=== PATIENT | female | born 1935 | race Caucasian/White ===

== ENCOUNTER 2022-07-07 10:20 | Inpatient (IN) | payer MEDICARE, SELFPAY ==
[2022-07-07] VITALS (14 sets, daily range): BP systolic 114–156; BP diastolic 41–80; PULSE 58–90; RESP 14–20; TEMP 36.1–37.1; O2SAT 92–98; BMI 28.7
--- NOTE | ~2022-07-07 | XR_ITS ---
EXAMINATION: XR CHEST CLINICAL INFORMATION: Near syncope COMPARISON: Previous x-ray February 2013 TECHNIQUE: 2 views of the chest were obtained. FINDINGS: The cardiac and mediastinal contours are stable. There is increasing elevation of the left hemidiaphragm. The lungs are clear. No pleural effusion or pneumothorax. Degenerative changes of the spine and shoulders. XR/XR chest 2V IMPRESSION: Increasing elevation of the left hemidiaphragm.
--- NOTE | 2022-07-07 10:38 | ECG_ITS ---
Test Reason : dissiness Blood Pressure : / mmHG Vent. Rate : 081 BPM Atrial Rate : 000 BPM P-R Int : 000 ms QRS Dur : 110 ms QT Int : 426 ms P-R-T Axes : 000 030 060 degrees QTc Int : 494 ms Normal sinus rhythm with frequent Premature ventricular complexes Nonspecific ST and T wave abnormality Prolonged QT Abnormal ECG When compared with ECG of 07-MAR-2013 14:42, Premature ventricular complexes are now Present Non-specific change in ST segment in Inferior leads T wave amplitude has decreased in Inferior leads QT has lengthened Referred By: Salvatore Finn Electronically Signed By:PASCALE CARDENAS MD
--- NOTE | 2022-07-07 10:45 | ED.GIBLEED ---
HPI - GI Bleed General Chief complaint: GI Bleed Stated complaint: Dizzy, black stool, Low BP per EMS Time Seen by Provider: 07/07/22 10:29 Source: patient and old records reviewed Limitations: no limitations History of Present Illness HPI Narrative: Patient complains of feeling lightheaded over the past 2-3 days. She denies chest pain or palpitations. She states she had a similar feeling the past when she was diagnosed with an irregular heartbeat. She does not know the name of the heartbeat but does not think she has atrial fibrillation. She is not on blood thinners other than aspirin daily. No nausea or vomiting. She states she had 1 episode of dark sticky stool on Tuesday but none since then. day. No abdominal pain other than cramping on Tuesday. No fevers or chills or cough or other new symptom. She denies recent medication changes. No history of GI bleed Related Data Home Medications Medication Instructions Recorded Confirmed amlodipine 5 mg tablet 5 mg PO DAILY 09/30/20 clonazepam 0.5 mg tablet 0.5 mg PO DAILY PRN 09/30/20 fluocinolone 0.025 % topical topical 09/30/20 ointment hydrochlorothiazide 25 mg tablet 25 mg PO DAILY 09/30/20 lidocaine HCl 2 % mucosal solution 2 ml PO 09/30/20 metoprolol succinate 25 mg 25 mg PO DAILY 09/30/20 tablet,extended release 24 hr rosuvastatin 10 mg tablet 10 mg PO BEDTIME 09/30/20 Allergies Allergy/AdvReac Type Severity Reaction Status Date / Time codeine [CODEINE] Allergy Unknown HEADACHE Verified 07/07/22 10:42 Review of Systems Constitutional: Comments: General malaise. No fevers or chills Cardiovascular: Comments: Lightheaded and near syncope but no syncope or palpitations or chest pain Respiratory: Comments: No cough or dyspnea Gastrointestinal: Comments: Pain other than cramping on Tuesday. No nausea vomiting. Positive dark stools concerning for melena Musculoskeletal: Comments: No musculoskeletal complaint Integumentary/Breasts: Comments: No change in color Neurologic: Comments: No focal weakness PMFSH Social History Social History Alcohol intake: current Alcohol intake frequency: a few times a week Smoked in Last 30 Days: No Use of substances other than those prescribed or required for medical reasons: No Advance Directives: No Physical Exam Vital Signs: Vital Signs: Last Vital Signs Temp 98.7 F 07/07/22 10:33 Pulse 80 07/07/22 10:33 Resp 16 07/07/22 10:33 BP 134/47 L 07/07/22 10:33 Pulse Ox 98 07/07/22 10:33 O2 Del Method Room Air 07/07/22 10:33 BMI result Body Mass Index 28.7 Const: Other: Awake and alert, no acute distress. Vital signs are stable HEENT: Other: Normocephalic atraumatic Resp: Other: Clear and equal bilaterally without wheezes rales or rhonchi Cardio: Other: Regular rate and rhythm without murmurs rubs or gallop GI: Other: Soft nontender nondistended. Rectal exam shows no hernias externally or internally. Stool is melanotic. Sample sent to lab Skin: Other: Warm pink and dry Neuro: Other: No focal deficits noted Medications Administered Discontinued Medications Generic Name Dose Route Start Last Admin Trade Name Freq PRN Reason Stop Dose Admin Sodium Chloride 500 mls @ 500 mls/hr 07/07/22 10:45 07/07/22 10:58 Ns IV 07/07/22 11:44 500 mls/hr .Q1H WILLIE Administration Pantoprazole Sodium 40 mg 07/07/22 10:44 07/07/22 11:08 Pantoprazole Sodium 40 Mg/10 Ml Vial IVPUSH 07/07/22 10:45 40 mg ONCE ONE Administration Medical Decision Making Medical Decision Making [facility] Narrative: Patient with lightheadedness and history concerning for GI bleed. Anemia workup Type and screen ordered Other potential causes such is dysrhythmia, ischemia, hypokalemia, dehydration, electrolyte imbalance are possible. Secondary cardiac ischemia if anemic also possible. Broad-based workup and anticipate hospitalization 11:47. Stool guaiac report from lab is positive confirming melena, GI bleed. Await further labs Hemoglobin is 6.8. Transfusion ordered. Lab Data 07/07/22 11:31 07/07/22 11:31 Labs: Lab Results 07/07/22 07/07/22 07/07/22 Range/Units 11:20 11:31 11:31 WBC 8.3 (4.8-10.8) X10*3/uL RBC 2.30 L (4.20-5.50) X10*6/uL Hgb 6.8 L* (12.0-16.0) g/dl Hct 20.9 L* (37.0-47.0) % MCV 90.9 (80.0-98.0) fL MCH 29.6 (27.0-33.0) pg MCHC 32.5 (31.0-35.0) g/dl RDW 14.8 (11.0-16.0) % Plt Count 213 (160-400) X10*3/uL MPV 9.2 L (9.4-12.3) fL Immature Gran % (Auto) 0.7 H (0.0-0.4) % Neut % (Auto) 78.1 H (45-73) % Lymph % (Auto) 12.7 L (20-40) % Chicot % (Auto) 7.6 (2-11) % Eos % (Auto) 0.5 (0-4) % Baso % (Auto) 0.4 (0-2) % Lymph # (Auto) 1.1 L (1.2-4.9) X10*3/uL [place] # (Auto) 0.6 (0.1-1.2) X10*3/uL Eos # (Auto) 0.0 (0.0-0.4) X10*3/uL Baso # (Auto) 0.0 (0.0-0.2) X10*3/uL Abs Immat Gran (auto) 0.06 H (0.00-0.03) X10*3/uL Absolute Neuts (auto) 6.5 (2.0-8.3) x10*3/uL Absolute Nucleated RBC 0.000 (0.0-0.012) X10*3/uL Nucleated RBC % (auto) 0.0 (0.0-0.2) /100WBC PT 11.1 (10.0-13.1) SEC INR 1.0 (0.9-1.1) D-Dimer High Sensitivty 160 NG/ML Sodium (135-145) mmol/L Potassium (3.3-5.1) mmol/L Chloride (96-108) mmol/L Carbon Dioxide (22-29) mmol/L Anion Gap (12-20) BUN (9-16) mg/dL Creatinine (0.5-1.4) mg/dL Estim Creat Clear Calc Estimated GFR Random Glucose (60-115) mg/dL Lactic Acid (0.5-2.0) mmol/L Calcium (8.4-10.2) mg/dL Total Bilirubin (0.0-1.0) mg/dL AST (5-31) U/L ALT (0-31) U/L Alkaline Phosphatase (39-117) U/L Ammonia (13-55) umol/L Troponin I High Sens (<3.5-17.0) ng/L B-Natriuretic Peptide (<100) pg/mL Total Protein (6.5-8.0) g/dL Albumin (3.5-5.0) g/dL Stool Occult Blood POSITIVE (NEGATIVE) 07/07/22 07/07/22 07/07/22 Range/Units 11:31 11:31 11:31 WBC (4.8-10.8) X10*3/uL RBC (4.20-5.50) X10*6/uL Hgb (12.0-16.0) g/dl Hct (37.0-47.0) % MCV (80.0-98.0) fL MCH (27.0-33.0) pg MCHC (31.0-35.0) g/dl RDW (11.0-16.0) % Plt Count (160-400) X10*3/uL MPV (9.4-12.3) fL Immature Gran % (Auto) (0.0-0.4) % Neut % (Auto) (45-73) % Lymph % (Auto) (20-40) % [place]ot % (Auto) (2-11) % Eos % (Auto) (0-4) % Baso % (Auto) (0-2) % Lymph # (Auto) (1.2-4.9) X10*3/uL [place] # (Auto) (0.1-1.2) X10*3/uL Eos # (Auto) (0.0-0.4) X10*3/uL Baso # (Auto) (0.0-0.2) X10*3/uL Abs Immat Gran (auto) (0.00-0.03) X10*3/uL Absolute Neuts (auto) (2.0-8.3) x10*3/uL Absolute Nucleated RBC (0.0-0.012) X10*3/uL Nucleated RBC % (auto) (0.0-0.2) /100WBC PT (10.0-13.1) SEC INR (0.9-1.1) D-Dimer High Sensitivty NG/ML Sodium 136 (135-145) mmol/L Potassium 3.6 (3.3-5.1) mmol/L Chloride 102 (96-108) mmol/L Carbon Dioxide 26 (22-29) mmol/L Anion Gap 12 (12-20) BUN 23 H (9-16) mg/dL Creatinine 0.66 (0.5-1.4) mg/dL Estim Creat Clear Calc 54.1 Estimated GFR > 60 Random Glucose 124 H (60-115) mg/dL Lactic Acid 1.2 (0.5-2.0) mmol/L Calcium 8.2 L (8.4-10.2) mg/dL Total Bilirubin 0.4 (0.0-1.0) mg/dL AST 19 (5-31) U/L ALT 13 (0-31) U/L Alkaline Phosphatase 33 L (39-117) U/L Ammonia (13-55) umol/L Troponin I High Sens 18.9 H (<3.5-17.0) ng/L B-Natriuretic Peptide (<100) pg/mL Total Protein 4.9 L (6.5-8.0) g/dL Albumin 3.3 L (3.5-5.0) g/dL Stool Occult Blood (NEGATIVE) 07/07/22 07/07/22 Range/Units 11:31 11:31 WBC (4.8-10.8) X10*3/uL RBC (4.20-5.50) X10*6/uL Hgb (12.0-16.0) g/dl Hct (37.0-47.0) % MCV (80.0-98.0) fL MCH (27.0-33.0) pg MCHC (31.0-35.0) g/dl RDW (11.0-16.0) % Plt Count (160-400) X10*3/uL MPV (9.4-12.3) fL Immature Gran % (Auto) (0.0-0.4) % Neut % (Auto) (45-73) % Lymph % (Auto) (20-40) % [place] % (Auto) (2-11) % Eos % (Auto) (0-4) % Baso % (Auto) (0-2) % Lymph # (Auto) (1.2-4.9) X10*3/uL [place] # (Auto) (0.1-1.2) X10*3/uL Eos # (Auto) (0.0-0.4) X10*3/uL Baso # (Auto) (0.0-0.2) X10*3/uL Abs Immat Gran (auto) (0.00-0.03) X10*3/uL Absolute Neuts (auto) (2.0-8.3) x10*3/uL Absolute Nucleated RBC (0.0-0.012) X10*3/uL Nucleated RBC % (auto) (0.0-0.2) /100WBC PT (10.0-13.1) SEC INR (0.9-1.1) D-Dimer High Sensitivty NG/ML Sodium (135-145) mmol/L Potassium (3.3-5.1) mmol/L Chloride (96-108) mmol/L Carbon Dioxide (22-29) mmol/L Anion Gap (12-20) BUN (9-16) mg/dL Creatinine (0.5-1.4) mg/dL Estim Creat Clear Calc Estimated GFR Random Glucose (60-115) mg/dL Lactic Acid (0.5-2.0) mmol/L Calcium (8.4-10.2) mg/dL Total Bilirubin (0.0-1.0) mg/dL AST (5-31) U/L ALT (0-31) U/L Alkaline Phosphatase (39-117) U/L Ammonia 16 (13-55) umol/L Troponin I High Sens (<3.5-17.0) ng/L B-Natriuretic Peptide 295 H (<100) pg/mL Total Protein (6.5-8.0) g/dL Albumin (3.5-5.0) g/dL Stool Occult Blood (NEGATIVE) Critical Care Time Critical Care Time Critical Care Time: Yes Total Critical Care Time: 75 Attestation: Critical care time secondary to symptomatic anemia requiring transfusion secondary to GI bleeding. Critical care time is outside of separately billable procedures Discharge Plan Discharge Patient Disposition: Admitted As Inpatient Prescriptions: No Action rosuvastatin 10 mg tablet 10 mg PO BEDTIME hydrochlorothiazide 25 mg tablet 25 mg PO DAILY metoprolol succinate 25 mg tablet extended release 24 hr 25 mg PO DAILY clonazepam 0.5 mg tablet 0.5 mg PO DAILY PRN amlodipine 5 mg tablet 5 mg PO DAILY fluocinolone 0.025 % ointment topical lidocaine HCl 2 % solution 2 ml PO
[2022-07-07] MEDS: 0.9 % Sodium Chloride 500 ML IV (10:58)
[2022-07-07] MEDS: Pantoprazole Sodium 40 MG/10 ML VIAL IVPUSH ×2 (11:08→16:37)
--- NOTE | 2022-07-07 11:28 | PC.NURSE ---
Addendum entered by Julia Zheng RN 07/07/22 11:36: Black tarry stool observed upon occult stool exam. Original Note: Pt semi-fowlers on stretcher, airway open and patent, no obvious signs of distress, no difficulty breathing. A&ox4, skin pink, warm, and dry. Lung sounds clr and equal bilaterally all lincoln. Heart sounds normal, pt has PVC's on the monitor. Bowel sounds present all lincoln, abdomen soft, non-tender. No edema noted. Pt reporting black tarry diarrhea stool since tuesday or tuesday and one smaller bowel movement since, but reports that she hasn't had much appetite. Pt also reporting some bouts of dizziness/lightheadedness.
[2022-07-07 11:37] LABS: MANUAL DIFF FLAG NO
[2022-07-07 11:43] LABS: OBS Int Ctl Valid YES; OBS1 POSITIVE (NEGATIVE)
[2022-07-07 11:47] LABS: Ammonia 16 umol/L (13-55)
[2022-07-07 11:49] LABS: Prothrombin Time 11.1 SEC (10.0-13.1)
[2022-07-07 11:50] LABS: Lactic Acid 1.2 mmol/L (0.5-2.0)
[2022-07-07 11:51] LABS: D Dimer High Sensitivity 160 NG/ML
[2022-07-07 11:55] LABS: Alanine Aminotransferase 13 U/L (0-31); Albumin Level 3.3 g/dL (3.5-5.0); Alkaline Phosphatase 33 U/L (39-117); Anion Gap 12 (12-20); Aspartate Amino Transferase 19 U/L (5-31); Basophils Percent Auto 0.4 % (0-2); Bilirubin Total 0.4 mg/dL (0.0-1.0); Blood Urea Nitrogen 23 mg/dL (9-16); Calcium 8.2 mg/dL (8.4-10.2); Carbon Dioxide 26 mmol/L (22-29); Chloride 102 mmol/L (96-108); Creatinine Clr Calc Pharmacy 54.1; Eosinophils Percent Auto 0.5 % (0-4); Estimated Glomerular Filt Rate > 60; Glucose Random 124 mg/dL (60-115); Imm Gran Abs Auto 0.06 X10*3/uL (0.00-0.03); Imm Gran Pct Auto 0.7 % (0.0-0.4); Lymphocytes Absolute Auto 1.1 X10*3/uL (1.2-4.9); Lymphocytes Percent Auto 12.7 % (20-40); Mean Corpuscular HGB Conc 32.5 g/dl (31.0-35.0); Mean Corpuscular Hemoglobin 29.6 pg (27.0-33.0); Mean Corpuscular Volume 90.9 fL (80.0-98.0); Mean Platelet Volume 9.2 fL (9.4-12.3); Monocytes Absolute Auto 0.6 X10*3/uL (0.1-1.2); Monocytes Percent Auto 7.6 % (2-11); Neutrophils Absolute Auto 6.5 x10*3/uL (2.0-8.3); Neutrophils Percent Auto 78.1 % (45-73); Platelet Count 213 X10*3/uL (160-400); Potassium 3.6 mmol/L (3.3-5.1); Red Cell Distribution Width 14.8 % (11.0-16.0); Sodium 136 mmol/L (135-145); Total Protein 4.9 g/dL (6.5-8.0); White Blood Count 8.3 X10*3/uL (4.8-10.8)
[2022-07-07 11:57] LABS: Hematocrit 20.9 % (37.0-47.0); Hemoglobin 6.8 g/dl (12.0-16.0)
--- OUTSIDE RECORDS SUMMARY | 2022-07-07 11:57 | XMS_ITS | Continuity of Care Document ---
Author Name Unknown Organization [facility] ter Address [address] [place] [id number]- Care Team Providers Care Extractor Loader And Unloader Name Role Phone Perez Faye MD Primary Care Physician [facility]counter [facility] Date(s): 04/27/22 - 05/28/[address] [id number] Attending Physician: Perez Faye MD Admitting Physician: Perez Faye MD Referring Physician: Perez Faye MD Allergies, Adverse Reactions, Alerts Substance Reaction Severity Status codeine SEVERE HEADACHE Active Immunizations Given and Recorded Vaccine Date Status Refusal Reason tetanus-diphtheria toxoids (Td) 02/01/22 Given influenza virus vaccine, inactivated 1 01/16/22 Gi viet influenza virus vaccine, inactivated 12/27/17 Tad rded influenza virus vaccine, inactivated 03/04/17 Give n influenza virus vaccine, inactivated 12/09/15 Tad rded influenza virus vaccine, inactivated 12/20/14 Tad rded influenza virus vaccine, inactivated 2 12/12/13 Gi viet influenza virus vaccine, inactivated 3 12/20/12 Gi viet influenza virus vaccine, inactivated 02/23/12 Give n influenza virus vaccine, inactivated 01/15/08 Give n influenza virus vaccine, inactivated 01/19/07 Give n SARS-CoV-2 (COVID-19) mRNA BNT-162b2 vac 11/19/20 Recorded SARS-CoV-2 (COVID-19) mRNA BNT-162b2 vac 10/24/20 Recorded Influenza Virus Vaccine (oldterm) 12/27/18 Recorde d Influenza Virus Vaccine (oldterm) 4 02/15/06 Given pneumococcal 13-valent vaccine 06/07/14 Given tetanus/diphtheria/pertussis, acel(Tdap) 10/21/11 Given FluLaval (oldterm) 5 12/11/10 Given FluLaval (oldterm) 6 01/27/10 Given influ virus vac, H1N1, inactive(oldterm) 7 12/03/10 Given Tetanus Toxoid Vaccine (oldterm) 03/28/04 Given Pneumococcal Vacc (oldterm) 06/25/03 Given 1Early/Late Reason: Early/Late Reason: Accommodate D/C 2Result Comment: [12/17/2013] [facility] 3Admin Note: DONE ON 12/18/12. [facility] 4Admin Note: GIVEN IN CLINIC SHAM 5Admin Note: Biomedical Anne [facility] 6Admin Note: BIOMEDICAL ANNE 7Result Comment: [employer] Medications amLODIPine 5 mg oral tablet 1 tablet, By Mouth, Daily, # 90 tablet, 1 Refills, Maintenance, 04/06/22 8:31:00 EST, [facility], 153, cm, 02/01/22 11:33:00 EST, Height Start Date: 04/06/22 Status: Ordered Aspir 81 Oral Enteric Coated Tablet 1 tablet, By Mouth, Daily, # 30 tablet, 0 Refills, Maintenance, EC Tablet Start Date: 05/07/10 Status: Ordered atorvastatin 10 mg oral tablet 1 tablet, By Mouth, Daily, # 90 tablet, 3 Refills, [facility], 152, cm, 06/01/21 13:37:00 EST, Height, 72.7, kg, 02/14/20 14:50:00 EST, Dry Weight Start Date: 10/14/21 Status: Ordered citalopram 10 mg oral tablet 10 mg, 1, tablet, By Mouth, Daily, # 30 tablet, Refills 0, Maintenance, 04/27/22 11:44:00 EST, Partial fill upon patient request if the prescription is for a schedule II opioid drug. Start Date: 04/27/22 Status: Ordered Compression Stockings See Instructions, # 2 pair, Refills 2, Tot. 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 Refills 1, Maintenance, 04/06/22 8:31:00 EST, Route to Pharmacy Electronically, [facility], 153, cm, 02/01/22 11:33:00 EST, Height Start Date: 04/06/22 Status: Ordered Metoprolol Succinate ER 25 mg oral tablet, extended release 1 tablet, By Mouth, Daily, # 90 tablet, 0 Refills, Maintenance, 03/09/22 11:31:00 EST, [facility], 153, cm, 02/01/22 11:33:00 EST, Height Start Date: 03/09/22 Status: Ordered Multivitamin With Minerals See Instructions, 1 tab By Mouth daily, 0 Refills, Maintenance Start Date: 09/23/10 Status: Ordered traZODone 50 mg oral tablet 100 mg, 2, tablet, By Mouth, Daily at bedtime, # 30 tablet, Refills 0, Maintenance, 04/27/22 11:45:00 EST, Partial fill upon patient request if the prescription is for a schedule II opioid drug. Start Date: 04/27/22 Status: Ordered Vitamin D3 = 2,000 International_Units, By Mouth, Daily, 0 Refills, Maintenance Start Date: 01/20/10 Status: Ordered Problem List Condition Confirmation Course Effective Dates Status Health Status Informant Gastric distention Confirmed Active Anxiety Confirmed Active Arteritis Confirmed Active Hematuria Confirmed Active Cardiac catheterization 1 Confirmed Active Colonoscopy 2, 3 Confirmed Active Constipation Confirmed Active Difficulty sleeping Confirmed Active Shortness of breath Confirmed Active Acquired elevated diaphragm 4 Confirmed Active H/O insomnia Confirmed Active Hiatal hernia 5 Confirmed Active Hernia, hiatal Confirmed 09/13/16 Active Hip joint pain Confirmed 04/05/08 Active Hypercholesterolemia Confirmed Active Hypertension Confirmed Active Hypertensive urgency Confirmed Active Mixed incontinence Confirmed Active Increased frequency of urination Confirmed Active Chronic pruritus Confirmed Active Lumbar spinal stenosis Confirmed 04/05/08 Active Lumbar spondylosis Confirmed Active 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 3colo/barium enema 2002 negative, repeat 2012 4On left-exacerbated by gastric distention 5EGD 2016 6[facility] Social History Social History Type Response Smoking Status Former smoker entered on: 04/04/17 Sex Patient Care team information Care Team Personnel Name: Milagros Minor RN Position: [facility] RN Member Role: Primary Care Nurse Name: Perez Faye MD Position: [facility] Primary Care Physician Member Role: PCP Address: Address: [address] [place] [id number]- Name: Erin Hudson RN Position: [facility] RN Member Role: Primary Care Nurse Name: Giovanny Sanderson MD Position: [facility] Cardiology MD Member Role: Lifetime Consulting Physician Address: Address: [address] [place] [address] [place] [address]- Care Team Related Persons Name: ZHANNA GUADALUPE Address: home [address] [place] [address] Name: ROSALINDA DENNY Address: home [address] [place] [address]
--- OUTSIDE RECORDS SUMMARY | 2022-07-07 11:57 | XMS_ITS | Continuity of Care Document ---
Author Name Unknown Organization [facility] Rajat Tremayne lt Address [address] [place] [address]- Care Team Providers Care Third Grade Teacher Name Role Phone Neyda DUENAS, Perez Alfaro Primary Care Physician [phone] [facility]counter [facility] Date(s): 03/19/22 - 04/18/22 [facility] [address] [place] [address]- Allergies, Adverse Reactions, Alerts Substance Reaction Severity [...] Early/Late Reason: Accommodate D/C 2Result Comment: [12/17/2013] [facility] 3Admin Note: DONE ON 12/18/12. [facility] 4Admin Note: GIVEN IN CLINIC SHAM 5Admin Note: Biomedical Anne [facility] 6Admin Note: BIOMEDICAL ANNE 7Result Comment: [employer] Medications amLODIPine 5 mg oral tablet 1 tablet, By Mouth, Daily, # 90 tablet, 1 Refills, Maintenance, 04/06/22 8:31:00 EST, [facility], cm, 02/01/22 11:33:00 EST, Height Start Date: 04/06/22 Status: Ordered Aspir 81 Oral Enteric Coated Tablet 1 tablet, By Mouth, Daily, # 30 tablet, 0 Refills, Maintenance, EC Tablet Start Date: 05/07/10 Status: Ordered atorvastatin 10 mg oral tablet 1 tablet, By Mouth, Daily, # 90 tablet, 3 Refills, [facility], 152, cm, 06/01/21 13:37:00 EST, Height, 72.7, kg, 02/14/20 14:50:00 EST, Dry Weight Start Date: 10/14/21 Status: Ordered clonazePAM 0.5 mg oral tablet See Instructions, 0.5 tablet in the morning and 1 tablet at night., # 45 tablet, 5 Refills, Maintenance, 02/03/22 13:20:00 EST, [facility]/pharmacy #[id number], 153, cm, 02/01/22 11:33:00 EST, Height, 72.7, kg, 02/14/20 14:50:00 EST, Dry Weight Start Date: 02/03/22 Status: Ordered Compression Stockings See Instructions, # 2 pair, Refills 2, Tot. 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 Refills 1, Maintenance, 04/06/22 8:31:00 EST, Route to Pharmacy Electronically, [facility], 153, cm, 02/01/22 11:33:00 EST, Height Start Date: 04/06/22 Status: Ordered Metoprolol Succinate ER 25 mg oral tablet, extended release 1 tablet, By Mouth, Daily, # 90 tablet, 0 Refills, Maintenance, 03/09/22 11:31:00 EST, [facility], 153, cm, 02/01/22 11:33:00 EST, Height Start Date: 03/09/22 Status: Ordered Multivitamin With Minerals See Instructions, 1 tab By Mouth daily, 0 Refills, Maintenance Start Date: 09/23/10 Status: Ordered physical therapy physical therapy, See Instructions, # 1 each, Refills 0, Tot. Refills 0, Maintenance, evaluate and treat for neck pain, 11/25/20 11:35:00 EDT, Supply Start Date: 11/25/20 Status: Ordered Vitamin D3 = 2,000 International_Units, [...] Active Acquired elevated diaphragm 4 Confirmed Active Hiatal hernia 5 Confirmed Active Hernia, hiatal Confirmed 09/13/16 Active Hip joint pain Confirmed 04/05/08 Active Hypercholesterolemia Confirmed Active Hypertension Confirmed Active Hypertensive urgency Confirmed Active Mixed incontinence Confirmed Active Increased frequency of urination Confirmed Active Chronic pruritus Confirmed Active Lumbar spinal stenosis Confirmed 04/05/08 Active Lumbar spondylosis Confirmed Active Neck pain Confirmed Active Obese [...] Confirmed 11/28/08 Active 1cath 2010 nl 2colonoscopy 2012 normal, no repeat secondary to age. 3colo/barium enema 2002 negative, repeat 2013 4On left-exacerbated by gastric distention 5EGD 2016 6[facility] Social History Social History Type Response Smoking Status Former smoker entered on: 04/04/17 Sex Patient Care team information Care Team Personnel Name: Milagros Minor RN Position: S RN Member Role: Primary Care Nurse Name: Perez Faye MD Position: [facility] Primary Care Physician Member Role: PCP Address: Address: [address] [place] [id number]- Name: Erin Hudson RN Position: [facility] RN Member Role: Primary Care Nurse Name: Giovanny Sanderson MD Position: [facility] Cardiology MD Member Role: Lifetime Consulting Physician Address: Address: [address] [place] [address] [place] [address]- Care Team Related Persons Name: ZHANNA GUADALUPE Address: home [address] [place] [address] Name: ROSALINDA DENNY Address: home [address] [place] [address]
--- OUTSIDE RECORDS SUMMARY | 2022-07-07 11:58 | XMS_ITS | Continuity of Care Document ---
Author Name Unknown Organization [facility] Address [address] [place] [address]- Care Team Providers Care Butadiene Converter Helper Name Role Phone Perez Faye MD Primary Care Physician Encounter 05/07/19 - 05/14/19 [facility] [address], [facility] [address] [place] [address]- [phone] Attending Physician: Perez Faye MD Admitting Physician: Perez Faye MD Referring Physician: Perez Faye MD Allergies, Adverse Reactions, Alerts Substance Reaction Severity Status codeine SEVERE HEADACHE Active Immunizations Given and Recorded Vaccine Date Status Refusal Reason Influenza Virus Vaccine (oldterm) 12/27/18 Recorde d Influenza Virus Vaccine (oldterm) 1 02/15/06 Given influenza virus vaccine, inactivated 12/27/17 Tad rded [...] influenza virus vaccine, inactivated 01/19/07 Give n pneumococcal 13-valent vaccine 06/07/14 Given tetanus/diphtheria/pertussis, acel(Tdap) 10/21/11 Given FluLaval (oldterm) 4 12/11/10 Given FluLaval (oldterm) 5 01/27/10 Given influ virus vac, H1N1, inactive(oldterm) 6 12/03/10 Given Tetanus Toxoid Vaccine (oldterm) 03/28/04 Given Pneumococcal Vacc (oldterm) 06/25/03 Given 1Admin Note: GIVEN IN CLINIC SHAM 2Result Comment: [12/17/2013] [facility] 3Admin Note: DONE ON 12/18/12. [facility] 4Admin Note: Biomedical Anne [facility] 5Admin Note: BIOMEDICAL ANNE 6Result Comment: WRONG BRAND Medications amLODIPine 2.5 mg oral tablet See Instructions, 1 tablet daily at night. One extra tablet in the morning if morning blood pressure is greater than 140 systolic., # 180 tablet, Refills 3, Tot. Refills 3, Maintenance, 02/19/19 9:17:48 EST, Instructions Replace Required Details, Rou... Start Date: 02/19/19 Status: Ordered Aspir 81 Oral Enteric Coated Tablet 1 tablet, By Mouth, Daily, # 30 tablet, 0 Refills, Maintenance, EC Tablet Start Date: 05/07/10 Status: Ordered Citrucel 2 gm/19 gm oral powder for reconstitution = 2 Gm, By Mouth, 3 times a day, # 1,500 Gm, 11 Refills, Maintenance, 08/02/16 8:20:58 Start Date: 08/02/16 Status: Ordered Compression Stockings See Instructions, # 2 pair, Refills 2, Tot. 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 Refills 3, Soft Stop, 02/19/19 9:16:10 EST, Route to Pharmacy Electronically, [id number], [facility]/pharmacy #[id number] Start Date: 02/19/19 Stop Date: 02/14/20 Status: Ordered KlonoPIN 0.5 mg oral tablet 1 tablet = 0.5 mg, By Mouth, 2 times a day, # 60 tablet, 5 Refills, Maintenance, 11/29/18 15:09:00 EDT, Tablet Start Date: 11/29/18 Status: Ordered metoprolol 25 mg oral tablet, extended release 25 mg, 1, tablet, By Mouth, Daily, 90 DAY SUPPLY, # 90 tablet, Refills 3, Tot. Refills 3, Maintenance, 02/19/19 9:17:30 EST, Route to Pharmacy Electronically, [id number], [facility]/pharmacy #[id number] Start Date: 02/19/19 Stop Date: 02/14/20 Status: Ordered Multivitamin With Minerals See Instructions, 1 tab By Mouth daily, 0 Refills, Maintenance Start Date: 09/23/10 Status: Ordered ProAir HFA 90 mcg/inh inhalation aerosol with adapter 2, puffs, Inhalation, Every 6 hours, PRN, # 8.5 Gm, Refills 11, Tot. Refills 11, Maintenance, 11/16/18 8:10:59 EDT, Aerosol, Route to Pharmacy Electronically, [id number], [facility]/pharmacy #[id number] Start Date: 11/16/18 Status: Ordered rosuvastatin 10 mg oral tablet See Instructions, TAKE 1 TABLET DAILY, # 90 tablet, 3 Refills, Soft Stop, 02/19/19 9:18:19 EST Start Date: 02/19/19 Status: Ordered Vitamin C By Mouth, Daily, 0 Refills, Maintenance, 08/02/16 7:52:28 Start Date: 08/02/16 Status: Ordered Vitamin D3 = 2,000 International_Units, By Mouth, Daily, 0 Refills, Maintenance Start Date: 01/20/10 Status: Ordered Problem List Condition Effective Dates Status Health Status Inform ant Gastric distention(Confirmed) Active Anxiety(Confirmed) Active Cardiac catheterization(Confirmed) 1 Active Colonoscopy(Confirmed) 2, 3 Active Constipation(Confirmed) Active Shortness of breath(Confirmed) Active Acquired elevated diaphragm( Confirmed) 4 Active Hiatal hernia(Confirmed) 5 Active Hernia, hiatal(Confirmed) 09/13/16 Active Hip joint pain(Confirmed) 04/05/08 Active Hypercholesterolemia(Confirmed) Active Hypertension(Confirmed) Active Hypertensive urgency(Confirmed) Active Chronic pruritus(Confirmed) Active Lumbar spinal stenosis(Confirmed) 04/05/08 Active Lumbar spondylosis(Confirmed) Active Neck pain(Confirmed) Active Osteoarthritis(Confirmed) Active Osteopenia(Confirmed) 6 Active PMR - Polymyalgia rheumatica(Confirmed) Active Leg swelling(Confirmed) Active Temporal arteritis(Confirmed) Active Venous stasis(Confirmed) Active Vitamin D deficiency(Confirmed) 11/28/08 Active 1cath 2010 nl 2colonoscopy 2012 normal, no repeat secondary to age. 3colo/barium enema 2002 negative, repeat 2012 4On left-exacerbated by gastric distention 5EGD 2016 [facility] Social History Social History Type Response Smoking Status Former smoker entered on: 04/04/17 Sex
--- OUTSIDE RECORDS SUMMARY | 2022-07-07 11:58 | XMS_ITS | Continuity of Care Document ---
Author Name Unknown Organization [facility] Address [address] [place] [address]- Care Team Providers Care Head Of Digital Name Role Phone Neyda DUENAS, Perez Alfaro Primary Care Physician [phone] Encounter [facility] Date(s): 06/01/21 - 07/01/21 [facility] Adult [address] [place] [address]- Attending Physician: Admabelardo, [id number] Admitting Physician: Admtr, [id number] Referring Physician: Admtr, Ar8 Allergies, Adverse Reactions, Alerts Substance Reaction Severity Status codeine SEVERE HEADACHE Active Immunizations Given and Recorded Vaccine Date Status Refusal Reason SARS-CoV-2 (COVID-19) mRNA BNT-162b2 vac 11/19/20 Recorded [...] GIVEN IN CLINIC SHAM 2Result Comment: [12/17/2013] [facility] 3Admin Note: DONE ON 12/18/12. [facility] 4Admin Note: Biomedical Anne [facility] 5Admin Note: BIOMEDICAL ANNE 6Result Comment: WRONG BRAND Medications amLODIPine 5 mg oral tablet 1 tablet, By Mouth, Daily, # 90 tablet, 1 Refills, [facility], 152, cm, 11/25/20 11:04:00 EDT, Height, 72.7, kg, 02/14/20 14:50:00 EST, Dry Weight Start Date: 04/16/21 Status: Ordered Aspir 81 Oral Enteric Coated Tablet 1 tablet, By Mouth, Daily, # 30 tablet, 0 Refills, Maintenance, EC Tablet Start Date: 05/07/10 Status: Ordered atorvastatin 10 mg oral tablet 1 tablet = 10 mg, By Mouth, Daily, # 90 tablet, 3 Refills, Maintenance, 10/30/20 11:22:00 EDT, [facility], Partial fill upon patient request if the prescription is for a schedule II opioid drug., 152, cm, 08/11/20 11:15:00 EDT,... Start Date: 10/30/20 Status: Ordered clonazePAM 0.5 mg oral tablet See Instructions, TAKE 1/2 TABLET TWICE A DAY APPOINTMENT NEEDED FOR FURTHER REFILLS, # 30 tablet, 5 Refills, Maintenance, 03/30/21 9:35:00 EST, [facility]/pharmacy #[id number], 152, cm, 11/25/20 11:04:00 EDT, Height, 72.7, kg, 02/14/20 14:50:00 EST, Dry Weight Start Date: 03/30/21 Status: Ordered clonazePAM 0.5 mg oral tablet See Instructions, TAKE HALF A TABLET BY MOUTH TWO TIMES A DAY, # 30 tablet, 0 Refills, Maintenance,12/11/20 7:41:00 EDT, [facility], 152, cm, 11/25/20 11:04:00 EDT, Height, 72.7, kg, 02/14/20 14:50:00 EST, Dry Weight Start Date: 12/11/20 Status: Ordered Compression Stockings See Instructions, # [...] Mouth, Daily, # 90 tablet, Refills 1, Route to Pharmacy Electronically, [facility], 152, cm, 11/25/20 11:04:00 EDT, Height, 72.7, kg, 02/14/20 14:50:00 EST, Dry Weight Start Date: 04/17/21 Status: Ordered Metoprolol Succinate ER 25 mg oral tablet, extended release 1 tablet, By Mouth, Daily, # 90 tablet, 1 Refills, [facility], 152, cm, 06/01/21 13:37:00 EST, Height, 72.7, kg, 02/14/20 14:50:00 EST, Dry Weight Start Date: 06/10/21 Status: Ordered Multivitamin With Minerals See Instructions, 1 tab By Mouth daily, 0 Refills, Maintenance Start Date: 09/23/10 Status: Ordered physical therapy physical therapy, See Instructions, # 1 each, Refills 0, Tot. Refills 0, Maintenance, evaluate and treat for neck pain, 11/25/20 11:35:00 EDT, Supply Start Date: 11/25/20 Status: Ordered Vitamin C By Mouth, Daily, 0 Refills, Maintenance, 08/02/16 7:52:28 Start Date: 08/02/16 Status: Ordered Vitamin D3 = 2,000 International_Units, By Mouth, Daily, 0 Refills, Maintenance Start Date: 01/20/10 Status: Ordered Problem List Condition Effective Dates Status Health Status Inform ant Gastric distention(Confirmed) Active Anxiety(Confirmed) Active Arteritis(Confirmed) Active Hematuria(Confirmed) Active Cardiac catheterization(Confirmed) 1 Active Colonoscopy(Confirmed) 2, 3 Active Constipation(Confirmed) Active Shortness of breath(Confirmed) Active Acquired elevated diaphragm( Confirmed) 4 Active Hiatal hernia(Confirmed) 5 Active Hernia, hiatal(Confirmed) 09/13/16 Active Hip joint pain(Confirmed) 04/05/08 Active Hypercholesterolemia(Confirmed) Active Hypertension(Confirmed) Active Hypertensive urgency(Confirmed) Active Mixed incontinence(Confirmed) Active Increased frequency of urination(Confirmed) Active Chronic pruritus(Confirmed) Active Lumbar spinal stenosis(Confirmed) 04/05/08 Active Lumbar spondylosis(Confirmed) Active Neck pain(Confirmed) Active Obese class I(Confirmed) Active Osteoarthritis(Confirmed) Active Osteopenia(Confirmed) 6 Active PMR - Polymyalgia rheumatica(Confirmed) Active Right sided sciatica(Confirmed) Active Spinal stenosis(Confirmed) Active Leg swelling(Confirmed) Active Temporal arteritis(Confirmed) Active Urinary incontinence(Confirmed) Active Venous stasis(Confirmed) Active Vitamin D deficiency(Confirmed) 11/28/08 Active 1cath 2011 nl 2colonoscopy 2012 normal, no repeat secondary to age. 3colo/barium enema 2002 negative, repeat 2012 4On left-exacerbated by gastric distention 5EGD 2016 [facility] Social History Social History Type Response Smoking Status Former smoker entered on: 04/04/17 Sex
--- OUTSIDE RECORDS SUMMARY | 2022-07-07 11:58 | XMS_ITS | Continuity of Care Document ---
Author Name Unknown Organization [facility] [facility] Address [address] [place] [address]- Care Team Providers Care Captain Room Service Name Role Phone Perez Faye MD Primary Care Physician Encounter [facility] Date(s): 11/25/20 - 12/02/20 [facility] Adult [address] [place] [address]- Encounter Diagnosis Anxiety(Discharge Diagnosis) - 11/25/20 Hypercholesterolemia(Discharge Diagnosis) - 11/25/20 Hypertension(Discharge Diagnosis) - 11/25/20 Temporal arteritis(Discharge Diagnosis) - 11/25/20 Neck pain(Discharge Diagnosis) - 11/25/20 Attending Physician: Perez Faye MD Allergies, Adverse Reactions, [...] GIVEN IN CLINIC SHAM 2Result Comment: [12/17/2013] [facility] 3Admin Note: DONE ON 12/18/12. [facility] 4Admin Note: Biomedical Anne [facility] 5Admin Note: BIOMEDICAL ANNE 6Result Comment: WRONG BRAND Medications amLODIPine 5 mg oral tablet 5 mg, 1, tablet, By Mouth, Daily, # 90 tablet, Refills 0, Tot. Refills 0, Maintenance, 10/30/20 11:24:00 EDT, Route to Pharmacy Electronically, [facility], 152, cm, 08/11/20 11:15:00 EDT, Height, 72.7, kg, 02/14/20 14:50:00 EST,... Start Date: 10/30/20 Status: Ordered Aspir 81 Oral Enteric Coated Tablet 1 tablet, By Mouth, Daily, # 30 tablet, 0 Refills, Maintenance, EC Tablet Start Date: 05/07/10 Status: Ordered atorvastatin 10 mg oral tablet 1 tablet = 10 mg, By Mouth, Daily, # 90 tablet, 3 Refills, Maintenance, 10/30/20 11:22:00 EDT, [facility], Partial fill upon patient request if the prescription is for a schedule II opioid drug., 152, cm, 08/11/20 11:15:00 EDT,... Start Date: 10/30/20 Status: Ordered clonazePAM 0.5 mg oral tablet See Instructions, TAKE HALF A TABLET BY MOUTH TWO TIMES A DAY, # 30 tablet, 0 Refills, Maintenance,11/07/20 12:31:00 EDT, [facility]/pharmacy #[id number], 152, cm, 08/11/20 11:15:00 EDT, Height, 72.7, kg, 02/14/20 14:50:00 EST, Dry Weight Start Date: 11/07/20 Status: Ordered Compression Stockings See Instructions, # [...] 90 tablet, Refills 1, Tot. Refills 1, Soft Stop, 10/30/20 11:23:00 EDT, Route to Pharmacy Electronically, [facility], 152, cm, 08/11/20 11:15:00 EDT, Height, 72.7, kg, 02/14/20 14:50:00 EST,... Start Date: 10/30/20 Stop Date: 04/28/21 Status: Ordered metoprolol 25 mg oral tablet, extended release 25 mg, 1, tablet, By Mouth, Daily, 90 DAY SUPPLY, # 90 tablet, Refills 0, Tot. Refills 0, Maintenance, 10/30/20 11:23:00 EDT, Route to Pharmacy Electronically, [facility], 152,cm, 08/11/20 11:15:00 EDT, Height, 72.7, kg, ... Start Date: 10/30/20 Stop Date: 01/28/21 Status: Ordered Multivitamin With Minerals See Instructions, [...] gastric distention 5EGD 2016 [facility] Diagnosis Diagnosis Type Effective Dates Health Status Clinical Service Informant Anxiety Discharge Diagnosis 11/25/20 Hypercholesterolemia Discharge Diagnosis 11/25/20 Hypertension Discharge Diagnosis 11/25/20 Temporal arteritis Discharge Diagnosis 11/25/20 Neck pain Discharge Diagnosis 11/25/20 Vital Signs Most recent to oldest [Reference Range]: 1 Height 152 cm (11/25/20 11:04 AM) Weight 70.8 kg (11/25/20 11:04 AM) Oxygen Saturation [94-100 %] 97 % (11/25/20 11:04 AM) Pulse Rate [55-90 bpm] 72 bpm (11/25/20 11:04 AM) Body Mass Index [18.5-24.99] 30.64 *>HHI* (11/25/20 11:04 AM) Blood Pressure [90-138/55-84 mm Hg] 136/ 78mm Hg (11/25/20 11:04 AM) Mode of Delivery (Oxygen) Room air (11/25/20 11:04 AM) Blood pressure sites Arm, left (11/25/20 11:04 AM) Weight Obtained Via Standing scale (11/25/20 11:04 AM) Social History Social History Type Response Smoking Status Former smoker entered on: 04/04/17 Sex
--- OUTSIDE RECORDS SUMMARY | 2022-07-07 11:58 | XMS_ITS | Continuity of Care Document ---
Author Name Unknown Organization [facility] [facility] Address [address] [place] [address]- Care Team Providers Care Maintenance Journeyman Name Role Phone Neyda DUENAS, Perez Alfaro Primary Care Physician Encounter [facility] Date(s): 05/29/21 - 06/28/21 [facility] Adult [address] [place] [address]- Allergies, Adverse Reactions, Alerts Substance Reaction Severity [...] Tad rded influenza virus vaccine, inactivated 12/20/14 Tda rded influenza virus vaccine, inactivated 2 12/12/13 [...] GIVEN IN CLINIC SHAM 2Result Comment: [12/17/2013] [facility] 3Admin Note: DONE ON 12/18/12. [facility] 4Admin Note: Biomedical Anne [facility] 5Admin Note: BIOMEDICAL ANNE 6Result Comment: [...] tablet, 3 Refills, Maintenance, 10/30/20 11:22:00 EDT, [facility], Partial fill upon patient request if the prescription is for a schedule II opioid drug., 152, cm, 08/11/20 11:15:00 EDT,... Start Date: 10/30/20 Status: Ordered clonazePAM 0.5 mg oral tablet See Instructions, TAKE 1/2 TABLET TWICE A DAY APPOINTMENT NEEDED FOR FURTHER REFILLS, # 30 tablet, 5 Refills, Maintenance, 03/30/21 9:35:00 EST, [facility]/pharmacy #[id number], 152, cm, 11/25/20 11:04:00 EDT, Height, 72.7, kg, 02/14/20 14:50:00 EST, Dry Weight Start Date: 03/30/21 Status: Ordered clonazePAM 0.5 mg oral tablet See Instructions, TAKE HALF A TABLET BY MOUTH TWO TIMES A DAY, # 30 tablet, 0 Refills, Maintenance,12/11/20 7:41:00 EDT, [facility], 152, cm, 11/25/20 11:04:00 EDT, [...] tablet, Refills 1, Route to Pharmacy Electronically, [facility], 152, cm, 11/25/20 11:04:00 EDT, Height, 72.7, kg, 02/14/20 14:50:00 EST, Dry Weight Start Date: 04/17/21 Status: Ordered Metoprolol Succinate ER 25 mg oral tablet, extended release 1 tablet, By Mouth, Daily, # 90 tablet, 1 Refills, [facility], 152, cm, 06/01/21 13:37:00 [...]
--- OUTSIDE RECORDS SUMMARY | 2022-07-07 11:58 | XMS_ITS | Continuity of Care Document ---
Author Name Unknown Organization [facility] [facility] Address [address] [place] [address]- Care Team Providers Care Properties Supervisor Name Role Phone Neyda DUENAS, Perez Alfaro Primary Care Physician [phone] Encounter [facility] Date(s): 10/30/20 - 11/29/20 [facility] Adult [address] [place] [address]- Allergies, Adverse Reactions, Alerts Substance Reaction Severity [...] GIVEN IN CLINIC SHAM 2Result Comment: [12/17/2013] [facility] 3Admin Note: DONE ON 12/18/12. [facility] 4Admin Note: Biomedical Anne [facility] 5Admin Note: BIOMEDICAL ANNE 6Result Comment: WRONG BRAND Medications amLODIPine 5 mg oral tablet 5 mg, 1, tablet, By Mouth, Daily, # 90 tablet, Refills 0, Tot. Refills 0, Maintenance, 10/30/20 11:24:00 EDT, Route to Pharmacy Electronically, [facility], 152, cm, 08/11/20 11:15:00 EDT, Height, 72.7, kg, 02/14/20 14:50:00 EST,... Start Date: 10/30/20 Status: Ordered Aspir 81 Oral Enteric Coated Tablet 1 tablet, By Mouth, Daily, # 30 tablet, 0 Refills, Maintenance, EC Tablet Start Date: 05/07/10 Status: Ordered atorvastatin 10 mg oral tablet 1 tablet = 10 mg, By Mouth, Daily, # 90 tablet, 3 Refills, Maintenance, 10/30/20 11:22:00 EDT, [facility], Partial fill upon patient request if the prescription is for a schedule II opioid drug., 152, cm, 08/11/20 11:15:00 EDT,... Start Date: 10/30/20 Status: Ordered clonazePAM 0.5 mg oral tablet See Instructions, TAKE HALF A TABLET BY MOUTH TWO TIMES A DAY, # 30 tablet, 0 Refills, Maintenance,11/07/20 12:31:00 EDT, [facility]/pharmacy #[id number], 152, cm, 08/11/20 11:15:00 EDT, [...] 10/30/20 11:23:00 EDT, Route to Pharmacy Electronically, [facility], 152, cm, 08/11/20 11:15:00 EDT, Height, 72.7, kg, 02/14/20 14:50:00 EST,... Start Date: 10/30/20 Stop Date: 04/28/21 Status: Ordered metoprolol 25 mg oral tablet, extended release 25 mg, 1, tablet, By Mouth, Daily, 90 DAY SUPPLY, # 90 tablet, Refills 0, Tot. Refills 0, Maintenance, 10/30/20 11:23:00 EDT, Route to Pharmacy Electronically, [facility], 152,cm, 08/11/20 11:15:00 EDT, Height, 72.7, [...]
--- OUTSIDE RECORDS SUMMARY | 2022-07-07 11:58 | XMS_ITS | Continuity of Care Document ---
Author Name Unknown Organization [facility] [facility] Address [address] [place] [address]- Care Team Providers Care Centrifugal Drier Operator Name Role Phone Perez Faye MD Primary Care Physician [place] [facility] Date(s[place] 05/02/19 - 05/09/19 [facility] Adult [address] [place] [address]- [facility] Encounter Diagnosis Hypertension(Discharge Diagnosis) - 05/02/19 Attending Physician: Perez Faye MD Allergies, Adverse [...] [12/17/2013] [facility] 3Admin Note: DONE ON 12/18/12. [facility] 4Admin Note: Biomedical Anne [facility] 5Admin Note: BIOMEDICAL ANNE 6Result Comment: WRONG [...] 02/19/19 9:16:10 EST, Route to Pharmacy Electronically, [id number], [facility]/pharmacy #[id number] Start Date: 02/19/19 Stop Date: 02/14/20 Status: [...] 02/19/19 9:17:30 EST, Route to Pharmacy Electronically, [id number], [facility]/pharmacy #[id number] Start Date: 02/19/19 Stop Date: 02/14/20 Status: Ordered Multivitamin With Minerals See Instructions, 1 tab By Mouth daily, 0 Refills, Maintenance Start Date: 09/23/10 Status: Ordered ProAir HFA 90 mcg/inh inhalation aerosol with adapter 2, puffs, Inhalation, Every 6 hours, PRN, # 8.5 Gm, Refills 11, Tot. Refills 11, Maintenance, 11/16/18 8:10:59 EDT, Aerosol, Route to Pharmacy Electronically, [id number], [facility]/pharmacy #[id number] Start Date: 11/16/18 Status: Ordered [...] Diagnosis Diagnosis Type Effective Dates Health Status Cl inical Service Informant Hypertension Discharge Diagnosis 05/02/19 Vital Signs Most recent to oldest [Reference Range]: 1 Height 154 cm (05/02/19 2:36 PM) Weight 74.5 kg (05/02/19 2:36 PM) Oxygen Saturation [94-100 %] 98 % (05/02/19 2:36 PM) Pulse Rate [55-90 bpm] 66 bpm (05/02/19 2:36 PM) Body Mass Index [18.5-24.99] 31.41 *>HHI* (05/02/19 2:36 PM) Blood Pressure [90-138/55-84 mm Hg] 180/ 96mm Hg *H* (05/02/19 2:36 PM) Mode of Delivery (Oxygen) Room air (05/02/19 2:36 PM) Blood pressure sites Arm, right (05/02/19 2:36 PM) Weight Obtained Via Standing scale (05/02/19 2:36 PM) Social History Social History Type Response Smoking Status Former smoker entered on: 04/04/17 Sex
--- OUTSIDE RECORDS SUMMARY | 2022-07-07 11:58 | XMS_ITS | Continuity of Care Document ---
Author Name Unknown Organization [facility] Rtemayne lt Address [address] [place] [address]- Care Team Providers Care Piler Name Role Phone Neyda DUENAS, Perez Alfaro Primary Care Physician [phone] [facility]counter [facility] Date[facility]s): 01/13/22 - 02/12/22 [facility] Adult [address] [place] [address]- Allergies, Adverse Reactions, Alerts Substance Reaction Severity [...] Early/Late Reason: Accommodate D/C 2Result Comment: [12/17/2013] [facility] 3Admin Note: DONE ON 12/18/12. [facility] 4Admin Note: GIVEN IN CLINIC SHAM 5Admin Note: Biomedical Anne [facility] 6Admin Note: BIOMEDICAL ANNE 7Result Comment: WRONG BRAND Medications amLODIPine 5 mg oral tablet 1 tablet, By Mouth, Daily, # 90 tablet, 1 Refills, [facility], 152, cm, 06/01/21 13:37:00 EST, Height, 72.7, kg, 02/14/20 14:50:00 EST, Dry Weight Start Date: 10/14/21 Status: Ordered Aspir 81 Oral Enteric Coated Tablet 1 tablet, By Mouth, Daily, # 30 tablet, 0 Refills, Maintenance, EC Tablet Start Date: 05/07/10 Status: Ordered atorvastatin 10 mg oral tablet 1 tablet, By Mouth, Daily, # 90 tablet, 3 Refills, [facility], 152, cm, 06/01/21 13:37:00 EST, Height, 72.7, kg, 02/14/20 14:50:00 EST, Dry Weight Start Date: 10/14/21 Status: Ordered clonazePAM 0.5 mg oral tablet See Instructions, 0.5 tablet in the morning and 1 tablet at night., # 45 tablet, 5 Refills, Maintenance, 02/03/22 13:20:00 EST, [id number], 153, cm, 02/01/22 11:33:00 EST, Height, [...] tablet, Refills 1, Route to Pharmacy Electronically, [facility], 152, cm, 06/01/21 13:37:00 EST, Height, 72.7, kg, 02/14/20 14:50:00 EST, Dry Weight Start Date: 10/14/21 Status: Ordered metoprolol 50 mg oral tablet, extended release 50 mg, 1, tablet, By Mouth, Daily, # 90 tablet, Refills 3, Tot. Refills 3, Maintenance, 02/01/22 12:20:00 EST, Route to Pharmacy Electronically, [facility], Partial fill upon patient request if the prescription is for a schedule... Start Date: 02/01/22 Status: Ordered Multivitamin With Minerals See Instructions, [...] Team Personnel Name: Milagros Minor RN Position: [facility] RN Member Role: Primary Care Nurse Name: Perez Faye MD Position: [facility] Primary Care Physician Member Role: PCP Address: Address: [address] [place] [address]- Name: Erin Hudson RN Position: [facility] RN Member Role: Primary Care Nurse Name: Kin DUENAS, Giovanny Monson Position: [facility] Cardiology MD Member Role: Lifetime Consulting Physician Address: Address: [address] [place] [address] [place] [address]- Care Team Related Persons Name: ZHANNA GUADALUPE Address: home [address] [place] [address] Name: ROSALINDA DENNY Address: home [address] [place] [address]
--- OUTSIDE RECORDS SUMMARY | 2022-07-07 11:58 | XMS_ITS | Continuity of Care Document ---
Author Name Unknown Organization [facility] Tremayne lt Address [address] [place] [address]- Care Team Providers Care Finance Assistant Name Role Phone Perez Faye MD Primary Care Physician Encounter [facility] Date(s): 02/01/22 - 02/08/22 [facility] Adult [address] [place] [address]- Encounter Diagnosis Systolic heart failure(Discharge Diagnosis) - 02/01/22 Hypertension(Discharge Diagnosis) - 02/01/22 Attending Physician: Perez Faye MD Allergies, Adverse [...] Early/Late Reason: Accommodate D/C 2Result Comment: [12/17/2013] [facility] 3Admin Note: DONE ON 12/18/12. [facility] 4Admin Note: GIVEN IN CLINIC SHAM 5Admin Note: Biomedical Anne [facility] 6Admin Note: BIOMEDICAL ANNE 7Result Comment: [...] tablet, Refills 1, Route to Pharmacy Electronically, [facility], 152, cm, 06/01/21 13:37:00 EST, Height, 72.7, kg, 02/14/20 14:50:00 EST, Dry Weight Start Date: 10/14/21 Status: Ordered metoprolol 50 mg oral tablet, extended release 50 mg, 1, tablet, By Mouth, Daily, # 90 tablet, Refills 3, Tot. Refills 3, Maintenance, 02/01/22 12:20:00 EST, [facility], Partial fill upon patient request if [...] Vitamin D 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 1cath 2011 nl 2colonoscopy 2012 normal, no repeat secondary to age. 3colo/barium enema 2002 negative, repeat 2012 4On left-exacerbated by gastric distention 5EGD 2016 [facility] Diagnosis Diagnosis Type Effective Dates Health Status Clinical Service Informant Systolic heart failure Discharge Diagnosis 02/01/22 Hypertension Discharge Diagnosis 02/01/22 Vital Signs Most recent to oldest [Reference Range]: 1 Height 153 cm (02/01/22 11:33 AM) Weight 70.3 kg (02/01/22 11:33 AM) Oxygen Saturation [94-100 %] 97 % (02/01/22 11:33 AM) Pulse Rate [55-90 bpm] 88 bpm (02/01/22 11:33 AM) Body Mass Index [18.5-24.99 kg/m2] 30.03 kg/m2 *>HHI* (02/01/22 11:33 AM) Blood Pressure [90-138/55-84 mm Hg] 126/ 55mm Hg (02/01/22 11:33 AM) Blood pressure sites Arm, left (02/01/22 11:33 AM) Weight Obtained Via Standing scale (02/01/22 11:33 AM) Social History Social History Type Response Smoking Status Former smoker entered on: 04/04/17 Sex Patient Care team information Care Team Personnel Name: Milagros Minor RN Position: S RN Member Role: Primary Care Nurse Name: Perez Faye MD Position: [facility] Primary Care Physician Member Role: PCP Address: Address: [address] [place] [address]- [place] Name: Erin Hudson RN Position: [facility] RN Member Role: Primary Care Nurse Name: Giovanny Sanderson MD Position: [facility] Cardiology MD Member Role: Lifetime Consulting Physician Address: Address: [address] [place] [address] [place] [address]- Care Team Related Persons Name: ZHANNA GUADALUPE Address: home [address] [place] [address] Name: ROSALINDA DENNY Address: home [address] [place] [address]
--- OUTSIDE RECORDS SUMMARY | 2022-07-07 11:58 | XMS_ITS | Continuity of Care Document ---
Author Name Unknown Organization [facility] Address [address], [address] [place] [address]- Care Team Providers Care Bariatric Coordinator Name Role Phone Neyda DUENAS, Perez Alfaro Primary Care Physician [phone] [place] [facility] [place]s): 01/29/20 - 03/20/20 [facility] [employer] [facility] [address] [place] [address]- Attending Physician: Chelo Cotter MD Admitting Physician: Chelo Cotter MD Referring Physician: Chelo Cotter MD Allergies, Adverse Reactions, Alerts Substance Reaction [...] (oldterm) 4 12/11/10 Given FluLaval (oldterm) 5 11/2/10 Given influ virus vac, H1N1, inactive(oldterm) 6 12/03/10 Given Tetanus Toxoid Vaccine (oldterm) 03/28/04 Given Pneumococcal Vacc (oldterm) 06/25/03 Given 1Admin Note: GIVEN IN CLINIC SHAM 2Result Comment: [12/17/2013] [facility] 3Admin Note: DONE ON 12/18/12. [facility] 4Admin Note: Biomedical Anne [facility] 5Admin Note: BIOMEDICAL ANNE 6Result Comment: WRONG BRAND Medications amLODIPine 5 mg oral tablet 5 mg, 1, tablet, By Mouth, Daily, # 90 tablet, Refills 3, Tot. Refills 3, Maintenance, 06/08/19 14:16:00 EDT, Route to Pharmacy Electronically, [facility] #[id number], 154, cm, 06/08/19 13:41:00 EDT, Height, 68.5, kg, 06/21/18 14:14:00 EDT, Dry Weight Start Date: 06/08/19 Status: Ordered Aspir 81 Oral Enteric Coated [...] Refills 1, Tot. Refills 1, Soft Stop, 02/14/20 9:16:00 EST, Route to Pharmacy Electronically, [facility]/pharmacy #[id number], 154, cm, 09/18/19 17:05:00 EDT, Height, 68.5, kg, 06/21/18 14:14:00 EDT, Dry Weight Start Date: 02/14/20 Stop Date: 08/12/20 Status: Ordered KlonoPIN 0.5 mg oral tablet 0.5 tablet = 0.25 mg, By Mouth, 2 times a day, # 30 tablet, 5 Refills, Maintenance, 02/08/20 8:46:00 EST, Tablet, [facility]/pharmacy #[id number], 152, cm, 01/28/20 14:30:00 EST, Height, 72.6, kg, 01/28/20 14:30:00 EST, Dry Weight Start Date: 02/08/20 Stop Date: 08/06/20 Status: Ordered metoprolol 25 mg oral tablet, extended release 25 mg, 1, tablet, By Mouth, Daily, 90 DAY SUPPLY, # 90 tablet, Refills 1, Tot. Refills 1, Maintenance, 10/24/19 13:43:00 EDT, Route to Pharmacy Electronically, [facility]/pharmacy #[id number], 154, cm, 09/18/19 17:05:00 EDT, Height, 68.5, kg, 06/21/18 14:14:00 EDT... Start Date: 10/24/19 Stop Date: 04/21/20 Status: Ordered Multivitamin With Minerals See Instructions, 1 tab By Mouth daily, 0 Refills, Maintenance Start Date: 09/23/10 Status: Ordered physical therapy physical therapy, See Instructions, # 1 each, Refills 0, Tot. Refills 0, Maintenance, evaluate and treat for right-sided low back pain and right-sided sciatica., 07/23/19 10:39:00 EDT, Supply Start Date: 07/23/19 Status: Ordered ProAir HFA 90 mcg/inh inhalation aerosol with adapter 2, puffs, Inhalation, Every 6 hours, PRN, # 8.5 Gm, Refills 11, Tot. Refills 11, Maintenance, 11/16/18 8:10:59 EDT, Aerosol, Route to Pharmacy Electronically, [id number], [facility]/pharmacy #[id number] Start Date: 11/16/18 Status: Ordered rosuvastatin 10 mg oral tablet See Instructions, TAKE 1 TABLET DAILY, # 90 tablet, 1 Refills, Soft Stop, 01/02/20 14:43:00 EDT, [id number], 154, cm, 09/18/19 17:05:00 EDT, Height, 68.5, kg, 06/21/18 14:14:00 EDT, Dry Weight Start Date: 01/02/20 Status: Ordered Vitamin C By Mouth, Daily, [...]
--- OUTSIDE RECORDS SUMMARY | 2022-07-07 11:58 | XMS_ITS | Continuity of Care Document ---
Author Name Unknown Organization [facility] [place] Tremayne lt Address [address] [place] [address]- Care Team Providers Care Visual Display Associate Name Role Phone Perez Faye MD Primary Care Physician [phone] [facility] Date[facility]s): 10/16/19 - 11/15/19 [facility] Adult [address] [place] [address]- [facility] Allergies, Adverse Reactions, Alerts Substance Reaction Severity [...] [12/17/2013] [facility] 3Admin Note: DONE ON 12/18/12. [facility] 4Admin Note: Biomedical Anne [facility] 5Admin Note: BIOMEDICAL ANNE 6Result Comment: WRONG BRAND Medications amLODIPine 5 mg oral tablet 5 mg, 1, tablet, By Mouth, Daily, # 90 tablet, Refills 3, Tot. Refills 3, Maintenance, 06/08/19 14:16:00 EDT, Route to Pharmacy Electronically, [facility]/pharmacy #[id number], 154, cm, 06/08/19 13:41:00 EDT, Height, [...] 02/19/19 9:16:10 EST, Route to Pharmacy Electronically, [id number], [facility]/pharmacy #[id number] Start Date: 02/19/19 Stop Date: 02/14/20 Status: Ordered KlonoPIN 0.5 mg oral tablet 0.5 tablet = 0.25 mg, By Mouth, 2 times a day, # 30 tablet, 5 Refills, Maintenance, 07/13/19 13:57:00 EDT, Tablet, [facility]/pharmacy #[id number], 154, cm, 06/08/19 13:41:00 EDT, Height, 68.5, kg, 06/21/18 14:14:00 EDT, Dry Weight Start Date: 07/13/19 Stop Date: 01/09/20 Status: Ordered metoprolol 25 mg oral tablet, extended release 25 mg, 1, tablet, By Mouth, Daily, 90 DAY SUPPLY, # 90 tablet, Refills 1, Tot. Refills 1, Maintenance, 10/24/19 13:43:00 EDT, Route to Pharmacy Electronically, [facility]/pharmacy #[id number], 154, cm, 09/18/19 17:05:00 EDT, Height, [...] 8:10:59 EDT, Aerosol, Route to Pharmacy Electronically, [id number], [facility]/pharmacy #[id number] Start Date: 11/16/18 Status: Ordered rosuvastatin 10 mg oral tablet See Instructions, TAKE 1 TABLET DAILY, # 90 tablet, 1 Refills, Soft Stop, 08/08/19 12:41:00 EDT, [facility]/pharmacy #[id number], 154, cm, 06/08/19 13:41:00 EDT, Height, 68.5, kg, 06/21/18 14:14:00 EDT, Dry Weight Start Date: 08/08/19 Status: Ordered Vitamin C By Mouth, Daily, [...] Polymyalgia rheumatica(Confirmed) Active Right sided sciatica(Confirmed) Active Leg swelling(Confirmed) Active Temporal arteritis(Confirmed) Active Venous stasis(Confirmed) Active Vitamin D deficiency(Confirmed) 11/28/08 Active 1cath 2011 nl 2colonoscopy 2012 normal, no repeat secondary to age. 3colo/barium enema 2002 negative, repeat 2012 4On left-exacerbated by gastric distention 5EGD 2016 [facility] Social History Social History Type Response Smoking Status Former smoker entered on: 04/04/17 Sex
--- OUTSIDE RECORDS SUMMARY | 2022-07-07 11:58 | XMS_ITS | Continuity of Care Document ---
Author Name Unknown Organization [facility] Rajat Tremayne lt Address [address] [place] [address]- Care Team Providers Care Hand Brush Filler Name Role Phone Perez Faye MD Primary Care Physician [facility] Date[facility]s): 10/22/19 - 11/21/19 [facility] Adult [address] [place] [address]- [facility] Allergies, Adverse Reactions, Alerts Substance Reaction [...] [12/17/2013] [facility] 3Admin Note: DONE ON 12/18/12. [facility] 4Admin Note: Biomedical Anne [facility] 5Admin Note: BIOMEDICAL ANNE 6Result Comment: WRONG BRAND Medications amLODIPine 5 mg oral tablet 5 mg, 1, tablet, By Mouth, Daily, # 90 tablet, Refills 3, Tot. Refills 3, Maintenance, 06/08/19 14:16:00 EDT, Route to Pharmacy Electronically, [facility]/pharmacy #[id number], 154, cm, 06/08/19 13:41:00 EDT, Height, [...] 02/19/19 9:16:10 EST, Route to Pharmacy Electronically, [id number], [facility]/pharmacy #[id number] Start Date: 02/19/19 Stop Date: 02/14/20 Status: Ordered KlonoPIN 0.5 mg oral tablet 0.5 tablet = 0.25 mg, By Mouth, 2 times a day, # 30 tablet, 5 Refills, Maintenance, 07/13/19 13:57:00 EDT, Tablet, [facility]/pharmacy #[id number], 154, cm, 06/08/19 13:41:00 EDT, Height, 68.5, kg, 06/21/18 14:14:00 EDT, Dry Weight Start Date: 07/13/19 Stop Date: 01/09/20 Status: Ordered metoprolol 25 mg oral tablet, extended release 25 mg, 1, tablet, By Mouth, Daily, 90 DAY SUPPLY, # 90 tablet, Refills 1, Tot. Refills 1, Maintenance, 10/24/19 13:43:00 EDT, Route to Pharmacy Electronically, [facility]/pharmacy #[id number], 154, cm, 09/18/19 17:05:00 EDT, Height, [...] 8:10:59 EDT, Aerosol, Route to Pharmacy Electronically, [id number], [facility]/pharmacy #[id number] Start Date: 11/16/18 Status: Ordered rosuvastatin 10 mg oral tablet See Instructions, TAKE 1 TABLET DAILY, # 90 tablet, 1 Refills, Soft Stop, 08/08/19 12:41:00 EDT, [facility]/pharmacy #[id number], 154, cm, 06/08/19 13:41:00 EDT, Height, 68.5, kg, 06/21/18 14:14:00 EDT, Dry Weight Start Date: 5/13/20 Status: Ordered Vitamin C By Mouth, Daily, [...]
--- OUTSIDE RECORDS SUMMARY | 2022-07-07 11:58 | XMS_ITS | Continuity of Care Document ---
Author Name Unknown Organization [facility] Tremayne lt Address [address] [place] [address]- Care Team Providers Care Monotype Machinist Name Role Phone Neyda DUENAS, Perez Alfaro Primary Care Physician [phone] [facility]s): 02/10/22 - 03/12/22 [facility] Adult [address] [place] [address]- Allergies, Adverse Reactions, Alerts Substance Reaction Severity [...] Early/Late Reason: Accommodate D/C 2Result Comment: [12/17/2013] [facility] 3Admin Note: DONE ON 12/18/12. [facility] 4Admin Note: GIVEN IN CLINIC SHAM 5Admin Note: Biomedical Anne [facility] 6Admin Note: BIOMEDICAL ANNE 7Result Comment: WRONG [...] tablet, Refills 1, Route to Pharmacy Electronically, [facility], 152, cm, 06/01/21 13:37:00 EST, Height, 72.7, kg, 02/14/20 14:50:00 EST, Dry Weight Start Date: 10/14/21 Status: Ordered Metoprolol Succinate ER 25 mg oral tablet, extended release 1 tablet, By Mouth, Daily, # 90 tablet, 0 Refills, Maintenance, 03/09/22 11:31:00 EST, [facility], 153, cm, 02/01/22 11:33:00 [...] no repeat secondary to age. 3colo/barium enema 2003 negative, repeat 2013 4On left-exacerbated by gastric distention 5EGD 2016 [facility] Social History Social History Type Response Smoking Status Former smoker entered on: 04/04/17 Sex Patient Care team information Care Team Personnel Name: Milagros Minor RN Position: S RN Member Role: Primary Care Nurse Name: Neyda DUENAS, Perez Alfaro Position: [facility] Primary Care Physician Member Role: PCP Address: Address: [address] [place] [id number]- Name: Erin Hudson RN Position: S RN Member Role: Primary Care Nurse Name: Kin DUENAS, Giovanny Monson Position: [facility] Cardiology MD Member Role: Lifetime Consulting Physician Address: Address: [address] [place] [address] [place] [address]- Care Team Related Persons Name: ZHANNA GUADALUPE Address: home [address] [place] [address] Name: ROSALINDA DENNY Address: home [address] [place] [address]
--- OUTSIDE RECORDS SUMMARY | 2022-07-07 11:58 | XMS_ITS | Continuity of Care Document ---
Author Name Unknown Organization [facility] Tremayne lt Address [address] [place] [address]- Care Team Providers Care Cattyman Name Role Phone Neyda DUENAS, Perez Alfaro Primary Care Physician [facility] 07/23/19 - 08/22/19 [facility] Adult [address] [place] [address]- [facility] Attending Physician: Admtr, [id number] Admitting Physician: Admtr, Ar8 Referring Physician: Admtr, Ar8 Allergies, Adverse Reactions, [...] [12/17/2013] [facility] 3[facility]: DONE ON 12/18/12. [facility] 4Admin Note: Biomedical Anne [facility] 5Admin Note: BIOMEDICAL ANNE 6Result Comment: WRONG [...] 02/19/19 9:16:10 EST, Route to Pharmacy Electronically, [id number], [facility] [...] tablet, Refills 0, Tot. Refills 0, Maintenance, 08/08/19 12:42:00 EDT, Route to Pharmacy Electronically, [facility]/pharmacy #[id number], 154, cm, 06/08/19 13:41:00 EDT, Height, 68.5, kg, 06/21/18 14:14:00 EDT... Start Date: 08/08/19 Stop Date: 11/06/19 Status: Ordered Multivitamin With Minerals See Instructions, [...] 8:10:59 EDT, Aerosol, Route to Pharmacy Electronically, [id number], [facility]/pharmacy #[id number] Start Date: 11/16/18 Status: Ordered rosuvastatin 10 mg oral tablet See Instructions, TAKE 1 TABLET DAILY, # 90 tablet, 1 Refills, Soft Stop, 08/08/19 12:41:00 EDT, [id number], 154, cm, 06/08/19 13:41:00 EDT, Height, [...]
--- OUTSIDE RECORDS SUMMARY | 2022-07-07 11:58 | XMS_ITS | Continuity of Care Document ---
Author Name Unknown Organization [facility] Rajat Tremayne lt Address [address] [place] [address]- Care Team Providers Care Branch Or Department Chief Librarian Name Role Phone Neyda DUENAS, Perez Alfaro Primary Care Physician [facility] Date[facility]s): 02/15/22 - 03/17/22 [facility] Adult [address] [place] [address]- Allergies, Adverse Reactions, Alerts Substance Reaction Severity [...] [12/17/2013] [facility] 3Admin Note: DONE ON 12/18/12. [facility] 4Admin Note: GIVEN IN CLINIC SHAM 5Admin Note: Biomedical Anne [facility] 6Admin Note: BIOMEDICAL ANNE 7Result Comment: [...] 2013 4On left-exacerbated by gastric distention 5EGD 2017 [facility] Social History Social History Type Response Smoking Status Former smoker entered on: 04/04/17 Sex Patient Care team information Care Team Personnel Name: Milagros Minor RN Position: S RN Member Role: Primary Care Nurse Name: Neyda DUENAS, Perez Alfaro Position: [facility] Primary Care Physician Member Role: PCP Address: Address: [address] [place] [address]- Name: Erin Hudson RN Position: [facility] RN Member Role: Primary Care Nurse Name: Kin DUENAS, Giovanny Monson Position: [facility] Cardiology MD Member Role: Lifetime Consulting Physician Address: Address: [address] [place] [address] [place] [address]- Care Team Related Persons Name: ZHANNA GUADALUPE Address: home [address] [place] [address] Name: ROSALINDA DENNY Address: home [address] [place] [address]
--- OUTSIDE RECORDS SUMMARY | 2022-07-07 11:58 | XMS_ITS | Continuity of Care Document ---
Author Name Unknown Organization [facility] Address [address] [address]- Care Team Providers Care Teller Supervisor Name Role Phone Neyda DUENAS, Perez Alfaro Primary Care Physician Encounter [facility] Date(s): 01/19/22 - 02/18/22 [place] [address]- [place] Allergies, Adverse Reactions, Alerts Substance Reaction Severity [...] [12/17/2013] [facility] 3Admin Note: DONE ON 12/18/12. [facility] 4Admin Note: GIVEN IN CLINIC SHAM 5Admin Note: Biomedical Anne [facility] 6Admin Note: BIOMEDICAL ANNE 7Result Comment: [...] tablet, Refills 1, Route to Pharmacy Electronically, [facility], 152, cm, 06/01/21 13:37:00 EST, Height, 72.7, kg, 02/14/20 14:50:00 EST, Dry Weight Start Date: 10/14/21 Status: Ordered metoprolol 50 mg oral tablet, extended release 50 mg, 1, tablet, By Mouth, Daily, # 90 tablet, Refills 3, Tot. Refills 3, Maintenance, 02/01/22 12:20:00 EST, Route to Pharmacy Electronically, [facility], Partial fill upon patient request if [...] Confirmed 11/28/08 Active 1cath 2011 nl 2colonoscopy 2013 normal, no repeat secondary to age. 3colo/barium enema 2003 negative, repeat 2012 4On left-exacerbated by gastric distention 5EGD 2016 [facility] Social History Social History Type Response Smoking Status Former smoker entered on: 04/04/17 Sex Patient Care team information Care Team Personnel Name: Milagros Minor RN Position: [facility] RN Member Role: Primary Care Nurse Name: Perez Faye MD Position: [facility] Primary Care Physician Member Role: PCP Address: Address: [address] [place] [address]- Name: Erin Hudson RN Position: [facility] RN Member Role: Primary Care Nurse Name: Kin DUENAS, Giovanny Monson Position: [facility] Cardiology MD Member Role: Lifetime Consulting Physician Address: Address: [address] [place] [address] [place] [address]- Care Team Related Persons Name: ZHANNA GUADALUPE Address: home [address] [place] [address] Name: ROSALINDA DENNY Address: [address] [place] [address]
--- OUTSIDE RECORDS SUMMARY | 2022-07-07 11:58 | XMS_ITS | Continuity of Care Document ---
Author Name Unknown Organization [facility] [place] lt Address [address] [place] [address]- Care Team Providers Care T Rail Turner Name Role Phone Perez Faye MD Primary Care Physician Encounter [facility] Date(s): 01/21/22 - 01/28/22 [facility] Adult [address] [place] [address]- Attending Physician: Not on Staff, Attending MD Referring Physician: Perez Faye MD Allergies, Adverse Reactions, Alerts Substance Reaction Severity Status codeine SEVERE HEADACHE Active Immunizations Given and Recorded Vaccine Date Status Refusal Reason influenza virus vaccine, inactivated 1 01/16/22 Gi [...] [12/17/2013] [facility] 3Admin Note: DONE ON 12/18/12. [facility] 4Admin Note: GIVEN IN CLINIC SHAM 5Admin Note: Biomedical [facility] 6Admin Note: BIOMEDICAL ANNE 7Result Comment: WRONG [...] NEEDED FOR FURTHER REFILLS, # 30 tablet, 0 Refills, Maintenance, 01/19/22 13:52:00 EDT, [id number], 153, cm, 01/16/22 7:18:00 EDT, Height, 72.7, kg, 02/14/20 14:50:00 EST, Dry Weight Start Date: 01/19/22 Status: Ordered Compression Stockings See Instructions, # [...] Mouth, Daily, # 30 tablet, Refills 0, Tot. Refills 0, Maintenance, 01/18/22 8:44:00 EDT, Route to Pharmacy Electronically, [facility]/pharmacy #[id number], Partial fill upon patient request if the prescription is for a schedule II opioid drug.... Start Date: 01/18/22 Status: Ordered Multivitamin With Minerals See Instructions, [...] spondylosis Confirmed Active Neck pain Confirmed Active Osteoarthritis Confirmed Active Osteopenia 6 Confirmed Active PMR - Polymyalgia rheumatica Confirmed Active Right sided sciatica Confirmed Active Spinal stenosis Confirmed Active Leg swelling Confirmed Active Systolic heart failure Confirmed Active Temporal arteritis Confirmed Active Urinary incontinence Confirmed Active Venous stasis Confirmed Active Vitamin D 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 1cath 2011 nl 2colonoscopy 2013 normal, no repeat secondary to age. 3colo/barium enema 2002 negative, repeat 2012 4On left-exacerbated by gastric distention 5EGD 2016 6[facility] Vital Signs Most recent to oldest [Reference Range]: 1 2 Height 153 cm (01/21/22 9:48 AM) 153 cm (01/21/22 9:29 AM) Weight 68.5 kg (01/21/22 9:29 AM) Oxygen Saturation [94-100 %] 98 % (01/21/22 9:29 AM) Pulse Rate [55-90 bpm] 57 bpm (01/21/22 9:29 AM) Body Mass Index [18.5-24.99 kg/m2] 29.26 kg/m2 *H* (01/21/22 9:29 AM) Blood Pressure [90-138/55-84 mm Hg] 136/ 70mm Hg (01/21/22 9:48 AM) 142/78mm Hg *H* (01/21/22 9:29 AM) Mode of Delivery (Oxygen) Room air (01/21/22 9:29 AM) Blood pressure sites Arm, left (01/21/22 9:48 AM) Arm, left (01/21/22 9:29 AM) Weight Obtained Via Standing scale (01/21/22 9:29 AM) Social History Social History Type Response Smoking Status Former smoker entered on: 04/04/17 Sex Patient Care team information Personnel Name: Neyda DUENAS, Perez Alfaro Address: Address: [address] [place] [id number]
--- OUTSIDE RECORDS SUMMARY | 2022-07-07 11:58 | XMS_ITS | Continuity of Care Document ---
Author Name Unknown Organization [facility] [place] Address [address] [place] [address]- Care Team Providers Care Tugboat Captain Name Role Phone Neyda DUENAS, Perez Alfaro Primary Care Physician Encounter [facility] Date(s): 09/19/20 - 10/19/20 [facility] Adult [address] [place] [address]- Allergies, Adverse Reactions, Alerts Substance Reaction Severity [...] [12/17/2013] [facility] 3Admin Note: DONE ON 12/18/12. [facility] 4Admin Note: Biomedical Anne [facility] 5Admin Note: BIOMEDICAL ANNE 6Result Comment: WRONG BRAND Medications amLODIPine 5 mg oral tablet 5 mg, 1, tablet, By Mouth, Daily, # 90 tablet, Refills 1, Tot. Refills 1, Maintenance, 04/11/20 15:25:00 EST, Route to Pharmacy Electronically, [facility]/pharmacy #[id number], 152, cm, 04/10/20 10:26:00 EST, Height, 72.7, kg, 02/14/20 14:50:00 EST, Dry Weight Start Date: 04/11/20 Status: Ordered Aspir 81 Oral Enteric Coated Tablet 1 tablet, By Mouth, Daily, # 30 tablet, 0 Refills, Maintenance, EC Tablet Start Date: 05/07/10 Status: Ordered clonazePAM 0.5 mg oral tablet See Instructions, TAKE HALF A TABLET BY MOUTH TWO TIMES A DAY, # 30 tablet, 5 Refills, Maintenance,08/08/20 11:20:00 EDT, [facility]/pharmacy #[id number], 152, cm, 04/10/20 10:26:00 EST, Height, 72.7, kg, 02/14/20 14:50:00 EST, Dry Weight Start Date: 08/08/20 Status: Ordered Compression Stockings See Instructions, # [...] Refills 1, Tot. Refills 1, Soft Stop, 08/12/20 9:16:00 EDT, Route to Pharmacy Electronically, [facility]/pharmacy #[id number], 152, cm, 04/10/20 10:26:00 EST, Height, 72.7, kg, 02/14/20 14:50:00 EST, Dry Weight Start Date: 08/12/20 Stop Date: 02/08/21 Status: Ordered KlonoPIN 0.5 mg oral tablet 0.5 tablet = 0.25 mg, By Mouth, 2 times a day, # 30 tablet, 5 Refills, Maintenance, 02/08/20 8:46:00 EST, Tablet, [facility]/pharmacy #[id number], 152, cm, 01/28/20 14:30:00 EST, Height, 72.6, kg, 01/28/20 14:30:00 EST, Dry Weight Start Date: 02/08/20 Stop Date: 08/06/20 Status: Ordered metoprolol 25 mg oral tablet, extended release 25 mg, 1, tablet, By Mouth, Daily, 90 DAY SUPPLY, # 90 tablet, Refills 0, Tot. Refills 0, Maintenance, 09/20/20 11:04:00 EDT, Route to Pharmacy Electronically, [facility]/pharmacy #[id number], 152, cm, 08/11/20 11:15:00 EDT, Height, 72.7, kg, 02/14/20 14:50:00 EST... Start Date: 09/20/20 Stop Date: 12/19/20 Status: Ordered Multivitamin With Minerals See Instructions, 1 tab By Mouth daily, 0 Refills, Maintenance Start Date: 09/23/10 Status: Ordered rosuvastatin 10 mg oral tablet See Instructions, TAKE 1 TABLET DAILY, # 90 tablet, 0 Refills, Soft Stop, 09/22/20 8:10:00 EDT, [facility]/pharmacy #[id number], 152, cm, 08/11/20 11:15:00 EDT, Height, 72.7, kg, 02/14/20 14:50:00 EST, Dry Weight Start Date: 09/22/20 Status: Ordered Vitamin C By Mouth, Daily, [...]
--- OUTSIDE RECORDS SUMMARY | 2022-07-07 11:59 | XMS_ITS | Continuity of Care Document ---
Author Name Unknown Organization [facility] [place] lt Address [address] [place] [address]- Care Team Providers Care Professor Of Physics Name Role Phone Neyda DUENAS, Perez Alfaro Primary Care Physician [facility]counter [facility] Date(s): 09/12/20 - 10/12/20 [facility] Adult [address] [place] [address]- Allergies, Adverse Reactions, Alerts Substance Reaction Severity [...] [12/17/2013] [facility] 3Admin Note: DONE ON 12/18/12. [facility] 4Admin Note: Biomedical Anne [facility] 5Admin Note: BIOMEDICAL ANNE 6Result Comment: WRONG BRAND Medications amLODIPine 5 mg oral tablet 5 mg, 1, tablet, By Mouth, Daily, # 90 tablet, Refills 1, Tot. Refills 1, Maintenance, 04/11/20 15:25:00 EST, Route to Pharmacy Electronically, [facility]/pharmacy #[id number], 152, cm, 04/10/20 10:26:00 [...] 30 tablet, 5 Refills, Maintenance,08/08/20 11:20:00 EDT, [facility]/pharmacy #[id number], 152, cm, 04/10/20 10:26:00 [...] 08/12/20 9:16:00 EDT, Route to Pharmacy Electronically, [facility]/pharmacy #[id number], 152, cm, 04/10/20 10:26:00 EST, Height, 72.7, kg, 02/14/20 14:50:00 EST, Dry Weight Start Date: 08/12/20 Stop Date: 02/08/21 Status: Ordered KlonoPIN 0.5 mg oral tablet 0.5 tablet = 0.25 mg, By Mouth, 2 times a day, # 30 tablet, 5 Refills, Maintenance, 02/08/20 8:46:00 EST, Tablet, [facility]/pharmacy #[id number], 152, cm, 01/28/20 14:30:00 EST, Height, 72.6, kg, 01/28/20 14:30:00 EST, Dry Weight Start Date: 02/08/20 Stop Date: 08/06/20 Status: Ordered metoprolol 25 mg oral tablet, extended release 25 mg, 1, tablet, By Mouth, Daily, 90 DAY SUPPLY, # 90 tablet, Refills 0, Tot. Refills 0, Maintenance, 09/20/20 11:04:00 EDT, Route to Pharmacy Electronically, [facility]/pharmacy #[id number], 152, cm, 08/11/20 11:15:00 EDT, Height, 72.7, kg, 02/14/20 14:50:00 EST... Start Date: 09/20/20 Stop Date: 12/19/20 Status: Ordered Multivitamin With Minerals See Instructions, 1 tab By Mouth daily, 0 Refills, Maintenance Start Date: 09/23/10 Status: Ordered rosuvastatin 10 mg oral tablet See Instructions, TAKE 1 TABLET DAILY, # 90 tablet, 0 Refills, Soft Stop, 09/22/20 8:10:00 EDT, [facility]/pharmacy #[id number], 152, cm, 08/11/20 11:15:00 [...]
--- OUTSIDE RECORDS SUMMARY | 2022-07-07 11:59 | XMS_ITS | Continuity of Care Document ---
Author Name Unknown Organization [facility] [place] lt Address [address] [place] [address]- Care Team Providers Care Attorney Recruiter Name Role Phone Neyda DUENAS, Perez Alfaro Primary Care Physician Encounter [facility] Date(s): 06/01/21 - 07/01/21 [facility] Adult [address] [place] [address]- Allergies, Adverse Reactions, Alerts Substance Reaction Severity [...] GIVEN IN CLINIC SHAM 2Result Comment: [12/17/2013] [facility] 3Admin Note: DONE ON 12/18/12. [facility] 4Admin Note: Biomedical Anne [facility] 5Admin Note: BIOMEDICAL ANNE 6Result Comment: WRONG [...] tablet, 3 Refills, Maintenance, 10/30/20 11:22:00 EDT, [facility], Partial fill upon patient request if the prescription is for a schedule II opioid drug., 152, cm, 08/11/20 11:15:00 EDT,... Start Date: 10/30/20 Status: Ordered clonazePAM 0.5 mg oral tablet See Instructions, TAKE 1/2 TABLET TWICE A DAY APPOINTMENT NEEDED FOR FURTHER REFILLS, # 30 tablet, 5 Refills, Maintenance, 03/30/21 9:35:00 EST, [facility]/pharmacy #[id number], 152, cm, 11/25/20 11:04:00 EDT, Height, 72.7, kg, 02/14/20 14:50:00 EST, Dry Weight Start Date: 03/30/21 Status: Ordered clonazePAM 0.5 mg oral tablet See Instructions, TAKE HALF A TABLET BY MOUTH TWO TIMES A DAY, # 30 tablet, 0 Refills, Maintenance,12/11/20 7:41:00 EDT, [facility], 152, cm, 11/25/20 11:04:00 EDT, Height, [...] tablet, Refills 1, Route to Pharmacy Electronically, [facility], 152, cm, 11/25/20 11:04:00 [...]
--- OUTSIDE RECORDS SUMMARY | 2022-07-07 11:59 | XMS_ITS | Continuity of Care Document ---
Author Name Unknown Organization [facility] [place] lt Address [address] [place] [address]- Care Team Providers Care Associate Professor Of Biblical Studies Name Role Phone Perez Faye MD Primary Care Physician [facility]counter [facility] Date(s): 12/25/19 - 04/25/20 [facility] Adult [address] [place] [address]- Attending Physician: Perez Faye MD Allergies, Adverse [...] [12/17/2013] [facility] 3Admin Note: DONE ON 12/18/12. [facility] 4Admin Note: Biomedical Anne [facility] 5Admin Note: BIOMEDICAL ANNE 6Result Comment: WRONG BRAND Medications amLODIPine 5 mg oral tablet 5 mg, 1, tablet, By Mouth, Daily, # 90 tablet, Refills 1, Tot. Refills 1, Maintenance, 04/11/20 15:25:00 EST, Route to Pharmacy Electronically, [facility]/pharmacy #[id number], 152, cm, 04/10/20 10:26:00 EST, Height, 72.7, kg, 02/14/20 14:50:00 EST, Dry Weight Start Date: 04/11/20 Status: Ordered Aspir 81 Oral Enteric Coated Tablet 1 tablet, By Mouth, Daily, # 30 tablet, 0 Refills, Maintenance, EC Tablet Start Date: 05/07/10 Status: Ordered Compression Stockings See Instructions, # [...] 02/14/20 9:16:00 EST, Route to Pharmacy Electronically, [facility]/pharmacy #[id number], 154, cm, 09/18/19 17:05:00 EDT, Height, 68.5, kg, 06/21/18 14:14:00 EDT, Dry Weight Start Date: 02/14/20 Stop Date: 08/12/20 Status: Ordered KlonoPIN 0.5 mg oral tablet 0.5 tablet = 0.25 mg, By Mouth, 2 times a day, # 30 tablet, 5 Refills, Maintenance, 02/08/20 8:46:00 EST, Tablet, [facility]/pharmacy #[id number], 152, cm, 01/28/20 14:30:00 EST, Height, 72.6, kg, 01/28/20 14:30:00 EST, Dry Weight Start Date: 02/08/20 Stop Date: 08/06/20 Status: Ordered metoprolol 25 mg oral tablet, extended release 25 mg, 1, tablet, By Mouth, Daily, 90 DAY SUPPLY, # 90 tablet, Refills 1, Tot. Refills 1, Maintenance, 10/24/19 13:43:00 EDT, Route to Pharmacy Electronically, [facility]/pharmacy #[id number], 154, cm, 09/18/19 17:05:00 EDT, Height, 68.5, kg, 06/21/18 14:14:00 EDT... Start Date: 10/24/19 Stop Date: 04/21/20 Status: Ordered Multivitamin With Minerals See Instructions, 1 tab By Mouth daily, 0 Refills, Maintenance Start Date: 09/23/10 Status: Ordered rosuvastatin 10 mg oral tablet See Instructions, TAKE 1 TABLET DAILY, # 90 tablet, 1 Refills, Soft Stop, 01/02/20 14:43:00 EDT, [facility]/pharmacy #[id number], 154, cm, 09/18/19 17:05:00 EDT, [...] repeat 2012 4On left-exacerbated by gastric distention 5E2016 [facility] Social History Social History Type Response Smoking Status Former smoker entered on: 04/04/17 Sex
--- OUTSIDE RECORDS SUMMARY | 2022-07-07 11:59 | XMS_ITS | Continuity of Care Document ---
Author Name Unknown Organization [facility] ter Address [address] [place] [address]- Care Team Providers Care Manager Payroll Name Role Phone Neyda DUENAS, Preez Alfaro Primary Care Physician [phone] Encounter [facility] Date(s): 01/14/22 - 01/16/[address] [address]- Encounter Diagnosis Shortness of breath(Final) - 01/14/22 Hypertension(Discharge Diagnosis) - 01/14/22 Hypercholesterolemia(Discharge Diagnosis) - 01/14/22 Leg swelling(Discharge Diagnosis) - 01/14/22 Shortness of breath(Final) - 01/16/22 Discharge Disposition: A-D/C Home Attending Physician: Edward Royal MD Admitting Physician: Sue Hernandez MD Referring Physician: Not on Staff, Referring MD Allergies, Adverse Reactions, Alerts Substance Reaction [...] [facility] 4Admin Note: GIVEN IN CLINIC SHAM 5Admin Note: Biomedical Anne [facility] 6Admin Note: BIOMEDICAL ANNE 7Result Comment: WRONG BRAND Medications amLODIPine 5 mg oral tablet 5 mg, Tablet, By Mouth, 01/16/22 9:00:00 EDT Start Date: 01/16/22 Stop Date: 01/16/22 Status: Completed amLODIPine 5 mg oral tablet 1 tablet, [...] REFILLS, # 30 tablet, 5 Refills, Maintenance, 10/29/21 20:54:00 EDT, [facility]/pharmacy #[id number], 152, cm, 06/01/21 13:37:00 EST, Height, 72.7, kg, 02/14/20 14:50:00 EST, Dry Weight Start Date: 10/29/21 Status: Ordered Compression Stockings See Instructions, # 2 pair, Refills 2, Tot. 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, 04/20/16 14:21:02, Compound Start Date: 04/20/16 Status: Ordered hydrochlorothiazide 25 mg oral tablet 1, tablet, By Mouth, Daily, # 90 tablet, Refills 1, Route to Pharmacy Electronically, [facility], 152, cm, 06/01/21 13:37:00 EST, Height, 72.7, kg, 02/14/20 14:50:00 EST, Dry Weight Start Date: 10/14/21 Status: Ordered metoprolol 25 mg oral tablet, extended release 50 mg, XL Tablet, By Mouth, 01/16/22 9:00:00 EDT Start Date: 01/16/22 Stop Date: 01/16/22 Status: Completed metoprolol 50 mg oral tablet, extended release 50 mg, 1, tablet, By Mouth, Daily, # 30 tablet, Refills 0, Tot. Refills 0, Maintenance, 01/16/22 11:48:00 EDT, Route to [facility], [facility], Partial fill upon patient request if the prescription is for a schedule... Start Date: 01/16/22 Status: Ordered Multivitamin With Minerals See Instructions, [...] 2, 3 Confirmed Active Constipation Confirmed Active Shortness of breath Confirmed Active [...] stenosis Confirmed Active Leg swelling Confirmed Active Temporal arteritis Confirmed Active Urinary incontinence Confirmed Active Venous stasis Confirmed Active Vitamin D 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 1cath 2010 nl 2colonoscopy 2012 normal, no repeat secondary to age. 3colo/barium enema 2002 negative, repeat 2012 4On left-exacerbated by gastric distention 5EGD 2016 6[facility] Diagnosis Diagnosis Type Effective Dates Health Status Clinical Service Informant Hypertension Discharge Diagnosis 01/14/22 Hypercholesterolemia Discharge Diagnosis 01/14/22 Leg swelling Discharge Diagnosis 01/14/22 Results Radiology Reports * Exam Date Time Procedure Performing Provider Status 01/14/22 12:28 PM Chest Portable Erin Figueroa; Auth (Verified) Notes: (Chest Portable) Reason For Exam: Shortness of Breath RESULT: Chest Portable Chest Portable performed upright at 12:15 PM Hx of Present Illness: pt. States feeling light headed or dizzy for about thee weeks. Says this what anxiety must feel like . pt. Reports that she lost her 3 months ago.; Reason: Shortness of Breath; Clinical Question(s): CHF COMPARISON: Multiple prior chest x-rays, the most recent of which is dated 09/29/2018. FINDINGS: LINES AND TUBES: None. LUNGS AND PLEURA: Stable elevation of the left hemidiaphragm. No focal infiltrate or pleural effusion. No pneumothorax. HEART, MEDIASTINUM AND SERENITY: Heart is normal in size. Aorta is calcified. BONES AND SOFT TISSUES: No acute abnormality. IMPRESSION: Stable appearance of the chest with elevation left hemidiaphragm and no acute pulmonary process. I have personally reviewed the images and I agree with this report. WSN: [id number] Ordering Physician: Norman Garcia Dictated By: Cody Nunez MD Dictated Date/Time: 01/14/22 1:42 pm Reviewed By: Jayla Gray MD Signed By: Jayla Gray MD Signed Date/Time: 01/14/22 1:47 pm Transcribed By: CRYSTAL Transcribed Date/Time: 01/14/22 1:27 pm Vital Signs Most recent to oldest [Reference Range]: 1 2 3 Height 153 cm (01/16/22 7:18 AM) 153 cm (01/15/22 3:37 PM) 153 cm (01/15/22 11:25 AM) Oxygen Saturation [94-100 %] 100 % (01/16/22 7:18 AM) 99 % (01/16/22 4:00 AM) 98 % (01/15/22 11:00 PM) Pulse Rate [55-90 bpm] 65 bpm (01/16/22 8:28 AM) 65 bpm (01/16/22 7:18 AM) 55 bpm (01/16/22 4:00 AM) Blood Pressure [90-138/55-84 mm Hg] 143/66mm Hg *H* (01/16/22 8:28 AM) 143/66mm Hg *H* (01/16/22 8:28 AM) 143/66mm Hg *H* (01/16/22 7:18 AM) Respiratory Rate [16-30 br/min] 18 br/min (01/16/22 7:36 AM) 19 br/min (01/16/22 7:18 AM) 19 br/min (01/16/22 4:00 AM) Temperature [96.8-100.4 DegF] 97.8 DegF (01/16/22 7:18 AM) 97.5 DegF (01/16/22 4:00 AM) 97.2 DegF (01/15/22 11:00 PM) Liters per Minute 2 L/min (01/14/22 11:56 PM) Mode of Delivery (Oxygen) Room air (01/16/22 7:18 AM) Room air (01/16/22 4:00 AM) Room air (01/15/22 11:00 PM) Blood pressure sites Arm, left (01/16/22 7:18 AM) Arm, left (01/16/22 4:00 AM) Arm, left (01/15/22 11:00 PM) Temperature Route Oral (01/16/22 7:18 AM) Oral (01/16/22 4:00 AM) Oral (01/15/22 11:00 PM) Social History Social History Type Response Smoking Status Former smoker entered on: 04/04/17 Sex Portable XR Chest Views * BHSPowerscribe , CIS S: TRANSCRIBE Jayla Gray MD: VERIFY Cody Nunez MD: SIGN Event Display: Result: Authored Date: [id number] Chest Portable performed upright at 12:15 PM Hx of Present Illness: pt. States feeling light headed or dizzy for about thee weeks. Says this what anxiety must feel like . pt. Reports that she lost her 3 months ago.; Reason: Shortness of Breath; Clinical Question(s): CHF COMPARISON: Multiple prior chest x-rays, the most recent of which is dated 09/29/2018. FINDINGS: LINES AND TUBES: None. LUNGS AND PLEURA: Stable elevation of the left hemidiaphragm. No focal infiltrate or pleural effusion. No pneumothorax. HEART, MEDIASTINUM AND SERENITY: Heart is normal in size. Aorta is calcified. BONES AND SOFT TISSUES: No acute abnormality. IMPRESSION: Stable appearance of the chest with elevation left hemidiaphragm and no acute pulmonary process. I have personally reviewed the images and I agree with this report. WSN: [id number] Ordering Physician: Norman Garcia Dictated By: Cody Nunez MD Dictated Date/Time: 01/14/22 1:42 pm Reviewed By: Jayla Gray MD Signed By: Jayla Gray MD Signed Date/Time: 01/14/22 1:47 pm Transcribed By: CRYSTAL Transcribed Date/Time: 01/14/22 1:27 pm Patient Care team information Personnel Name: Perez Faye MD Address: Address: [address] [place] [id number]
--- OUTSIDE RECORDS SUMMARY | 2022-07-07 11:59 | XMS_ITS | Continuity of Care Document ---
Author Name Unknown Organization [facility] [place] Address [address] [place] [address]- Care Team Providers Care Scrubber Operator Name Role Phone Neyda DUENAS, Perez Alfaro Primary Care Physician [phone] Encounter [facility] Date(s): 03/26/20 - 04/25/20 [facility] Adult [address] [place] [address]- Attending Physician: Robb Gross Admitting Physician: AdmRobb zhou Referring Physician: AdmtrRobb Allergies, Adverse Reactions, Alerts Substance Reaction Severity [...] [12/17/2013] [facility] 3Admin Note: DONE ON 12/18/12. [facility] 4Admin Note: Biomedical Anne [facility] 5Admin Note: BIOMEDICAL ANNE 6Result Comment: WRONG BRAND Medications amLODIPine 5 mg oral tablet 5 mg, 1, tablet, By Mouth, Daily, # 90 tablet, Refills 1, Tot. Refills 1, Maintenance, 04/11/20 15:25:00 EST, Route to Pharmacy Electronically, [facility]/pharmacy #[id number], 152, cm, 04/10/20 10:26:00 EST, Height, [...] 02/14/20 9:16:00 EST, Route to Pharmacy Electronically, [facility]/pharmacy #[id number], 154, cm, 09/18/19 17:05:00 EDT, Height, 68.5, kg, 06/21/18 14:14:00 EDT, Dry Weight Start Date: 02/14/20 Stop Date: 08/12/20 Status: Ordered KlonoPIN 0.5 mg oral tablet 0.5 tablet = 0.25 mg, By Mouth, 2 times a day, # 30 tablet, 5 Refills, Maintenance, 02/08/20 8:46:00 EST, Tablet, [facility]/pharmacy #[id number], 152, cm, 01/28/20 14:30:00 EST, Height, 72.6, kg, 01/28/20 14:30:00 EST, Dry Weight Start Date: 02/08/20 Stop Date: 08/06/20 Status: Ordered metoprolol 25 mg oral tablet, extended release 25 mg, 1, tablet, By Mouth, Daily, 90 DAY SUPPLY, # 90 tablet, Refills 1, Tot. Refills 1, Maintenance, 10/24/19 13:43:00 EDT, Route to Pharmacy Electronically, [facility]/pharmacy #[id number], 154, cm, 09/18/19 17:05:00 EDT, Height, 68.5, kg, 06/21/18 14:14:00 EDT... Start Date: 10/24/19 Stop Date: 04/21/20 Status: Ordered Multivitamin With Minerals See Instructions, 1 tab By Mouth daily, 0 Refills, Maintenance Start Date: 09/23/10 Status: Ordered rosuvastatin 10 mg oral tablet See Instructions, TAKE 1 TABLET DAILY, # 90 tablet, 1 Refills, Soft Stop, 01/02/20 14:43:00 EDT, [facility]/pharmacy #[id number], 154, cm, 09/18/19 17:05:00 EDT, Height, [...] deficiency(Confirmed) 11/28/08 Active 1cath 2011 nl 2colonoscopy 2013 normal, no repeat secondary to age. 3colo/barium enema 2002 negative, repeat 2012 4On left-exacerbated by gastric distention 5E2016 6[facility] Social History Social History Type Response Smoking Status Former smoker entered on: 04/04/17 Sex
--- OUTSIDE RECORDS SUMMARY | 2022-07-07 11:59 | XMS_ITS | Continuity of Care Document ---
Author Name Unknown Organization [facility] Address [address], [address] [place] [address]- Care Team Providers Care Brick Pointer Name Role Phone Neyda DUENAS, Perez Alfaro Primary Care Physician [phone] [facility] 04[facility]20 - 05/03/20 [facility] [employer] [facility] [address], [address]th [place] [address]- Allergies, Adverse Reactions, Alerts Substance Reaction Severity [...] [facility] 3Admin Note: DONE ON 12/18/12. [facility] 4Admin Note: Biomedical Anne [facility] 5Admin Note: BIOMEDICAL ANNE 6Result Comment: WRONG BRAND Medications amLODIPine 5 mg oral tablet 5 mg, 1, tablet, By Mouth, Daily, # 90 tablet, Refills 1, Tot. Refills 1, Maintenance, 04/11/20 15:25:00 EST, Route to Pharmacy Electronically, [facility]/pharmacy #[id number], 152, cm, 04/10/20 10:26:00 EST, [...] 02/14/20 9:16:00 EST, Route to Pharmacy Electronically, [facility]/pharmacy #[id number], 154, cm, 09/18/19 17:05:00 EDT, Height, 68.5, kg, 06/21/18 14:14:00 EDT, Dry Weight Start Date: 02/14/20 Stop Date: 08/12/20 Status: Ordered KlonoPIN 0.5 mg oral tablet 0.5 tablet = 0.25 mg, By Mouth, 2 times a day, # 30 tablet, 5 Refills, Maintenance, 02/08/20 8:46:00 EST, Tablet, [facility]/pharmacy #[id number], 152, cm, 01/28/20 14:30:00 EST, Height, 72.6, kg, 01/28/20 14:30:00 EST, Dry Weight Start Date: 02/08/20 Stop Date: 08/06/20 Status: Ordered metoprolol 25 mg oral tablet, extended release 25 mg, 1, tablet, By Mouth, Daily, 90 DAY SUPPLY, # 90 tablet, Refills 1, Tot. Refills 1, Maintenance, 05/02/20 15:14:00 EST, Route to Pharmacy Electronically, [facility]/pharmacy #[id number], 152, cm, 04/10/20 10:26:00 EST, Height, 72.7, kg, 02/14/20 14:50:00 EST... Start Date: 05/02/20 Stop Date: 10/29/20 Status: Ordered Multivitamin With Minerals See Instructions, 1 tab By Mouth daily, 0 Refills, Maintenance Start Date: 09/23/10 Status: Ordered rosuvastatin 10 mg oral tablet See Instructions, TAKE 1 TABLET DAILY, # 90 tablet, 1 Refills, Soft Stop, 01/02/20 14:43:00 EDT, [facility]/pharmacy #[id number], 154, cm, 09/18/19 17:05:00 EDT, [...]
--- OUTSIDE RECORDS SUMMARY | 2022-07-07 11:59 | XMS_ITS | Continuity of Care Document ---
Author Name Unknown Organization [facility] [place] Address [address] [place] [address]- Care Team Providers Care Candy Dipper Name Role Phone Neyda DUENAS, Perez Alfaro Primary Care Physician [facility] Date[facility]s): 05/02/20 - 06/01/20 [facility] Adult [address] [place] [address]- Allergies, Adverse Reactions, Alerts Substance Reaction Severity [...] [12/17/2013] [facility] 3Admin Note: DONE ON 12/18/12. [facility] FOOD &DRUGS 4Admin Note: Biomedical Anne [facility] 5Admin Note: BIOMEDICAL ANNE 6Result Comment: WRONG BRAND Medications amLODIPine 5 mg oral tablet 5 mg, 1, tablet, By Mouth, Daily, # 90 tablet, Refills 1, Tot. Refills 1, Maintenance, 04/11/20 15:25:00 EST, Route to Pharmacy Electronically, [facility]/pharmacy #[id number], 152, cm, 04/10/20 10:26:00 EST, [...] 02/14/20 9:16:00 EST, Route to Pharmacy Electronically, [facility]/pharmacy #[id number], 154, cm, 09/18/19 17:05:00 EDT, Height, 68.5, kg, 06/21/18 14:14:00 EDT, Dry Weight Start Date: 02/14/20 Stop Date: 08/12/20 Status: Ordered KlonoPIN 0.5 mg oral tablet 0.5 tablet = 0.25 mg, By Mouth, 2 times a day, # 30 tablet, 5 Refills, Maintenance, 02/08/20 8:46:00 EST, Tablet, [facility]/pharmacy #[id number], 152, cm, 01/28/20 14:30:00 EST, Height, 72.6, kg, 01/28/20 14:30:00 EST, Dry Weight Start Date: 02/08/20 Stop Date: 08/06/20 Status: Ordered metoprolol 25 mg oral tablet, extended release 25 mg, 1, tablet, By Mouth, Daily, 90 DAY SUPPLY, # 90 tablet, Refills 1, Tot. Refills 1, Maintenance, 05/02/20 15:14:00 EST, Route to Pharmacy Electronically, [facility]/pharmacy #[id number], 152, cm, 04/10/20 10:26:00 EST, Height, 72.7, kg, 02/14/20 14:50:00 EST... Start Date: 05/02/20 Stop Date: 10/29/20 Status: Ordered Multivitamin With Minerals See Instructions, 1 tab By Mouth daily, 0 Refills, Maintenance Start Date: 09/23/10 Status: Ordered rosuvastatin 10 mg oral tablet See Instructions, TAKE 1 TABLET DAILY, # 90 tablet, 1 Refills, Soft Stop, 01/02/20 14:43:00 EDT, [facility]/pharmacy #[id number], 154, cm, 09/18/19 17:05:00 [...]
--- OUTSIDE RECORDS SUMMARY | 2022-07-07 11:59 | XMS_ITS | Continuity of Care Document ---
Author Name Unknown Organization [facility] Address [address] [address]- Care Team Providers Care Publications Sales Representative Name Role Phone Perez Faye MD Primary Care Physician [phone] Encounter [facility] Date(s): 01/19/22 - 02/25/22 [id number] [address]- Attending Physician: Tanja Johnson MD Admitting Physician: Tanja Johnson MD Referring Physician: Perez Faye MD Allergies, [...] [12/17/2013] [facility] 3Admin Note: DONE ON 12/18/12. [facility] FOOD &DRUGS 4Admin Note: GIVEN IN CLINIC SHAM 5Admin Note: Biomedical Anne [facility] 6Admin Note: BIOMEDICAL ANNE 7Result Comment: WRONG [...] tablet, Refills 1, Route to Pharmacy Electronically, [facility], 152, cm, 06/01/21 13:37:00 EST, Height, 72.7, kg, 02/14/20 14:50:00 EST, Dry Weight Start Date: 10/14/21 Status: Ordered metoprolol 50 mg oral tablet, extended release 50 mg, 1, tablet, By Mouth, Daily, # 90 tablet, Refills 3, Tot. Refills 3, Maintenance, 02/01/22 12:20:00 EST, Route to Pharmacy Electronically, [facility], Partial fill upon patient request if [...] Team Personnel Name: Milagros Minor RN Position: [facility] RN Member Role: Primary Care Nurse Name: Perez Faye MD Position: [facility] Primary Care Physician Member Role: PCP Address: Address: [address] [place] [address]- Name: Erin Hudson RN Position: [facility] RN Member Role: Primary Care Nurse Name: Kin DUENAS, Giovanny Monson Position: [facility] Cardiology MD Member Role: Lifetime Consulting Physician Address: Address: [address] [place] [address] [place] [address]- Care Team Related Persons Name: TANJA GUADALUPE Address: home [address] [place] [address] Name: ROSALINDA DENNY Address: home [address] [place] [address]
--- OUTSIDE RECORDS SUMMARY | 2022-07-07 11:59 | XMS_ITS | Continuity of Care Document ---
Author Name Unknown Organization [facility] [place] [address] [address]- Care Team Providers Care Valve Lapper Name Role Phone Perez Faye MD Primary Care Physician En[facility] Date(s): 03/11/22 - 04/10/22 [id number], [place] [address]- Attending Physician: Robb Gross Admitting Physician: AdmRobb zhou Referring Physician: Admtr, Ar8 Allergies, Adverse Reactions, [...] Early/Late Reason: Accommodate D/C 2Result Comment: [12/17/2013] [facility] 3Admin Note: DONE ON 12/18/12. [facility] FOOD &DRUGS 4Admin Note: GIVEN IN CLINIC SHAM 5Admin Note: Biomedical Anne [facility] 6Admin Note: BIOMEDICAL ANNE 7Result Comment: WRONG BRAND Medications amLODIPine 5 mg oral tablet 1 tablet, By Mouth, Daily, # 90 tablet, 1 Refills, Maintenance, 04/06/22 8:31:00 EST, [facility], 153, cm, 02/01/22 11:33:00 EST, Height Start Date: 04/06/22 Status: Ordered Aspir 81 Oral Enteric Coated Tablet 1 tablet, By Mouth, Daily, # 30 tablet, 0 Refills, Maintenance, EC Tablet Start Date: 05/07/10 Status: Ordered atorvastatin 10 mg oral tablet 1 tablet, By Mouth, Daily, # 90 tablet, 3 Refills, [facility], 152, cm, 06/01/21 13:37:00 EST, Height, 72.7, kg, 02/14/20 14:50:00 EST, Dry Weight Start Date: 10/14/21 Status: Ordered clonazePAM 0.5 mg oral tablet See Instructions, 0.5 tablet in the morning and 1 tablet at night., # 45 tablet, 5 Refills, Maintenance, 02/03/22 13:20:00 EST, [facility]/pharmacy #[id number], 153, cm, 02/01/22 11:33:00 EST, Height, [...] 04/06/22 8:31:00 EST, Route to Pharmacy Electronically, [facility], 153, cm, 02/01/22 11:33:00 EST, Height Start Date: 04/06/22 Status: Ordered Metoprolol Succinate ER 25 mg oral tablet, extended release 1 tablet, By Mouth, Daily, # 90 tablet, 0 Refills, Maintenance, 03/09/22 11:31:00 EST, [facility], 153, cm, 02/01/22 [...] Team Personnel Name: Milagros Minor RN Position: [facility] RN Member Role: Primary Care Nurse Name: Perez Faye MD Position: [facility] Primary Care Physician Member Role: PCP Address: Address: [address] [place] [address]- Name: Erin Hudson RN Position: [facility] RN Member Role: Primary Care Nurse Name: Kin DUENAS, Giovanny Monson Position: [facility] Cardiology MD Member Role: Lifetime Consulting Physician Address: Address: [address] [place] [address] [place] [address]- Care Team Related Persons Name: ZHANNA GUADALUPE Address: home [address] [place] [address] Name: ROSALINDA DENNY Address: home [address] [place] [address]
--- OUTSIDE RECORDS SUMMARY | 2022-07-07 11:59 | XMS_ITS | Continuity of Care Document ---
Author Name Unknown Organization [facility] [place] Address [address] [place] [address]- Care Team Providers Care Math And Science Division Chair Name Role Phone Neyda DUENAS, Perez Alfaro Primary Care Physician [facility]s): 08/07/21 - 09/06/21 [facility] Adult [address] [place] [address]- Allergies, Adverse Reactions, Alerts Substance Reaction Severity [...] GIVEN IN CLINIC SHAM 2Result Comment: [12/17/2013] [facility] 3Admin Note: DONE ON 12/18/12. [facility] 4Admin Note: Biomedical Anne [place] [...] tablet, 3 Refills, Maintenance, 10/30/20 11:22:00 EDT, [facility], Partial fill upon patient request if the prescription is for a schedule II opioid drug., 152, cm, 08/11/20 11:15:00 EDT,... Start Date: 10/30/20 Status: Ordered clonazePAM 0.5 mg oral tablet See Instructions, TAKE 1/2 TABLET TWICE A DAY APPOINTMENT NEEDED FOR FURTHER REFILLS, # 30 tablet, 5 Refills, Maintenance, 03/30/21 9:35:00 EST, [facility]/pharmacy #[id number], 152, cm, 11/25/20 11:04:00 EDT, Height, 72.7, kg, 02/14/20 14:50:00 EST, Dry Weight Start Date: 03/30/21 Status: Ordered clonazePAM 0.5 mg oral tablet See Instructions, TAKE HALF A TABLET BY MOUTH TWO TIMES A DAY, # 30 tablet, 0 Refills, Maintenance,12/11/20 7:41:00 EDT, [facility], 152, cm, 11/25/20 11:04:00 EDT, [...] tablet, Refills 1, Route to Pharmacy Electronically, [facility], 152, cm, 11/25/20 11:04:00 [...]
--- OUTSIDE RECORDS SUMMARY | 2022-07-07 11:59 | XMS_ITS | Continuity of Care Document ---
Author Name Unknown Organization [facility] [place] Address [address] [place] [address]- Care Team Providers Care Range Master Name Role Phone Perez Faye MD Primary Care Physician [facility] Date[facility]s): 07/23/19 - 07/30/19 [facility] Adult [address] [place] [address]- [facility] Attending Physician: Perez Faye MD Allergies, Adverse [...] [12/17/2013] [facility] 3Admin Note: DONE ON 12/18/12. [facility] FOOD &DRUGS 4Admin Note: Biomedical Anne [facility] 5Admin Note: BIOMEDICAL ANNE 6Result Comment: WRONG BRAND Medications amLODIPine 5 mg oral tablet 5 mg, 1, tablet, By Mouth, Daily, # 90 tablet, Refills 3, Tot. Refills 3, Maintenance, 06/08/19 14:16:00 EDT, Route to Pharmacy Electronically, [facility]/pharmacy #[id number], 154, cm, 06/08/19 13:41:00 EDT, Height, [...] 02/19/19 9:16:10 EST, Route to Pharmacy Electronically, [id number], [facility]/pharmacy #[id number] Start Date: 02/19/19 Stop Date: 02/14/20 Status: Ordered KlonoPIN 0.5 mg oral tablet 0.5 tablet = 0.25 mg, By Mouth, 2 times a day, # 30 tablet, 5 Refills, Maintenance, 07/13/19 13:57:00 EDT, Tablet, [facility]/pharmacy #[id number], 154, cm, 06/08/19 13:41:00 EDT, Height, 68.5, kg, 06/21/18 14:14:00 EDT, Dry Weight Start Date: 07/13/19 Stop Date: 01/09/20 Status: Ordered metoprolol 25 mg oral tablet, extended release 25 mg, 1, tablet, By Mouth, Daily, 90 DAY SUPPLY, # 90 tablet, Refills 3, Tot. Refills 3, Maintenance, 02/19/19 9:17:30 EST, Route to Pharmacy Electronically, [id number], [facility]/pharmacy #[id number] Start Date: 02/19/19 Stop Date: 02/14/20 [...] 8:10:59 EDT, Aerosol, Route to Pharmacy Electronically, [id number], [facility]/pharmacy #[id number] Start Date: 11/16/18 Status: Ordered rosuvastatin [...]
--- OUTSIDE RECORDS SUMMARY | 2022-07-07 11:59 | XMS_ITS | Continuity of Care Document ---
Author Name Unknown Organization [facility] [place] Address [address] [place] [address]- Care Team Providers Care Technology Lab Teacher Name Role Phone Neyda UDENAS, Perez Alfaro Primary Care Physician [facility] Date(s): 11/03/20 - 12/03/20 [facility] Adult [address] [place] [address]- Allergies, Adverse Reactions, Alerts Substance Reaction Severity [...] GIVEN IN CLINIC SHAM 2Result Comment: [12/17/2013] [facility] 3Admin Note: DONE ON 12/18/12. [facility] FOOD &DRUGS 4Admin Note: Biomedical [facility] 5Admin Note: BIOMEDICAL ANNE 6Result Comment: WRONG BRAND Medications amLODIPine 5 mg oral tablet 5 mg, 1, tablet, By Mouth, Daily, # 90 tablet, Refills 0, Tot. Refills 0, Maintenance, 10/30/20 11:24:00 EDT, Route to Pharmacy Electronically, [facility], 152, cm, 08/11/20 11:15:00 EDT, [...] 30 tablet, 0 Refills, Maintenance,11/07/20 12:31:00 EDT, [facility]/pharmacy #[id number], 152, cm, 08/11/20 11:15:00 EDT, [...] 10/30/20 11:23:00 EDT, Route to Pharmacy Electronically, [facility], 152, cm, 08/11/20 11:15:00 EDT, Height, 72.7, kg, 02/14/20 14:50:00 EST,... Start Date: 10/30/20 Stop Date: 04/28/21 Status: Ordered metoprolol 25 mg oral tablet, extended release 25 mg, 1, tablet, By Mouth, Daily, 90 DAY SUPPLY, # 90 tablet, Refills 0, Tot. Refills 0, Maintenance, 10/30/20 11:23:00 EDT, Route to Pharmacy Electronically, [facility], 152,cm, 08/11/20 11:15:00 EDT, Height, [...]
--- OUTSIDE RECORDS SUMMARY | 2022-07-07 11:59 | XMS_ITS | Continuity of Care Document ---
Author Name Unknown Organization [facility] Address [address], [address] [place] [address]- Care Team Providers Care Gun Stocker Name Role Phone Neyda DUENAS, Perez Alfaro Primary Care Physician Encounter [facility] Date(s): 08/11/20 - 09/10/20 [facility] [employer] [facility] [address]th [address] [place], [place] [address] [[email or web address] Attending Physician: AdmYvan zhou8 Admitting Physician: Admtr, Robb Referring Physician: Admtr, Ar8 Allergies, Adverse Reactions, [...] [facility] 3Admin Note: DONE ON 12/18/12. [facility] FOOD &DRUGS 4Admin Note: Biomedical Anne [facility] 5Admin Note: BIOMEDICAL ANNE 6Result Comment: WRONG BRAND Medications amLODIPine 5 mg oral tablet 5 mg, 1, tablet, By Mouth, Daily, # 90 tablet, Refills 1, Tot. Refills 1, Maintenance, 04/11/20 15:25:00 EST, [id number], 152, cm, 04/10/20 10:26:00 EST, Height, [...] 30 tablet, 5 Refills, Maintenance,08/08/20 11:20:00 EDT, [facility]/pharmacy #[id number], 152, cm, 04/10/20 10:26:00 EST, [...] 08/12/20 9:16:00 EDT, Route to Pharmacy Electronically, [facility]/pharmacy #[id number], 152, cm, 04/10/20 10:26:00 EST, Height, 72.7, kg, 02/14/20 14:50:00 EST, Dry Weight Start Date: 08/12/20 Stop Date: 02/08/21 Status: Ordered KlonoPIN 0.5 mg oral tablet 0.5 tablet = 0.25 mg, By Mouth, 2 times a day, # 30 tablet, 5 Refills, Maintenance, 02/08/20 8:46:00 EST, Tablet, [facility]/pharmacy #[id number], 152, cm, 01/28/20 14:30:00 EST, Height, 72.6, kg, 01/28/20 14:30:00 EST, Dry Weight Start Date: 02/08/20 Stop Date: 08/06/20 Status: Ordered metoprolol 25 mg oral tablet, extended release 25 mg, 1, tablet, By Mouth, Daily, 90 DAY SUPPLY, # 90 tablet, Refills 1, Tot. Refills 1, Maintenance, 05/02/20 15:14:00 EST, Route to Pharmacy Electronically, [facility]/pharmacy #[id number], 152, cm, 04/10/20 10:26:00 EST, Height, 72.7, kg, 02/14/20 14:50:00 EST... Start Date: 05/02/20 Stop Date: 10/29/20 Status: Ordered Multivitamin With Minerals See Instructions, 1 tab By Mouth daily, 0 Refills, Maintenance Start Date: 09/23/10 Status: Ordered rosuvastatin 10 mg oral tablet See Instructions, TAKE 1 TABLET DAILY, # 90 tablet, 1 Refills, Soft Stop, 01/02/20 14:43:00 EDT, [facility]/pharmacy #[id number], 154, cm, 09/18/19 17:05:00 EDT, [...]
--- OUTSIDE RECORDS SUMMARY | 2022-07-07 11:59 | XMS_ITS | Continuity of Care Document ---
Author Name Unknown Organization [facility] [place] Address [address] [place] [address]- Care Team Providers Care Coffee Roaster Helper Name Role Phone Neyda DUENAS, Perez Alfaro Primary Care Physician [facility]s): 02/01/22 - 03/03/22 [facility] [place] Adult [address] [place] [address]- Allergies, Adverse Reactions, Alerts Substance Reaction Severity [...] [12/17/2013] [facility] 3Admin Note: DONE ON 12/18/12. [facility] FOOD &DRUGS 4Admin Note: GIVEN IN CLINIC SHAM 5Admin Note: Biomedical Anne [facility] 6Admin Note: BIOMEDICAL ANNE 7Result Comment: [...] tablet, Refills 1, Route to Pharmacy Electronically, [facility], 152, cm, 06/01/21 13:37:00 EST, Height, 72.7, kg, 02/14/20 14:50:00 EST, Dry Weight Start Date: 10/14/21 Status: Ordered metoprolol 50 mg oral tablet, extended release 50 mg, 1, tablet, By Mouth, Daily, # 90 tablet, Refills 3, Tot. Refills 3, Maintenance, 02/01/22 12:20:00 EST, Route to Pharmacy Electronically, [facility], Partial fill upon [...] Care Physician Member Role: PCP Address: Address: [address] [place] [address]- Name: Erin Hudson RN Position: [facility] RN Member Role: Primary Care Nurse Name: Giovanny Sanderson MD Position: [facility] Cardiology MD Member Role: Lifetime Consulting Physician Address: Address: [address] [place] [address] [place] [address]- Care Team Related Persons Name: ZHNANA GUADALUPE Address: home [address] [place] [address] Name: ROSALINDA DENNY Address: home [address] [place] [address]
--- OUTSIDE RECORDS SUMMARY | 2022-07-07 11:59 | XMS_ITS | Continuity of Care Document ---
Author Name Unknown Organization [facility] [place] Address [address] [place] [address]- Care Team Providers Care Plant Protection Supervisor Name Role Phone Neyda DUENAS, Perez Alfaro Primary Care Physician [facility]s): 03/24/21 - 04/23/21 [facility] Adult [address] [place] [address]- Allergies, Adverse Reactions, Alerts Substance Reaction Severity [...] HOSPITAL 3Admin Note: DONE ON 12/18/12. [facility] 4Admin Note: Biomedical Anne [facility] 5Admin Note: BIOMEDICAL ANNE 6Result Comment: [...] tablet, 3 Refills, Maintenance, 10/30/20 11:22:00 EDT, [facility], Partial fill upon patient request if [...] 30 tablet, 0 Refills, Maintenance,12/11/20 7:41:00 EDT, [facility], 152, cm, 11/25/20 11:04:00 EDT, Height, [...] tablet, Refills 1, Route to Pharmacy Electronically, [facility], 152, cm, 11/25/20 11:04:00 EDT, Height, 72.7, kg, 02/14/20 14:50:00 EST, Dry Weight Start Date: 04/17/21 Status: Ordered Metoprolol Succinate ER 25 mg oral tablet, extended release 1 tablet, By Mouth, Daily, # 90 tablet, 0 Refills, [facility], 152, cm, 11/25/20 11:04:00 EDT, Height, 72.7, kg, 02/14/20 14:50:00 EST, Dry Weight Start Date: 01/16/21 Status: Ordered Multivitamin With Minerals See Instructions, [...]
--- OUTSIDE RECORDS SUMMARY | 2022-07-07 11:59 | XMS_ITS | Continuity of Care Document ---
Author Name Unknown Organization [facility] [place] Address [address] [place] [address]- Care Team Providers Care Management Trainee Name Role Phone Neyda DUENAS, Perez Alfaro Primary Care Physician Encounter [facility] Date(s): 06/01/21 - 06/08/21 [facility] Adult [address] [place] [address]- Encounter Diagnosis Viral URI(Discharge Diagnosis) - 06/01/21 Attending Physician: Maki Sanon Allergies, Adverse Reactions, Alerts Substance Reaction Severity [...] GIVEN IN CLINIC SHAM 2Result Comment: [12/17/2013] [facility] 3Admin Note: DONE ON 12/18/12. [facility] FOOD &DRUGS 4Admin Note: Biomedical Anne [facility] 5Admin Note: BIOMEDICAL ANNE 6Result [...] tablet, 3 Refills, Maintenance, 10/30/20 11:22:00 EDT, [facility], Partial fill upon patient request if the prescription is for a schedule II opioid drug., 152, cm, 08/11/20 11:15:00 EDT,... Start Date: 10/30/20 Status: Ordered clonazePAM 0.5 mg oral tablet See Instructions, TAKE 1/2 TABLET TWICE A DAY APPOINTMENT NEEDED FOR FURTHER REFILLS, # 30 tablet, 5 Refills, Maintenance, 03/30/21 9:35:00 EST, [facility]/pharmacy #[id number], 152, cm, 11/25/20 11:04:00 EDT, Height, 72.7, kg, 02/14/20 14:50:00 EST, Dry Weight Start Date: 03/30/21 Status: Ordered clonazePAM 0.5 mg oral tablet See Instructions, TAKE HALF A TABLET BY MOUTH TWO TIMES A DAY, # 30 tablet, 0 Refills, Maintenance,12/11/20 7:41:00 EDT, [facility], 152, cm, 11/25/20 11:04:00 EDT, [...] tablet, Refills 1, Route to Pharmacy Electronically, [facility], 152, cm, 11/25/20 11:04:00 EDT, Height, 72.7, kg, 02/14/20 14:50:00 EST, Dry Weight Start Date: 04/17/21 Status: Ordered Metoprolol Succinate ER 25 mg oral tablet, extended release 1 tablet, By Mouth, Daily, # 90 tablet, 0 Refills, [facility], 152, cm, 11/25/20 [...] by gastric distention [id number] [facility] Diagnosis Diagnosis Type Effective Dates Health Status Clini preet Service Informant Viral URI Discharge Diagnosis 06/01/21 Vital Signs Most recent to oldest [Reference Range]: 1 Height 152 cm (06/01/21 1:37 PM) Weight 71 kg (06/01/21 1:37 PM) Body Mass Index [18.5-24.99] 30.73 *>HHI* (06/01/21 1:37 PM) Weight Obtained Via Standing scale (06/01/21 1:37 PM) Social History Social History Type Response Smoking Status Former smoker entered on: 04/04/17 Sex
--- OUTSIDE RECORDS SUMMARY | 2022-07-07 11:59 | XMS_ITS | Continuity of Care Document ---
Author Name Unknown Organization [facility] [place] lt Address [address] [place] [address]- Care Team Providers Care Hotel Baggage Handler Name Role Phone Neyda DUENAS, Perez Alfaro Primary Care Physician [phone] [place] [facility] [place] 06/01/21 - 07/01/21 [facility] Adult [address] [place] [address]- Allergies, Adverse Reactions, Alerts Substance Reaction Severity [...] GIVEN IN CLINIC SHAM 2Result Comment: [12/17/2013] [facility] 3Admin Note: DONE ON 12/18/12. [facility] 4Admin Note: Biomedical Anne [facility] 5Admin Note: BIOMEDICAL ANNE 6Result Comment: [...] tablet, 3 Refills, Maintenance, 10/30/20 11:22:00 EDT, [facility], Partial fill upon patient request if the prescription is for a schedule II opioid drug., 152, cm, 08/11/20 11:15:00 EDT,... Start Date: 10/30/20 Status: Ordered clonazePAM 0.5 mg oral tablet See Instructions, TAKE 1/2 TABLET TWICE A DAY APPOINTMENT NEEDED FOR FURTHER REFILLS, # 30 tablet, 5 Refills, Maintenance, 03/30/21 9:35:00 EST, [facility]/pharmacy #[id number], 152, cm, 11/25/20 11:04:00 EDT, Height, 72.7, kg, 02/14/20 14:50:00 EST, Dry Weight Start Date: 03/30/21 Status: Ordered clonazePAM 0.5 mg oral tablet See Instructions, TAKE HALF A TABLET BY MOUTH TWO TIMES A DAY, # 30 tablet, 0 Refills, Maintenance,12/11/20 7:41:00 EDT, [facility], 152, cm, 11/25/20 11:04:00 [...] tablet, Refills 1, Route to Pharmacy Electronically, [email or web address], 152, cm, 11/25/20 11:04:00 [...]
--- OUTSIDE RECORDS SUMMARY | 2022-07-07 11:59 | XMS_ITS | Continuity of Care Document ---
Author Name Unknown Organization [facility] [place] lt Address [address] [place] [address]- Care Team Providers Care Manager Assessment Name Role Phone Perez Faye MD Primary Care Physician [facility] Date[facility]s): 06/08/19 - 08/22/19 [facility] Adult [address] [place] [address]- [facility] Attending Physician: Perez Faye MD [...] [12/17/2013] [facility] 3Admin Note: DONE ON 12/18/12. [facility] 4Admin Note: Biomedical Anne [facility] 5Admin Note: BIOMEDICAL ANNE 6Result Comment: WRONG BRAND Medications amLODIPine 5 mg oral tablet 5 mg, 1, tablet, By Mouth, Daily, # 90 tablet, Refills 3, Tot. Refills 3, Maintenance, 06/08/19 14:16:00 EDT, Route to Pharmacy Electronically, [facility]/pharmacy #[id number], 154, cm, 06/08/19 13:41:00 EDT, Height, [...] 02/19/19 9:16:10 EST, Route to Pharmacy Electronically, [id number], [facility]/pharmacy #[id number] Start Date: 02/19/19 Stop Date: 02/14/20 Status: Ordered KlonoPIN 0.5 mg oral tablet 0.5 tablet = 0.25 mg, By Mouth, 2 times a day, # 30 tablet, 5 Refills, Maintenance, 07/13/19 13:57:00 EDT, Tablet, [facility]/pharmacy #[id number], 154, cm, 06/08/19 13:41:00 EDT, Height, 68.5, kg, 06/21/18 14:14:00 EDT, Dry Weight Start Date: 07/13/19 Stop Date: 01/09/20 Status: Ordered metoprolol 25 mg oral tablet, extended release 25 mg, 1, tablet, By Mouth, Daily, 90 DAY SUPPLY, # 90 tablet, Refills 0, Tot. Refills 0, Maintenance, 08/08/19 12:42:00 EDT, Route to Pharmacy Electronically, [facility]/pharmacy #[id number], 154, cm, 06/08/19 13:41:00 EDT, Height, [...] 8:10:59 EDT, Aerosol, Route to Pharmacy Electronically, [id number], [facility]/pharmacy #[id number] Start Date: 11/16/18 Status: Ordered [...]
--- OUTSIDE RECORDS SUMMARY | 2022-07-07 11:59 | XMS_ITS | Continuity of Care Document ---
Author Name Unknown Organization [facility] [place] lt Address [address] [place] [address]- Care Team Providers Care White Hat Hacker Name Role Phone Perez Faye MD Primary Care Physician Encounter [facility] [place] Date(s): 04/27/22 - 05/04/22 [facility] Adult [address] [place] [address]- Encounter Diagnosis Hypertension(Discharge Diagnosis) - 04/27/22 Hypercholesterolemia(Discharge Diagnosis) - 04/27/22 Attending Physician: Perez Faye MD Allergies, Adverse [...] (oldterm) 4 02/15/06 Given pneumococcal 13-valent vaccine 3/13/15 Given tetanus/diphtheria/pertussis, acel(Tdap) 10/21/11 Given FluLaval (oldterm) 5 12/11/10 Given FluLaval (oldterm) 6 01/27/10 Given influ virus vac, H1N1, inactive(oldterm) 7 12/03/10 Given Tetanus Toxoid Vaccine (oldterm) 03/28/04 Given Pneumococcal Vacc (oldterm) 06/25/03 Given 1Early/Late Reason: Early/Late Reason: Accommodate D/C 2Result Comment: [12/17/2013] [facility] 3Admin Note: DONE ON 12/18/12. [facility] 4Admin Note: GIVEN IN CLINIC SHAM 5Admin Note: Biomedical Anne [facility] 6Admin Note: BIOMEDICAL ANNE 7Result Comment: WRONG BRAND Medications amLODIPine 5 mg oral tablet 1 tablet, By Mouth, Daily, # 90 tablet, 1 Refills, Maintenance, 04/06/22 8:31:00 EST, [facility], 153, cm, 02/01/22 11:33:00 EST, Height Start Date: 04/06/22 Status: Ordered Aspir 81 Oral Enteric Coated Tablet 1 tablet, By Mouth, Daily, # 30 tablet, 0 Refills, Maintenance, EC Tablet Start Date: 05/07/10 Status: Ordered atorvastatin 10 mg oral tablet 1 tablet, By Mouth, Daily, # 90 tablet, 3 Refills, [facility], 152, cm, 06/01/21 13:37:00 [...] 04/06/22 8:31:00 EST, Route to Pharmacy Electronically, [facility], 153, cm, 02/01/22 11:33:00 EST, Height Start Date: 04/06/22 Status: Ordered Metoprolol Succinate ER 25 mg oral tablet, extended release 1 tablet, By Mouth, Daily, # 90 tablet, 0 Refills, Maintenance, 03/09/22 11:31:00 EST, [facility], 153, cm, 02/01/22 11:33:00 [...] Status Clinical Service Informant Hypertension Discharge Diagnosis 04/27/22 Hypercholesterolemia Discharge Diagnosis 04/27/22 Vital Signs Most recent to oldest [Reference Range]: 1 Height 153 cm (04/27/22 11:18 AM) Weight 66.0 kg (04/27/22 11:18 AM) Oxygen Saturation [94-100 %] 97 % (04/27/22 11:18 AM) Pulse Rate [55-90 bpm] 76 bpm (04/27/22 11:18 AM) Body Mass Index [18.5-24.99 kg/m2] 28.19 kg/m2 *H* (04/27/22 11:18 AM) Blood Pressure [90-138/55-84 mm Hg] 132/ 74mm Hg (04/27/22 11:18 AM) Mode of Delivery (Oxygen) Room air (04/27/22 11:18 AM) Blood pressure sites Arm, left (04/27/22 11:18 AM) Weight Obtained Via Standing scale (04/27/22 11:18 AM) Social History Social History Type Response Smoking Status Former smoker entered on: 04/04/17 Sex Note * Guerda Baker: PERFORM, SIGN, VERIFY Event Display: Patient Education/Instruction Authored Date: [id number] [facility] *BMP So Rajat Collazo Clinical Summary Name MARKEL DENNY Age 86 Years 1935 PCP Neyda DUENAS, Perez [facility]faro [id number] Visit Date 04/27/2022 11:13:00 Additional Instructions: Scheduled Appointments?? Future Appointments ?[facility] ?[address]??[place],??[place],??[address] ?Phone:?[phone]?Fax:??-- ?Appt. Date:??04/28/2022?12:15 PM ?Scheduled Provider:??[facility] 3 Follow-Up Instructions ?? With: Address: When: Neyda DUENAS, Perez Alfaro In 6 months Comments: Physical examination Diagnosis Major depressive disorder, single episode, in full remission; Anxiety disorder, unspecified; Unspecified systolic (congestive) heart failure; Essential (primary) hypertension; Pure hypercholesterolemia; Other specified soft tissue disorders; Personal history of other specified conditions Medications: Please continue your medications until treatment is completed or stopped by your provider. Discuss any questions related to medications with your provider. Medications to Continue with No Changes These medications were not printed or sent to your pharmacy Amlodipine (amLODIPine 5 mg oral tablet) 1 tab(s) Oral Daily. Refills: 1. Next Dose: Aspirin (Aspir 81 Oral Enteric Coated Tablet) 1 tab(s) Oral Daily. Next Dose: Atorvastatin (atorvastatin 10 mg oral tablet) 1 tab(s) Oral Daily. Refills: 3. Next Dose: Cholecalciferol (Vitamin D3) 2,000 International Unit Oral Daily. Next Dose: Citalopram (citalopram 10 mg oral tablet) 1 tab(s) Oral Daily. 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 Refills: 2. Next Dose: Hydrochlorothiazide (hydrochlorothiazide 25 mg oral tablet) 1 tab(s) Oral Daily. Refills: 1. Next Dose: Metoprolol (Metoprolol Succinate ER 25 mg oral tablet, extended release) 1 tab(s) Oral Daily. Refills: 0. Next Dose: Multivitamin With Minerals 1 tab By Mouth daily. Next Dose: Trazodone (traZODone 50 mg oral tablet) 2 tab(s) Oral Daily at Bedtime. Next Dose: No Longer Take the Following Medications Clonazepam (clonazePAM 0.5 mg oral tablet) 0.5 tablet in the morning and 1 tablet at night.. Refills: 5. Miscellaneous Rx (physical therapy) evaluate and treat for neck pain. Refills: 0. Allergy Info:?? codeine Medications Given This Visit Future Orders ?Comprehensive Metabolic Panel? Order Date:04/27/22?- Complete on or after?04/27/22 ?Lipid Panel? Order Date:04/27/22?- Complete on or after?04/27/22 ?Thyroid Panel? Order Date:04/27/22?- Complete on or after?04/27/22 ?CBC? Order Date:04/27/22?- Complete on or after?04/27/22 ?US Doppler Ext Lower Venous Left? Order Date:04/28/22?- Complete on or after?04/28/22 Vital Signs Height 153 cm Weight 66.0 kg BMI 28.19 kg/m2 Blood Pressure 132 mm Hg/74 mm Hg Temperature Pulse Rate 76 bpm Respiratory Rate 02 Sat Mode of Delivery 97 %/Room air You can now view a summary of your hospital visit from the comfort of your home through a free online portal called [employer]. [employer] is a website that allows you to securely view your medical information including discharge summary, medications and follow-up visits. ??You can alsosend a secure electronic message to your doctor???s office to request appointments, renew medications or just ask a question. You can enroll at [email or web address] or register during your next office visit. Disclaimer:?? The information provided is of a general nature and is intended to be used in conjunction with the recommendations and advice of your health care practitioner. ??Every effort has been made to ensure that the information provided is accurate and complete at the time it is provided to you however, as your needs change, or, as new ??information becomes available, different or additional instructions may be required. If you have questions, please consult with your primary care provider or pharmacist, as appropriate. ??This information is not intended to serve as substitution for assessment and evaluation by a qualified health care provider. If you do not have a primary care provider, you may find a [facility] provider by calling [facility] [employer] at [phone]. For information about the plan of care including goals and instructions for your diagnosis, please see the patient education orders section of this document. Patient Education Materials?? The content of this educational material or handout may have been modified, supplemented, or adapted from its original content and format to support your individualized medical care. Patient Care team information Care Team Personnel Name: Milagros Minor RN Position: [facility] RN Member Role: Primary Care Nurse Name: Perez Faye MD Position: [facility] Primary Care Physician Member Role: PCP Address: Address: [address] [place] [phone]- [place] Name: Erin Hudson RN Position: S RN Member Role: Primary Care Nurse Name: Giovanny Sanderson MD Position: [facility] Cardiology MD Member Role: Lifetime Consulting Physician Address: Address: [address] [place] [address]- Care Team Related Persons Name: COLLINS ZHANNA Address: home [address] [place] [address] Name: ROSALINDA DENNY Address: home [address] [place] [address]
--- OUTSIDE RECORDS SUMMARY | 2022-07-07 11:59 | XMS_ITS | Continuity of Care Document ---
Author Name Unknown Organization [facility] [place] lt Address [address] [place] [address]- Care Team Providers Care Etl Informatica Architect Name Role Phone Perez Faye MD Primary Care Physician [place] [facility] [place](s[place] 09/18/19 - 09/25/19 [facility] Adult [address] [place] [address]- [facility] Attending Physician: Perez Faye MD Allergies, Adverse [...] Vaccine (oldterm) 03/28/04 Given Pneumococcal Vacc (oldterm) 3/30/04 Given 1Admin Note: GIVEN IN CLINIC SHAM 2Result Comment: [12/17/2013] [facility] 3Admin Note: DONE ON 12/18/12. [facility] 4Admin Note: Biomedical Anne [facility] 5Admin Note: BIOMEDICAL ANNE 6Result Comment: WRONG BRAND Medications amLODIPine 5 mg oral tablet 5 mg, 1, tablet, By Mouth, Daily, # 90 tablet, Refills 3, Tot. Refills 3, Maintenance, 06/08/19 14:16:00 EDT, Route to Pharmacy Electronically, [facility]/pharmacy #[id number], 154, cm, 06/08/19 13:41:00 EDT, [...] 02/19/19 9:16:10 EST, Route to Pharmacy Electronically, [id number], [facility]/pharmacy #[id number] Start Date: 02/19/19 Stop Date: 02/14/20 Status: Ordered KlonoPIN 0.5 mg oral tablet 0.5 tablet = 0.25 mg, By Mouth, 2 times a day, # 30 tablet, 5 Refills, Maintenance, 07/13/19 13:57:00 EDT, Tablet, [facility]/pharmacy #[id number], 154, cm, 06/08/19 13:41:00 EDT, Height, 68.5, kg, 06/21/18 14:14:00 EDT, Dry Weight Start Date: 07/13/19 Stop Date: 01/09/20 Status: Ordered metoprolol 25 mg oral tablet, extended release 25 mg, 1, tablet, By Mouth, Daily, 90 DAY SUPPLY, # 90 tablet, Refills 0, Tot. Refills 0, Maintenance, 08/08/19 12:42:00 EDT, Route to Pharmacy Electronically, [facility]/pharmacy #[id number], 154, cm, 06/08/19 13:41:00 EDT, [...] 8:10:59 EDT, Aerosol, Route to Pharmacy Electronically, [id number], [facility]/pharmacy #[id number] Start Date: 11/16/18 Status: Ordered rosuvastatin 10 mg oral tablet See Instructions, TAKE 1 TABLET DAILY, # 90 tablet, 1 Refills, Soft Stop, 08/08/19 12:41:00 EDT, [facility]/pharmacy #[id number], 154, cm, 06/08/19 13:41:00 EDT, [...] to oldest [Reference Range]: 1 2 Height 154 cm (09/18/19 5:05 PM) 154 cm (09/18/19 4:07 PM) Weight 75.4 kg (09/18/19 4:07 PM) Pulse Rate [55-90 bpm] 68 bpm (09/18/19 4:07 PM) Body Mass Index [18.5-24.99] 31.79 *>HHI* (09/18/19 4:07 PM) Blood Pressure [90-138/55-84 mm Hg] 130/ 85mm Hg (09/18/19 5:05 PM) 174/94mm Hg *H* (09/18/19 4:07 PM) Respiratory Rate [16-30 br/min] 12 br/mi n *L* (09/18/19 4:07 PM) Mode of Delivery (Oxygen) Room air (09/18/19 4:07 PM) Blood pressure sites Arm, left (09/18/19 4:07 PM) Weight Obtained Via Standing scale (09/18/19 4:07 PM) Social History Social History Type Response Smoking Status Former smoker entered on: 04/04/17 Sex
--- OUTSIDE RECORDS SUMMARY | 2022-07-07 12:00 | XMS_ITS | Continuity of Care Document ---
Author Name Unknown Organization [facility] [place] [place] lt Address [address] [place] [address]- Care Team Providers Care Pulmonary Function Technologist Name Role Phone Neyda DUENAS, Perez Alfaro Primary Care Physician [facility] Date(s): 11/26/20 - 12/26/20 [facility] [place] Adult [address] [place] [address]- Allergies, Adverse Reactions, Alerts Substance Reaction Severity [...] GIVEN IN CLINIC SHAM 2Result Comment: [12/17/2013] [facility] 3Admin Note: DONE ON 12/18/12. [facility] 4Admin Note: Biomedical Anne [facility] 5Admin Note: BIOMEDICAL ANNE 6Result Comment: WRONG BRAND Medications amLODIPine 5 mg oral tablet 5 mg, 1, tablet, By Mouth, Daily, # 90 tablet, Refills 0, Tot. Refills 0, Maintenance, 10/30/20 11:24:00 EDT, Route to Pharmacy Electronically, [facility], 152, cm, 08/11/20 11:15:00 EDT, [...] tablet, 3 Refills, Maintenance, 10/30/20 11:22:00 EDT, [facility], Partial fill upon patient request if the prescription is for a schedule II opioid drug., 152, cm, 08/11/20 11:15:00 EDT,... Start Date: 10/30/20 Status: Ordered clonazePAM 0.5 mg oral tablet See Instructions, TAKE HALF A TABLET BY MOUTH TWO TIMES A DAY, # 30 tablet, 0 Refills, Maintenance,12/11/20 7:41:00 EDT, [facility], 152, cm, 11/25/20 11:04:00 EDT, [...] 10/30/20 11:23:00 EDT, Route to Pharmacy Electronically, [facility], 152, cm, 08/11/20 11:15:00 EDT, Height, 72.7, kg, 02/14/20 14:50:00 EST,... Start Date: 10/30/20 Stop Date: 04/28/21 Status: Ordered metoprolol 25 mg oral tablet, extended release 25 mg, 1, tablet, By Mouth, Daily, 90 DAY SUPPLY, # 90 tablet, Refills 0, Tot. Refills 0, Maintenance, 10/30/20 11:23:00 EDT, Route to Pharmacy Electronically, [facility], 152,cm, 08/11/20 11:15:00 EDT, Height, [...]
--- OUTSIDE RECORDS SUMMARY | 2022-07-07 12:00 | XMS_ITS | Continuity of Care Document ---
Author Name Unknown Organization [facility] [place] lt Address [address] [place] [address]- Care Team Providers Care Local Hazmat Driver Name Role Phone Perez Faye MD Primary Care Physician [place] [facility] [place] 06/15/19 [facility] Adult [address] [place] [address]- [facility] Encounter Diagnosis Hypercholesterolemia(Discharge Diagnosis) - 06/08/19 Hypertension(Discharge Diagnosis) - 06/08/19 Anxiety(Discharge Diagnosis) - 06/08/19 Attending Physician: Perez Faye MD Allergies, Adverse [...] [12/17/2013] [facility] 3Admin Note: DONE ON 12/18/12. [facility] 4Admin Note: Biomedical Anne [facility] 5Admin Note: BIOMEDICAL ANNE 6Result Comment: WRONG BRAND Medications amLODIPine 5 mg oral tablet 5 mg, 1, tablet, By Mouth, Daily, # 90 tablet, Refills 3, Tot. Refills 3, Maintenance, 06/08/19 14:16:00 EDT, Route to Pharmacy Electronically, [facility]/pharmacy #[id number], 154, cm, 06/08/19 13:41:00 [...] 02/19/19 9:16:10 EST, Route to Pharmacy Electronically, [id number], [facility]/pharmacy #[id number] Start Date: 02/19/19 Stop Date: 02/14/20 Status: Ordered KlonoPIN 0.5 mg oral tablet 0.5 tablet = 0.25 mg, By Mouth, 2 times a day, # 30 tablet, 5 Refills, Maintenance, 06/08/19 14:07:00 EDT, Tablet, [facility]/pharmacy #[id number], 154, cm, 06/08/19 13:41:00 EDT, Height, 68.5, kg, 06/21/18 14:14:00 EDT, Dry Weight Start Date: 06/08/19 Stop Date: 12/05/19 Status: Ordered metoprolol 25 mg oral tablet, extended release 25 mg, 1, tablet, By Mouth, Daily, 90 DAY SUPPLY, # 90 tablet, Refills 3, Tot. Refills 3, Maintenance, 02/19/19 9:17:30 EST, Route to Pharmacy Electronically, [id number], [facility]/pharmacy #[id number] Start Date: 02/19/19 Stop Date: 02/14/20 Status: Ordered Multivitamin With Minerals See Instructions, 1 tab By Mouth daily, 0 Refills, Maintenance Start Date: 09/23/10 Status: Ordered ProAir HFA 90 mcg/inh inhalation aerosol with adapter 2, puffs, Inhalation, Every 6 hours, PRN, # 8.5 Gm, Refills 11, Tot. Refills 11, Maintenance, 11/16/18 8:10:59 EDT, Aerosol, Route to Pharmacy Electronically, [id number], [facility]/pharmacy #[id number] Start Date: 11/16/18 Status: [...] Effective Dates Health Status Clinical Service Informant Hypercholesterolemia Discharge Diagnosis 06/08/19 Hypertension Discharge Diagnosis 06/08/19 Anxiety Discharge Diagnosis 06/08/19 Vital Signs Most recent to oldest [Reference Range]: 1 Height 154 cm (06/08/19 1:41 PM) Weight 75.5 kg (06/08/19 1:41 PM) Oxygen Saturation [94-100 %] 98 % (06/08/19 1:41 PM) Pulse Rate [55-90 bpm] 63 bpm (06/08/19 1:41 PM) Body Mass Index [18.5-24.99] 31.84 *>HHI* (06/08/19 1:41 PM) Blood Pressure [90-138/55-84 mm Hg] 200/ 100mm Hg *H* (06/08/19 1:41 PM) Respiratory Rate [16-30 br/min] 20 br/mi n (06/08/19 1:41 PM) Temperature [96.8-100.4 DegF] 97.9 DegF (06/08/19 1:41 PM) Mode of Delivery (Oxygen) Room air (06/08/19 1:41 PM) Blood pressure sites Arm, left (06/08/19 1:41 PM) Temperature Route Oral (06/08/19 1:41 PM) Weight Obtained Via Standing scale (06/08/19 1:41 PM) Social History Social History Type Response Smoking Status Former smoker entered on: 04/04/17 Sex
--- OUTSIDE RECORDS SUMMARY | 2022-07-07 12:00 | XMS_ITS | Continuity of Care Document ---
Author Name Unknown Organization [facility] Address [address] [address]- Care Team Providers Care Safety Sealer Name Role Phone Perez Faye MD Primary Care Physician [place] [facility] [place](s): 01/20/22 - 04/10/22 [place] [id number] [address]- Attending Physician: Willie Granado MD Admitting Physician: Willie Granado MD Referring Physician: Perez Faye MD Allergies, Adverse Reactions, Alerts Substance Reaction Severity Status codeine SEVERE HEADACHE Active Immunizations Given and Recorded Vaccine Date Status Refusal Reason tetanus-diphtheria toxoids (Td) 02/01/22 Given influenza virus vaccine, inactivated 1 01/16/22 Gi viet influenza virus vaccine, inactivated 12/27/17 Tad rded influenza virus vaccine, inactivated 03/04/17 Give n influenza virus vaccine, inactivated 12/09/15 Tda rded influenza virus vaccine, inactivated 12/20/14 Tad [...] Early/Late Reason: Accommodate D/C 2Result Comment: [12/17/2013] [facility] 3Admin Note: DONE ON 12/18/12. [facility] 4Admin Note: GIVEN IN CLINIC SHAM 5Admin Note: Biomedical Anne [facility] 6Admin Note: BIOMEDICAL ANNE 7Result Comment: WRONG BRAND Medications amLODIPine 5 mg oral tablet 1 tablet, By Mouth, Daily, # 90 tablet, 1 Refills, Maintenance, 04/06/22 8:31:00 EST, [facility], [facility], cm, 02/01/22 11:33:00 EST, Height Start Date: 04/06/22 Status: Ordered Aspir 81 Oral Enteric Coated Tablet 1 tablet, By Mouth, Daily, # 30 tablet, 0 Refills, Maintenance, EC Tablet Start Date: 05/07/10 Status: Ordered atorvastatin 10 mg oral tablet 1 tablet, By Mouth, Daily, # 90 tablet, 3 Refills, [facility], 152, cm, 06/01/21 13:37:00 EST, Height, 72.7, kg, 02/14/20 14:50:00 EST, Dry Weight Start Date: 10/14/21 Status: Ordered clonazePAM 0.5 mg oral tablet See Instructions, 0.5 tablet in the morning and 1 tablet at night., # 45 tablet, 5 Refills, Maintenance, 02/03/22 13:20:00 EST, [facility]/pharmacy #[id number], 153, cm, 02/01/22 11:33:00 EST, [...] 04/06/22 8:31:00 EST, Route to Pharmacy Electronically, [facility], 153, cm, 02/01/22 11:33:00 EST, Height Start Date: 04/06/22 Status: Ordered Metoprolol Succinate ER 25 mg oral tablet, extended release 1 tablet, By Mouth, Daily, # 90 tablet, 0 Refills, Maintenance, 03/09/22 11:31:00 EST, [facility], 153, cm, 02/01/22 [...] Care Nurse Name: Perez Faye MD Position: [facility] Primary Care Physician Member Role: PCP Address: Address: [address] [place] [id number]- Name: Erin Hudson RN Position: [facility] RN Member Role: Primary Care Nurse Name: Giovanny Sanderson MD Position: [facility] Cardiology MD Member Role: Lifetime Consulting Physician Address: Address: [address] [place] [address] [place] [address]- Care Team Related Persons Name: ZHANNA GUADALUPE Address: home [address] [place] [address] Name: ROSALINDA DENNY Address: home [address] [place] [address]
--- OUTSIDE RECORDS SUMMARY | 2022-07-07 12:00 | XMS_ITS | Continuity of Care Document ---
Author Name Unknown Organization [facility] Address [address] [place] [address]- Care Team Providers Care Medical Lab Director Name Role Phone Perez Faye MD Primary Care Physician Encounter [facility] [place] Date(s): 06/01/21 - 07/01/21 [facility] [address] [place] [address]- Attending Physician: Malachi Santillan MD Referring Physician: Perez Faye MD Allergies, [...] GIVEN IN CLINIC SHAM 2Result Comment: [12/17/2013] [facility] 3Admin Note: DONE ON 12/18/12. [facility] 4Admin Note: Biomedical Anne [facility] 5Admin Note: BIOMEDICAL ANNE 6Result Comment: WRONG BRAND Medications amLODIPine 5 mg oral tablet 1 tablet, By Mouth, Daily, # 90 tablet, 1 Refills, [facility], 152, cm, 11/25/20 11:04:00 [...] tablet, 5 Refills, Maintenance, 03/30/21 9:35:00 EST, [facility]/pharmacy #[id number], 152, cm, 11/25/20 11:04:00 EDT, Height, [...] Electronically, [facility], 152, cm, 11/25/20 [...]
--- OUTSIDE RECORDS SUMMARY | 2022-07-07 12:00 | XMS_ITS | Continuity of Care Document ---
Author Name Unknown Organization [facility] Address [address] [place] [address]- Care Team Providers Care Clerical Order Filler Name Role Phone Neyda DUENAS, Perez Alfaro Primary Care Physician Encounter [facility] Date(s): 12/10/20 - 01/09/21 [facility] [address] [place] [address]- Allergies, Adverse Reactions, Alerts Substance Reaction Severity [...] GIVEN IN CLINIC SHAM 2Result Comment: [12/17/2013] [facility] 3Admin Note: DONE ON 12/18/12. [facility] 4Admin Note: Biomedical Anne [facility] 5Admin Note: BIOMEDICAL ANNE 6Result Comment: WRONG BRAND Medications amLODIPine 5 mg oral tablet 5 mg, 1, tablet, By Mouth, Daily, # 90 tablet, Refills 0, Tot. Refills 0, Maintenance, 10/30/20 11:24:00 EDT, Route to Pharmacy Electronically, [facility], 152, cm, 08/11/20 11:15:00 EDT, [...] tablet, 3 Refills, Maintenance, 10/30/20 11:22:00 EDT, [facility], Partial fill upon patient request if the prescription is for a schedule II opioid drug., 152, cm, 08/11/20 11:15:00 EDT,... Start Date: 10/30/20 Status: Ordered clonazePAM 0.5 mg oral tablet See Instructions, TAKE HALF A TABLET BY MOUTH TWO TIMES A DAY, # 30 tablet, 0 Refills, Maintenance,12/11/20 7:41:00 EDT, [facility], 152, cm, 11/25/20 11:04:00 EDT, [...] 10/30/20 11:23:00 EDT, Route to Pharmacy Electronically, [facility], 152, cm, 08/11/20 11:15:00 EDT, Height, 72.7, kg, 02/14/20 14:50:00 EST,... Start Date: 10/30/20 Stop Date: 04/28/21 Status: Ordered metoprolol 25 mg oral tablet, extended release 25 mg, 1, tablet, By Mouth, Daily, 90 DAY SUPPLY, # 90 tablet, Refills 0, Tot. Refills 0, Maintenance, 10/30/20 11:23:00 EDT, Route to Pharmacy Electronically, [facility], 152,cm, 08/11/20 11:15:00 EDT, Height, [...]
--- OUTSIDE RECORDS SUMMARY | 2022-07-07 12:00 | XMS_ITS | Continuity of Care Document ---
Author Name Unknown Organization [facility] Address [address], [address] [place] [address]- Care Team Providers Care Surgical Oncologist Name Role Phone Neyda DUENAS, Perez Alfaro Primary Care Physician [phone] [place] [facility] [place]10[place]20 - 09/07/20 [facility] [address], [address] [place] [address]- Attending Physician: Jennifer Wong MD Admitting Physician: Jennifer Wong MD Referring Physician: Perez Faye MD Allergies, [...] [12/17/2013] [facility] 3Admin Note: DONE ON 12/18/12. [facility] 4Admin Note: Biomedical Anne [facility] 5Admin Note: BIOMEDICAL ANNE 6Result Comment: WRONG BRAND Medications amLODIPine 5 mg oral tablet 5 mg, 1, tablet, By Mouth, Daily, # 90 tablet, Refills 1, Tot. Refills 1, Maintenance, 04/11/20 15:25:00 EST, [id number] 152, cm, 04/10/20 10:26:00 EST, [...] tablet, 5 Refills, Maintenance,08/08/20 11:20:00 EDT, [facility]/pharmacy #[id number], 152, cm, 04/10/20 10:26:00 EST, [...] 9:16:00 EDT, Route to Pharmacy Electronically, [facility]/pharmacy #[id number], 152, cm, 04/10/20 10:26:00 EST, Height, 72.7, kg, 02/14/20 14:50:00 EST, Dry Weight Start Date: 08/12/20 Stop Date: 02/08/21 Status: Ordered KlonoPIN 0.5 mg oral tablet 0.5 tablet = 0.25 mg, By Mouth, 2 times a day, # 30 tablet, 5 Refills, Maintenance, 02/08/20 8:46:00 EST, Tablet, [facility]/pharmacy #[id number], 152, cm, 01/28/20 14:30:00 EST, Height, 72.6, kg, 01/28/20 14:30:00 EST, Dry Weight Start Date: 02/08/20 Stop Date: 08/06/20 Status: Ordered metoprolol 25 mg oral tablet, extended release 25 mg, 1, tablet, By Mouth, Daily, 90 DAY SUPPLY, # 90 tablet, Refills 1, Tot. Refills 1, Maintenance, 05/02/20 15:14:00 EST, Route to Pharmacy Electronically, [facility]/pharmacy #[id number], 152, cm, 04/10/20 10:26:00 EST, Height, 72.7, kg, 02/14/20 14:50:00 EST... Start Date: 05/02/20 Stop Date: 10/29/20 Status: Ordered Multivitamin With Minerals See Instructions, 1 tab By Mouth daily, 0 Refills, Maintenance Start Date: 09/23/10 Status: Ordered rosuvastatin 10 mg oral tablet See Instructions, TAKE 1 TABLET DAILY, # 90 tablet, 1 Refills, Soft Stop, 01/02/20 14:43:00 EDT, [facility]/pharmacy #[id number], 154, cm, 09/18/19 17:05:00 EDT, [...]
--- OUTSIDE RECORDS SUMMARY | 2022-07-07 12:00 | XMS_ITS | Continuity of Care Document ---
Author Name Unknown Organization [facility] Address [address] [place] [address]- Care Team Providers Care Party Host/Hostess Name Role Phone Perez Faye MD Primary Care Physician [place] [facility] [place] 02/06/[address] [address]- Attending Physician: Perez Faye MD Admitting Physician: Perez Faye MD Allergies, Adverse Reactions, [...] GIVEN IN CLINIC SHAM 2Result Comment: [12/17/2013] [facility] 3Admin Note: DONE ON 12/18/12. [facility] 4Admin Note: Biomedical Anne [facility] 5Admin Note: BIOMEDICAL ANNE 6Result Comment: WRONG BRAND Medications amLODIPine 5 mg oral tablet 1 tablet, By Mouth, Daily, # 90 tablet, 0 Refills, [facility], 152, cm, 11/25/20 11:04:00 EDT, Height, 72.7, kg, 02/14/20 14:50:00 EST, Dry Weight Start Date: 01/16/21 Status: Ordered Aspir 81 Oral Enteric Coated Tablet 1 tablet, By Mouth, Daily, # 30 tablet, 0 Refills, Maintenance, EC Tablet Start Date: 05/07/10 Status: Ordered atorvastatin 10 mg oral tablet 1 tablet = 10 mg, By Mouth, Daily, # 90 tablet, 3 Refills, Maintenance, 10/30/20 11:22:00 EDT, [facility], Partial fill upon patient request if the prescription is for a schedule II opioid drug., 152, cm, 08/11/20 11:15:00 EDT,... Start Date: 10/30/20 Status: Ordered clonazePAM 0.5 mg oral tablet See Instructions, TAKE HALF A TABLET BY MOUTH TWO TIMES A DAY, # 30 tablet, 0 Refills, Maintenance,12/11/20 7:41:00 EDT, [facility], 152, cm, 11/25/20 11:04:00 EDT, Height, 72.7, kg, 02/14/20 14:50:00 EST, Dry Weight Start Date: 12/11/20 Status: Ordered clonazePAM 0.5 mg oral tablet See Instructions, TAKE 1/2 TABLET TWICE A DAY, # 30 tablet, 5 Refills, Maintenance, 01/16/21 13:54:00 EDT, [facility], 152, cm, 11/25/20 11:04:00 EDT, Height, 72.7, kg, 02/14/20 14:50:00 EST, Dry Weight Start Date: 01/16/21 Status: Ordered Compression Stockings See Instructions, # [...] 10/30/20 11:23:00 EDT, Route to Pharmacy Electronically, [facility], 152, cm, 08/11/20 11:15:00 EDT, Height, 72.7, kg, 02/14/20 14:50:00 EST,... Start Date: 10/30/20 Stop Date: 04/28/21 Status: Ordered Metoprolol Succinate ER 25 mg oral tablet, extended release 1 tablet, By Mouth, Daily, # 90 tablet, 0 Refills, [facility], 152, cm, 11/25/20 11:04:00 [...]
--- OUTSIDE RECORDS SUMMARY | 2022-07-07 12:00 | XMS_ITS | Continuity of Care Document ---
Author Name Unknown Organization [facility] Address [address] [place] [address]- Care Team Providers Care Air Twist Operator Name Role Phone Perez Faye MD Primary Care Physician [phone] Encounter [facility] [place] Date(s): 12/03/20 - 01/09/[address] [address]- Attending Physician: Perez Faye MD Admitting Physician: [...] GIVEN IN CLINIC SHAM 2Result Comment: [12/17/2013] [facility] 3Admin Note: DONE ON 12/18/12. [facility] 4Admin Note: Biomedical Anne [facility] 5Admin Note: BIOMEDICAL ANNE 6Result Comment: WRONG BRAND Medications amLODIPine 5 mg oral tablet 5 mg, 1, tablet, By Mouth, Daily, # 90 tablet, Refills 0, Tot. Refills 0, Maintenance, 10/30/20 11:24:00 EDT, Route to Pharmacy Electronically, [facility], 152, cm, 08/11/20 11:15:00 EDT, Height, 72.7, kg, 02/14/20 14:50:00 EST,... Start Date: 10/30/20 Status: Ordered Aspir 81 Oral Enteric Coated Tablet 1 tablet, By Mouth, Daily, # 30 tablet, 0 Refills, Maintenance, EC Tablet Start Date: 05/07/10 Status: Ordered atorvastatin 10 mg oral tablet 1 tablet = 10 mg, By Mouth, Daily, # 90 tablet, 3 Refills, Maintenance, 10/30/20 11:22:00 EDT, [facility], Partial fill upon patient request if the prescription is for a schedule II opioid drug., 152, cm, 08/11/20 11:15:00 EDT,... Start Date: 10/30/20 Status: Ordered clonazePAM 0.5 mg oral tablet See Instructions, TAKE HALF A TABLET BY MOUTH TWO TIMES A DAY, # 30 tablet, 0 Refills, Maintenance,12/11/20 7:41:00 EDT, [facility], 152, cm, 11/25/20 11:04:00 EDT, Height, [...] 10/30/20 11:23:00 EDT, Route to Pharmacy Electronically, [facility], 152, cm, 08/11/20 11:15:00 EDT, Height, 72.7, kg, 02/14/20 14:50:00 EST,... Start Date: 10/30/20 Stop Date: 04/28/21 Status: Ordered metoprolol 25 mg oral tablet, extended release 25 mg, 1, tablet, By Mouth, Daily, 90 DAY SUPPLY, # 90 tablet, Refills 0, Tot. Refills 0, Maintenance, 10/30/20 11:23:00 EDT, Route to Pharmacy Electronically, [facility], 152,cm, 08/11/20 11:15:00 EDT, Height, 72.7, [...]
--- OUTSIDE RECORDS SUMMARY | 2022-07-07 12:00 | XMS_ITS | Continuity of Care Document ---
Author Name Unknown Organization [facility] Address [address] [place] [address]- Care Team Providers Care Repair Weaver Name Role Phone Perez Faye MD Primary Care Physician [phone] Encounter [facility] [place] Date(s): 12/22/20 - 03/03/[address] [address]- Discharge Disposition: A-D/C Home Attending Physician: Perez Faye MD Admitting Physician: [...] GIVEN IN CLINIC SHAM 2Result Comment: [12/17/2013] [facility] 3Admin Note: DONE ON 12/18/12. [facility] 4Admin Note: Biomedical Anne [facility] 5Admin Note: BIOMEDICAL ANNE 6Result Comment: WRONG BRAND Medications amLODIPine 5 mg oral tablet 1 tablet, By Mouth, Daily, # 90 tablet, 0 Refills, [facility], 152, cm, 11/25/20 11:04:00 EDT, Height, 72.7, [...] 3 Refills, Maintenance, 10/30/20 11:22:00 EDT, [facility], Partial fill upon patient request if the prescription is for a schedule II opioid drug., 152, cm, 08/11/20 11:15:00 EDT,... Start Date: 10/30/20 Status: Ordered clonazePAM 0.5 mg oral tablet See Instructions, TAKE HALF A TABLET BY MOUTH TWO TIMES A DAY, # 30 tablet, 0 Refills, Maintenance,12/11/20 7:41:00 EDT, [facility], 152, cm, 11/25/20 11:04:00 EDT, Height, 72.7, kg, 02/14/20 14:50:00 EST, Dry Weight Start Date: 12/11/20 Status: Ordered clonazePAM 0.5 mg oral tablet See Instructions, TAKE 1/2 TABLET TWICE A DAY, # 30 tablet, 5 Refills, Maintenance, 01/16/21 13:54:00 EDT, [facility], 152, cm, 11/25/20 11:04:00 EDT, [...] 10/30/20 11:23:00 EDT, Route to Pharmacy Electronically, [facility], 152, cm, 08/11/20 11:15:00 EDT, Height, 72.7, kg, 02/14/20 14:50:00 EST,... Start Date: 10/30/20 Stop Date: 04/28/21 Status: Ordered Metoprolol Succinate ER 25 mg oral tablet, extended release 1 tablet, By Mouth, Daily, # 90 tablet, 0 Refills, [facility], 152, cm, 11/25/20 [...]
--- OUTSIDE RECORDS SUMMARY | 2022-07-07 12:00 | XMS_ITS | Continuity of Care Document ---
Author Name Unknown Organization [facility] Address [address] [place] [address]- Care Team Providers Care Duct Maker Name Role Phone Perez Faye MD Primary Care Physician Encounter [facility] [place] Date(s): 01/07/21 - 02/06/[address] [address]- Attending Physician: Robb Gross Admitting Physician: Robb Gross Referring Physician: AdmRobb zhou Allergies, Adverse Reactions, Alerts Substance Reaction Severity [...] GIVEN IN CLINIC SHAM 2Result Comment: [12/17/2013] [facility] 3Admin Note: DONE ON 12/18/12. [facility] 4Admin Note: Biomedical [facility] 5Admin Note: BIOMEDICAL ANNE 6Result Comment: [...] Maintenance, 10/30/20 11:22:00 EDT, [facility], Partial fill upon patient request if the prescription is for a schedule II opioid drug., 152, cm, 08/11/20 11:15:00 EDT,... Start Date: 10/30/20 Status: Ordered clonazePAM 0.5 mg oral tablet See Instructions, TAKE HALF A TABLET BY MOUTH TWO TIMES A DAY, # 30 tablet, 0 Refills, Maintenance,12/11/20 7:41:00 EDT, [facility], 152, cm, 11/25/20 11:04:00 EDT, Height, 72.7, kg, 02/14/20 14:50:00 EST, Dry Weight Start Date: 12/11/20 Status: Ordered clonazePAM 0.5 mg oral tablet See Instructions, TAKE 1/2 TABLET TWICE A DAY, # 30 tablet, 5 Refills, Maintenance, 01/16/21 13:54:00 EDT, [facility], 152, cm, 11/25/20 11:04:00 EDT, Height, [...] 10/30/20 11:23:00 EDT, Route to Pharmacy Electronically, [facility], 152, cm, 08/11/20 11:15:00 EDT, Height, 72.7, kg, 02/14/20 14:50:00 EST,... Start Date: 10/30/20 Stop Date: 04/28/21 Status: Ordered Metoprolol Succinate ER 25 mg oral tablet, extended release 1 tablet, By Mouth, Daily, # 90 tablet, 0 Refills, [facility], 152, cm, 11/25/20 [...]
[2022-07-07 12:02] LABS: Troponin-I High Sensitivity 18.9 ng/L (<3.5-17.0)
[2022-07-07 12:03] LABS: B Type Natriuretic Peptide 295 pg/mL (<100)
[2022-07-07 12:17] LABS: TSH reflex Free T4 2.23 uIU/mL (0.32-4.0)
[2022-07-07 12:26] LABS: Influenza A PCR NEGATIVE (Negative); Influenza B PCR NEGATIVE (Negative); Resp Syncy Virus RNA Qual PCR NEGATIVE (Negative); SARS COV2 PCR INHOUSE NEGATIVE (Negative)
--- NOTE | 2022-07-07 12:35 | MHC.EDTECH ---
ASSISTED PT TO BATHROOM TO OBTAIN URINE SAMPLE. PT IS SLIGHTLY UNSTEADY ON FEET AND NEEDS 1 ASSIST. RN AWARE.
[2022-07-07 12:55] LABS: Appearance Urine Clear; Color Urine Yellow; Glucose Urine UA Negative (Negative); Leukocyte Esterase Urine Negative (Negative); Nitrite Urine Negative (Negative); PH 6.5 (5.0-9.0); Specific Gravity - Urine 1.015 (1.005-1.025); Urine Blood Negative (Negative); Urine Ketones Negative (Negative); Urine Protein Negative (Neg-Trace)
--- NOTE | 2022-07-07 14:16 | P.HPHOSP_ITS ---
History of Present Illness Date of Service: 07/07/22 Attending physician on admission: Omar Talamantes Chief Complaint: lightheadedness, weakness 86-year-old female with history of hypertension, hyperlipidemia, anxiety, chronic low back pain, hiatal hernia, osteopenia, polymyalgia rheumatica, HFrEF, who is a former smoker presented to the ED earlier this morning for evaluation of lightheadedness and weakness ongoing for the last 2-3 days. She states she also had a single episode of very dark sticky stool on Tuesday without any recurrence. She has also had some epigastric discomfort intermittently. Denies any fevers, chills, nausea, vomiting, constipation, diarrhea, hematochezia, sam rtness of breath, palpitations, or chest pain. She states she does take a baby aspirin on a daily basis but denies any other use of blood thinners. She has never undergone endoscopy but does states she had colonoscopy about 10 years ago which was without any abnormal finding. On arrival, VSS. No leukocytosis. RBC 2.30. H/H 6.8/20.9%. PT 11.1, INR 1.0. Renal function normal, electrolyte levels normal. Initial troponin 18.9, repeat pending. BNP 295 (baseline aroun [address] [facility] records). TSH 2.23. UA unremarkable. Stool occult blood positive with ED provider noting melena upon stool collection. CXR is without any acute cardiopulmonary abnormality. EKG showing an accelerated junctional rhythm with frequent PVCs and nonspecific ST/T-wave abnormality. There is also prolonged QT 426, QTC 494. No ST or ST depressions. In the ED, being transfused 1 unit packed RBC, 40mg IV PPI, and given 500ML IV NS. Review of Systems Review of Systems: General: No fevers, malaise, unintentional weight loss HEENT: No blurred vision, diplopia. No sore throat, nasal congestion, rhinorrhea, sinus pain, ear pain Cardiovascular: No chest pain, palpitations, or leg edema Respiratory: No shortness of breath, wheezing, cough GI: No abdominal pain, nausea, vomiting, diarrhea, constipation, melena, hem atochezia : No dysuria, hematuria, increased urinary frequency, decreased urinary output MSK: No myalgia, back pain Neuro: No headaches, weakness, paresthesias. +lighteadheadedness, +general weakness Skin: No rashes or lesions [facility] Medical History (Updated 07/07/22 @ 14:28 by SHAUN Katz) Anxiety Chronic low back pain Heart failure with reduced ejection fraction Hiatal hernia Hyperlipidemia Hypertension Lumbar spinal stenosis Lumbar spondylosis Mixed incontinence Osteopenia Polymyalgia rheumatica Venous stasis Social History Household Members: None Housing: House Do you presently have visiting nurse or other home services: No Alcohol intake: current Alcohol intake frequency: a few times a week Patient Tobacco Use Status: Never used Tobacco Smoked in Last 30 Days: No Use of substances other than those prescribed or required for medical reasons: No Currently Displaying Signs/Symptoms of Drug Intoxication Withdrawal: No Have you been hit, kicked, punched, or otherwise hurt by someone within the past year? If so, by whom?: No Do you feel safe in your current relationship?: No Current Relationship Is there a partner from a previous relationship who is making you feel unsafe now?: No Are you made to feel afraid or neglected: No Are you DNR?: Yes Advance Directives: No Do you have thoughts of harming others: None Do you have a plan to hurt others: No Plan Nutrition Risks: No Nutritional Risk Patient : No service: No Current occupational status: retired Meds Allergies Allergy/AdvReac Type Severity Reaction Status Date / Time codeine [CODEINE] Allergy Unknown HEADACHE Verified 07/07/22 10:42 Home Medications Medication Instructions Recorded Confirmed Last Taken Type amlodipine 5 mg tablet 5 mg PO DAILY 09/30/20 07/07/22 07/06/22 History hydrochlorothiazide 25 mg tablet 25 mg PO DAILY 09/30/20 07/07/22 07/06/22 History metoprolol succinate 25 mg 25 mg PO DAILY 09/30/20 07/07/22 07/06/22 History tablet,extended release 24 hr aspirin 81 mg tablet,delayed 81 mg PO DAILY 07/07/22 07/07/22 07/06/22 History release atorvastatin 10 mg tablet 10 mg PO DAILY 07/07/22 07/07/22 07/06/22 History citalopram 10 mg tablet 10 mg PO BEDTIME 07/07/22 07/07/22 07/06/22 History estradiol 0.01% (0.1 mg/gram) 1 g vaginal TUSA 07/07/22 07/07/2207/06/23 History vaginal cream trazodone 50 mg tablet 75 mg PO BEDTIME 07/07/22 07/07/22 07/06/22 History Physical Exam Vital Signs and Narrative: Vital Signs: Last Vital Signs Temp 98.0 F 07/07/22 13:21 Pulse 71 07/07/22 13:21 Resp 15 07/07/22 13:21 BP 142/43 H 07/07/22 13:21 Pulse Ox 97 07/07/22 13:21 O2 Del Method Room Air 07/07/22 13:21 BMI result Body Mass Index 28.7 Constitutional - Awake and Alert, No apparent distress,but fatigued appearing Eyes - PERRLA, EOMI Cardiovascular - S1S2, RRR, No edema Respiratory - Normal lung expansion, Normal respiratory effort, No respiratory distress, CTA bilaterally Gastrointestinal - NT / ND; +BS; No rebound or guarding Extremities - no calf tenderness bilaterally, no swelling Skin - Warm/Dry Neurological - Alert & oriented x3, CN II-XII in tact, 5/5 strength BUE and BLE Psychological - Appropriate affect Results Labs 07/07/22 11:31 07/07/22 11:31 Labs: Laboratory Results - last 24 hr 07/07/22 07/07/22 07/07/22 11:20 11:31 11:31 MCV 90.9 MCH 29.6 MCHC 32.5 RDW 14.8 Plt Count 213 MPV 9.2 L Immature Gran % (Auto) 0.7 H Neut % (Auto) 78.1 H Lymph % (Auto) 12.7 L [place] % (Auto) 7.6 Eos % (Auto) 0.5 Baso % (Auto) 0.4 Lymph # (Auto) 1.1 L [place] # (Auto) 0.6 Eos # (Auto) 0.0 Baso # (Auto) 0.0 Abs Immat Gran (auto) 0.06 H Absolute Neuts (auto) 6.5 Absolute Nucleated RBC 0.000 Nucleated RBC % (auto) 0.0 PT 11.1 INR 1.0 D-Dimer High Sensitivty 160 Anion Gap Estim Creat Clear Calc Estimated GFR Random Glucose Lactic Acid Calcium Total Bilirubin AST ALT Alkaline Phosphatase Ammonia Troponin I High Sens B-Natriuretic Peptide Total Protein Albumin TSH Urine Color Urine Appearance Urine pH Ur Specific [place] Urine Protein Urine Glucose (UA) Urine Ketones Urine Blood Urine Nitrite Ur Leukocyte Esterase Stool Occult Blood POSITIVE Influenza Type A (PCR) Influenza Type B (PCR) RSV RNA Qual (PCR) SARS-CoV-2 RNA (RT-PCR) Blood Type Antibody Screen Crossmatch 07/07/22 07/07/22 07/07/22 11:31 11:31 11:31 MCV MCH MCHC RDW Plt Count MPV Immature Gran % (Auto) Neut % (Auto) Lymph % (Auto) [place] % (Auto) Eos % (Auto) Baso % (Auto) Lymph # (Auto) [place] # (Auto) Eos # (Auto) Baso # (Auto) Abs Immat Gran (auto) Absolute Neuts (auto) Absolute Nucleated RBC Nucleated RBC % (auto) PT INR D-Dimer High Sensitivty Anion Gap 12 Estim Creat Clear Calc 54.1 Estimated GFR > 60 Random Glucose 124 H Lactic Acid 1.2 Calcium 8.2 L Total Bilirubin 0.4 AST 19 ALT 13 Alkaline Phosphatase 33 L Ammonia Troponin I High Sens 18.9 H B-Natriuretic Peptide Total Protein 4.9 L Albumin 3.3 L TSH Urine Color Urine Appearance Urine pH Ur Specific [place] Urine Protein Urine Glucose (UA) Urine Ketones Urine Blood Urine Nitrite Ur Leukocyte Esterase Stool Occult Blood Influenza Type A (PCR) Influenza Type B (PCR) RSV RNA Qual (PCR) SARS-CoV-2 RNA (RT-PCR) Blood Type Antibody Screen Crossmatch 07/07/22 07/07/22 07/07/22 11:31 11:31 11:31 MCV MCH MCHC RDW Plt Count MPV Immature Gran % (Auto) Neut % (Auto) Lymph % (Auto) [place] % (Auto) Eos % (Auto) Baso % (Auto) Lymph # (Auto) [place] # (Auto) Eos # (Auto) Baso # (Auto) Abs Immat Gran (auto) Absolute Neuts (auto) Absolute Nucleated RBC Nucleated RBC % (auto) PT INR D-Dimer High Sensitivty Anion Gap Estim Creat Clear Calc Estimated GFR Random Glucose Lactic Acid Calcium Total Bilirubin AST ALT Alkaline Phosphatase Ammonia 16 Troponin I High Sens B-Natriuretic Peptide 295 H Total Protein Albumin TSH 2.23 Urine Color Urine Appearance Urine pH Ur Specific [place] Urine Protein Urine Glucose (UA) Urine Ketones Urine Blood Urine Nitrite Ur Leukocyte Esterase Stool Occult Blood Influenza Type A (PCR) Influenza Type B (PCR) RSV RNA Qual (PCR) SARS-CoV-2 RNA (RT-PCR) Blood Type Antibody Screen Crossmatch 07/07/22 07/07/22 07/07/22 11:31 11:31 12:41 MCV MCH MCHC RDW Plt Count MPV Immature Gran % (Auto) Neut % (Auto) Lymph % (Auto) [place] % (Auto) Eos % (Auto) Baso % (Auto) Lymph # (Auto) [place] # (Auto) Eos # (Auto) Baso # (Auto) Abs Immat Gran (auto) Absolute Neuts (auto) Absolute Nucleated RBC Nucleated RBC % (auto) PT INR D-Dimer High Sensitivty Anion Gap Estim Creat Clear Calc Estimated GFR Random Glucose Lactic Acid Calcium Total Bilirubin AST ALT Alkaline Phosphatase Ammonia Troponin I High Sens B-Natriuretic Peptide Total Protein Albumin TSH Urine Color Yellow Urine Appearance Clear Urine pH 6.5 Ur Specific [place] 1.015 Urine Protein Negative Urine Glucose (UA) Negative Urine Ketones Negative Urine Blood Negative Urine Nitrite Negative Ur Leukocyte Esterase Negative Stool Occult Blood Influenza Type A (PCR) NEGATIVE Influenza Type B (PCR) NEGATIVE RSV RNA Qual (PCR) NEGATIVE SARS-CoV-2 RNA (RT-PCR) NEGATIVE Blood Type A Positive Antibody Screen NEGATIVE Crossmatch See Detail Imaging Radiologist's Impressions: Impressions Chest X-Ray 07/07/22 11:26 IMPRESSION: Increasing elevation of the left hemidiaphragm. Assessment and Plan (1) Acute upper gastrointestinal bleeding: Status: Acute (2) Symptomatic anemia: Status: Acute Plan 86-year-old female with history of hypertension, hyperlipidemia, anxiety, chronic low back pain, hiatal hernia, osteopenia, polymyalgia rheumatica, HFrEF, who is a former smoker admitted for further management of acute upper GI bleed with symptomatic anemia. #Acute blood loss anemia- related to UGIB -H/H 6.8/20.9%, stool occult blood positive, reports melena -transfused 1 unit in ED, goal Hgb >8.0 -IV PPI 40mg BID -Sucralfate QIDACHS -Appreciate GI input -Clear liquids diet for now, NPO after midnight -Admit to telemetry -Hold asa -Repeat CBC tonight and follow #HTN- reasonably controlled -continue metoprolol, amlodipine, HCTZ # HLD -continue statin #HFrEF -no acute excacerbation #Elevated trop -likely demand 2/2 anemia -Initial 18.9, repeat pending -EKG wtih evidence of acute ischemia DVT prophylaxis- SCPs DNR/DNI Pt requires inpt stay at least 2 midnights for management of acute UGIB with symptomatic anemia requiring blood transfusion and expert consultation as well as close monitoring of blood counts and telemetry monitoring. Time Spent With Patient Time: Total time managing care of this patient today ____ minutes. Quality Stroke Does the patient have a stroke diagnosis?: No VTE Prior VTE?: No VTE Risk Level:: Medical - moderate - high VTE Device Contraindication: N/A - Device Ordered VTE Drug Contraindication: Treatment Not Indicated
--- NOTE | 2022-07-07 14:40 | PHA.MEDREC ---
Pharmacy Consult ? Medication Reconciliation Pharmacy has completed the medication reconciliation. Pt is good historian and knows what meds she's on. Needed to clarify dosing but she knew it when asked.
[2022-07-07 16:49] LABS: Troponin-I High Sensitivity 17.2 ng/L (<3.5-17.0)
[2022-07-07] MEDS: Sucralfate 1 GM TABLET PO ×2 (17:53→21:55)
--- NOTE | 2022-07-07 19:27 | PC.NURSE ---
Pt aox3 resting at the bedside in no apparent distress. Breaths are even regular and unlabored. NSR on monitor with hr 70. Call damon within reach. Pt aware of clear liquid diet and NPO after midnight. Pt aware of plan of care. Will continue to monitor.
[2022-07-07 19:31] LABS: Eosinophils Absolute Auto 0.2 X10*3/uL (0.0-0.4); Hemoglobin 7.6 g/dl (12.0-16.0); PLT CLUMP 1; SCAN SMEAR FLAG 1
[2022-07-07 19:32] LABS: Basophils Percent Auto 0.4 % (0-2); Eosinophils Percent Auto 2.5 % (0-4); Hematocrit 22.8 % (37.0-47.0); Imm Gran Abs Auto 0.04 X10*3/uL (0.00-0.03); Imm Gran Pct Auto 0.5 % (0.0-0.4); Lymphocytes Absolute Auto 2.5 X10*3/uL (1.2-4.9); Lymphocytes Percent Auto 29.3 % (20-40); MANUAL DIFF FLAG SCAN; Mean Corpuscular HGB Conc 33.3 g/dl (31.0-35.0); Mean Corpuscular Hemoglobin 30.4 pg (27.0-33.0); Mean Corpuscular Volume 91.2 fL (80.0-98.0); Mean Platelet Volume 10.2 fL (9.4-12.3); Monocytes Absolute Auto 0.8 X10*3/uL (0.1-1.2); Monocytes Percent Auto 8.8 % (2-11); Neutrophils Percent Auto 58.5 % (45-73); Red Cell Distribution Width 14.6 % (11.0-16.0)
[2022-07-07 19:33] LABS: White Blood Count 8.5 X10*3/uL (4.8-10.8)
[2022-07-07 19:36] LABS: SLIDE REVIEW VERIFIED
--- NOTE | 2022-07-07 20:12 | PC.NURSE ---
RN to RN report given to nurse Franco. Pt being transferred to room 467 and aware of plan of care. [place]ague text sent to hospital transport.
[2022-07-07] MEDS: traZODone HCL 50 MG TABLET 75 MG PO (21:55)
[2022-07-07] MEDS: Escitalopram Oxalate 5 MG TABLET PO (21:55)
[2022-07-07] MEDS: 0.9 % Sodium Chloride Flush 3 ML SYRINGE IVFLUSH (21:59)
[2022-07-07] MEDS: Acetaminophen 325 MG TABLET 650 MG PO (22:09)
[2022-07-08] VITALS (15 sets, daily range): BP systolic 96–167; BP diastolic 36–92; PULSE 53–72; RESP 18–20; TEMP 35.8–37.1; O2SAT 94–100
--- NOTE | 2022-07-08 | ECG_ITS ---
Test Reason : cp Blood Pressure : / mmHG Vent. Rate : 063 BPM Atrial Rate : 063 BPM P-R Int : 160 ms QRS Dur : 106 ms QT Int : 446 ms P-R-T Axes : 047 033 064 degrees QTc Int : 456 ms Normal sinus rhythm Septal infarct , age undetermined Abnormal ECG When compared with ECG of 07-JUL-2022 10:58, Premature ventricular complexes are no longer Present Non-specific change in ST segment in Inferior leads Referred By: Omar Talamantes Electronically Signed By:PASCALE CARDENAS MD
--- NOTE | 2022-07-08 00:02 | MHC.SHP ---
Pre-Procedural Eval Section A Date of Service: 07/08/22 The patient is an INPATIENT: Yes The History & Physical has been completed within 30 days and I have reviewed it.: Yes Section B Chief Complaint: UGIB, symptomatic anemia Allergies: Allergies Allergy/AdvReac Type Severity Reaction Status Date / Time codeine [CODEINE] Allergy Unknown HEADACHE Verified 07/07/22 10:42 Plan I have reviewed the history and physical and performed a pertinent physical examination on my patient. No changes have occurred unless specified. Time Spent With Patient Time: Total time managing care of this patient today ____ minutes.
--- NOTE | 2022-07-08 00:02 | PM.EVENT ---
Event Note Date of Service: 07/08/22 Event Note: GI-Consult received, will see patient in AM Apparent UGI bleed with melena and significant anemia Will plan for EGD on 07/08. Hold Sucralfate and continue PPI. F/U CBC and transfuse to Hgb > 8.0 -8.5. Thanks Time Spent With Patient Time: Total time managing care of this patient today ____ minutes.
[2022-07-08] MEDS: Pantoprazole Sodium 40 MG/10 ML VIAL IVPUSH (06:09)
[2022-07-08 07:25] LABS: MANUAL DIFF FLAG NO
[2022-07-08 07:30] LABS: Basophils Percent Auto 0.6 % (0-2); Eosinophils Absolute Auto 0.3 X10*3/uL (0.0-0.4); Eosinophils Percent Auto 4.4 % (0-4); Hematocrit 21.4 % (37.0-47.0); Hemoglobin 7.2 g/dl (12.0-16.0); Imm Gran Abs Auto 0.02 X10*3/uL (0.00-0.03); Imm Gran Pct Auto 0.3 % (0.0-0.4); Lymphocytes Absolute Auto 1.6 X10*3/uL (1.2-4.9); Lymphocytes Percent Auto 26.1 % (20-40); Mean Corpuscular HGB Conc 33.6 g/dl (31.0-35.0); Mean Corpuscular Hemoglobin 30.5 pg (27.0-33.0); Mean Corpuscular Volume 90.7 fL (80.0-98.0); Mean Platelet Volume 9.4 fL (9.4-12.3); Monocytes Absolute Auto 0.7 X10*3/uL (0.1-1.2); Monocytes Percent Auto 11.4 % (2-11); Neutrophils Absolute Auto 3.5 x10*3/uL (2.0-8.3); Neutrophils Percent Auto 57.2 % (45-73); Platelet Count 165 X10*3/uL (160-400); Red Blood Count 2.36 X10*6/uL (4.20-5.50); Red Cell Distribution Width 14.6 % (11.0-16.0); White Blood Count 6.2 X10*3/uL (4.8-10.8)
[2022-07-08 07:45] LABS: Anion Gap 11 (12-20); Blood Urea Nitrogen 11 mg/dL (9-16); Calcium 7.9 mg/dL (8.4-10.2); Carbon Dioxide 25 mmol/L (22-29); Chloride 106 mmol/L (96-108); Creatinine Clr Calc Pharmacy 62.6; Estimated Glomerular Filt Rate > 60; Glucose Random 101 mg/dL (60-115); Potassium 3.5 mmol/L (3.3-5.1); Sodium 138 mmol/L (135-145)
[2022-07-08] MEDS: hydroCHLOROthiazide 25 MG TABLET PO (09:32)
[2022-07-08] MEDS: Metoprolol Succinate ER 25 MG TAB.ER.24H PO (09:32)
[2022-07-08] MEDS: 0.9 % Sodium Chloride Flush 3 ML SYRINGE IVFLUSH ×2 (09:32→15:36)
[2022-07-08] MEDS: amLODIPine Besylate 5 MG TABLET PO (09:32)
[2022-07-08] MEDS: Acetaminophen 325 MG TABLET 650 MG PO (09:53)
--- NOTE | 2022-07-08 11:03 | MHC.CM.PN ---
CM met with Patient at bedside and addressed IMM with her, providing her with the original and placing a copy on the chart. Patient lives alone in a house and she uses a walking stick to assist with mobility. Patient required no services STUDENT COUNSELLOR and home self care is the goal. CM has initiated and will follow for dc planning. Patient has received covid vax x2 and her PCP is Dr. Perez Faye.
[2022-07-08] MEDS: Furosemide 20 MG/2 ML VIAL IVPUSH (12:43)
--- NOTE | 2022-07-08 13:09 | PM.EVENT ---
Event Note Date of Service: 07/08/22 Event Note: GI Consult-Full note dictated Imp: UGI bleed in an 86 yo female on ASA 81mg and with frequent sx of GERD. Diff dx: Erosive esophagitis, PUD Rec: EGD today. Full consent obtained for this, including risks of bleeding and perforation. Continue IV PPI, follow Hgb, transfuse PRN. Thanks Time Spent With Patient Time: Total time managing care of this patient today ____ minutes.
--- NOTE | 2022-07-08 13:15 | PC.NURSE ---
Notified Dr. Hernandez (GI) and Dr. Randall Anesthesiologist - pt received 1 unit prbc lpm and 1 unit PRBC 07/08/22 with lasix IV s/p unit. 2nd unit prbc for today (3rd total) due. ok to give prbc s/p procedure on floor. 500ml clear straw urine in collection hat in preop. tolerated ambulation with 1 assist. mild lightheadednes with sitting upright releived by dangling x 2 .
--- NOTE | 2022-07-08 13:30 | P.CONAN_ITS ---
HPI - Anesthesia Eval Consult details Narrative: egd for gi bleed PMFSH Active Problems Active Problems: All Active Problems (Updated 07/07/22 @ 14:28 by SHAUN Katz) Symptomatic anemia (Acute) Acute upper gastrointestinal bleeding (Acute) Anemia (Acute) Impacted cerumen of both ears (Acute) Past Medical History Medical History (Updated 07/07/22 @ 14:28 by SHAUN Katz) Anxiety Chronic low back pain Heart failure with reduced ejection fraction Hiatal hernia Hyperlipidemia Hypertension Lumbar spinal stenosis Lumbar spondylosis Mixed incontinence Osteopenia Polymyalgia rheumatica Venous stasis Family History Family history of problems with anesthesia: No Surgical History History of Problems with Anesthesia: No Social History Social History Household Members: None Housing: House Do you presently have visiting nurse or other home services: No Alcohol intake: current Alcohol intake frequency: a few times a week Patient Tobacco Use Status: Never used Tobacco Smoked in Last 30 Days: No Use of substances other than those prescribed or required for medical reasons: No Currently Displaying Signs/Symptoms of Drug Intoxication Withdrawal: No Have you been hit, kicked, punched, or otherwise hurt by someone within the past year? If so, by whom?: No Do you feel safe in your current relationship?: No Current Relationship Is there a partner from a previous relationship who is making you feel unsafe now?: No Are you made to feel afraid or neglected: No Are you DNR?: Yes Advance Directives: No Do you have thoughts of harming others: None Do you have a plan to hurt others: No Plan Nutrition Risks: No Nutritional Risk Patient : No service: No Current occupational status: retired Meds Allergies Allergy/AdvReac Type Severity Reaction Status Date / Time codeine [CODEINE] Allergy Unknown HEADACHE Verified 07/07/22 10:42 Active Medications: Current Medications Acetaminophen (Acetaminophen 325 Mg Tablet) 650 mg PO Q6H PRN PRN Reason: Pain, Mild (Pain Scale 1-3) Last Admin: 07/08/22 09:53 Dose: 650 mg Amlodipine Besylate (Amlodipine Besylate 5 Mg Tablet) 5 mg PO DAILY [facility]; Protocol Last Admin: 07/08/22 09:32 Dose: 5 mg Atorvastatin Calcium (Atorvastatin Calcium 10 Mg Tablet) 10 mg PO DAILY [facility] Last Admin: 07/08/22 09:34 Dose: Not Given Docusate Sodium (Docusate Sodium 100 Mg Capsule) 100 mg PO DAILY PRN PRN Reason: Constipation Escitalopram Oxalate (Escitalopram Oxalate 5 Mg Tablet) 5 mg PO BEDTIME [facility] Last Admin: 07/07/22 21:55 Dose: 5 mg Hydrochlorothiazide (Hydrochlorothiazide 25 Mg Tablet) 25 mg PO DAILY [facility]; Protocol Last Admin: 07/08/22 09:32 Dose: 25 mg Metoprolol Succinate (Metoprolol Succinate Er 25 Mg Tab.Er.24h) 25 mg PO DAILY [facility]; Protocol Last Admin: 07/08/22 09:32 Dose: 25 mg Ondansetron HCl (Ondansetron Hcl 4 Mg/2 Ml Vial) 4 mg IVPUSH Q8H PRN PRN Reason: Nausea and Vomiting Pantoprazole Sodium (Pantoprazole Sodium 40 Mg/10 Ml Vial) 40 mg IVPUSH BID@0630,1630 [facility] Last Admin: 07/08/22 06:09 Dose: 40 mg Pharmacy Consult (Consult Rx Perform Med Rec) 1 each MISCELLANE ONCE PRN PRN Reason: Consult order Sodium Chloride (0.9 % Sodium Chloride Flush 3 Ml Syringe) 3 ml IVFLUSH QSHIFT [facility] Last Admin: 07/08/22 09:32 Dose: 3 ml Trazodone HCl (Trazodone Hcl 50 Mg Tablet) 75 mg PO BEDTIME [facility] Last Admin: 07/07/22 21:55 Dose: 75 mg Home Medications Medication Instructions Recorded Confirmed Last Taken Type amlodipine 5 mg tablet 5 mg PO DAILY 09/30/20 07/07/22 07/06/22 History hydrochlorothiazide 25 mg tablet 25 mg PO DAILY 09/30/20 07/07/22 07/06/22 History metoprolol succinate 25 mg 25 mg PO DAILY 09/30/20 07/07/22 07/06/22 History tablet,extended release 24 hr aspirin 81 mg tablet,delayed 81 mg PO DAILY 07/07/22 07/07/22 07/06/22 History release atorvastatin 10 mg tablet 10 mg PO DAILY 07/07/22 07/07/22 07/06/22 History citalopram 10 mg tablet 10 mg PO BEDTIME 07/07/22 07/07/22 07/06/22 History estradiol 0.01% (0.1 mg/gram) 1 g vaginal TUSA 07/07/22 07/07/22 07/06/22 History vaginal cream trazodone 50 mg tablet 75 mg PO BEDTIME 07/07/22 07/07/22 07/06/22 History Exam Exam Date and Time: July 08, 2022 1330 Height,Weight and Vital Signs: Height 5 ft Weight 66.678 kg Last Vital Signs Temp 97.9 F 07/08/22 12:57 Pulse 65 07/08/22 12:57 Resp 18 07/08/22 12:57 BP 167/71 H 07/08/22 12:57 Pulse Ox 100 07/08/22 12:57 O2 Del Method Room Air 07/08/22 12:57 Pertinent Lab Results Pertinent Lab Results: Laboratory Tests 07/07/22 07/07/22 07/07/22 11:20 11:31 11:31 WBC 8.3 RBC 2.30 L Hgb 6.8 L* Hct 20.9 L* MCV 90.9 MCH 29.6 MCHC 32.5 RDW 14.8 Plt Count 213 MPV 9.2 L Immature Gran % (Auto) 0.7 H Neut % (Auto) 78.1 H Lymph % (Auto) 12.7 L [place] % (Auto) 7.6 Eos % (Auto) 0.5 Baso % (Auto) 0.4 Lymph # (Auto) 1.1 L [place] # (Auto) 0.6 Eos # (Auto) 0.0 Baso # (Auto) 0.0 Abs Immat Gran (auto) 0.06 H Absolute Neuts (auto) 6.5 Absolute Nucleated RBC 0.000 Nucleated RBC % (auto) 0.0 Smear Tech's Comments Smear Path Review SEE NOTE PT 11.1 INR 1.0 D-Dimer High Sensitivty 160 Sodium Potassium Chloride Carbon Dioxide Anion Gap BUN Creatinine Estim Creat Clear Calc Estimated GFR Random Glucose Lactic Acid Calcium Total Bilirubin AST ALT Alkaline Phosphatase Ammonia Troponin I High Sens B-Natriuretic Peptide Total Protein Albumin TSH Urine Color Urine Appearance Urine pH Ur Specific [place] Urine Protein Urine Glucose (UA) Urine Ketones Urine Blood Urine Nitrite Ur Leukocyte Esterase Stool Occult Blood POSITIVE Influenza Type A (PCR) Influenza Type B (PCR) RSV RNA Qual (PCR) SARS-CoV-2 RNA (RT-PCR) Blood Type Antibody Screen Crossmatch 07/07/22 07/07/22 07/07/22 11:31 11:31 11:31 WBC RBC Hgb Hct MCV MCH MCHC RDW Plt Count MPV Immature Gran % (Auto) Neut % (Auto) Lymph % (Auto) [place] % (Auto) Eos % (Auto) Baso % (Auto) Lymph # (Auto) [place] # (Auto) Eos # (Auto) Baso # (Auto) Abs Immat Gran (auto) Absolute Neuts (auto) Absolute Nucleated RBC Nucleated RBC % (auto) Smear Tech's Comments Smear Path Review PT INR D-Dimer High Sensitivty Sodium 136 Potassium 3.6 Chloride 102 Carbon Dioxide 26 Anion Gap 12 BUN 23 H Creatinine 0.66 Estim Creat Clear Calc 54.1 Estimated GFR > 60 Random Glucose 124 H Lactic Acid 1.2 Calcium 8.2 L Total Bilirubin 0.4 AST 19 ALT 13 Alkaline Phosphatase 33 L Ammonia Troponin I High Sens 18.9 H B-Natriuretic Peptide Total Protein 4.9 L Albumin 3.3 L TSH Urine Color Urine Appearance Urine pH Ur Specific [place] Urine Protein Urine Glucose (UA) Urine Ketones Urine Blood Urine Nitrite Ur Leukocyte Esterase Stool Occult Blood Influenza Type A (PCR) Influenza Type B (PCR) RSV RNA Qual (PCR) SARS-CoV-2 RNA (RT-PCR) Blood Type Antibody Screen Crossmatch 07/07/22 07/07/22 07/07/22 11:31 11:31 11:31 WBC RBC Hgb Hct MCV MCH MCHC RDW Plt Count MPV Immature Gran % (Auto) Neut % (Auto) Lymph % (Auto) [place] % (Auto) Eos % (Auto) Baso % (Auto) Lymph # (Auto) [place] # (Auto) Eos # (Auto) Baso # (Auto) Abs Immat Gran (auto) Absolute Neuts (auto) Absolute Nucleated RBC Nucleated RBC % (auto) Smear Tech's Comments Smear Path Review PT INR D-Dimer High Sensitivty Sodium Potassium Chloride Carbon Dioxide Anion Gap BUN Creatinine Estim Creat Clear Calc Estimated GFR Random Glucose Lactic Acid Calcium Total Bilirubin AST ALT Alkaline Phosphatase Ammonia 16 Troponin I High Sens B-Natriuretic Peptide 295 H Total Protein Albumin TSH 2.23 Urine Color Urine Appearance Urine pH Ur Specific [place] Urine Protein Urine Glucose (UA) Urine Ketones Urine Blood Urine Nitrite Ur Leukocyte Esterase Stool Occult Blood Influenza Type A (PCR) Influenza Type B (PCR) RSV RNA Qual (PCR) SARS-CoV-2 RNA (RT-PCR) Blood Type Antibody Screen Crossmatch 07/07/22 07/07/22 07/07/22 11:31 11:31 12:41 WBC RBC Hgb Hct MCV MCH MCHC RDW Plt Count MPV Immature Gran % (Auto) Neut % (Auto) Lymph % (Auto) [place] % (Auto) Eos % (Auto) Baso % (Auto) Lymph # (Auto) [place] # (Auto) Eos # (Auto) Baso # (Auto) Abs Immat Gran (auto) Absolute Neuts (auto) Absolute Nucleated RBC Nucleated RBC % (auto) Smear Tech's Comments Smear Path Review PT INR D-Dimer High Sensitivty Sodium Potassium Chloride Carbon Dioxide Anion Gap BUN Creatinine Estim Creat Clear Calc Estimated GFR Random Glucose Lactic Acid Calcium Total Bilirubin AST ALT Alkaline Phosphatase Ammonia Troponin I High Sens B-Natriuretic Peptide Total Protein Albumin TSH Urine Color Yellow Urine Appearance Clear Urine pH 6.5 Ur Specific [place] 1.015 Urine Protein Negative Urine Glucose (UA) Negative Urine Ketones Negative Urine Blood Negative Urine Nitrite Negative Ur Leukocyte Esterase Negative Stool Occult Blood Influenza Type A (PCR) NEGATIVE Influenza Type B (PCR) NEGATIVE RSV RNA Qual (PCR) NEGATIVE SARS-CoV-2 RNA (RT-PCR) NEGATIVE Blood Type A Positive Antibody Screen NEGATIVE Crossmatch See Detail 07/07/22 07/07/22 07/08/22 16:23 18:55 06:54 WBC 8.5 6.2 RBC 2.50 L 2.36 L Hgb 7.6 L 7.2 L Hct 22.8 L 21.4 L MCV 91.2 90.7 MCH 30.4 30.5 MCHC 33.3 33.6 RDW 14.6 14.6 Plt Count TNP 165 MPV 10.2 9.4 Immature Gran % (Auto) 0.5 H 0.3 Neut % (Auto) 58.5 57.2 Lymph % (Auto) 29.3 26.1 [place] % (Auto) 8.8 11.4 H Eos % (Auto) 2.5 4.4 H Baso % (Auto) 0.4 0.6 Lymph # (Auto) 2.5 1.6 [place] # (Auto) 0.8 0.7 Eos # (Auto) 0.2 0.3 Baso # (Auto) 0.0 0.0 Abs Immat Gran (auto) 0.04 H 0.02 Absolute Neuts (auto) 5.0 3.5 Absolute Nucleated RBC 0.000 0.000 Nucleated RBC % (auto) 0.0 0.0 Smear Tech's Comments VERIFIED Smear Path Review PT INR D-Dimer High Sensitivty Sodium Potassium Chloride Carbon Dioxide Anion Gap BUN Creatinine Estim Creat Clear Calc Estimated GFR Random Glucose Lactic Acid Calcium Total Bilirubin AST ALT Alkaline Phosphatase Ammonia Troponin I High Sens 17.2 H B-Natriuretic Peptide Total Protein Albumin TSH Urine Color Urine Appearance Urine pH Ur Specific [place] Urine Protein Urine Glucose (UA) Urine Ketones Urine Blood Urine Nitrite Ur Leukocyte Esterase Stool Occult Blood Influenza Type A (PCR) Influenza Type B (PCR) RSV RNA Qual (PCR) SARS-CoV-2 RNA (RT-PCR) Blood Type Antibody Screen Crossmatch 07/08/22 06:54 WBC RBC Hgb Hct MCV MCH MCHC RDW Plt Count MPV Immature Gran % (Auto) Neut % (Auto) Lymph % (Auto) [place] % (Auto) Eos % (Auto) Baso % (Auto) Lymph # (Auto) [place] # (Auto) Eos # (Auto) Baso # (Auto) Abs Immat Gran (auto) Absolute Neuts (auto) Absolute Nucleated RBC Nucleated RBC % (auto) Smear Tech's Comments Smear Path Review PT INR D-Dimer High Sensitivty Sodium 138 Potassium 3.5 Chloride 106 Carbon Dioxide 25 Anion Gap 11 L BUN 11 Creatinine 0.57 Estim Creat Clear Calc 62.6 Estimated GFR > 60 Random Glucose 101 Lactic Acid Calcium 7.9 L Total Bilirubin AST ALT Alkaline Phosphatase Ammonia Troponin I High Sens B-Natriuretic Peptide Total Protein Albumin TSH Urine Color Urine Appearance Urine pH Ur Specific [place] Urine Protein Urine Glucose (UA) Urine Ketones Urine Blood Urine Nitrite Ur Leukocyte Esterase Stool Occult Blood Influenza Type A (PCR) Influenza Type B (PCR) RSV RNA Qual (PCR) SARS-CoV-2 RNA (RT-PCR) Blood Type Antibody Screen Crossmatch Airway Mallampati Class: II TM Dist: >3cm Neck ROM: Full Loose/Missing/Broken Teeth: No Heart: rr Lungs: cta Assessment and Plan Assessment Anesthesia Assessment: Anesthesia Plan Discussed and Chart Reviewed Final Anesthetic Review Family History of Problems with Anesthesia: No History of Problems with Anesthesia: No NPO: Yes ASA Class: II, III and Emergency Final Preanesthetic Review: No Changes in Pt Med Stat, Meds/Allgs Chart Reviewed and Consent Obtained/Reviewed Patient Risk: Intermediate Procedure Risk: Low Anesthetic Plan Anesthetic Plan: MAC: Disposition: Standard PACU
--- NOTE | 2022-07-08 13:35 | PC.NURSE ---
pending no bleeding, ok to give prbc upon return to floor
--- NOTE | 2022-07-08 13:36 | HO.PM.IMPN ---
Subjective Subjective Date of Service: 07/08/22 Interval History: No acute bleeding overnight. Mild left anterior chest pain reproducible in nature. EKG unremarkable Review of Systems Denies chest pain Denies shortness of breath Denies nausea vomiting diarrhea Denies fever chills Physical Exam Vital Signs: Vital Signs: Last Vital Signs Temp 97.9 F 07/08/22 12:57 Pulse 65 07/08/22 12:57 Resp 18 07/08/22 12:57 BP 167/71 H 07/08/22 12:57 Pulse Ox 100 07/08/22 12:57 O2 Del Method Room Air 07/08/22 12:57 BMI result Body Mass Index 28.7 Const: Other: Awake alert in no acute distress Resp: Other: Clear to auscultation bilaterally no rales rhonchi or wheezes Cardio: Other: No S4; positive S1-S2; no S3 murmurs rubs or gallops GI: Other: Soft nontender nondistended normoactive bowel sounds Extrem: Other: No edema bilaterally Objective Data Active Medications Acetaminophen (Acetaminophen 325 Mg Tablet) 650 mg PO Q6H PRN PRN Reason: Pain, Mild (Pain Scale 1-3) Last Admin: 07/08/22 09:53 Dose: 650 mg Documented By: JOSÉ Amlodipine Besylate (Amlodipine Besylate 5 Mg Tablet) 5 mg PO DAILY [facility]; Protocol Last Admin: 07/08/22 09:32 Dose: 5 mg Documented By: JOSÉ Atorvastatin Calcium (Atorvastatin Calcium 10 Mg Tablet) 10 mg PO DAILY [facility] Last Admin: 07/08/22 09:34 Dose: Not Given Documented By: JOSÉ Non-Admin Reason: takes at night Docusate Sodium (Docusate Sodium 100 Mg Capsule) 100 mg PO DAILY PRN PRN Reason: Constipation Escitalopram Oxalate (Escitalopram Oxalate 5 Mg Tablet) 5 mg PO BEDTIME [facility] Last Admin: 07/07/22 21:55 Dose: 5 mg Documented By: PAPI Hydrochlorothiazide (Hydrochlorothiazide 25 Mg Tablet) 25 mg PO DAILY [facility]; Protocol Last Admin: 07/08/22 09:32 Dose: 25 mg Documented By: JOSÉ Metoprolol Succinate (Metoprolol Succinate Er 25 Mg Tab.Er.24h) 25 mg PO DAILY [facility]; Protocol Last Admin: 07/08/22 09:32 Dose: 25 mg Documented By: JOSÉ Ondansetron HCl (Ondansetron Hcl 4 Mg/2 Ml Vial) 4 mg IVPUSH Q8H PRN PRN Reason: Nausea and Vomiting Pantoprazole Sodium (Pantoprazole Sodium 40 Mg/10 Ml Vial) 40 mg IVPUSH BID@0630,1630 [facility] Last Admin: 07/08/22 06:09 Dose: 40 mg Documented By: PAPI Pharmacy Consult (Consult Rx Perform Med Rec) 1 each MISCELLANE ONCE PRN PRN Reason: Consult order Sodium Chloride (0.9 % Sodium Chloride Flush 3 Ml Syringe) 3 ml IVFLUSH QSHIFT [facility] Last Admin: 07/08/22 09:32 Dose: 3 ml Documented By: JOSÉ Trazodone HCl (Trazodone Hcl 50 Mg Tablet) 75 mg PO BEDTIME [facility] Last Admin: 07/07/22 21:55 Dose: 75 mg Documented By: PAPI Labs 07/08/22 06:54 07/08/22 06:54 Labs: Laboratory Results - last 24 hr 07/07/22 07/07/22 07/07/22 11:31 11:31 16:23 MCV MCH MCHC RDW Plt Count MPV Immature Gran % (Auto) Neut % (Auto) Lymph % (Auto) [place] % (Auto) Eos % (Auto) Baso % (Auto) Lymph # (Auto) [place] # (Auto) Eos # (Auto) Baso # (Auto) Abs Immat Gran (auto) Absolute Neuts (auto) Absolute Nucleated RBC Nucleated RBC % (auto) Smear Tech's Comments Smear Path Review SEE NOTE Anion Gap Estim Creat Clear Calc Estimated GFR Random Glucose Calcium Troponin I High Sens 17.2 H Blood Type A Positive Antibody Screen NEGATIVE Crossmatch See Detail 07/07/22 07/08/22 07/08/22 18:55 06:54 06:54 MCV 91.2 90.7 MCH 30.4 30.5 MCHC 33.3 33.6 RDW 14.6 14.6 Plt Count TNP 165 MPV 10.2 9.4 Immature Gran % (Auto) 0.5 H 0.3 Neut % (Auto) 58.5 57.2 Lymph % (Auto) 29.3 26.1 [place] % (Auto) 8.8 11.4 H Eos % (Auto) 2.5 4.4 H Baso % (Auto) 0.4 0.6 Lymph # (Auto) 2.5 1.6 [place] # (Auto) 0.8 0.7 Eos # (Auto) 0.2 0.3 Baso # (Auto) 0.0 0.0 Abs Immat Gran (auto) 0.04 H 0.02 Absolute Neuts (auto) 5.0 3.5 Absolute Nucleated RBC 0.000 0.000 Nucleated RBC % (auto) 0.0 0.0 Smear Tech's Comments VERIFIED Smear Path Review Anion Gap 11 L Estim Creat Clear Calc 62.6 Estimated GFR > 60 Random Glucose 101 Calcium 7.9 L Troponin I High Sens Blood Type Antibody Screen Crossmatch Assessment and Plan (1) Acute upper gastrointestinal bleeding: Status: Acute (2) Symptomatic anemia: Status: Acute Plan 86-year-old female with history of hypertension, hyperlipidemia, anxiety, chronic low back pain, hiatal hernia, osteopenia, polymyalgia rheumatica, HFrEF, who is a former smoker admitted for further management of acute upper GI bleed with symptomatic anemia. Scheduled for EGD this afternoon 1.Acute blood loss anemia(UGIB) -transfuse 2 units of packed red cells with Lasix in between -IV PPI 40mg BID -hold sulfate pending EGD -continue NPO 2.HTN- reasonably controlled -continue metoprolol, amlodipine, HCTZ 3. HLD -continue statin 4.HFrEF -no acute excacerbation SCPs DNR/DNI Requires ongoing hospitalization for IV PPI as well as monitoring hemoglobin Time Spent With Patient Time: Total time managing care of this patient today ____ minutes. Quality Stroke Does the patient have a stroke diagnosis?: No VTE Prior VTE?: No VTE Risk Level:: Medical - moderate - high VTE Device Contraindication: N/A - Device Ordered VTE Drug Contraindication: Treatment Not Indicated
--- NOTE | 2022-07-08 14:08 | P.BOP_ITS ---
Brief Operative Note Date of Service: 07/08/22 Pre-op diagnosis: Melena, anemia Post-op diagnosis: other (Proximal gastritis, hiatal hernia) Procedure: EGD Surgeon: Te Hernandez Anesthesia: MAC Was an Interactive Video Technician used for this Procedure?: No Estimated blood loss (mL): 0 Pathology: none sent Condition: stable Disposition: PACU
--- NOTE | 2022-07-08 14:09 | PM.EVENT ---
Event Note Date of Service: 07/08/22 Event Note: GI-EGD-Full note dictated Findings: 1. Mildly tortuous distal esophagus, but no esophagitis 2. Hiatal hernia-small 3. Proximal gastritis No blood nor coffee grounds in UGI tract Rec: Change to po PPI, advance diet today, F/U CBC tomorrow. She will need an eventual colonoscopy but I think that can be done as an outpatient as long as things remain stable. I can arrange for follow up of that. Hold all aspirin, avoid NSAIDs. D/W daughter, Tanja. Thanks Time Spent With Patient Time: Total time managing care of this patient today ____ minutes.
[2022-07-08] MEDS: Omeprazole 40 MG CAPSULE.DR PO (15:34)
--- NOTE | 2022-07-08 16:23 | OP_ITS ---
DATE OF SERVICE: 07/08/2022 SURGEON: Te Hernandez MD INDICATIONS: The patient presents for evaluation of melena and anemia. Full consent has been obtained from her for this, including risks of bleeding and perforation. PREOPERATIVE DIAGNOSIS: POSTOPERATIVE DIAGNOSIS: PROCEDURE PERFORMED: Esophagogastroduodenoscopy. ESTIMATED BLOOD LOSS: COMPLICATIONS: ANESTHESIA: Monitored anesthesia care. ASSISTANTS: SPECIMENS: PREOPERATIVE DIAGNOSES: Melena and anemia. PREOPERATIVE DIAGNOSES: Melena and anemia, hiatal hernia, proximal gastritis. DESCRIPTION OF PROCEDURE: The patient was placed in left lateral decubitus position. The Olympus video gastroscope was passed in the posterior oropharynx and upper esophagus under direct vision. The scope was passed slowly to the distal esophagus. The gastroesophageal junction appeared at 35 cm. There was no sign of any esophagitis, ulceration, nor mass. The distal esophagus was somewhat mildly tortuous. The scope entered into the stomach. There was a small hiatal hernia. The proximal stomach had some evidence of a chronic-appearing gastritis with some hyperplastic polyps. The scope was advanced to the pylorus. Of note, the proximal stomach did appear to be somewhat angulated. The pyloric channel appeared normal. The scope was advanced to the second and third portions of duodenum. The duodenum including the bulb appeared normal without mass or ulceration. There was no blood or coffee grounds in the duodenum. The scope was withdrawn back into stomach. The gastric antrum and body appeared normal with good peristalsis. The scope was retroflexed visualizing the proximal stomach carefully which appeared normal, without any sign of mass or ulceration, other than the proximal gastritis. There was no blood or coffee ground material anywhere in the upper GI tract. The scope was straightened and withdrawn back into the esophagus. The esophageal mucosa appeared normal. The scope was withdrawn from the patient. She tolerated the procedure well and was returned to the recovery area in stable condition. IMPRESSION: 1. Hiatal hernia. 2. Proximal gastritis. PLAN: These findings would not account for her presentation with the significant anemia, as well as the reported melena. She does take a baby aspirin every day and the possibility would be that she had a small ulcer that bled about 3 or 4 days ago and resolved by the time we did today's endoscopy. The other probably less likely possibility would be that of a colonic source of bleeding. At this point, I do not think she is able to do the bowel prep today due to her ongoing anemia and some ongoing weakness. Therefore, I think if things are stable, she can continue to be transfused, have her diet advanced, and then be discharged in the next 24-48 hours. I will then plan to arrange for outpatient followup and an outpatient colonoscopy if need be. She has had at least 2 or 3 previous colonoscopies elsewhere, although probably not for quite sometime. I have recommended she stay off all aspirin and NSAIDs custodial. She will have follow laboratories tomorrow as well. Her diet will be advanced. If she does show signs of further bleeding here in the hospital, we can always change the plan and do her colonoscopy as an inpatient. However, at this point, I think if things are stable she could hopefully be discharged in the next 1 to 2 days. This has all been discussed with her daughter, Tanja, and she is comfortable with this plan as well. MD TORI Nevarez/RUBIO / [id number] MTDSharron
--- NOTE | 2022-07-08 17:08 | CONS_ITS ---
DATE OF SERVICE: 07/08/2022 REASON FOR CONSULTATION: Melena and anemia. HISTORY OF PRESENT ILLNESS: This has been obtained from patient and medical record. The patient is an 86-year-old female who was in her usual state of health up until earlier this week when she developed the onset of a black tarry stool. She then became progressively weak which prompted her ER arrival yesterday. Prior to the onset of black stool and weakness, she had been feeling well. She does take fairly frequent Tums by her by her description for heartburn. She is on a single 81 mg aspirin per day, but denies use of any other NSAIDS, aspirin, tobacco, nor alcohol. Once in the ER, she was found to be anemic, and received a unit of blood and was subsequently admitted. She did receive another unit of blood this morning. She has had no evidence of bleeding here in the hospital. She denies any further black stools since the initial episode. She denies any dysphagia, anorexia, nausea, vomiting, nor early satiety. Her bowel movements have otherwise been regular without any hematochezia. She denies any abdominal pain or jaundice. She does describe previous colonoscopies in [place], but she has never had an upper endoscopy. MEDICATIONS: At home included amlodipine, aspirin 81 mg, atorvastatin, citalopram, hydrochlorothiazide, metoprolol, and trazodone. Her current medications here include IV pantoprazole, amlodipine, acetaminophen, atorvastatin, escitalopram, Lasix p.r.n., hydrochlorothiazide, metoprolol, Zofran, and trazodone. PAST SURGICAL HISTORY: 1. Back surgery. 2. Pilonidal cyst surgery. 3. Hypertension. 4. Hyperlipidemia. She denies history of [place], stroke, lung disease nor diabetes. She also has history of polymyalgia rheumatica. SOCIAL HISTORY: She is a . She is a former smoker and does not use any significant amounts of alcohol. FAMILY HISTORY: Noncontributory. REVIEW OF SYSTEMS: CONSTITUTIONAL: She has been feeling well up until the past several days when she began weak. Appetite had been good. SKIN: No rash or pruritus. CARDIAC: No chest pain. PULMONARY: No cough. No hemoptysis. GI: As above. URINARY: : No dysuria. No hematuria. NEUROLOGIC: No headache or seizures. PSYCHIATRIC: Negative. PHYSICAL EXAMINATION: GENERAL: The patient is a pleasant, alert, comfortable appearing female. SKIN: Warm and dry. Anicteric sclerae. NECK: Supple. CHEST: Clear. CARDIAC: Normal S1 and S2. ABDOMEN: Soft and nondistended. Nontender without masses. EXTREMITIES: No edema. NEUROLOGIC: She is alert and oriented. LABORATORY DATA: Initial hemoglobin 6.8 with repeat last evening of 7.6. Hemoglobin this morning was 7.2. White count 6.2, platelets 165, 000. PT 11.1 with INR 1.0. Normal electrolytes; BUN 11, creatinine 0.6. BUN yesterday was 23, normal LFTs. Stool was heme positive. Chest x-ray was negative other than an elevated left hemidiaphragm. IMPRESSION: Given the patient's clinical history this seems consistent with a gastrointestinal bleed from an upper source such as erosive esophagitis or peptic ulcer disease. At this point, she appear stable without any signs of active bleeding. I would recommend an upper endoscopy today for further evaluation. Full consent has been obtained from her for this, including risks of bleeding and perforation. In the meantime, I would continue supportive care with IV Protonix and transfuse her as needed. I would recommend continued close followup of her hemoglobin. This has all been discussed with the patient in detail and she is comfortable with the plan. Thank you for the consultation. MD TORI Nevarez/RUBIO / [id number] MTDD
[2022-07-08] MEDS: Escitalopram Oxalate 5 MG TABLET PO (20:20)
[2022-07-08] MEDS: traZODone HCL 50 MG TABLET 75 MG PO (20:20)
[2022-07-09] VITALS (8 sets, daily range): BP systolic 97–166; BP diastolic 53–74; PULSE 51–80; RESP 16–20; TEMP 36.3–36.8; O2SAT 93–98
[2022-07-09] MEDS: 0.9 % Sodium Chloride Flush 3 ML SYRINGE IVFLUSH ×4 (00:40→20:50)
[2022-07-09] MEDS: Omeprazole 40 MG CAPSULE.DR PO (06:08)
[2022-07-09 06:52] LABS: MANUAL DIFF FLAG NO
[2022-07-09 06:59] LABS: Basophils Percent Auto 0.3 % (0-2); Eosinophils Absolute Auto 0.4 X10*3/uL (0.0-0.4); Eosinophils Percent Auto 3.9 % (0-4); Hematocrit 29.7 % (37.0-47.0); Hemoglobin 10.2 g/dl (12.0-16.0); Imm Gran Abs Auto 0.05 X10*3/uL (0.00-0.03); Imm Gran Pct Auto 0.5 % (0.0-0.4); Lymphocytes Absolute Auto 1.4 X10*3/uL (1.2-4.9); Lymphocytes Percent Auto 15.7 % (20-40); Mean Corpuscular HGB Conc 34.3 g/dl (31.0-35.0); Mean Corpuscular Hemoglobin 30.4 pg (27.0-33.0); Mean Corpuscular Volume 88.4 fL (80.0-98.0); Mean Platelet Volume 9.3 fL (9.4-12.3); Monocytes Absolute Auto 0.9 X10*3/uL (0.1-1.2); Monocytes Percent Auto 10.2 % (2-11); Neutrophils Absolute Auto 6.3 x10*3/uL (2.0-8.3); Neutrophils Percent Auto 69.4 % (45-73); Platelet Count 196 X10*3/uL (160-400); Red Blood Count 3.36 X10*6/uL (4.20-5.50); Red Cell Distribution Width 14.5 % (11.0-16.0); White Blood Count 9.1 X10*3/uL (4.8-10.8)
[2022-07-09 07:18] LABS: Anion Gap 10 (12-20); Blood Urea Nitrogen 11 mg/dL (9-16); Calcium 8.4 mg/dL (8.4-10.2); Carbon Dioxide 28 mmol/L (22-29); Chloride 102 mmol/L (96-108); Creatinine Clr Calc Pharmacy 58.5; Estimated Glomerular Filt Rate > 60; Glucose Fasting 109 mg/dL (60-99); Potassium 3.4 mmol/L (3.3-5.1); Sodium 137 mmol/L (135-145)
[2022-07-09] MEDS: hydroCHLOROthiazide 25 MG TABLET PO (07:55)
[2022-07-09] MEDS: Metoprolol Succinate ER 25 MG TAB.ER.24H PO (07:55)
[2022-07-09] MEDS: amLODIPine Besylate 5 MG TABLET PO (07:56)
[2022-07-09] MEDS: Atorvastatin Calcium 10 MG TABLET PO (07:56)
--- NOTE | 2022-07-09 12:04 | MHC.CM.PN ---
EMR reviewed, EGD today and per MD rounds anticipating D/C for tomorrow. Daughter to transport. CM will continue to follow.
--- NOTE | 2022-07-09 15:12 | HO.PM.IMPN ---
Subjective Subjective Date of Service: 07/09/22 Interval History: EGD findings reviewed. No further bleeding. Hemoglobin stable. Voices no complaints Review of Systems Denies chest pain Denies shortness of breath Denies nausea vomiting diarrhea Denies fever chills Physical Exam Vital Signs: Vital Signs: Last Vital Signs Temp 97.8 F 07/09/22 12:00 Pulse 51 07/09/22 12:00 Resp 16 07/09/22 12:00 BP 134/60 07/09/22 12:00 Pulse Ox 95 07/09/22 12:00 O2 Del Method Room Air 07/09/22 12:00 BMI result Body Mass Index 28.7 Const: Other: Awake alert in no acute distress Resp: Other: Clear to auscultation bilaterally no rales rhonchi or wheezes Cardio: Other: No S4; positive S1-S2; no S3 murmurs rubs or gallops GI: Other: Soft nontender nondistended normoactive bowel sounds Extrem: Other: No edema bilaterally Objective Data Active Medications Acetaminophen (Acetaminophen 325 Mg Tablet) 650 mg PO Q6H PRN PRN Reason: Pain, Mild (Pain Scale 1-3) Last Admin: 07/08/22 09:53 Dose: 650 mg Documented By: JOSÉ Amlodipine Besylate (Amlodipine Besylate 5 Mg Tablet) 5 mg PO DAILY PENDING SALE TO [facility]; Protocol Last Admin: 07/09/22 07:56 Dose: 5 mg Documented By: CARLOS Atorvastatin Calcium (Atorvastatin Calcium 10 Mg Tablet) 10 mg PO DAILY PENDING SALE TO [facility] Last Admin: 07/09/22 07:56 Dose: 10 mg Documented By: CARLOS Docusate Sodium (Docusate Sodium 100 Mg Capsule) 100 mg PO DAILY PRN PRN Reason: Constipation Escitalopram Oxalate (Escitalopram Oxalate 5 Mg Tablet) 5 mg PO BEDTIME PENDING SALE TO [facility] Last Admin: 07/08/22 20:20 Dose: 5 mg Documented By: ROBBIE Hydrochlorothiazide (Hydrochlorothiazide 25 Mg Tablet) 25 mg PO DAILY PENDING SALE TO [facility]; Protocol Last Admin: 07/09/22 07:55 Dose: 25 mg Documented By: CARLOS Metoprolol Succinate (Metoprolol Succinate Er 25 Mg Tab.Er.24h) 25 mg PO DAILY PENDING SALE TO [facility]; Protocol Last Admin: 07/09/22 07:55 Dose: 25 mg Documented By: CARLOS Omeprazole (Omeprazole 40 Mg Capsule.) 40 mg PO DAILY@0630 PENDING SALE TO [facility] Last Admin: 07/09/22 06:08 Dose: 40 mg Documented By: PATRICIA Ondansetron HCl (Ondansetron Hcl 4 Mg/2 Ml Vial) 4 mg IVPUSH Q8H PRN PRN Reason: Nausea and Vomiting Pharmacy Consult (Consult Rx Perform Med Rec) 1 each MISCELLANE ONCE PRN PRN Reason: Consult order Sodium Chloride (0.9 % Sodium Chloride Flush 3 Ml Syringe) 3 ml IVFLUSH QSHIFT PENDING SALE TO [facility] Last Admin: 07/09/22 07:57 Dose: 3 ml Documented By: CARLOS Trazodone HCl (Trazodone Hcl 50 Mg Tablet) 75 mg PO BEDTIME PENDING SALE TO [facility] Last Admin: 07/08/22 20:20 Dose: 75 mg Documented By: ROBBIE Labs 07/09/22 06:28 07/09/22 06:28 Labs: Laboratory Results - last 24 hr 07/07/22 07/09/22 07/09/22 11:31 06:28 06:28 MCV 88.4 MCH 30.4 MCHC 34.3 RDW 14.5 Plt Count 196 MPV 9.3 L Immature Gran % (Auto) 0.5 H Neut % (Auto) 69.4 Lymph % (Auto) 15.7 L Gates % (Auto) 10.2 Eos % (Auto) 3.9 Baso % (Auto) 0.3 Lymph # (Auto) 1.4 Gates # (Auto) 0.9 Eos # (Auto) 0.4 Baso # (Auto) 0.0 Abs Immat Gran (auto) 0.05 H Absolute Neuts (auto) 6.3 Absolute Nucleated RBC 0.000 Nucleated RBC % (auto) 0.0 Anion Gap 10 L Estim Creat Clear Calc 58.5 Estimated GFR > 60 Fasting Glucose 109 H Calcium 8.4 D Blood Type A Positive Antibody Screen NEGATIVE Crossmatch See Detail Assessment and Plan (1) Symptomatic anemia: Status: Acute (2) Hypertension: Status: Acute (3) Heart failure with reduced ejection fraction: Status: Acute Plan 86-year-old female with history of hypertension, hyperlipidemia, anxiety, chronic low back pain, hiatal hernia, osteopenia, polymyalgia rheumatica, HFrEF, who is a former smoker admitted for further management of acute upper GI bleed with symptomatic anemia. Scheduled for EGD this afternoon 1.Acute blood loss anemia(UGIB) -transfuse 2 units of packed red cells with Lasix in between.. Acceptable response -IV PPI 40mg BID -advance diet as tolerated 2.HTN- reasonably controlled -continue metoprolol, amlodipine, HCTZ 3. HLD -continue statin 4.HFrEF -no acute excacerbation SCPs DNR/DNI Requires ongoing hospitalization for IV PPI as well as monitoring hemoglobin Time Spent With Patient Time: Total time managing care of this patient today ____ minutes. Quality Stroke Does the patient have a stroke diagnosis?: No VTE Prior VTE?: No VTE Risk Level:: Medical - moderate - high VTE Device Contraindication: N/A - Device Ordered VTE Drug Contraindication: Treatment Not Indicated
[2022-07-09] MEDS: traZODone HCL 50 MG TABLET 75 MG PO (20:49)
[2022-07-09] MEDS: diphenhydrAMINE HCL 50 MG/ML VIAL IVPUSH (20:49)
[2022-07-09] MEDS: Escitalopram Oxalate 5 MG TABLET PO (20:49)
[2022-07-10 04:00] VITALS: BP 115/57; PULSE 50; RESP 16; TEMP 35.9; O2SAT 96
[2022-07-10] MEDS: Omeprazole 40 MG CAPSULE.DR PO (05:51)
[2022-07-10 07:47] LABS: MANUAL DIFF FLAG NO
[2022-07-10 07:49] VITALS: BP 131/68; PULSE 68; RESP 16; TEMP 36.3; O2SAT 95
[2022-07-10 07:52] LABS: Basophils Percent Auto 0.4 % (0-2); Eosinophils Absolute Auto 0.5 X10*3/uL (0.0-0.4); Eosinophils Percent Auto 5.6 % (0-4); Hematocrit 29.7 % (37.0-47.0); Hemoglobin 10.1 g/dl (12.0-16.0); Imm Gran Abs Auto 0.05 X10*3/uL (0.00-0.03); Imm Gran Pct Auto 0.6 % (0.0-0.4); Lymphocytes Absolute Auto 1.6 X10*3/uL (1.2-4.9); Lymphocytes Percent Auto 19.7 % (20-40); Mean Corpuscular Hemoglobin 31.1 pg (27.0-33.0); Mean Corpuscular Volume 91.4 fL (80.0-98.0); Mean Platelet Volume 9.3 fL (9.4-12.3); Monocytes Absolute Auto 0.9 X10*3/uL (0.1-1.2); Monocytes Percent Auto 10.9 % (2-11); Neutrophils Absolute Auto 5.2 x10*3/uL (2.0-8.3); Neutrophils Percent Auto 62.8 % (45-73); Platelet Count 218 X10*3/uL (160-400); Red Blood Count 3.25 X10*6/uL (4.20-5.50); Red Cell Distribution Width 14.6 % (11.0-16.0); White Blood Count 8.2 X10*3/uL (4.8-10.8)
[2022-07-10 08:04] LABS: Alanine Aminotransferase 9 U/L (0-31); Albumin Level 2.9 g/dL (3.5-5.0); Alkaline Phosphatase 32 U/L (39-117); Anion Gap 11 (12-20); Aspartate Amino Transferase 13 U/L (5-31); Bilirubin Total 0.5 mg/dL (0.0-1.0); Blood Urea Nitrogen 16 mg/dL (9-16); Calcium 8.3 mg/dL (8.4-10.2); Carbon Dioxide 28 mmol/L (22-29); Chloride 102 mmol/L (96-108); Creatinine Clr Calc Pharmacy 50.2; Estimated Glomerular Filt Rate > 60; Glucose Random 109 mg/dL (60-115); Potassium 3.7 mmol/L (3.3-5.1); Sodium 137 mmol/L (135-145); Total Protein 4.5 g/dL (6.5-8.0)
[2022-07-10] MEDS: 0.9 % Sodium Chloride Flush 3 ML SYRINGE IVFLUSH (08:38)
[2022-07-10] MEDS: Atorvastatin Calcium 10 MG TABLET PO (08:39)
[2022-07-10] MEDS: hydroCHLOROthiazide 25 MG TABLET PO (08:39)
[2022-07-10] MEDS: Metoprolol Succinate ER 25 MG TAB.ER.24H PO (08:39)
[2022-07-10] MEDS: amLODIPine Besylate 5 MG TABLET PO (08:39)
[2022-07-10 12:00] VITALS: BP 135/64; PULSE 65; RESP 16; TEMP 36; O2SAT 94
--- NOTE | 2022-07-10 12:26 | P.DS_ITS ---
DS: Providers Provider Date of Service: 07/10/22 Date of admission: 07/07/22 14:11 Date of discharge: 07/10/22 Primary care physician: Perez Faye MD Consults: 07/07/22 14:11 Consult to Gastroenterology Routine Consulting Provider: Te Hernandez Reason for consultation: UGIB, symptomatic anemia DS: Diagnosis Discharge Diagnosis (1) Symptomatic anemia: Status: Acute (2) Hypertension: Status: Acute (3) Heart failure with reduced ejection fraction: Status: Acute DS: Summary Hospital Course Hospital Course: 86-year-old female with history of hypertension, hyperlipidemia, anxiety, chronic low back pain, hiatal hernia, osteopenia, polymyalgia rheumatica, HFrEF, who is a former smoker presented to the ED earlier this morning for evaluation of lightheadedness and weakness ongoing for the last 2-3 days.? She states she also had a single episode of very dark sticky stool on Tuesday without any recurrence.? She has also had some epigastric discomfort intermittently.? Denies any fevers, chills, nausea, vomiting, constipation, diarrhea, hematochezia, shortness of breath, palpitations, or chest pain.? She states she does take a baby aspirin on a daily basis but denies any other use of blood thinners.? She has never undergone endoscopy but does states she had colonoscopy about 10 years ago which was without any abnormal finding. Hospital Course; Admitted to telemetry. Transfused 1 unit of packed red cells with good response to hemoglobin. Seen in consultation by GI; on 07/08/2022 underwent upper endoscopy; EGD demonstrated mildly torturous distal esophagus without esophagitis hiatal hernia and proximal gastritis no blood or coffee grounds was seen in the upper GI tract. Origin was thought to be several days before presentation to hospital. At this point in time her hemoglobin has remained stable 24 hours post EGD and she is tolerating a full diet. She will be disch arged home on an omeprazole and can follow-up with Dr. Hernandez in the office Time Spent with Patient Time attestation: Total time managing care of this patient today ____ minutes. Discharge coordination time: Greater than 30 minutes Quality: Safe Use of Opioids Does Pt have an Active Cancer Diagnosis on the Problem List?: No Quality: Stroke Does the patient have a stroke diagnosis?: No Physical Exam Vital Signs: Vital Signs: Last Vital Signs Temp 97.3 F 07/10/22 07:49 Pulse 68 07/10/22 07:49 Resp 16 07/10/22 07:49 BP 131/68 07/10/22 07:49 Pulse Ox 95 07/10/22 07:49 O2 Del Method Room Air 07/10/22 07:49 BMI result Body Mass Index 28.7 Const: Other: Awake alert in no acute distress Resp: Other: Clear to auscultation bilaterally no rales rhonchi or wheezes Cardio: Other: No S4; positive S1-S2; no S3 murmurs rubs or gallops GI: Other: Soft nontender nondistended normoactive bowel sounds Extrem: Other: No edema bilaterally DS: Data Data Completed and Pending Labs on day of discharge: Laboratory Results - last 24 hr 07/10/22 07/10/22 07:43 07:43 WBC 8.2 RBC 3.25 L Hgb 10.1 L Hct 29.7 L MCV 91.4 MCH 31.1 MCHC 34.0 RDW 14.6 Plt Count 218 MPV 9.3 L Immature Gran % (Auto) 0.6 H Neut % (Auto) 62.8 Lymph % (Auto) 19.7 L Braxton % (Auto) 10.9 Eos % (Auto) 5.6 H Baso % (Auto) 0.4 Lymph # (Auto) 1.6 Braxton # (Auto) 0.9 Eos # (Auto) 0.5 H Baso # (Auto) 0.0 Abs Immat Gran (auto) 0.05 H Absolute Neuts (auto) 5.2 Absolute Nucleated RBC 0.000 Nucleated RBC % (auto) 0.0 Sodium 137 Potassium 3.7 Chloride 102 Carbon Dioxide 28 Anion Gap 11 L BUN 16 Creatinine 0.71 Estim Creat Clear Calc 50.2 Estimated GFR > 60 Random Glucose 109 Calcium 8.3 L Total Bilirubin 0.5 AST 13 ALT 9 Alkaline Phosphatase 32 L Total Protein 4.5 L Albumin 2.9 L Discharge Plan Discharge Anticipated Discharge Date/Time: 07/10/22 12:10 Patient Disposition: Home, Self-Care Discharge Diagnosis: Acute GI bleed Referrals: Perez Faye MD [Primary Care Provider] - 1 Week Discharge Medications: New omeprazole 40 mg capsule,delayed release(DR/EC) 40 mg PO DAILY Qty: 30 1RF Continued trazodone 50 mg tablet 75 mg PO BEDTIME atorvastatin 10 mg tablet 10 mg PO DAILY citalopram 10 mg tablet 10 mg PO BEDTIME estradiol 0.01 % (0.1 mg/gram) cream 1 g vaginal TUSA aspirin 81 mg Tablet,Delayed Release (Dr/Ec) 81 mg PO DAILY hydrochlorothiazide 25 mg tablet 25 mg PO DAILY metoprolol succinate 25 mg tablet extended release 24 hr 25 mg PO DAILY amlodipine 5 mg tablet 5 mg PO DAILY Discharge Orders: Discharge Order (Routine); Ordered 07/10/22 Ordered By: Omar Talamantes Diet: Advance to usual diet Activity on Discharge: As tolerated Stand Alone Forms: Patient Portal Discharge page Care Plan Goals: Add omeprazole 40 mg daily to medical regimen Health Concerns: Resume all pre-hospital medications Plan of Treatment: Follow-up with Dr. Hernandez; his office will call with appointment Assessment: See discharge summary
--- NOTE | 2022-07-10 12:41 | MHC.CM.PN ---
PT WILL DC HOME TODAY WITH NO SERVICES VIA FAMILY TRANSPORT
--- NOTE | 2022-07-10 14:02 | PC.NURSE ---
pt A&O, IV out monitor off, discharge instruction given and pt verbalized understanding. daughter here to bring pt down.
== END 2022-07-10 13:30 | disposition home or self-care (01) | DRG 377 ==
LOC: HO.ED 12:05 → HO.EDOVER 14:22 → HO.IMC 19:43
PROVIDERS: Internal Medicine; Admitting Provider Physician Assistant; Emergency Provider Emergency Medicine; PCP Internal Medicine; Visit Provider Hospitalist
PROC: 0DJ08ZZ Inspection of Upper Intestinal Tract, Via Natural or Artificial Opening Endoscopic (ICD-10-PCS; CPT 43235; principal; 2022-07-08 13:30)
DX: K29.71 Gastritis, unspecified, with bleeding (principal); I50.23 Acute on chronic systolic (congestive) heart failure; D62 Acute posthemorrhagic anemia; I24.8 Other forms of acute ischemic heart disease; Q39.8 Other congenital malformations of esophagus; E78.5 Hyperlipidemia, unspecified; M35.3 Polymyalgia rheumatica; Z66 Do not resuscitate; F41.9 Anxiety disorder, unspecified; I11.0 Hypertensive heart disease with heart failure; K44.9 Diaphragmatic hernia without obstruction or gangrene; M54.59 Other low back pain; G89.29 Other chronic pain; Z20.822 Contact with and (suspected) exposure to COVID-19; Z88.5 Allergy status to narcotic agent; Z79.82 Long term (current) use of aspirin; Z79.899 Other long term (current) drug therapy
CPT/HCPCS: 0241U; 36415; 71046; 80048; 80053; 81003; 82140; 82272; 83605; 83880; 84443; 84484; 85025; 85379; 85610; 86850; 86900; 86901; 86923; 93005; 99285; J1200; J1940; P9016

== ENCOUNTER 2022-08-02 11:41 | Day surgery (SDC) | payer MEDICARE, SELFPAY ==
--- NOTE | 2022-07-30 13:46 | HO.ANESPROP2 ---
Documented by User: Samira Aguirre NP 07/30/22 14:01 HPI - Anesthesia Eval Consult details Narrative: 87yo F for Colonoscopy s/p EGD 07/08/22 with MAC PMFSH Active Problems Active Problems: All Active Problems (Updated 07/18/22 @ 00:12 by Background Daryder) Hypertension (Acute) Anemia (Acute) Impacted cerumen of both ears (Acute) Past Medical History Medical History Anxiety Chronic low back pain Heart failure with reduced ejection fraction Hiatal hernia Hyperlipidemia Hypertension Lumbar spinal stenosis Lumbar spondylosis Mixed incontinence Osteopenia Polymyalgia rheumatica Venous stasis Family History Family history of problems with anesthesia: No Surgical History Surgical History History of back surgery Hx of colonoscopy History of Problems with Anesthesia: No Social History Social History Household Members: None Housing: House Do you presently have visiting nurse or other home services: No Alcohol intake: current Alcohol intake frequency: a few times a week Patient Tobacco Use Status: Former Tobacco user Quit Date: 40 yrs ago Use of substances other than those prescribed or required for medical reasons: No Are you DNR?: No Advance Directives: No Advance Directives Information Provided: Yes service: No Current occupational status: retired [employer] Allergies Allergy/AdvReac Type Severity Reaction Status Date / Time codeine [CODEINE] Allergy Unknown Rash Verified 08/02/22 11:56 Home Medications Medication Instructions Recorded Confirmed Last Taken Type amlodipine 5 mg tablet 5 mg PO DAILY 09/30/20 08/02/22 08/02/22 08:00 History hydrochlorothiazide 25 mg tablet 25 mg PO DAILY 09/30/20 08/02/22 07/06/22 History metoprolol succinate 25 mg 25 mg PO DAILY 09/30/20 08/02/22 08/02/22 08:00 History tablet,extended release 24 hr atorvastatin 10 mg tablet 10 mg PO DAILY 07/07/22 08/02/22 07/06/22 History citalopram 10 mg tablet 10 mg PO BEDTIME 07/07/22 08/02/22 07/06/22 History estradiol 0.01% (0.1 mg/gram) 1 g vaginal TUSA 07/07/22 08/02/22 07/06/22 History vaginal cream trazodone 50 mg tablet 75 mg PO BEDTIME 07/07/22 08/02/22 07/06/22 History Exam Exam Date and Time: July 30, 2022 1346 Pertinent Lab Results Pertinent Lab Results: Laboratory Tests 07/10/22 07/10/22 07:43 07:43 WBC 8.2 Hgb 10.1 L Hct 29.7 L Plt Count 218 Sodium 137 Potassium 3.7 Chloride 102 Carbon Dioxide 28 BUN 16 Creatinine 0.71 Narrative Narrative: EKG 06/2022 Vent. Rate : 063 BPM ? ? Atrial Rate : 063 BPM ?? P-R Int : 160 ms? QRS Dur : 106 ms ? ? QT Int : 446 ms ? ? ? P-R-T Axes : 047 033 064 degrees ?? QTc Int : 456 ms ? Normal sinus rhythm Septal infarct , age undetermined Abnormal ECG When compared with ECG of 07-JUL-2022 10:58, Premature ventricular complexes are no longer Present Non-specific change in ST segment in Inferior leads Assessment and Plan Assessment Anesthesia Assessment: Chart Reviewed Final Anesthetic Review Family History of Problems with Anesthesia: No History of Problems with Anesthesia: No Documented by User: Linda Bazzi DO 08/02/22 12:45 [facility] Past Medical History Medical History Anxiety Chronic low back pain Heart failure with reduced ejection fraction Hiatal hernia Hyperlipidemia Hypertension Lumbar spinal stenosis Lumbar spondylosis Mixed incontinence Osteopenia Polymyalgia rheumatica Venous stasis Narrative: Patient denies history of heart failure with reduced EF. Surgical History Surgical History History of back surgery Hx of colonoscopy Social History Social History Household Members: None Housing: House Do you presently have visiting nurse or other home services: No Alcohol intake: current Alcohol intake frequency: a few times a week Patient Tobacco Use Status: Former Tobacco user Quit Date: 40 yrs ago Use of substances other than those prescribed or required for medical reasons: No Are you DNR?: No Advance Directives: No Advance Directives Information Provided: Yes service: No Current occupational status: retired [employer] Allergies Allergy/AdvReac Type Severity Reaction Status Date / Time codeine [CODEINE] Allergy Unknown Rash Verified 08/02/22 11:56 Home Medications Medication Instructions Recorded Confirmed Last Taken Type amlodipine 5 mg tablet 5 mg PO DAILY 09/30/20 08/02/22 08/02/22 08:00 History hydrochlorothiazide 25 mg tablet 25 mg PO DAILY 09/30/20 08/02/22 07/06/22 History metoprolol succinate 25 mg 25 mg PO DAILY 09/30/20 08/02/22 08/02/22 08:00 History tablet,extended release 24 hr atorvastatin 10 mg tablet 10 mg PO DAILY 07/07/22 08/02/22 07/06/22 History citalopram 10 mg tablet 10 mg PO BEDTIME 07/07/22 08/02/22 07/06/22 History estradiol 0.01% (0.1 mg/gram) 1 g vaginal TUSA 07/07/22 08/02/22 07/06/22 History vaginal cream trazodone 50 mg tablet 75 mg PO BEDTIME 07/07/22 08/02/22 07/06/22 History Exam Exam Date and Time: August 02, 2022 1240 Height,Weight and Vital Signs: Height 5 ft Vital Signs Temperature 96.8 F 08/02/22 12:08 Pulse Rate 63 08/02/22 12:08 Respiratory Rate 16 08/02/22 12:08 Blood Pressure 162/49 H 08/02/22 12:08 Pulse Oximetry 97 08/02/22 12:08 Oxygen Delivery Method Room Air 08/02/22 12:08 Temperature 96.8 F 08/02/22 12:08 Pulse Rate 63 08/02/22 12:08 Respiratory Rate 16 08/02/22 12:08 Blood Pressure 162/49 H 08/02/22 12:08 Pulse Oximetry 97 08/02/22 12:08 Oxygen Delivery Method Room Air 08/02/22 12:08 Weight 63.503 kg Airway Mallampati Class: II TM Dist: >3cm Neck ROM: Full Loose/Missing/Broken Teeth: No Heart: S1S2 Lungs: CTAB Assessment and Plan Assessment Anesthesia Assessment: Anesthesia Plan Discussed Final Anesthetic Review NPO: Yes ASA Class: III Final Preanesthetic Review: No Changes in Pt Med Stat, Meds/Allgs Chart Reviewed, Consent Obtained/Reviewed and Anes Risks/Benef Reviewed Patient Risk: Intermediate Procedure Risk: Low Anesthetic Plan Anesthetic Plan: MAC: Disposition: Standard PACU
--- OUTSIDE RECORDS SUMMARY | 2022-08-02 11:46 | XMS_ITS ---
Author Name David Te Address [address] [place] [address] Organization [facility] Address [address] [place] [address] Care Team Providers Care Recyclable Products Sorter Name Role Phone Te Hernandez Unavailable [phone] PROBLEMS Type Condition ICD9-CM Code POJ41-AD Code Onset Dates Condition Status SNOMED Code Problem Anemia due to acute blood loss D62 Active 020632542 Problem Gastrointestinal hemorrhage, unspecified gastrointestinal hemorrhage type K92.2 Active 52762125 ALLERGIES Substance Reaction Event Type Date Status Tape Unknown Drug Allergy July, Active Codeine itchy Drug Allergy July, Active ENCOUNTERS Encounter Location Date Diagnosis [facility] [place] Outpatient [address] [place] [address] [id number] July, [facility] [address] [place] [phone] Jun, Gastrointestinal hemorrhage, unspecified gastrointestinal hemorrhage type K92.2 and Anemia due to acute blood loss D62 [facility] [address] [place] [phone] Jun, [facility] [address] [place] [phone] Jun, Gastrointestinal hemorrhage, unspecified gastrointestinal hemorrhage type K92.2 and Anemia due to acute blood loss D62 IMMUNIZATIONS No Known Immunizations SOCIAL HISTORY Qualifiers Date Former Smoker REASON FOR REFERRAL FUNCTIONAL STATUS PLAN OF CARE Activity Details VITAL SIGNS Weight 146 lbs 2022-07-22 Height 60 in 2022-07-22 BMI 28.51 kg/m2 2022-07-22 Temperature 97.2 degrees Fahrenheit Blood pressure systolic 000 mm Hg Blood pressure diastolic 00 mm Hg 2022-06 MEDICATIONS Medication Instructions Dosage Frequency Start Date End Date Duration Status Aspirin 81 81 MG Orally Once a day 1 tablet 24h 30 day(s) Not-Janni ng hydroCHLOROthiazide 25 MG 90 Active traZODone HCl 50 MG TAKE 1 TO 2 TABLETS BY MOUTH AT BEDTIME 90 Active Estradiol 0.1 MG/GM 30 Active Vitamin D3 Activ e Metoprolol Succinate ER 25 MG 90 Active Atorvastatin Calcium 10 MG 90 Active Multivitamin Adult Active Omeprazole 40 MG 30 Active amLODIPine Besylate 5 MG 90 Active PROCEDURES Procedure Date Ordered Result Body Site BP SCR NOT PRFRM REC REASON NOS July 22, 2022 TOBACCO NON-USER July 22, 2022 DOC MEDS VERIFIED W/PT OR RE July 22, 2022 RESULTS Name Result Date Reference Range Complete Blood Count Auto Diff 2022-07-09 White Blood Count 9.1 4.8-10.8 Red Blood Count 3.36 4.20-5.50 Hemoglobin 10.2 12.0-16.0 Hematocrit 29.7 37.0-47.0 Mean Corpuscular Volume 88.4 80.0 -98.0 Mean Corpuscular Hemoglobin 30.4 27.0-33.0 Mean Corpuscular HGB Conc 34.3 31 .0-35.0 Red Cell Distribution Width 14.5 11.0-16.0 Platelet Count 196 160-400 Mean Platelet Volume 9.3 9.4-12. 3 Neutrophils Percent Auto 69.4 45- 73 Imm Gran Pct Auto 0.5 0.0-0.4 Lymphocytes Percent Auto 15.7 20- 40 Monocytes Percent Auto 10.2 2-11 Eosinophils Percent Auto 3.9 0-4 Basophils Percent Auto 0.3 0-2 NRBC Pct Auto 0.0 0.0-0.2 Neutrophils Absolute Auto 6.3 2. 0-8.3 Imm Gran Abs Auto 0.05 0.00-0.03 Lymphocytes Absolute Auto 1.4 1. 2-4.9 Monocytes Absolute Auto 0.9 0.1- 1.2 Eosinophils Absolute Auto 0.4 0. 0-0.4 Basophils Absolute Auto 0.0 0.0- 0.2 NRBC Abs Auto 0.000 0.0-0.012 Basic Metabolic Panel Fasting 2022-07-09 Sodium 137 135-145 Potassium 3.4 3.3-5.1 Chloride 102 96-108 Carbon Dioxide 28 22-29 Anion Gap 10 12-20 Blood Urea Nitrogen 11 9-16 Creatinine 0.61 0.5-1.4 Creatinine Clr Calc Pharmacy 58.5 Estimated Glomerular Filt Rate >60 Glucose Fasting 109 60-99 Calcium 8.4 8.4-10.2 REASON FOR VISIT GI hemorrage, blood loss anemia, patient presents today with follow up from hospital stay, need visit, follow up office visit Insurance Providers Health Insurance Type Health Plan Insurance Address Health Plan Insurance Phone Health Plan Insurance Name Health Plan Coverage Dates Member ID Patient Relationship to Subscriber Patient Address Patient Phone Patient Name Patient Date of Subscriber ID Subscriber Name Subscriber Date of Group No MEDICARE OF [place] [address] [facility] [phone] MEDICARE OF [place] izzy [facility] [id number] MEDEX ATTN CLAIMS [address] [facility] [address] MEDEX self MARKEL WORDSWOR [id number]
[2022-08-02 12:00] VITALS: BMI 27.3
[2022-08-02 12:08] VITALS: BP 162/49; PULSE 63; RESP 16; TEMP 36; O2SAT 97
[2022-08-02] MEDS: Lactated Ringers 1,000 ML 50 ML IVCONT (12:24)
[2022-08-02 13:40] VITALS: BP 137/57; PULSE 62; RESP 16; TEMP 37; O2SAT 97
--- NOTE | 2022-08-02 13:47 | PM.OP ---
Brief Operative Note Date of Service: 08/02/22 Pre-op diagnosis: Anemia, GI Bleed Post-op diagnosis: other (Diverticulosis, Internal hemorrhoids) Procedure: Colonoscopy to the cecum and TI Surgeon: Te Hernandez Anesthesia: MAC Was an Quality Assurance Practice Manager used for this Procedure?: No Estimated blood loss (mL): 0 Pathology: none sent Condition: stable Disposition: PACU
[2022-08-02 13:55] VITALS: BP 152/54; PULSE 60; RESP 16; TEMP 37; O2SAT 99
--- NOTE | 2022-08-02 14:50 | OP_ITS ---
DATE OF SERVICE: 08/02/2022 SURGEON: Te Hernandez MD INDICATIONS: The patient presents for evaluation of recent GI bleeding and anemia. Full consent has been obtained from her for this, including risks of bleeding and perforation. PREOPERATIVE DIAGNOSIS: POSTOPERATIVE DIAGNOSIS: PROCEDURE PERFORMED: ESTIMATED BLOOD LOSS: COMPLICATIONS: ANESTHESIA: Monitored anesthesia care. ASSISTANTS: SPECIMENS: PROCEDURE: Colonoscopy to the cecum and terminal ileum. PREOPERATIVE DIAGNOSES: Anemia and gastrointestinal bleeding. POSTOPERATIVE DIAGNOSES: Anemia and gastrointestinal bleeding, diverticulosis, and internal hemorrhoids. DESCRIPTION OF PROCEDURE: The patient was placed in the left lateral decubitus position. The digital rectal exam revealed no abnormalities. The Olympus video pediatric colonoscope was entered into the rectum and advanced easily to the cecum. Once in the cecum, I did identify a normal-appearing cecal pouch with appendiceal orifice and a normal-appearing ileocecal valve. The terminal ileum was cannulated and appeared normal. The scope was withdrawn back in the colon. The entire cecum and ileocecal valve appeared normal. The scope was slowly withdrawn assessing all mucosal surfaces carefully. Preparation was excellent. I did not visualize any sign of polyps, colitis, nor angiodysplasia. There was no bleeding nor old blood in the colon. There was a mild amount of sigmoid diverticulosis. In the rectum, the scope was retroflexed visualizing internal hemorrhoids, but no other pathology. The rectal mucosa appeared normal. The scope was straightened and withdrawn from the patient. She tolerated the procedure well and was returned to the recovery area in stable condition. IMPRESSION: 1. Sigmoid diverticulosis. 2. Internal hemorrhoids. PLAN: At this point, the patient has been stable since her hospitalization with the GI bleeding. Her most recent hemoglobin was up to 11.3. She has been advised to continue her daily omeprazole and iron supplement daily. Given her age, I do not think she will need any further screening colonoscopies. She was advised to stay off all aspirin and NSAIDs. She was advised to see me in the Fall for a followup visit as well. MD TORI Nevarez/RUBIO / [phone] MTDD
== END 2022-08-02 14:26 | disposition home or self-care (01) ==
PROVIDERS: PCP Internal Medicine; Visit Provider Internal Medicine
PROC: 0DJD8ZZ Inspection of Lower Intestinal Tract, Via Natural or Artificial Opening Endoscopic (ICD-10-PCS; CPT 45378; principal; 2022-08-02 13:40)
DX: D62 Acute posthemorrhagic anemia (principal); K57.30 Diverticulosis of large intestine without perforation or abscess without bleeding; K64.8 Other hemorrhoids; I10 Essential (primary) hypertension; I49.9 Cardiac arrhythmia, unspecified; E78.5 Hyperlipidemia, unspecified; M35.3 Polymyalgia rheumatica; F41.1 Generalized anxiety disorder; Z79.82 Long term (current) use of aspirin; Z79.899 Other long term (current) drug therapy; Z66 Do not resuscitate; Z87.891 Personal history of nicotine dependence
CPT/HCPCS: 45378

== ENCOUNTER 2023-12-19 08:14 | Inpatient (IN) | payer MEDICARE, SELFPAY ==
[2023-12-19] VITALS (28 sets, daily range): BP systolic 133–247; BP diastolic 56–135; PULSE 58–85; RESP 13–20; TEMP 36.2–36.5; O2SAT 93–99; BMI 29.1
--- NOTE | ~2023-12-19 | CT_ITS ---
EXAMINATION: CT head and neck with and without contrast CLINICAL INFORMATION: Difficulties with word finding COMPARISON: None available. TECHNIQUE: Test bolus sequences followed by intravenous administration of 70 mL of Omnipaque 350 contrast. Helical imaging was performed in the axial plane from the skull vertex to the thoracic inlet. Delayed postcontrast imaging of the head was also performed. The data was processed at the pet technologist workstation for generation of MIP sequences. Angled MIPs and volume rendered reformatted images were also generated at an offline 3D workstation. Stenoses are assessed in accordance with NASCET criteria unless otherwise indicated. This CT examination was performed using dose optimization techniques as appropriate, variously including the following: *Automated exposure control *Adjustment of mA and/or kV according to patient size (this includes techniques or standardized protocols for targeted exams where dose is matched to indication/reason for exam; i.e. extremities or head) *Use of iterative reconstruction technique DLP: 2208 mGy-cm FINDINGS: BRAIN: No acute intracranial hemorrhage or infarct. The plaza-white matter differentiation is preserved. Patchy hypodensity involving the periventricular deep white matter compatible with small vessel ischemic disease. Diffuse widening of the sulci with associated exvacuodilatation of the ventricles compatible with global cerebral atrophy. No midline shift or hydrocephalus. No acute extra-axial fluid collections. The osseous structures are unremarkable. Sequela of bilateral lens replacement. Otherwise, no acute bone marrow abnormality. Mucous retention cyst in the left maxillary sinus. The mastoid air cells are clear. CTA NECK: Common origin of the innominate and common carotid artery, normal variant. Atherosclerotic calcifications scattered through the great vessels. There is moderate focal stenosis of the left proximal subclavian artery. The origins and cervical segments of the common carotid arteries are patent bilaterally. The common carotid artery bifurcations demonstrate mural calcifications extending into the proximal segments of the cervical internal carotid arteries without significant stenosis. The remaining segments of the cervical ICAs are patent bilaterally. The origin of the right vertebral artery is patent. Moderate to severe focal stenosis of the left vertebral artery origin. The cervical segments of the vertebral arteries are patent bilaterally. There is focal ectasia of the distal right V2. No hemodynamically significant stenosis, dissection, or aneurysm. The visualized branches of the external carotid arteries are unremarkable. CTA HEAD: Anterior circulation: The petrous, cavernous, and supraclinoid segments of the internal carotid arteries are patent bilaterally. Hypoplastic left A1 with the left LUIS branches originating from the right, normal variant. Otherwise, the major branches of the anterior and middle cerebral arteries as well as anterior communicating artery complex are patent. No large vessel occlusion, saccular aneurysm, or dissection. Posterior circulation: The intracranial vertebral arteries are patent bilaterally. The basilar artery is normal in caliber and course. The posterior cerebral and superior cerebellar arteries arise normally from the basilar summit. No aneurysm. On delayed imaging, the venous structures demonstrate normal contrast opacification. No filling defect. No abnormal intraparenchymal enhancement. Soft tissues: No suspicious neck mass or cervical adenopathy. Lungs: Clear. Bones: No acute osseous abnormality. No lytic or blastic osseous lesions. Multilevel degenerative changes of the visualized spine. CT/CT angio head neck IMPRESSION: -CT head demonstrates no acute intracranial hemorrhage or edematous infarct. Global cerebral atrophy and chronic microangiopathy. -CTA head demonstrates no large vessel occlusion, saccular aneurysm, or dissection. -CTA neck demonstrates no hemodynamically significant stenosis, dissection, or aneurysm. 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 Moderate to severe focal stenosis of the left vertebral artery origin. Focal ectasia of the distal right V2. Electronically signed by: Susan Lane MD 12/19/2023 11:19 AM EDT
--- NOTE | ~2023-12-19 | MR_ITS ---
MRI OF THE BRAIN WITHOUT IV CONTRAST INDICATION: Expressive aphasia. COMPARISON: CTA head and neck number 15/06/2023. TECHNIQUE: Multiplanar multisequence MR imaging of the brain was obtained without IV contrast. FINDINGS: There is no hydrocephalus, extra-axial surface collection, or herniation. There is global cerebral volume loss and there is moderate chronic microangiopathy. The major flow voids at the skull base are preserved. There is no acute infarct on diffusion-weighted imaging. There is no intracranial hemorrhage on the gradient recalled echo acquisition. Multiple chronic microhemorrhages within the periphery of the posterior left cerebral hemisphere. The midline structures are normal. The cerebellar tonsils are normally positioned. The cerebellum and brainstem are normal. The craniocervical junction is normal. Osseous marrow signal intensity is homogenous. The visualized soft tissues are unremarkable. There is polypoid mucosal thickening within the left maxillary sinus and there is moderate mucosal thickening within the ethmoid air cells bilaterally. The mastoid air cells are clear. MR/MR head/brain wo con IMPRESSION: * No acute intracranial findings. No acute infarct. * There is global cerebral volume loss and there is moderate chronic microangiopathy. * Multiple chronic microhemorrhages within the periphery of the posterior left cerebral hemisphere. Electronically signed by: Augustus Caballero MD 12/21/2023 03:57 PM EDT RP
--- NOTE | 2023-12-19 08:30 | PC.NURSE ---
Pt LIZETTEA from home, reports 2 weeks of trouble word finding, trouble writing, dizziness, headaches and high blood pressure. Pt has hx of HTN and takes meds, has been med compliant. Denies recent falls, head hit or illnesses. Reports she lives alone, unsure exactly when symptoms started but has atleast been 2 weeks, worsening. Alert and oriented, breathing even and unlabored, skin warm and dry. Neg for unilateral weakness or arm drift, ? mild left sided facial droop. Noted to be having trouble with word finding.
--- NOTE | 2023-12-19 08:40 | ED_ITS ---
HPI - Neuro Symptoms/Deficit General Chief Complaint: Neuro Symptoms/Deficit Stated Complaint: HIGH BP 244/94,DIZZY,WORD LOSS X3WKS PER EMS Time Seen by Provider: 12/19/23 08:40 Source: patient Mode of arrival: ambulatory Limitations: no limitations History of Present Illness ED Provider: Neto PIPER HPI Narrative: This is a an 88-year-old female history of hypertension, anemia presenting from home with concerns of intermittent right-sided sharp headache, intermittent dizziness, and difficulty with word finding ongoing for the past 2 weeks patient reports she ignored it until family pointed it out and told her she needed to seek attention which is what brought her in today. Patient tells me that these headaches do not feel like her typical headaches. She reports her blood pressure has been very high over the past few days and she has been taking her medications as prescribed. She denies ever having anything like this in the past. No history of stroke. She is not on a blood thinner. She denies chest pain, shortness of breath, weakness, palpitations, nausea, vomiting, abdominal pain, visual changes, falls or trauma. Related Data Home Medications ?Medication ?Instructions ?Recorded ?Confirmed amlodipine 5 mg tablet 5 mg PO DAILY 09/30/20 08/02/22 hydrochlorothiazide 25 mg tablet 25 mg PO DAILY 09/30/20 08/02/22 metoprolol succinate 25 mg 25 mg PO DAILY 09/30/20 08/02/22 tablet,extended release 24 hr atorvastatin 10 mg tablet 10 mg PO DAILY 07/07/22 08/02/22 citalopram 10 mg tablet 10 mg PO BEDTIME 07/07/22 08/02/22 estradiol 0.01% (0.1 mg/gram) 1 g vaginal TUSA 07/07/22 08/02/22 vaginal cream trazodone 50 mg tablet 75 mg PO BEDTIME 07/07/22 08/02/22 Previous Rx's ?Medication ?Instructions ?Recorded omeprazole 40 mg capsule,delayed 40 mg PO DAILY #30 caps 07/10/22 release Allergies Allergy/AdvReac Type Severity Reaction Status Date / Time codeine [CODEINE] Allergy Unknown Rash Verified 12/19/23 08:26 Review of Systems 2 Review of Systems: Yes all other systems are reviewed and are negative PMFSH Past Medical History Attestation statement: The following information was validated with the patient. Source: old records reviewed and nursing notes reviewed Medical History Venous stasis Heart failure with reduced ejection fraction Osteopenia Polymyalgia rheumatica Mixed incontinence Hiatal hernia Lumbar spinal stenosis Lumbar spondylosis Chronic low back pain Anxiety Hyperlipidemia Hypertension Surgical History History of back surgery Hx of colonoscopy Social History Social History Household Members: None Housing: House Do you presently have visiting nurse or other home services: No Alcohol intake: current Alcohol intake frequency: a few times a week Patient Tobacco Use Status: Former Tobacco user Smoked in Last 30 Days: No Use of substances other than those prescribed or required for medical reasons: No Advance Directives: No Advance Directives Information Provided: Yes service: No Current occupational status: retired Physical Exam 2 Vital Signs: Vital Signs: Last Vital Signs Temp 97.5 F 12/19/23 08:21 Pulse 80 12/19/23 11:26 Resp 20 12/19/23 11:25 BP 210/86 H 12/19/23 11:31 Pulse Ox 95 12/19/23 08:21 O2 Del Method Room Air 12/19/23 08:21 BMI result Body Mass Index 29.1 HTN Appearance: Alert.? Oriented X3.? No acute distress.? Patient is noted to intermittently have difficulties with word finding. Head: Normocephalic, atraumatic, no step-offs or deformities Eyes: Pupils equal, round and reactive to light.? Neck: Normal inspection.? Neck supple.? CVS: Normal heart rate and rhythm.? Pulses normal.? Respiratory: No respiratory distress.? Breath sounds normal.? Abdomen: Soft and nontender.? Skin: Skin warm and dry.? Normal skin color.? Normal skin turgor.? Extremities: No lower extremity edema.? No calf ttp. 5/5 strength to bilateral upper and lower extremities Neuro: Oriented X 3.? No motor deficit.? No sensory deficit. CN 2-12 intact . Normal finger to nose, heel to jeong, steady tandem gait normal coordination. Course Reevaluation(s) Reevaluation #1: CBC with no acute findings needing intervention. Chemistry no acute electrolyte abnormalities. Initial troponin 26.8 this is likely secondary to type 2 injury/demand ischemia from hypertension. Second troponin pending however nonischemic EKG. Coags no acute finding. UA without infection. CTA with no acute findings. 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 However no intracranial hemorrhage or edematous territorial infarct, no large vessel occlusion noted. I started patient on a nicardipine drip. Plan at this time is ICU admission Time: 11:38 Medications Administered Generic Name Dose Route Start Last Admin Trade Name Freq PRN Reason Stop Dose Admin Nicardipine HCl 25 mg/ Sodium 260 mls @ 0 mls/hr 12/19/23 11:00 12/19/23 11:26 Chloride IVCONT 1.25 mg/hr .Q0M WILLIE 13 mls/hr Titration Protocol Per Protocol Discontinued Medications Generic Name Dose Route Start Last Admin Trade Name Freq PRN Reason Stop Dose Admin Amlodipine Besylate 5 mg 12/19/23 08:40 12/19/23 08:50 Amlodipine Besylate 5 Mg Tablet PO 12/19/23 08:41 5 mg ONCE ONE Administration Protocol Hydrochlorothiazide 25 mg 12/19/23 08:40 12/19/23 08:50 Hydrochlorothiazide 25 Mg Tablet PO 12/19/23 08:41 25 mg ONCE ONE Administration Protocol Iohexol 100 ml 12/19/23 10:00 12/19/23 10:01 Iohexol 350 Mg/Ml 100 Ml Infus..Btl IV 12/19/23 10:01 70 ml ONCE ONE Administration Metoprolol Succinate 25 mg 12/19/23 08:40 12/19/23 08:50 Metoprolol Succinate Er 25 Mg Tab.Er.24h PO 12/19/23 08:41 25 mg ONCE ONE Administration Protocol Metoprolol Tartrate 5 mg 12/19/23 10:09 12/19/23 10:29 Metoprolol Tartrate 5 Mg/5 Ml Vial IVPUSH 12/19/23 10:10 5 mg ONCE ONE Administration Protocol Medical Decision Making Medical Decision Making [facility] Narrative: 88 yo f presents w/ right sided headache, dizziness X 2 weeks. PE w/ intermittent difficulties w/ word finding. NIHSSNIH Stroke Scale[facility] (NIHSS[facility] 12/19[facility]2023 All calculations should be rechecked by clinician prior to use RESULT SUMMARY: 1 points NIH Stroke Scale INPUTS: 1A: Level of consciousness ?> 0 = Alert; keenly responsive 1B: Ask month and age ?> 0 = Both questions right 1C: 'Blink eyes' & 'squeeze hands' ?> 0 = Performs both tasks 2: Horizontal extraocular movements ?> 0 = Normal 3: Visual [place] ?> 0 = No visual loss 4: Facial palsy ?> 0 = Normal symmetry 5A: Left arm motor drift ?> 0 = No drift for 10 seconds 5B: Right arm motor drift ?> 0 = No drift for 10 seconds 6A: Left leg motor drift ?> 0 = No drift for 5 seconds 6B: Right leg motor drift ?> 0 = No drift for 5 seconds 7: Limb Ataxia ?> 0 = No ataxia 8: Sensation ?> 0 = Normal; no sensory loss 9: Language/aphasia ?> 0 = Normal; no aphasia 10: Dysarthria ?> 1 = Mild-moderate dysarthria: slurring but can be understood 11: Extinction/inattention ?> 0 = No abnormality Hx and pe concerning for hypertensive crisis. Less likely ICH, stroke, posterior stroke. Less likely pheocromocytoma. Will rule out electrolyte abnormlaities. Plan- labs, imaging, urine Differential Diagnosis Differential Diagnoses: The differential diagnosis associated with the presentation includes (Hx and pe concerning for hypertensive crisis. Less likely ICH, stroke, posterior stroke. Less likely pheocromocytoma. Will rule out electrolyte abnormlaities. ) Admission/Observation Consideration of admission/observation: Escalation of care including admission/observation considered Lab Data MDM Lab Attestation statement: I reviewed the patient's lab results. 12/19/23 09:08 12/19/23 09:08 Labs: Lab Results 12/19/23 12/19/23 Range/Units 09:08 10:33 WBC 10.6 (4.8-10.8) X10*3/uL RBC 4.19 L D (4.20-5.50) X10*6/uL Hgb 13.0 D (12.0-16.0) g/dl Hct 39.3 D (37.0-47.0) % MCV 93.8 (80.0-98.0) fL MCH 31.0 (27.0-33.0) pg MCHC 33.1 (31.0-35.0) g/dl RDW 13.9 (11.0-16.0) % Plt Count 253 (160-400) X10*3/uL MPV 8.9 L (9.4-12.3) fL Immature Gran % (Auto) 0.3 (0.0-0.4) % Neut % (Auto) 80.4 H (45-73) % Lymph % (Auto) 9.3 L (20-40) % [place] % (Auto) 8.6 (2-11) % Eos % (Auto) 1.2 (0-4) % Baso % (Auto) 0.2 (0-2) % Lymph # (Auto) 1.0 L (1.2-4.9) X10*3/uL [place] # (Auto) 0.9 (0.1-1.2) X10*3/uL Eos # (Auto) 0.1 (0.0-0.4) X10*3/uL Baso # (Auto) 0.0 (0.0-0.2) X10*3/uL Abs Immat Gran (auto) 0.03 (0.00-0.03) X10*3/uL Absolute Neuts (auto) 8.5 H (2.0-8.3) x10*3/uL Absolute Nucleated RBC 0.000 (0.0-0.012) X10*3/uL Nucleated RBC % (auto) 0.0 (0.0-0.2) /100WBC PT 11.4 (10.9-12.4) SEC INR 1.0 (0.9-1.1) Sodium 141 (135-145) mmol/L Potassium 4.2 (3.3-5.1) mmol/L Chloride 107 (96-108) mmol/L Carbon Dioxide 28 (22-29) mmol/L Anion Gap 10 L (12-20) BUN 13 (9-16) mg/dL Creatinine 0.68 (0.5-1.4) mg/dL Estim Creat Clear Calc 50.8 Estimated GFR > 60 Random Glucose 121 H (60-115) mg/dL Calcium 9.4 D (8.4-10.2) mg/dL Magnesium 2.1 (1.6-2.6) mg/dL Total Bilirubin 0.4 (0.0-1.0) mg/dL AST 22 (5-31) U/L ALT 15 (0-31) U/L Alkaline Phosphatase 49 (39-117) U/L Troponin I High Sens 26.8 H D (<3.5-17.0) ng/L Total Protein 6.9 (6.5-8.0) g/dL Albumin 4.2 (3.5-5.0) g/dL Urine Color Yellow Urine Appearance Clear Urine pH 7.5 (5.0-9.0) Ur Specific [place] 1.010 (1.005-1.025) Urine Protein Trace (Neg-Trace) mg/dL Urine Glucose (UA) Negative (Negative) mg/dL Urine Ketones Negative (Negative) mg/dL Urine Blood Negative (Negative) Urine Nitrite Negative (Negative) Ur Leukocyte Esterase Trace H (Negative) Urine RBC 0-2 (0-2) /HPF Urine WBC 0-5 (0-5) /HPF Ur Squamous Epith Cells 3-5 (0-2) /HPF Urine Bacteria None Seen (None Seen) Hyaline Casts 0-2 (0-2) /LPF Independent Interpretation I performed an independent interpretation of an: EKG (Vent. Rate : 075 BPM Atrial Rate : 075 BPM P-R Int : 162 ms QRS Dur : 088 ms QT Int : 418 ms P-R-T Axes : 048 029 064 degrees QTc Int : 466 ms Normal sinus rhythm Minimal voltage criteria for LVH, may be normal variant ( Sokolow- Enamorado ) Nonspecific ST abnormality Abnorm) and CT Scan Radiology Impression Discussion of test interpretation with radiology: I have reviewed the radiologist's reading. External Record Review External record reviewed: Inpatient record, Office record, Outpatient record, Prior outpatient labs, Prior outpatient radiology, Primary care record and Outside ED record Chronic Conditions Patient?s care impacted by: Hypertension and Other (anemia ) Critical Care Time Critical Care Time Critical Care Time: Yes Total Critical Care Time: 35 Attestation: I attest to this time spent taking care of the patient, obtaining history, physical, reviewing labs, imaging, treatment of patients condition +/- specialist/hospitalist consult Discharge Plan Discharge Clinical Impression: Hypertensive crisis Patient Disposition: Admitted As Inpatient Prescriptions: No Action trazodone 50 mg tablet 75 mg PO BEDTIME atorvastatin 10 mg tablet 10 mg PO DAILY citalopram 10 mg tablet 10 mg PO BEDTIME estradiol 0.01 % (0.1 mg/gram) cream 1 g vaginal TUSA omeprazole 40 mg capsule,delayed release(DR/EC) 40 mg PO DAILY Qty: 30 1RF hydrochlorothiazide 25 mg tablet 25 mg PO DAILY metoprolol succinate 25 mg tablet extended release 24 hr 25 mg PO DAILY amlodipine 5 mg tablet 5 mg PO DAILY Print Language: Estonian
--- NOTE | 2023-12-19 08:40 | ECG_ITS ---
Test Reason : HTN Blood Pressure : / mmHG Vent. Rate : 075 BPM Atrial Rate : 075 BPM P-R Int : 162 ms QRS Dur : 088 ms QT Int : 418 ms P-R-T Axes : 048 029 064 degrees QTc Int : 466 ms Normal sinus rhythm Minimal voltage criteria for LVH, may be normal variant ( Sokolow-Enamorado ) Nonspecific ST abnormality Abnormal ECG When compared with ECG of 08-JUL-2022 10:14, No significant change was found Referred By: Pancho Jarrell Electronically Signed By:JIA KILLIAN
[2023-12-19] MEDS: amLODIPine Besylate 5 MG TABLET PO (08:50)
[2023-12-19] MEDS: Metoprolol Succinate ER 25 MG TAB.ER.24H PO (08:50)
[2023-12-19] MEDS: hydroCHLOROthiazide 25 MG TABLET PO (08:50)
--- NOTE | 2023-12-19 08:52 | PC.NURSE ---
Swallow screen done just prior to giving PO meds, pt has no issues with swallowing. Neg for increased effort or SOB.
--- OUTSIDE RECORDS SUMMARY | 2023-12-19 09:03 | XMS_ITS | Continuity of Care Document ---
Author Organization [facility] Lamberto Earl Tremayne lt Address [address] [place] [address]- Care Team Providers Care Economic Development Manager Name Role Phone Neyda DUENAS, Perez Alfaro Primary Care Physician Encounter [facility] Date(s): 09/07/23 - 10/07/23 [facility] Lamberto Earl Adult [address] [place] [address]- Allergies, Adverse Reactions, Alerts Substance Reaction Severity Status codeine SEVERE HEADACHE Active Immunizations Given and Recorded Vaccine Date Status Refusal Reason influenza virus vaccine, inactivated 1 01/13/23 Gi viet influenza virus vaccine, inactivated 2 01/16/22 Gi viet influenza virus vaccine, inactivated 12/27/17 Tad rded influenza virus vaccine, inactivated 03/04/17 Give n influenza virus vaccine, inactivated 12/09/15 Tad rded influenza virus vaccine, inactivated 12/20/14 Tad rded influenza virus vaccine, inactivated 3 12/12/13 Gi viet influenza virus vaccine, inactivated 4 12/20/12 Gi viet influenza virus vaccine, inactivated 02/23/12 Give n influenza virus vaccine, inactivated 01/15/08 Give n influenza virus vaccine, inactivated 01/19/07 Give n tetanus-diphtheria toxoids (Td) 02/01/22 Given SARS-CoV-2 (COVID-19) mRNA BNT-162b2 vac 11/19/20 Recorded SARS-CoV-2 (COVID-19) mRNA BNT-162b2 vac 10/24/20 Recorded Influenza Virus Vaccine (oldterm) 12/27/18 Recorde d Influenza Virus Vaccine (oldterm) 5 02/15/06 Given pneumococcal 13-valent vaccine 06/07/14 Given tetanus/diphtheria/pertussis, acel(Tdap) 10/21/11 Given FluLaval (oldterm) 6 12/11/10 Given FluLaval (oldterm) 7 01/27/10 Given Tetanus Toxoid Vaccine (oldterm) 03/28/04 Given Pneumococcal Vacc (oldterm) 06/25/03 Given 1Result Comment: [facility]: [id number] 2Early/Late Reason: Early/Late Reason: Accommodate D/C 3Result Comment: [12/17/2013] [facility] 4Admin Note: DONE ON 12/18/12. [facility] 5Admin Note: GIVEN IN CLINIC SHAM 6Admin Note: [facility] 7Admin Note: BIOMEDICAL ANNE Medications albuterol CFC free 90 mcg/inh inhalation aerosol 2, puffs, Inhalation, Once, PRN, # 6.7 Gm, Refills 0, Tot. Refills 0, Soft Stop, 01/28/23 15:34:00 EDT, Aerosol, Route to Pharmacy Electronically, [id number], [facility]/pharmacy #[id number], 153, cm, 01/28/23 15:14:00 EDT, Height Start Date: 01/28/23 Status: Ordered amLODIPine 5 mg oral tablet 1 tablet, By Mouth, Daily, # 30 tablet, 0 Refills, Maintenance, 04/18/23 11:16:00 EST, [facility]/pharmacy#[id number], 153, cm, 01/28/23 15:14:00 EDT, Height Start Date: 04/18/23 Status: Ordered atorvastatin 10 mg oral tablet 1 tablet, By Mouth, Daily, # 30 tablet, 0 Refills, Maintenance, 04/18/23 11:16:00 EST, [facility]/pharmacy#[id number], 153, cm, 01/28/23 15:14:00 EDT, Height Start Date: 04/18/23 Status: Ordered citalopram 10 mg oral tablet [...] 14:21:02, Compound Start Date: 04/20/16 Status: Ordered furosemide 40 mg oral tablet Refills 0, Maintenance, 01/13/23 9:29:00 EDT, Partial fill upon patient request if the prescriptionis for a schedule II opioid drug. Start Date: 01/13/23 Status: Ordered Metoprolol Succinate ER 25 mg oral tablet, extended release 1 tablet, By Mouth, Daily, # 90 tablet, 1 Refills, Maintenance, 06/25/23 7:50:00 EDT, [facility], 153, cm, 01/28/23 15:14:00 EDT, Height Start Date: 06/25/23 Status: Ordered Multivitamin With Minerals See Instructions, 1 tab By Mouth daily, 0 Refills, Maintenance Start Date: 09/23/10 Status: Ordered Omeprazole By Mouth, Daily, 0 Refills, Maintenance, 07/15/22 15:39:00 EDT, Partial fill upon patient request if the prescription is for a schedule II opioid drug. Start Date: 07/15/22 Status: Ordered Spacer Spacer, See Instructions, # 1 each, Refills 0, Tot. Refills 0, Maintenance, Spacer for inhaler. Attach to mouth piece of inhaler. Once attached, place mouth over spacer opening, deposit albuterol medication, and beath in and out for 6 seconds., ... Start Date: 01/28/23 Status: Ordered traZODone 50 mg oral tablet [...] Cardiac catheterization 1 Confirmed Active Colonoscopy 2, 3, 4 Confirmed Active Constipation Confirmed Active Difficulty sleeping Confirmed Active Diverticulosis 5 Confirmed Active Shortness of breath Confirmed Active Acquired elevated diaphragm 6 Confirmed Active H/O insomnia Confirmed Active Hiatal hernia 7 Confirmed Active Hip joint pain Confirmed 04/05/08 Active Hypercholesterolemia Confirmed Active Hypertension Confirmed Active Mixed incontinence Confirmed Active Increased frequency of urination Confirmed Active Internal hemorrhoids 8 Confirmed Active Chronic pruritus Confirmed Active Lumbar spinal stenosis Confirmed 04/05/08 Active Lumbar spondylosis Confirmed Active Major depression in complete remission Confirmed Active Neck pain Confirmed Active Osteoarthritis Confirmed Active Osteopenia 9 Confirmed Active PMR - Polymyalgia rheumatica Confirmed Active Right sided sciatica Confirmed Active Spinal stenosis Confirmed Active Leg swelling Confirmed Active Systolic heart failure Confirmed Active Temporal arteritis Confirmed Active Urinary incontinence Confirmed Active Venous stasis Confirmed Active Symptomatic PVCs Confirmed Active Vitamin D 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 1cath 2010 nl [id number]; no repeat due to age 3colonoscopy 2012 normal, no repeat secondary to age. 4colo/barium enema 2002 negative, repeat 2012 5colo 2022 6On left-exacerbated by gastric distention 7EGD 2016 8colo 2022 9[facility] Social History Social History Type Response Smoking Status Former smoker entered on: 04/04/17 Sex Patient Care team information Care Team Personnel Name: Milagros Minor RN Position: [facility] Onco RN Member Role: Primary Care Nurse Name: Perez Faye MD Position: [facility] Physician - Primary Care Member Role: PCP Address: Address: [address] [place] [id number]- Name: Erin Hudson RN Position: [facility] RN Member Role: Primary Care Nurse Name: Giovanny Sanderson MD Position: [facility] Cardiology MD Member Role: Lifetime Consulting Physician Address: Address: [address] [place] [address], [address] [place] [address]- Care Team Related Persons Name: ZHANNA GUADALUPE Address: home [address] [place] [address] Name: IZABELA RUBIO Name: ROSALINDA DENNY Address: home [address] [place] [address]
--- OUTSIDE RECORDS SUMMARY | 2023-12-19 09:03 | XMS_ITS | Continuity of Care Document ---
Author Organization [facility] Lamberto Earl Tremayne Address [address] [place] [address]- Care Team Providers Care Pastor Name Role Phone Neyda DUENAS, Perez Alfaro Primary Care Physician [facility]): [facility]23 - 03/16/23 [facility] Lamberto Earl Adult [address] [place] [address]- Attending Physician: Jennifer Crowder NP Referring Physician: Perez Faye MD Allergies, Adverse [...] Pneumococcal Vacc (oldterm) 06/25/03 Given 1Result Comment: [facility]: [id number] 2Early/Late Reason: Early/Late Reason: Accommodate D/C 3Result Comment: [12/17/2013] [facility] 4Admin Note: DONE ON 12/18/12. [facility] FOOD &DRUGS 5Admin Note: GIVEN IN CLINIC SHAM 6Admin Note: [facility]ical [facility] 7Admin Note: BIOMEDICAL ANNE Medications albuterol CFC free 90 mcg/inh inhalation aerosol 2, puffs, Inhalation, Once, PRN, # 6.7 Gm, Refills 0, Tot. Refills 0, Soft Stop, 01/28/23 15:34:00 EDT, Aerosol, Route to Pharmacy Electronically, [id number], [facility]/pharmacy #[id number], 153, cm, 01/28/23 15:14:00 EDT, Height Start Date: 01/28/23 Status: Ordered amLODIPine 5 mg oral tablet 1 tablet, By Mouth, Daily, # 90 tablet, 1 Refills, Maintenance, 09/22/22 9:29:00 EDT, [facility], 153, cm, 07/15/22 15:33:00 EDT, Height Start Date: 09/22/22 Status: Ordered atorvastatin 10 mg oral tablet 1 tablet, By Mouth, Daily, # 90 tablet, 1 Refills, Maintenance, 09/22/22 9:29:00 EDT, [facility], 153, cm, 07/15/22 15:33:00 EDT, Height Start Date: 09/22/22 Status: Ordered citalopram 10 mg oral tablet [...] Daily, # 90 tablet, 1 Refills, Maintenance, 12/14/22 19:39:00 EDT, [facility], 153, cm, 12/14/22 10:37:00 EDT, Height Start Date: 12/14/22 Status: Ordered Multivitamin With Minerals See Instructions, [...] 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 1cath 2010 nl [address]; no repeat due to age 3colonoscopy 2012 normal, no repeat secondary to age. 4colo/barium enema 2002 negative, repeat 2012 5colo 2022 6On left-exacerbated by gastric distention 7EGD 2016 8colo 2022 [facility] Social History Social History Type Response Smoking Status Former smoker entered on: 04/04/17 Sex Patient Care team information Care Team Personnel Name: Milagros Minor RN Position: [facility] Onco RN Member Role: Primary Care Nurse Name: Perez Faye MD Position: [facility] Physician - Primary Care Member Role: PCP Address: Address: [address] [place] [address]- Name: Erin Hudson RN Position: [facility] RN Member Role: Primary Care Nurse Name: Giovanny Sanderson MD Position: [facility] Cardiology MD Member Role: Lifetime Consulting Physician Address: Address: [address] [facility], 1st floor [facility] [place] [address]- Care Team Related Persons Name: ZHANNA GUADALUPE Address: home [address] [place] [address] Name: IZABELA RUBIO Name: ROSALINDA DENNY Address: home [address] [place] [address]
--- OUTSIDE RECORDS SUMMARY | 2023-12-19 09:03 | XMS_ITS | Continuity of Care Document ---
Author Organization [facility] Lamberto Earl Tremayne lt Address [address] [place] [address]- Care Team Providers Care Computer Hardware Technician Name Role Phone Perez Faye MD Primary Care Physician [facility]): 03/28/23 - 04/27/23 [facility] Lamberto Earl Adult [address] [place] [address]- Allergies, Adverse Reactions, Alerts Substance Reaction Severity [...] Pneumococcal Vacc (oldterm) 06/25/03 Given 1Result Comment: [facility]: [id number] 2Early/Late Reason: Early/Late Reason: Accommodate D/C 3Result Comment: [12/17/2013] [facility] 4Admin Note: DONE ON 12/18/12. [facility] FOOD &DRUGS 5Admin Note: GIVEN IN CLINIC SHAM 6Admin Note: Biomedical [facility] 7Admin Note: BIOMEDICAL ANNE Medications albuterol CFC free 90 mcg/inh inhalation aerosol 2, puffs, Inhalation, Once, PRN, # 6.7 Gm, Refills 0, Tot. Refills 0, Soft Stop, 01/28/23 15:34:00 EDT, Aerosol, Route to Pharmacy Electronically, [id number], [facility]/pharmacy #[id number], 153, cm, 01/28/23 15:14:00 EDT, Height Start Date: 01/28/23 Status: Ordered amLODIPine 5 mg oral tablet 1 tablet, By Mouth, Daily, # 30 tablet, 0 Refills, Maintenance, 04/18/23 11:16:00 EST, [facility]/pharmacy#[id number], 153, cm, 01/28/23 15:14:00 EDT, Height Start Date: 04/18/23 Status: Ordered atorvastatin 10 mg oral tablet 1 tablet, By Mouth, Daily, # 30 tablet, 0 Refills, Maintenance, 04/18/23 11:16:00 EST, [facility]/pharmacy#[id number], 153, cm, 01/28/23 15:14:00 EDT, Height Start [...] tablet, 1 Refills, Maintenance, 12/14/22 19:39:00 EDT, [facility], 153, cm, 12/14/22 10:37:00 EDT, [...] 7 Confirmed Active Hip joint pain Confirmed 1/9/09 Active Hypercholesterolemia Confirmed Active Hypertension Confirmed Active [...] 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 4colo/barium enema 2002 negative, repeat 2012 5colo 2022 6On left-exacerbated by gastric distention 7EGD 2016 8colo 2022 [facility] Social History Social History Type Response Smoking Status Former smoker entered on: 04/04/17 Sex Patient Care team information Care Team Personnel Name: Milagros Minor RN [facility] Onco RN Member Role: Primary Care Nurse Name: Perez Faye MD Position: [facility] Physician - Primary Care Member Role: PCP Address: Address: [address] [place] [address]- Name: Erin Hudson RN Position: [facility] RN Member Role: Primary Care Nurse Name: Giovanny Sanderson MD Position: [facility] Cardiology MD Member Role: Lifetime Consulting Physician Address: Address: [address] [place] [address], 1st [place] [address]- Care Team Related Persons Name: ZHANNA GUADALUPE Address: home [address] [place] [address] Name: IZABELA RUBIO Name: ROSALINDA DENNY Address: home [address] [place] [address]
--- OUTSIDE RECORDS SUMMARY | 2023-12-19 09:03 | XMS_ITS | Continuity of Care Document ---
Author Organization [facility] Rajat Tremayne Address [address] [place] [address]- Care Team Providers Care Environmental Epidemiologist Name Role Phone Neyda DUENAS, Perez Alfaro Primary Care Physician [facility]): 01/24/23 - 02/23/23 [facility] Adult [address] [place] [address]- Allergies, Adverse Reactions, Alerts Substance Reaction Severity [...] Pneumococcal Vacc (oldterm) 06/25/03 Given 1Result Comment: [facility]: [id number] 2Early/Late Reason: Early/Late Reason: Accommodate D/C 3Result Comment: [12/17/2013] [facility] 4Admin Note: DONE ON 12/18/12. [facility] FOOD [facility] 5Admin Note: GIVEN IN CLINIC SHAM 6Admin Note: [facility]ical [facility] 7Admin Note: BIOMEDICAL NANE Medications albuterol CFC free 90 mcg/inh inhalation aerosol 2, puffs, Inhalation, Once, PRN, # 6.7 Gm, Refills 0, Tot. Refills 0, Soft Stop, 01/28/23 15:34:00 EDT, Aerosol, Route to Pharmacy Electronically, [id number], [facility]/pharmacy #[id number], 153, cm, 01/28/23 15:14:00 EDT, Height [...] tablet, 1 Refills, Maintenance, 12/14/22 19:39:00 EDT, [facility], 153, cm, 12/14/22 10:37:00 EDT, Height [...] 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 1cath 2010 nl 13522; no repeat due to age 3colonoscopy 2012 normal, no repeat secondary to age. 4colo/barium enema 2002 negative, repeat 2012 5colo 2022 6On left-exacerbated by gastric distention 7EGD 2016 8colo 2022 [facility] Social History Social History Type Response Smoking Status Former smoker entered on: 04/04/17 Sex Patient Care team information Care Team Personnel Name: Milagros Minor RN Position: [facility] RN Member Role: Primary Care Nurse Name: Perez Faye MD Position: [facility] Physician - Primary Care Member Role: PCP Address: Address: [address] [place] [address]- Name: Erin Hudson RN Position: [facility] RN Member Role: Primary Care Nurse Name: Giovanny Sanderson MD Position: [facility] Cardiology MD Member Role: Lifetime Consulting Physician Address: Address: [address] [place] [address], 1st [place] [address]- Care Team Related Persons Name: ZHANNA GUADALUPE Address: [address] [place] [address] Name: IZABELA RUBIO Name: ROSALINDA DENNY Address: home [address] [place] [address]
--- OUTSIDE RECORDS SUMMARY | 2023-12-19 09:03 | XMS_ITS | Continuity of Care Document ---
Author Organization [facility] Lamberto Earl Tremayne lt Address [address] [place] [address]- Care Team Providers Care Fiber Optic Technician Name Role Phone Neyda DUENAS, Perez Alfaro Primary Care Physician [facility] Date(s): 07/07/22 - 08/06/22 [facility] Lamberto Earl Adult [address] [place] [address]- Allergies, Adverse Reactions, Alerts Substance Reaction Severity [...] Reason: Accommodate D/C 2Result Comment: [12/17/2013] [facility] 3Admin Note: DONE ON 12/18/12. [facility] FOOD &DRUGS 4Admin Note: GIVEN IN CLINIC SHAM 5Admin Note: Biomedical [facility] 6Admin Note: BIOMEDICAL ANNE 7Result Comment: [facility] Medications amLODIPine 5 mg oral tablet 1 tablet, By Mouth, Daily, # 90 tablet, 1 Refills, Maintenance, 04/06/22 8:31:00 EST, [facility], 153, cm, 02/01/22 11:33:00 EST, Height Start Date: 04/06/22 Status: Ordered Aspir 81 Oral Enteric Coated Tablet 1 tablet, By Mouth, Daily, # 30 tablet, 0 Refills, Maintenance, EC Tablet Start Date: 05/07/10 Status: Ordered atorvastatin 10 mg oral tablet 1 tablet, By Mouth, Daily, # 90 tablet, 3 Refills, [facility], 152, cm, 06/01/21 [...] 04/06/22 8:31:00 EST, Route to Pharmacy Electronically, [facility], [facility], cm, 02/01/22 11:33:00 EST, Height Start Date: 04/06/22 Status: Ordered Metoprolol Succinate ER 25 mg oral tablet, extended release 1 tablet, By Mouth, Daily, # 90 tablet, 1 Refills, Maintenance, 06/30/22 12:37:00 EDT, [facility], 153, cm, 04/27/22 11:18:00 EST, Height Start Date: 06/30/22 Status: Ordered Multivitamin With Minerals See Instructions, 1 tab By Mouth daily, 0 Refills, Maintenance Start Date: 09/23/10 Status: Ordered Omeprazole By Mouth, Daily, 0 Refills, Maintenance, 07/15/22 15:39:00 EDT, Partial fill upon patient request if the prescription is for a schedule II opioid drug. Start Date: 07/15/22 Status: Ordered traZODone 50 mg oral tablet [...] Confirmed Active Hiatal hernia 5 Confirmed Active Hip joint pain Confirmed 04/05/08 [...] Nurse Name: Neyda DUENAS, Perez Alfaro Position: [facility] Primary Care Physician Member Role: PCP Address: Address: [address] [place] [id number] Name: Corona Hernandez Position: [facility] TA Member Role: Lifetime Consulting Physician Name: Erin Hudson RN Position: [facility] RN Member Role: Primary Care Nurse Care Team Related Persons Name: ZHNANA GUADALUPE Address: [address] [place] [address] Name: IZABELA RUBIO Name: ROSALINDA DENNY Address: home [address] [place] [address]
--- OUTSIDE RECORDS SUMMARY | 2023-12-19 09:03 | XMS_ITS | Continuity of Care Document ---
Author Organization [facility] Lamberto Earl Tremayne lt Address [address] [place] [address]- Care Team Providers Care Automobile Inspector Name Role Phone Neyda DUENAS, Perez Alfaro Primary Care Physician [phone] [facility]counter [facility] Date(s): 01/13/23 - 01/20/23 [facility] Lamberto Murrayley Adult [address] [place] [address]- Encounter Diagnosis Wellness examination(Discharge Diagnosis) - 01/13/23 Hypertension(Discharge Diagnosis) - 01/13/23 Hypercholesterolemia(Discharge Diagnosis) - 01/13/23 Impacted cerumen of both ears(Discharge Diagnosis) - 01/13/23 Attending Physician: Jennifer Crowder NP Referring Physician: [...] Vacc (oldterm) 06/25/03 Given 1Result Comment: [facility]: [id number] 2Early/Late Reason: Early/Late Reason: Accommodate D/C 3Result Comment: [12/17/2013] [facility] 4Admin Note: DONE ON 12/18/12. [facility] FOOD &DRUGS 5Admin Note: GIVEN IN CLINIC SHAM 6Admin Note: [facility]ical [facility] 7Admin Note: BIOMEDICAL ANNE Medications amLODIPine 5 mg oral tablet 1 [...] tablet, 1 Refills, Maintenance, 12/14/22 19:39:00 EDT, [facility], 153, cm, 12/14/22 10:37:00 EDT, Height [...] PVCs Confirmed Active Vitamin D deficiency Confirmed 9/3/09 Active 1cath 2010 nl [address]388; no repeat due to age 3colonoscopy 2012 normal, no repeat secondary to age. 4colo/barium enema 2002 negative, repeat 2012 5colo 2022 6On left-exacerbated by gastric distention 7EGD 2016 8colo 2022 [facility] Diagnosis Diagnosis Type Effective Dates Health Status Clinical Service Informant Wellness examination Discharge Diagnosis 01/13/23 Hypertension Discharge Diagnosis 01/13/23 Hypercholesterolemia Discharge Diagnosis 01/13/23 Impacted cerumen of both ears Discharge Diagnosis 01/13/23 Vital Signs Most recent to oldest [Reference Range]: 1 2 Height 153 cm (01/13/23 9:44 AM) 153 cm (01/13/23 9:29 AM) Weight 69.5 kg (01/13/23 9:29 AM) Oxygen Saturation [94-100 %] 98 % (01/13/23 9:29 AM) Pulse Rate [55-90 bpm] 62 bpm (01/13/23 9:29 AM) Body Mass Index [18.5-24.99 kg/m2] 29.69 kg/m2 *H* (01/13/23 9:29 AM) Blood Pressure [90-138/55-84 mm Hg] 160/ 78mm Hg *H* (01/13/23 9:44 AM) 152/80mm Hg *H* (01/13/23 9:29 AM) Respiratory Rate [16-30 br/min] 16 br/mi n (01/13/23 9:29 AM) Temperature [96.8-100.4 DegF] 97.7 DegF (01/13/23 9:29 AM) Mode of Delivery (Oxygen) Room air (01/13/23 9:29 AM) Blood pressure sites Arm, right (01/13/23 9:44 AM) Arm, right (01/13/23 9:29 AM) Temperature Route Oral (01/13/23 9:29 AM) Weight Obtained Via Standing scale (01/13/23 9:29 AM) Social History Social History Type Response Smoking Status Former smoker entered on: 04/04/17 Sex Patient Care team information Care Team Personnel Name: Milagros Minor RN Position: [facility] RN Member Role: Primary Care Nurse Name: Perez Faye MD Position: [facility] Physician - Primary Care Member Role: PCP Address: Address: [address] [place] [address]- [place] Name: Erin Hudson RN Position: [facility] RN Member Role: Primary Care Nurse Name: Kin DUENAS, Giovanny Monson Position: [facility] Cardiology MD Member Role: Lifetime Consulting Physician Address: Address: [address] [place] [address]- Care Team Related Persons Name: ZHANNA GUADALUPE Address: [address] [place] [address] Name: IZABELA RUBIO Name: ROSALINDA DENNY Address: home [address] [place] [address]
--- OUTSIDE RECORDS SUMMARY | 2023-12-19 09:04 | XMS_ITS | Continuity of Care Document ---
Author Organization [facility] Lamberto Earl Tremayne Address [address] [place] [address]- Care Team Providers Care Home Appliance Installer Name Role Phone Neyda DUENAS, Perez Alfaro Primary Care Physician [facility](s): 01/28/23 - 02/04/23 [facility] Lamberto Murrayley Adult [address] [place] [address]- Attending Physician: Not on Staff, Attending MD Allergies, Adverse Reactions, Alerts Substance Reaction [...] Pneumococcal Vacc (oldterm) 06/25/03 Given 1Result Comment: [facility]: [id number] 2Early/Late Reason: Early/Late Reason: Accommodate D/C 3Result Comment: [12/17/2013] [facility] 4Admin Note: DONE ON 12/18/12. [facility] FOOD &DRUGS 5Admin Note: GIVEN IN CLINIC SHAM 6Admin Note: Biomedical [facility] 7Admin Note: BIOMEDICAL ANNE Medications albuterol CFC free 90 mcg/inh inhalation aerosol 2, puffs, Inhalation, Once, PRN, # 6.7 Gm, Refills 0, Tot. Refills 0, Soft Stop, 01/28/23 15:34:00 EDT, Aerosol, Route to Pharmacy Electronically, [id number], [facility]/pharmacy #[id number], 153, cm, 01/28/23 15:14:00 [...] tablet, 1 Refills, Maintenance, 12/14/22 19:39:00 EDT, [facility], 153, cm, 12/14/22 10:37:00 [...] 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 1cath 2010 nl [address]; no repeat due to age 3colonoscopy 2012 normal, no repeat secondary to age. 4colo/barium enema 2002 negative, repeat 2012 5colo 2022 6On left-exacerbated by gastric distention 7EGD 2016 8colo 2022 [facility] Vital Signs Most recent to oldest [Reference Range]: 1 Height 153 cm (01/28/23 3:14 PM) Weight 67.6 kg (01/28/23 3:14 PM) Oxygen Saturation [94-100 %] 98 % (01/28/23 3:14 PM) Pulse Rate [55-90 bpm] 68 bpm (01/28/23 3:14 PM) Body Mass Index [18.5-24.99 kg/m2] 28.88 kg/m2 *H* (01/28/23 3:14 PM) Blood Pressure [90-138/55-84 mm Hg] 173/ 71mm Hg *H* (01/28/23 3:14 PM) Temperature [96.8-100.4 DegF] 97.8 DegF (01/28/23 3:14 PM) Mode of Delivery (Oxygen) Room air (01/28/23 3:14 PM) Blood pressure sites Arm, left (01/28/23 3:14 PM) Temperature Route Oral (01/28/23 3:14 PM) Weight Obtained Via Standing scale (01/28/23 3:14 PM) Social History Social History Type Response Smoking Status Former smoker entered on: 04/04/17 Sex Patient Care team information Care Team Personnel Name: Milagros Minor RN Position: [facility] RN Member Role: Primary Care Nurse Name: Perez Faye MD Position: [facility] Physician - Primary Care Member Role: PCP Address: Address: [address] [place] [address]- Name: Erin Hudson RN Position: [facility] RN Member Role: Primary Care Nurse Name: Giovanny Sanderson MD Position: [facility] Cardiology MD Member Role: Lifetime Consulting Physician Address: Address: [address] [facility], 1st floor [facility] [place] [address]- Care Team Related Persons Name: ZHANNA GUADALUPE Address: [address] [place] [address] Name: IZABELA RUBIO Name: ROSALINDA DENNY Address: [address] [place] [address]
--- OUTSIDE RECORDS SUMMARY | 2023-12-19 09:04 | XMS_ITS | Continuity of Care Document ---
Author Organization [facility] Lamberto Earl Tremayne Address [address] [place] [address]- Care Team Providers Care Coiler Operator Name Role Phone Neyda DUENAS, Perez Alfaro Primary Care Physician [phone] [facility]counter [facility]): 01/25/23 - 02/24/23 [facility] Lamberto Earl Adult [address] [place] [address]- Allergies, Adverse Reactions, Alerts Substance Reaction Severity [...] Pneumococcal Vacc (oldterm) 06/25/03 Given 1Result Comment: [facility]: [id number] 2Early/Late Reason: Early/Late Reason: Accommodate D/C 3Result Comment: [12/17/2013] [facility] 4Admin Note: DONE ON 12/18/12. [facility] FOOD [facility]DRUGS 5Admin Note: GIVEN IN CLINIC SHAM 6Admin Note: Biomedical [facility] 7Admin Note: BIOMEDICAL ANNE Medications albuterol CFC free 90 mcg/inh inhalation aerosol 2, puffs, Inhalation, Once, PRN, # 6.7 Gm, Refills 0, Tot. Refills 0, Soft Stop, 01/28/23 15:34:00 EDT, Aerosol, Route to Pharmacy Electronically, [id number], [facility]/pharmacy #[id number], 153, cm, 01/28/23 15:14:00 [...] 1 Refills, Maintenance, 12/14/22 19:39:00 EDT, [facility], 153, cm, 12/14/22 10:37:00 EDT, [...] 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 1cath 2010 nl [address]104; no repeat due to age 3colonoscopy 2012 normal, no repeat secondary to age. 4colo/barium enema 2002 negative, repeat 2012 5colo 2022 6On left-exacerbated by gastric distention 7EGD 2016 8colo 2022 [facility] Social History Social History Type Response Smoking Status Former smoker entered on: 04/04/17 Sex Patient Care team information Care Team Personnel Name: Milagros Minor RN [facility] RN Member Role: Primary Care Nurse Name: Perez Faye MD [facility] Physician - Primary Care Member Role: PCP Address: Address: [address] [place] [address]- Name: Erin Hudson RN [facility] RN Member Role: Primary Care Nurse Name: Giovanny Sanderson MD [facility] Cardiology MD Member Role: Lifetime Consulting Physician Address: Address: [address] [place] [address], 1st [place] [address]- Care Team Related Persons Name: ZHANNA GUADALUPE Address: [address] [place] [address] Name: IZABELA RUBIO Name: ROSALINDA DENNY Address: [address] [place] [address]
--- OUTSIDE RECORDS SUMMARY | 2023-12-19 09:04 | XMS_ITS | Continuity of Care Document ---
Author Organization [facility] Lamberto Earl Tremayne Address [address] [place] [address]- Care Team Providers Care Blow Pit Helper Name Role Phone Neyda DUENAS, Perez Alfaro Primary Care Physician [facility]counter [facility](s): 12/14/22 - 01/13/23 [facility] Lamberto Earl Adult [address] [place] [address]- Allergies, Adverse Reactions, Alerts Substance Reaction Severity [...] Pneumococcal Vacc (oldterm) 06/25/03 Given 1Result Comment: [facility]: [id number] 2Early/Late Reason: Early/Late Reason: Accommodate D/C 3Result Comment: [12/17/2013] [facility] 4Admin Note: DONE ON 12/18/12. [facility] FOOD &DRUGS 5Admin Note: GIVEN IN CLINIC SHAM 6Admin Note: Biomedical [facility] 7Admin Note: BIOMEDICAL ANNE Medications amLODIPine 5 [...] tablet, 1 Refills, Maintenance, 12/14/22 19:39:00 EDT, [facility], 153, cm, 12/14/22 10:37:00 EDT, Height [...] 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 1cath 2010 nl [address]65; no repeat due to age 3colonoscopy 2012 [...] Care Nurse Name: Perez Faye MD Position: [facility] Physician - Primary Care Member Role: PCP Address: Address: [address] [place] [address]- Name: Erin Hudson RN Position: [facility] RN Member Role: Primary Care Nurse Name: Giovanny Sanderson MD Position: [facility] Cardiology MD Member Role: Lifetime Consulting Physician Address: Address: [address] [place] [address]- Care Team Related Persons Name: ZHANNA GUADALUPE Address: home [address] [place] [address] Name: IZABELA RUBIO Name: ROSALINDA DENNY Address: home [address] [place] [address]
--- OUTSIDE RECORDS SUMMARY | 2023-12-19 09:04 | XMS_ITS | Continuity of Care Document ---
Author Organization [facility] Rajat Tremayne lt Address [address] [place] [address]- Care Team Providers Care Journeyman Apprentice Electricians Name Role Phone Neyda DUENAS, Perez Alfaro Primary Care Physician [phone] [facility]23 - 09/23/23 [facility] Lamberto Murrayley Adult [address] [place] [address]- Allergies, Adverse Reactions, Alerts Substance Reaction Severity [...] Pneumococcal Vacc (oldterm) 06/25/03 Given 1Result Comment: [facility]: [id number] 2Early/Late Reason: Early/Late Reason: Accommodate D/C 3Result Comment: [12/17/2013] [facility] 4Admin Note: DONE ON 12/18/12. [facility] 5Admin Note: GIVEN IN CLINIC SHAM 6Admin Note: Biomedical [facility] 7Admin Note: BIOMEDICAL ANNE Medications albuterol CFC free 90 mcg/inh inhalation aerosol 2, puffs, Inhalation, Once, PRN, # 6.7 Gm, Refills 0, Tot. Refills 0, Soft Stop, 01/28/23 15:34:00 EDT, Aerosol, Route to Pharmacy Electronically, [id number], [facility]/pharmacy #[id number], 153, cm, 01/28/23 15:14:00 EDT, Height Start Date: 01/28/23 Status: Ordered amLODIPine 5 mg oral tablet 1 tablet, By Mouth, Daily, # 30 tablet, 0 Refills, Maintenance, 04/18/23 11:16:00 EST, [facility]/pharmacy#[id number], 153, cm, 01/28/23 15:14:00 EDT, Height Start Date: 04/18/23 Status: Ordered atorvastatin 10 mg oral tablet 1 tablet, By Mouth, Daily, # 30 tablet, 0 Refills, Maintenance, 04/18/23 11:16:00 EST, [facility]/pharmacy#[id number], 153, cm, 01/28/23 15:14:00 EDT, Height Start [...] tablet, 1 Refills, Maintenance, 06/25/23 7:50:00 EDT, [facility], 153, cm, 01/28/23 15:14:00 EDT, Height [...] 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 1cath 2010 nl [address]; no repeat due to age 3colonoscopy 2012 normal, no repeat secondary to age. 4colo/barium enema 2002 negative, repeat 2012 5colo 2022 6On left-exacerbated by gastric distention 7EGD 2016 8colo 2022 [facility] Social History Social History Type Response Smoking Status Former smoker entered on: 04/04/17 Sex Patient Care team information Care Team Personnel Name: Milagros Minor RN Position: [facility] Onco RN Member Role: Primary Care Nurse Name: Perez Faye MD Position: [facility] Physician - Primary Care Member Role: PCP Address: Address: [address] [place] [address]- Name: Erin Hudson RN Position: [facility] RN Member Role: Primary Care Nurse Name: Giovanny Sanderson MD Position: [facility] Cardiology MD Member Role: Lifetime Consulting Physician Address: Address: [address] [place] [address], 1[address] [place] [address]- Care Team Related Persons Name: ZHANNA GUADALUPE Address: home [address] [place] [address] Name: IZABELA RUBIO Name: ROSALINDA DENNY Address: home [address] [place] [address]
--- OUTSIDE RECORDS SUMMARY | 2023-12-19 09:04 | XMS_ITS | Continuity of Care Document ---
Author Organization [facility] Lamberto Earl Tremayne lt Address [address] [place] [address]- Care Team Providers Care Judge Clerk Name Role Phone Neyda DUENAS, Perez Alfaro Primary Care Physician [facility](s): 09/08/23 - 09/15/23 [facility] Lamberto Murrayley Adult [address] [place] [address]- Encounter Diagnosis Thoracic back pain(Discharge Diagnosis) - 09/08/23 Attending Physician: Not on Staff, Attending MD [...] (oldterm) 5 02/15/06 Given pneumococcal 13-valent vaccine 3/13/15 Given tetanus/diphtheria/pertussis, acel(Tdap) 10/21/11 Given FluLaval (oldterm) 6 12/11/10 Given FluLaval (oldterm) 7 01/27/10 Given Tetanus Toxoid Vaccine (oldterm) 03/28/04 Given Pneumococcal Vacc (oldterm) 06/25/03 Given 1Result Comment: [facility]: [id number] 2Early/Late Reason: Early/Late Reason: Accommodate D/C 3Result Comment: [12/17/2013] [facility] 4Admin Note: DONE ON 12/18/12. [facility] FO[facility]DRU[facility] 5Admin Note: GIVEN IN CLINIC SHAM 6Admin Note: Biomedical [facility] 7Admin Note: BIOMEDICAL ANNE Medications albuterol CFC free 90 mcg/inh inhalation aerosol 2, puffs, Inhalation, Once, PRN, # 6.7 Gm, Refills 0, Tot. Refills 0, Soft Stop, 01/28/23 15:34:00 EDT, Aerosol, Route to Pharmacy Electronically, [id number], [facility]/pharmacy #[id number], 153, cm, 01/28/23 15:14:00 EDT, Height Start Date: 01/28/23 Status: Ordered amLODIPine 5 mg oral tablet 1 tablet, By Mouth, Daily, # 30 tablet, 0 Refills, Maintenance, 04/18/23 11:16:00 EST, [facility]/pharmacy#[id number], 153, cm, 01/28/23 15:14:00 EDT, Height Start Date: 04/18/23 Status: Ordered atorvastatin 10 mg oral tablet 1 tablet, By Mouth, Daily, # 30 tablet, 0 Refills, Maintenance, 04/18/23 11:16:00 EST, [facility]/pharmacy#[id number], 153, cm, 01/28/23 15:14:00 EDT, Height [...] tablet, 1 Refills, Maintenance, 06/25/23 7:50:00 EDT, [facility], 153, cm, 01/28/23 15:14:00 EDT, [...] 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 4colo/barium enema 2002 negative, repeat 2012 5colo 2022 6On left-exacerbated by gastric distention 7EGD 2016 8colo 2022 [facility] Diagnosis Diagnosis Type Effective Dates Health Status Cl inical Service Informant Thoracic back pain Discharge Diagnosis 09/08/23 Vital Signs Most recent to oldest [Reference Range]: 1 Height 153 cm (09/08/23 12:07 PM) Weight 64.8 kg (09/08/23 12:07 PM) Oxygen Saturation [94-100 %] 96 % (09/08/23 12:07 PM) Pulse Rate [55-90 bpm] 69 bpm (09/08/23 12:07 PM) Body Mass Index [18.5-24.99 kg/m2] 27.68 kg/m2 *H* (09/08/23 12:07 PM) Blood Pressure [90-138/55-84 mm Hg] 132/ 68mm Hg (09/08/23 12:07 PM) Blood pressure sites Arm, right (09/08/23 12:07 PM) Weight Obtained Via Standing scale (09/08/23 12:07 PM) Social History Social History Type Response Smoking Status Former smoker entered on: 04/04/17 Sex Note * Caprice Christiansen: PERFORM Event Display: Patient Education/Instruction Authored Date: [id number] Ambulatory Adult Visit Summary [facility] [address] [place], [place] [id number] Name: MARKEL DENNY : 1935?? Visit: 09/08/2023 12:04?? Ambulatory Visit Instructions ?? Your Care Team Primary Care Provider Perez Faye MD? This Visit Provider Ace MATHEW , Malissa Barlow Your Diagnosis Thoracic back pain Vitals Signs Pulse Rate: 69 bpm Height: 153 cm Systolic Blood Pressure: 132 mm Hg Weight: 64.8 kg Diastolic Blood Pressure: 68 mm Hg Body Mass Index:??27.68 kg/m2??High Oxygen Saturation: 96 % Body surface area: 1.66 What to do next Future Orders XR Chest 2 Views Frontal and Lat, Routine, Reason for Exam: Pleuritic Pain, pain with deep breath, Once, *Est. 09/08/23 XR Thoracic Spine 3 Views, Routine, Reason for Exam: Pain, Once, *Est. 09/08/23 Lipid Panel - Once, *Est. 01/13/23, Future Order?? Thyroid Panel - Once, *Est. 01/13/23, Future Order?? CBC - Once, *Est. 01/13/23, Future Order?? Comprehensive Metabolic Panel - Once, *Est. 01/13/23, Future Order?? Sedimentation Rate - Once, *Est. 01/13/23, Future Order?? Lyme Disease Ab Screen - Once, *Est. 01/13/23, Future Order?? Uric Acid - Once, *Est. 01/13/23, Future Order?? C Reactive Protein (CRP) - Once, *Est. 01/13/23, Future Order?? HÉCTOR Screen - Once, *Est. 01/13/23, Future Order?? Rheumatoid Factor Qual - Once, *Est. 01/13/23, Future Order?? Northeast Tick PCR Panel - Once, *Est. 01/13/23, Order for Today?? Sedimentation Rate - Routine, Once, 09/08/23 12:28:00 EDT, Future Order, [facility], Blood?? C Reactive Protein (CRP) - Routine, Once, 09/08/23 12:28:00 EDT, Future Order, [facility], Blood?? D Dimer - Routine, Once, 09/08/23 12:28:00 EDT, Future Order, [facility], Blood?? Medications The list below reflects the information in our records and provided by you today along with any changes made during this visit. Please continue your medications until treatment is completed or stopped by your provider. If this is different from the information you have or there are other questions,please contact the prescribing provider. What How Much When Why Instructions Unchanged Albuterol (albuterol CFC free 90 mcg/ inh inhalation aerosol) 2 puff(s) Inhalation Once as needed for as needed for wheezing Bronchitis, acute Cough Unchanged Amlodipine (amLODIPine 5 mg oral tablet) 1 tab(s) Oral Daily Unchanged Atorvastatin (atorvastatin 10 mg oral tablet) 1 tab(s) Oral Daily Unchanged Cholecalciferol (Vitamin D3) 2,000 International Unit Oral Daily Unchanged Citalopram (citalopram 10 mg oral tablet) 1 tab(s) Oral Daily Unchanged Durable Medical Equipment (Compression Stockings) See instructions surgical, knee length 20-30 mm Hg 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 Unchanged Furosemide (furosemide 40 mg oral tablet) Unchanged Metoprolol (Metoprolol Succinate ER 25 mg oral tablet, extended release) 1 tab(s) Oral Daily Unchanged Miscellaneous Rx (Spacer) See instructions Bronchitis, acute Cough Spacer for inhaler. Attach to mouth piece of inhaler. Once attached, place mouth over spacer opening, deposit albuterol medication, and beath in and out for 6 seconds. ?? Unchanged Multivitamin With Minerals See instructions 1 tab By Mouth daily ?? Unchanged Omeprazole Oral Daily Unchanged Trazodone (traZODone 50 mg oral tablet) 2 tab(s) Oral Daily at Bedtime Test Performed Below is a partial list of the tests performed during your Visit. You may have had other tests and procedures not included in this list. Please discuss all test results with your provider. CRP?-- Results Pending -- D Dimer?-- Results Pending -- Sedimentation Rate?-- Results Pending -- You will be contacted within 72 hours with your results. Medications and Immunizations Administered Medications Given During Visit No medications given during this visit.?? Allergies (NKA means No Known Allergies) codeine??(SEVERE HEADACHE) Common Emergency Awareness Tips IS IT A STROKE? Act FAST and Check for these signs: FACE Does the face look uneven? ARM Does one arm drift down? SPEECH Does their speech sound strange? TIME Call at any sign of stroke ?? Heart Attack Signs Chest discomfort: Most heart attacks involve discomfort in the center of the chest and lasts more than a few minutes, or goes away and comes back. It can feel like uncomfortable pressure, squeezing, fullness or pain. Discomfort in upper body: Symptoms can include pain or discomfort in one or both arms, back, neck, jaw or stomach. Shortness of breath: With or without discomfort. Other signs: Breaking out in a cold sweat, nausea, or lightheaded. Remember, MINUTES DO MATTER. If you experience any of these heart attack warning signs, call to get immediate medical attention! ?? Smoking can increase your chances of developing chronic health problems and can cause harmful effects to other family members in your house. If you smoke, you are strongly encouraged to quit. Please call [facility] at [phone] or [phone] [employer] (9586) or log in to [email or web address] for referrals to smoking cessation programs. ?? The National Suicide Prevention Hotline is available 18/10 if you or someone you know needs to find a reason to keep living. By calling 0-869-132-[employer] (6614) you'll be connected to a skilled, trained counselor at a crisis center in your area. [facility] Portal You can view and manage your care through the patient portal or by using a health care adilson of your choosing. [employer] is a website that allows you to securely view your medical information including your hospital discharge summary, office visit summaries, medications and follow-up visits. You can also request appointments, renew medications, and request access to your medical information using a health care adilson of your choosing, or just ask a question. You can enroll at [email or web address] or register during your next office visit. [facility], in keeping with [facility] guidance, no longer requires face masks for staff, patientsor visitors in most situations. Similiar to time spent indoors at other locations, there is the chance that you were exposed to repiratory viruses during your time with us (such as flu or COVID-19). If you develop symptoms concerning for a viral respiratory infection, please seek testing (and treatment if indicated) from your medical provider or home test kit. ?? Disclaimer: The information provided is of a general nature and is intended to be used in conjunction with the recommendations and advice of your health care practitioner. Every effort has been made to ensure that the information provided is accurate and complete at the time it is provided to you however, as your needs change, or, as new information becomes available, different or additional instructions may be required. ?? If you have questions, please consult with your primary care provider or pharmacist, as appropriate. This information is not intended to serve as substitution for assessment and evaluation by a qualified health care provider. If you do not have a primary care provider, you may find a [facility] provider by calling [facility] at [phone]. Patient Care team information Care Team Personnel Name: Milagros Minor RN Position: [facility] Onco RN Member Role: Primary Care Nurse Name: Perez Faye MD Position: [facility] Physician - Primary Care Member Role: PCP Address: Address: [address] [place] [address]- Name: Erin Hudson RN Position: [facility] RN Member Role: Primary Care Nurse Name: Giovanny Sanderson MD Position: [facility] Cardiology MD Member Role: Lifetime Consulting Physician Address: Address: [address] [facility], 1st floor [place] [address]- Care Team Related Persons Name: ZHANNA GUADALUPE Address: [address] [place] [address] Name: IZABELA RUBIO Name: ROSALINDA DENNY Address: home [address] [place] [address]
--- OUTSIDE RECORDS SUMMARY | 2023-12-19 09:05 | XMS_ITS | Continuity of Care Document ---
Author Organization [facility] Rajat Tremayne lt Address [address] [place] [address]- Care Team Providers Care Lens Grinder Name Role Phone Neyda DUENAS, Perez Alfaro Primary Care Physician [phone] [facility]): 09[facility]08[facility]23 - 10/08/23 [facility] Adult [address] [place] [address]- Attending Physician: Robb Gross Admitting Physician: AdmRobb [...] Pneumococcal Vacc (oldterm) 06/25/03 Given 1Result Comment: [facility]: [id number] 2Early/Late Reason: Early/Late Reason: Accommodate D/C 3Result Comment: [12/17/2013] [facility] 4Admin Note: DONE ON 12/18/12. [facility] 5Admin Note: GIVEN IN CLINIC SHAM 6Admin Note: Biomedical [facility] 7Admin Note: BIOMEDICAL ANNE Medications albuterol CFC free 90 mcg/inh inhalation aerosol 2, puffs, Inhalation, Once, PRN, # 6.7 Gm, Refills 0, Tot. Refills 0, Soft Stop, 01/28/23 15:34:00 EDT, Aerosol, Route to Pharmacy Electronically, [id number], [facility]/pharmacy #[id number], 153, cm, 01/28/23 15:14:00 EDT, Height Start Date: 01/28/23 Status: Ordered amLODIPine 5 mg oral tablet 1 tablet, By Mouth, Daily, # 30 tablet, 0 Refills, Maintenance, 04/18/23 11:16:00 EST, [facility]/pharmacy#[id number], 153, cm, 01/28/23 15:14:00 EDT, Height Start Date: 04/18/23 Status: Ordered atorvastatin 10 mg oral tablet 1 tablet, By Mouth, Daily, # 30 tablet, 0 Refills, Maintenance, 04/18/23 11:16:00 EST, [facility]/pharmacy#[id number], 153, cm, 01/28/23 15:14:00 EDT, Height Start [...] tablet, 1 Refills, Maintenance, 06/25/23 7:50:00 EDT, [facility], 153, cm, 01/28/23 15:14:00 EDT, [...] 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 1cath 2010 nl [address]; no repeat due to age 3colonoscopy 2012 normal, no repeat secondary to age. 4colo/barium enema 2002 negative, repeat 2012 5colo 2022 6On left-exacerbated by gastric distention 7EGD 2016 8colo 2022 [facility] Procedures Procedure Date Related Diagnosis Body Site Status Colonoscopy 1 08/02/22 Completed Upper GI (gastrointestinal) endoscopy 07/08/22 Completed 1no repeat recommended Social History Social History Type Response Smoking Status Former smoker entered on: 04/04/17 Sex Cardiology * Event Display: Cardiology Office Note, Non-BH Authored Date: * Event Display: Non BH Cardiovascular Results Authored Date: * Event Display: Cardiology Office Note, Non-BH Authored Date: * Event Display: Cardiology Office Note, Non-BH Authored Date: * Event Display: Non BH Cardiovascular Results Authored Date: * Event Display: Non BH Cardiovascular Results Authored Date: Laboratory * Event Display: Non BH Lab Results Authored Date: * Event Display: Laboratory Result Scanned Authored Date: * Event Display: Non BH Lab Results Authored Date: Radiology * Event Display: NM Nuclear Medicine, Non-BH Authored Date: * Event Display: Bone Density Authored Date: * Event Display: X-Ray Shoulder, Non- BH Authored Date: * Event Display: X-Ray Knee, Non- BH Authored Date: * Event Display: Bone Density Authored Date: * Event Display: Bone Density, Non-BH Authored Date: * Event Display: CT Scan Spine, Non- BH Authored Date: * Event Display: X-Ray Spine, Non- BH Authored Date: * Event Display: X-Ray Spine, Non- BH Authored Date: * Event Display: X-Ray Spine, Non- BH Authored Date: * Event Display: Bone Density, Non-BH Authored Date: * Event Display: Bone Density, Non-BH Authored Date: * Event Display: X-Ray Chest, Non- BH Authored Date: * Event Display: Radiology Result Scanned Authored Date: * Event Display: Radiology Result Scanned Authored Date: * Event Display: Radiology Result Scanned Authored Date: Patient Care team information Care Team Personnel Name: Milagros Minor RN Position: [facility] Onco RN Member Role: Primary Care Nurse Name: Perez Faye MD Position: [facility] Physician - Primary Care Member Role: PCP Address: Address: [address] [place] [address]- [place] Name: Erin Hudson RN Position: [facility] RN Member Role: Primary Care Nurse Name: Giovanny Sanderson MD Position: [facility] Cardiology MD Member Role: Lifetime Consulting Physician Address: Address: [address] [facility], 1st floor [facility] [place] [address]- [place] Care Team Related Persons Name: ZHANNA GUADALUPE Address: [address] [place] [address] Name: IZABELA RUBIO Name: ROSALINDA DENNY Address: [address] [place] [address]
--- OUTSIDE RECORDS SUMMARY | 2023-12-19 09:05 | XMS_ITS | Continuity of Care Document ---
Author Organization [facility] Lamberto Earl Tremayne lt Address [address] [place] [address]- Care Team Providers Care Frame And Scrap Crusher Name Role Phone Neyda DUENAS, Perez Alfaro Primary Care Physician [facility] 09[facility]14[facility]23 - 10/14/23 [facility] Lamberto Earl Adult [address] [place] [address]- Allergies, Adverse Reactions, Alerts Substance Reaction Severity [...] Pneumococcal Vacc (oldterm) 06/25/03 Given 1Result Comment: [facility]: [id number] 2Early/Late Reason: Early/Late Reason: Accommodate D/C 3Result Comment: [12/17/2013] [facility] 4Admin Note: DONE ON 12/18/12. [facility]OD [facility]DRU[facility] 5Admin Note: GIVEN IN CLINIC SHAM 6Admin Note: Biomedical [facility] 7Admin Note: BIOMEDICAL ANNE Medications albuterol CFC free 90 mcg/inh inhalation aerosol 2, puffs, Inhalation, Once, PRN, # 6.7 Gm, Refills 0, Tot. Refills 0, Soft Stop, 01/28/23 15:34:00 EDT, Aerosol, Route to Pharmacy Electronically, [id number], [facility]/pharmacy #[id number], 153, cm, 01/28/23 [...] tablet, 1 Refills, Maintenance, 06/25/23 7:50:00 EDT, 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 4colo/barium enema 2002 negative, repeat 2012 5colo 2022 6On left-exacerbated by gastric distention 7EGD 2016 8colo 2022 [facility] Social History Social History Type Response Smoking Status Former smoker entered on: 04/04/17 Sex Patient Care team information Care Team Personnel Name: Milagros Minor RN Position: [facility] Onco RN Member Role: Primary Care Nurse Name: Perez Faye MD Position: [facility] Physician - Primary Care Member Role: PCP Address: Address: [address] [place] [address]- Name: Erin Hudson RN Position: [facility] RN Member Role: Primary Care Nurse Name: Giovanny Sanderson MD Position: [facility] Cardiology MD Member Role: Lifetime Consulting Physician Address: Address: [address] [place] [address], 1st [place] [address]- Care Team Related Persons Name: ZHANNA GUADALUPE Address: [address] [place] [address] Name: IZABELA RUBIO Name: ROSALINDA DENNY Address: [address] [place] [address]
--- OUTSIDE RECORDS SUMMARY | 2023-12-19 09:05 | XMS_ITS | Continuity of Care Document ---
Author Organization [facility] Lamberto Earl Tremayne Address [address] [place] [address]- Care Team Providers Care Folding Machine Tender Name Role Phone Neyda DUENAS, Perez Alfaro Primary Care Physician [phone] [facility]23 - 02/27/23 [facility] Lamberto Earl Adult [address] [place] [address]- Allergies, Adverse Reactions, Alerts Substance Reaction Severity [...] Pneumococcal Vacc (oldterm) 06/25/03 Given 1Result Comment: [facility]: [id number] 2Early/Late Reason: Early/Late Reason: Accommodate D/C 3Result Comment: [12/17/2013] [facility] 4Admin Note: DONE ON 12/18/12. [facility] FOOD &DRUGS 5Admin Note: GIVEN IN CLINIC SHAM 6Admin Note: Biomedical [facility] 7Admin Note: BIOMEDICAL ANNE Medications albuterol CFC free 90 mcg/inh inhalation aerosol 2, puffs, Inhalation, Once, PRN, # 6.7 Gm, Refills 0, Tot. 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 4colo/barium enema 2002 negative, repeat 2012 5colo 2022 6On left-exacerbated by gastric distention 7EGD 2016 8colo 2022 [facility] Vital Signs Most recent to oldest [Reference Range]: 1 Blood Pressure [90-138/55-84 mm Hg] 136/ 66mm Hg (01/28/23 3:40 PM) Social History Social History Type Response Smoking Status Former smoker entered on: 04/04/17 Sex Patient Care team information Care Team Personnel Name: Milagros Minor RN Position: [facility] RN Member Role: Primary Care Nurse Name: Perez Faye MD Position: [facility] Physician - Primary Care Member Role: PCP Address: Address: [address] [place] [address]- Name: Erin Hudson RN Position: [facility] RN Member Role: Primary Care Nurse Name: Giovanny Sanderson MD Position: [facility] Cardiology MD Member Role: Lifetime Consulting Physician Address: Address: [address] [facility], 1st floor [facility] [place] [address]- Care Team Related Persons Name: ZHANNA GUADALUPE Address: home [address] [place] [address] Name: IZABELA RUBIO Name: ROSALINDA DENNY Address: home [address] [place] [address]
--- OUTSIDE RECORDS SUMMARY | 2023-12-19 09:05 | XMS_ITS | Continuity of Care Document ---
Author Organization [facility] Rajat Tremayne lt Address [address] [place] [address]- Care Team Providers Care Gas Plumbing Inspector Name Role Phone Neyda DUENAS, Perez Alfaro Primary Care Physician [phone] [facility]s): 02/21/23 - 03/23/23 [facility] Lamberto Earl Adult [address] [place] [address]- Allergies, Adverse Reactions, Alerts Substance Reaction Severity [...] Pneumococcal Vacc (oldterm) 06/25/03 Given 1Result Comment: [facility]: [id number] 2Early/Late Reason: Early/Late Reason: Accommodate D/C 3Result Comment: [12/17/2013] [facility] 4Admin Note: DONE ON 12/18/12. [facility] FOOD &DRUGS 5Admin Note: GIVEN IN CLINIC SHAM 6Admin Note: [facility]ical [facility] 7Admin Note: BIOMEDICAL ANNE Medications albuterol CFC free 90 mcg/inh inhalation aerosol 2, puffs, Inhalation, Once, PRN, # 6.7 Gm, Refills 0, Tot. 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 4colo/barium enema 2002 negative, repeat 2012 5colo 2022 6On left-exacerbated by gastric distention 7EGD 2016 8colo 2022 [facility] Social History Social History Type Response Smoking Status Former smoker entered on: 04/04/17 Sex Patient Care team information Care Team Personnel Name: Milagros Minor RN Position: [facility] Onco RN Member Role: Primary Care Nurse Name: Perez Faye MD Position: [facility] Physician - Primary Care Member Role: PCP Address: Address: [address] [place] [address]- Name: Erin Hudson RN Position: [facility] RN Member Role: Primary Care Nurse Name: Giovanny Sanderson MD Position: [facility] Cardiology MD Member Role: Lifetime Consulting Physician Address: Address: [address] [place] [address], 1st [place] [address]- Care Team Related Persons Name: ZHANNA GUADALUPE Address: home [address] [place] [address] Name: IZABELA RUBIO Name: ROSALINDA DENNY Address: home [address] [place] [address]
--- OUTSIDE RECORDS SUMMARY | 2023-12-19 09:05 | XMS_ITS | Continuity of Care Document ---
Author Organization [facility] Rajat Tremayne lt Address [address] [place] [address]- Care Team Providers Care Supply Crib Attendant Name Role Phone Perez Faye MD Primary Care Physician [facility]): 09/17/22 - 01/15/23 [facility] Rajat Adult [address] [place] [address]- Attending Physician: Perez Faye MD Allergies, Adverse [...] Pneumococcal Vacc (oldterm) 06/25/03 Given 1Result Comment: [facility]: [id number] 2Early/Late Reason: Early/Late Reason: Accommodate D/C 3Result Comment: [12/17/2013] [facility] 4Admin Note: DONE ON 12/18/12. 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 4colo/barium enema 2002 negative, repeat 2012 5colo 2022 6On left-exacerbated by gastric distention 7[facility]GD 2016 [facility] Social History Social History Type Response Smoking Status Former smoker entered on: 04/04/17 Sex Patient Care team information Care Team Personnel Name: Milagros Minor RN Position: S RN Member Role: Primary Care Nurse Name: Perez Faye MD Position: [facility] Physician - Primary Care Member Role: PCP Address: Address: [address] [place] [address]- Name: Erin Hudson RN Position: [facility] RN Member Role: Primary Care Nurse Name: Giovanny Sanderson MD Position: [facility] Cardiology MD Member Role: Lifetime Consulting Physician Address: Address: [address] [place] [address]- Care Team Related Persons Name: ZHANNA GUADALUPE Address: home [address] [place] [address] Name: IZABELA RUBIO Name: ROSALINDA DENNY Address: home [address] [place] [address]
--- OUTSIDE RECORDS SUMMARY | 2023-12-19 09:06 | XMS_ITS | Continuity of Care Document ---
Author Organization [facility] Address [address] [facility] [address] [place] [address]- Care Team Providers Care Doughnut Fryer Name Role Phone Neyda DUENAS, Perez Alfaro Primary Care Physician Encounter 09/08/23 - 09/15/23 [facility] [address], [address] [place] [address]- Attending Physician: Ace MATHEW, Malissa Parker Admitting Physician: Ace MATHEW, Malissa Parker Referring Physician: Ace MATHEW, Malissa Parker Allergies, Adverse Reactions, Alerts Substance Reaction Severity [...] Pneumococcal Vacc (oldterm) 06/25/03 Given 1Result Comment: [facility]: [id number] 2Early/Late Reason: Early/Late Reason: Accommodate D/C 3Result Comment: [12/17/2013] [facility] 4Admin Note: DONE ON 12/18/12. [facility] FOOD &DRUGS 5Admin Note: GIVEN IN CLINIC SHAM 6Admin Note: Biomedical [facility] 7Admin Note: BIOMEDICAL ANNE Medications albuterol CFC free 90 mcg/inh inhalation aerosol 2, puffs, Inhalation, Once, PRN, # 6.7 Gm, Refills 0, Tot. Refills 0, Soft Stop, 01/28/23 15:34:00 EDT, Aerosol, Route to Pharmacy Electronically, [id number], [facility]/pharmacy #[id number], 153, cm, 01/28/23 15:14:00 EDT, Height Start Date: 01/28/23 Status: Ordered amLODIPine 5 mg oral tablet 1 tablet, By Mouth, Daily, # 30 tablet, 0 Refills, Maintenance, 04/18/23 11:16:00 EST, [facility]/pharmacy#[id number], 153, cm, 01/28/23 15:14:00 EDT, Height Start Date: 04/18/23 Status: Ordered atorvastatin 10 mg oral tablet 1 tablet, By Mouth, Daily, # 30 tablet, 0 Refills, Maintenance, 04/18/23 11:16:00 EST, [facility]/pharmacy#[id number], 153, cm, 01/28/23 15:14:00 EDT, Height [...] tablet, 1 Refills, Maintenance, 06/25/23 7:50:00 EDT, [facility], 153, cm, 01/28/23 15:14:00 [...] 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 4colo/barium enema 2002 negative, repeat 2012 5colo 2022 6On left-exacerbated by gastric distention 7EGD 2016 8colo 2022 [facility] Results Radiology Reports * Exam Date Time Procedure Performing Provider Status 09/08/23 1:00 PM Thoracic Spine 3 Views Geovannyda , Felicia; Auth (Verified) Notes: (Thoracic Spine 3 Views) Reason For Exam: Pain RESULT: Thoracic Spine 3 Views Thoracic Spine 3 Views Reason: Pain COMPARISON: Chest radiograph 01/28/2023 FINDINGS: No bone lesions or fractures. Moderate multifocal degenerative disc endplate spurring and disc space narrowing. There is mild convex right curvature of the thoracic spine. Moderate kyphosis is noted. There is partially imaged lumbar spine fusion hardware. There is stable elevation of the left hemidiaphragm with air-filled distention of the gastric fundus similar to prior chest radiograph. IMPRESSION: Multilevel degenerative changes of the thoracic spine. No acute abnormality. WSN: [id number] Ordering Physician: Malissa Bello Dictated By: Lucia Villalobos MD Dictated Date/Time: 09/08/23 5:04 pm Reviewed By: Lucia Villalobos MD Signed By: Lucia Villalobos MD Signed Date/Time: 09/08/23 5:04 pm Transcribed By: CRYSTAL Transcribed Date/Time: 09/08/23 5:02 pm * Exam Date Time Procedure Performing Provider Status 09/08/23 1:00 PM Chest 2 Views Frontal and Lat Bryda , Felicia; Auth (Verified) Notes: (Chest 2 Views Frontal and Lat) Reason For Exam: pain with deep breath;Pleuritic Pain RESULT: Chest 2 Views Frontal and Lat Chest 2 Views Frontal and Lat Reason: Pleuritic Pain; pain with deep breath COMPARISON: 01/28/2023. FINDINGS: LINES AND TUBES: None. LUNGS AND PLEURA: Similar appearance of elevated left hemidiaphragm with gas-filled hollow viscus (stomach or splenicflexure) causing mass effect on the diaphragm. Clear lungs. Normal pulmonary vascularity. No pleural effusion. No pneumothorax. HEART, MEDIASTINUM AND SERENITY: Heart is normal in size. Aorta is calcified. BONES AND SOFT TISSUES: No acute abnormality. IMPRESSION: No acute abnormality. Similar appearance of a gas-filled hollow viscus (stomach or splenic flexure) causing mass effect with elevation of the left hemidiaphragm. WSN: [id number] Ordering Physician: Malissa Bello Dictated By: Christina Rivera MD Dictated Date/Time: 09/08/23 4:57 pm Reviewed By: Christina Rivera MD Signed By: Christina Rivera MD Signed Date/Time: 09/08/23 4:57 pm Transcribed By: CRYSTAL Transcribed Date/Time: 09/08/23 4:55 pm Social History Social History Type Response Smoking Status Former smoker entered on: 04/04/17 Sex Patient Care team information Care Team Personnel Name: Milagros Minor RN Position: [facility] Onco RN Member Role: Primary Care Nurse Name: Perez Faye MD Position: [facility] Physician - Primary Care Member Role: PCP Address: Address: [address] [place] [address]- Name: Erin Hudson RN Position: [facility] RN Member Role: Primary Care Nurse Name: iGovanny Sanderson MD Position: [facility] Cardiology MD Member Role: Lifetime Consulting Physician Address: Address: [address] [place] [address], 1st [place] [address]- Care Team Related Persons Name: ZHANNA GUADALUPE Address: home [address] [place] [address] Name: IZABELA RUBIO Name: ROSALINDA DENNY Address: home [address] [place] [address]
--- OUTSIDE RECORDS SUMMARY | 2023-12-19 09:06 | XMS_ITS | Continuity of Care Document ---
Author Organization [facility] Rajat Tremayne lt Address [address] [place] [address]- Care Team Providers Care Scorer Single Name Role Phone Neyda DUENAS, Perez Alfaro Primary Care Physician [facility] 07/15/22 - 08/14/22 [facility] Adult [address] [place] [address]- Attending Physician: Robb Gross Admitting Physician: AdmRobb [...] Early/Late Reason: Accommodate D/C 2Result Comment: [12/17/2013] [facility] 3Admin Note: DONE ON 12/18/12. [facility] FOOD &DRUGS 4Admin Note: GIVEN IN CLINIC SHAM 5Admin Note: Biomedical [facility] 6Admin Note: BIOMEDICAL ANNE 7Result Comment: [facility] Medications amLODIPine 5 mg oral tablet 1 tablet, By Mouth, Daily, # 90 tablet, 1 Refills, Maintenance, 04/06/22 8:31:00 EST, [facility], 153, cm, 02/01/22 11:33:00 EST, Height Start Date: 04/06/22 Status: Ordered Aspir 81 Oral Enteric Coated Tablet 1 tablet, By Mouth, Daily, # 30 tablet, 0 Refills, Maintenance, EC Tablet Start Date: 05/07/10 Status: Ordered atorvastatin 10 mg oral tablet 1 tablet, By Mouth, Daily, # 90 tablet, 3 Refills, [facility], 152, cm, 06/01/21 [...] 04/06/22 8:31:00 EST, Route to Pharmacy Electronically, [facility], 153, cm, 02/01/22 11:33:00 EST, Height Start Date: 04/06/22 Status: Ordered Metoprolol Succinate ER 25 mg oral tablet, extended release 1 tablet, By Mouth, Daily, # 90 tablet, 1 Refills, Maintenance, 06/30/22 12:37:00 EDT, [facility], 153, cm, 04/27/22 [...] 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 1cath 2010 nl [address]; no repeat due to age 3colonoscopy 2012 [...] on: 04/04/17 Sex Cardiology * Event Display: Non BH Cardiovascular Results Authored Date: EKG study * Event Display: EKG Authored Date: * Event Display: EKG Authored Date: * Event Display: EKG Authored Date: Laboratory * Event Display: Non BH Lab Results Authored Date: * Event Display: Laboratory Result Scanned Authored Date: * Event Display: Non BH Lab Results Authored Date: Cardiology Outpatient Note * Smita Ash: PERFORM Event Display: Cardiology Note Office Authored Date: [id number] Radiology * Event Display: X-Ray Shoulder, Non- BH [...] Event Display: Radiology Result Scanned Authored Date: CT Skeletal system Multisection for bone density * Event Display: Bone Density Authored Date: * Event Display: Bone Density Authored Date: Patient Care team information Care Team Personnel Name: Milagros Minor RN Position: S RN Member Role: Primary Care Nurse Name: Perez Faye MD Position: [facility] Primary Care Physician Member Role: PCP Address: Address: [address] [place] [address]- Name: Corona Hernandez Position: [facility] TA Member Role: Lifetime Consulting Physician Name: Erin Hudson RN Position: [facility] RN Member Role: Primary Care Nurse Care Team Related Persons Name: GUADALUPE ZHANNA Address: home [address] [place] [address] Name: IZABELA RUBIO Name: ROSALINDA DENNY Address: home [address] [place] [address]
--- OUTSIDE RECORDS SUMMARY | 2023-12-19 09:06 | XMS_ITS | Continuity of Care Document ---
Author Organization [facility] Address [address] [place] [address]- Care Team Providers Care Deliverer Pharmacy Name Role Phone Perez Faye MD Primary Care Physician Encounter [facility] Date(s): 12/14/22 - 01/13/23 [facility] [address] [place] [address]- Attending Physician: Robb Gross Admitting Physician: AdmtrRobb Referring Physician: AdmtrRobb Allergies, Adverse Reactions, Alerts [...] Pneumococcal Vacc (oldterm) 06/25/03 Given 1Result Comment: [facility]: [id number] 2Early/Late Reason: Early/Late Reason: Accommodate D/C 3Result Comment: [12/17/2013] [facility] 4Admin Note: DONE ON 12/18/12. 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 4colo/barium enema 2002 negative, repeat 2012 5colo 2022 6On left-exacerbated by gastric distention 7EGD 2016 [facility] 2022 [facility] Social History Social History Type Response Smoking Status Former smoker entered on: 04/04/17 Sex Patient Care team information Care Team Personnel Name: Milagros Minor RN Position: S RN Member Role: Primary Care Nurse Name: Perez Faye MD Position: [facility] Physician - Primary Care Member Role: PCP Address: Address: [address] [place] [address]- Name: Erin Hudson RN Position: [facility] RN Member Role: Primary Care Nurse Name: Giovanny Sanderson MD Position: [facility] Cardiology MD Member Role: Lifetime Consulting Physician Address: Address: [address] [place] [address]- Care Team Related Persons Name: ZHANNA GUADALUPE Address: home [address] [place] [address] Name: IZABELA RUBIO Name: ROSALINDA DENNY Address: home [address] [place] [address]
--- OUTSIDE RECORDS SUMMARY | 2023-12-19 09:06 | XMS_ITS | Continuity of Care Document ---
Author Organization [facility] Lamberto Earl Tremayne lt Address [address] [place] [address]- Care Team Providers Care Grading Clerk Name Role Phone Perez Faye MD Primary Care Physician [facility] 06/25/23 - 07/25/23 [facility] Adult [address] [place] [address]- Allergies, Adverse Reactions, Alerts Substance Reaction Severity [...] 06/25/03 Given 1Result Comment: [facility]: [id number] 2Early/Late Reason: Early/Late Reason: Accommodate D/C 3Result Comment: [12/17/2013] [facility] 4Admin Note: DONE ON 12/18/12. [facility] FOOD &DRUGS 5Admin Note: GIVEN IN CLINIC SHAM 6Admin Note: [facility]ical [facility] 7Admin Note: BIOMEDICAL ANNE Medications albuterol CFC free 90 mcg/inh inhalation aerosol 2, puffs, Inhalation, Once, PRN, # 6.7 Gm, Refills 0, Tot. Refills 0, Soft Stop, 01/28/23 15:34:00 EDT, Aerosol, Route to Pharmacy Electronically, [id number], [facility]/pharmacy #[id number], 153, cm, 01/28/23 15:14:00 EDT, Height Start Date: 01/28/23 Status: Ordered amLODIPine 5 mg oral tablet 1 tablet, By Mouth, Daily, # 30 tablet, 0 Refills, Maintenance, 04/18/23 11:16:00 EST, [facility]/pharmacy#[id number], 153, cm, 01/28/23 15:14:00 EDT, Height Start Date: 04/18/23 Status: Ordered atorvastatin 10 mg oral tablet 1 tablet, By Mouth, Daily, # 30 tablet, 0 Refills, Maintenance, 04/18/23 11:16:00 EST, [facility]/pharmacy#[id number], 153, cm, 01/28/23 15:14:00 EDT, [...] tablet, 1 Refills, Maintenance, 06/25/23 7:50:00 EDT, [facility], 153, cm, 01/28/23 [...] 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 4colo/barium enema 2002 negative, repeat 2012 5colo 2022 6On left-exacerbated by gastric distention 7EGD 2016 8colo 2022 [facility] Social History Social History Type Response Smoking Status Former smoker entered on: 04/04/17 Sex Patient Care team information Care Team Personnel Name: Milagros Minor RN Position: [facility] Onco RN Member Role: Primary Care Nurse Name: Perez Faye MD Position: [facility] Physician - Primary Care Member Role: PCP Address: Address: [address] [place] [address]- Name: Erin Hudson RN Position: [facility] RN Member Role: Primary Care Nurse Name: Giovanny Sanderson MD Position: [facility] Cardiology MD Member Role: Lifetime Consulting Physician Address: Address: [address] [place] [address], 1[address] [place] [address]- Care Team Related Persons Name: ZHANNA GUADALUPE Address: home [address] [place] [address] Name: IZABELA RUBIO Name: ROSALINDA DENNY Address: home [address] [place] [address]
--- OUTSIDE RECORDS SUMMARY | 2023-12-19 09:06 | XMS_ITS | Continuity of Care Document ---
Author Organization [facility] Lamberto Earl Tremayne lt Address [address] [place] [address]- Care Team Providers Care School Clerk Name Role Phone Perez Faye MD Primary Care Physician [facility]s): 04/18/23 - 05/18/23 [facility] Lamberto Earl Adult [address] [place] [address]- Allergies, Adverse Reactions, Alerts Substance Reaction Severity [...] 06/25/03 Given 1Result Comment: [facility]: [id number] 2Early/Late Reason: Early/Late Reason: Accommodate D/C 3Result Comment: [12/17/2013] [facility] 4Admin Note: DONE ON 12/18/12. [facility] 5Admin Note: GIVEN IN CLINIC SHAM 6Admin Note: Biomedical [facility] 7Admin Note: BIOMEDICAL ANNE Medications albuterol CFC free 90 mcg/inh inhalation aerosol 2, puffs, Inhalation, Once, PRN, # 6.7 Gm, Refills 0, Tot. Refills 0, Soft Stop, 01/28/23 15:34:00 EDT, Aerosol, Route to Pharmacy Electronically, [id number], [facility]/pharmacy #[id number], 153, cm, 01/28/23 15:14:00 EDT, Height Start Date: 01/28/23 Status: Ordered amLODIPine 5 mg oral tablet 1 tablet, By Mouth, Daily, # 30 tablet, 0 Refills, Maintenance, 04/18/23 11:16:00 EST, [facility]/pharmacy#[id number], 153, cm, 01/28/23 15:14:00 EDT, Height Start Date: 04/18/23 Status: Ordered atorvastatin 10 mg oral tablet 1 tablet, By Mouth, Daily, # 30 tablet, 0 Refills, Maintenance, 04/18/23 11:16:00 EST, [facility]/pharmacy#[id number], 153, cm, 01/28/23 15:14:00 EDT, Height [...] 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 4colo/barium enema 2002 negative, repeat 2012 5colo 2022 6On left-exacerbated by gastric distention 7EGD 2016 8colo 2022 [facility] Social History Social History Type Response Smoking Status Former smoker entered on: 04/04/17 Sex Patient Care team information Care Team Personnel Name: Milagros Minor RN Position: [facility] Onco RN Member Role: Primary Care Nurse Name: Perez Faye MD Position: [facility] Physician - Primary Care Member Role: PCP Address: Address: [address] [place] [address]- Name: Erin Hudson RN Position: [facility] RN Member Role: Primary Care Nurse Name: Giovanny Sanderson MD Position: [facility] Cardiology MD Member Role: Lifetime Consulting Physician Address: Address: [address] [place] [address], 1st [place] [address]- Care Team Related Persons Name: ZHANNA GUADALUPE Address: home [address] [place] [address] Name: IZABELA RUBIO Name: ROSALINDA DENNY Address: home [address] [place] [address]
--- OUTSIDE RECORDS SUMMARY | 2023-12-19 09:07 | XMS_ITS | Continuity of Care Document ---
Author Organization [facility] Lamberto Earl Tremayne lt Address [address] [place] [address]- Care Team Providers Care Malt House Kiln Operator Name Role Phone Neyda DUENAS, Perez Alfaro Primary Care Physician [facility]s): 07/13/22 - 08/12/22 [facility] Adult [address] [place] [address]- Allergies, Adverse Reactions, Alerts Substance Reaction Severity [...] Early/Late Reason: Accommodate D/C 2Result Comment: [12/17/2013] [facility] 3Admin Note: DONE ON 12/18/12. [facility] 4Admin Note: GIVEN IN CLINIC SHAM 5Admin Note: Biomedical [facility] 6Admin Note: BIOMEDICAL ANNE 7Result Comment: [facility] Medications amLODIPine 5 mg oral tablet 1 tablet, By Mouth, Daily, # 90 tablet, 1 Refills, Maintenance, 04/06/22 8:31:00 EST, [facility], [facility], cm, 02/01/22 11:33:00 EST, Height Start Date: 04/06/22 Status: Ordered Aspir 81 Oral Enteric Coated Tablet 1 tablet, By Mouth, Daily, # 30 tablet, 0 Refills, Maintenance, EC Tablet Start Date: 05/07/10 Status: Ordered atorvastatin 10 mg oral tablet 1 tablet, By Mouth, Daily, # 90 tablet, 3 Refills, [facility], 152, cm, 06/01/21 [...] 04/06/22 8:31:00 EST, Route to Pharmacy Electronically, [facility], [facility], cm, 02/01/22 11:33:00 EST, Height Start Date: 04/06/22 Status: Ordered Metoprolol Succinate ER 25 mg oral tablet, extended release 1 tablet, By Mouth, Daily, # 90 tablet, 1 Refills, Maintenance, 06/30/22 12:37:00 EDT, [facility], 153, cm, 04/27/22 [...] 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 4colo/barium enema 2002 negative, repeat 2012 5colo 2022 6On left-exacerbated by gastric distention 7EGD 2016 8colo 2022 [facility] Social History Social History Type Response Smoking Status Former smoker entered on: 04/04/17 Sex Patient Care team information Care Team Personnel Name: Milagros Minor RN Position: [facility] RN Member Role: Primary Care Nurse Name: Perez Faye MD Position: [facility] Primary Care Physician Member Role: PCP Address: Address: [address] [place] [address]- Name: Corona Hernandez Position: [facility] TA Member Role: Lifetime Consulting Physician Name: Erin Hudson RN Position: [facility] RN Member Role: Primary Care Nurse Care Team Related Persons Name: ZHANNA GUADALUPE Address: home [address] [place] [address] Name: IZABELA RUBIO Name: ROSALINDA DENNY Address: [address] [place] [address]
--- OUTSIDE RECORDS SUMMARY | 2023-12-19 09:07 | XMS_ITS ---
Author Organization [facility] Address [address] [place] [address] Care Team Providers Care Day Treatment Clinician/Art Therapist Name Role Phone Perez Faye MD Primary Care Provider Te Storey [facility] [phone] REASON FOR VISIT rescheduled appt Encounters Encounter Location Date Provider Diagnosis [facility] [address] [place] [address] 09/21/2023 Te Hernandez PLAN OF TREATMENT Next Appt Details Provider Name:Te Hernandez , 01/18/2024 03:40:00 PM, [address], [address], [place], [address],
--- OUTSIDE RECORDS SUMMARY | 2023-12-19 09:07 | XMS_ITS ---
Author Organization [facility] Address [address] [place] [address] Care Team Providers Care Vector Control Specialist Name Role Phone Perez Faye MD Primary Care Provider Te Storey [facility] [phone] REASON FOR VISIT Patient presents today for anemia Encounters Encounter Location Date Provider Diagnosis [facility] [address] [place] [address] 05/27/2023 Te Hernandez PLAN OF TREATMENT Next Appt Details Provider Name:Te Hernandez , 01/18/2024 03:40:00 PM, [address], [address], [place], [address],
--- OUTSIDE RECORDS SUMMARY | 2023-12-19 09:07 | XMS_ITS ---
Author Organization [facility] Address [address] [place] [address] Care Team Providers Care Service Trainer Name Role Phone Perez Faye MD Primary Care Provider Te Storey [facility] [phone] REASON FOR VISIT Patient presents today for anemia Encounters Encounter Location Date Provider Diagnosis [facility] [address] [place] [address] 09/23/2023 Te Hernandez PLAN OF TREATMENT Next Appt Details Provider Name:Te Hernandez , 01/18/2024 03:40:00 PM, [address], [address], [place], [address],
--- OUTSIDE RECORDS SUMMARY | 2023-12-19 09:07 | XMS_ITS | Patient Health Record ---
Author Organization [facility] Address [address] [place] [address] Care Team Providers Care Shovel Logger Name Role Phone Perez Faye MD Primary Care Provider Te Storey [phone] ALLERGIES Allergen (clinical drug ingredient) Drug/Non Drug Allergy documented on EMR Reaction Allergy Type Onset Date Status Tape Unknown Allergy Active codeine Codeine itchy Drug Allergy Active REASON FOR REFERRAL No Information MEDICATIONS Medication SIG (Take, Route, Frequency, Duration) Notes Start Date End Date Status Vitamin D3 Active Omeprazole 40 MG Oral for 30 A ctive Aspirin 81 81 MG 1 tablet Orally Once a day for 30 day(s) Not-Taking hydroCHLOROthiazide 25 MG Oral for 90 Active amLODIPine Besylate 5 MG Oral for 90 Active Metoprolol Succinate ER 25 MG Oral for 90 Active Atorvastatin Calcium 10 MG Oral for 90 Active Estradiol 0.1 MG/GM Vaginal for 30 Active traZODone HCl 50 MG TAKE 1 TO 2 TABLETS BY MOUTH AT BEDTIME Oral for 90 Active Multivitamin Adult A ctive SOCIAL HISTORY Tobacco Use: Social History Observation Description Date Details (start date - stop date) Former Smoker NA - NA Sex Assigned At : Social History Observation Description Sex Assigned At Unknown Tobacco Use/Smoking Question Answer Notes Patient is a former smoker How long has it been since you last smoked? > 10 years Alcohol Screen Question Answer Notes Did you have a drink contain ing alcohol in the past year? Yes How often did you have a dri nk containing alcohol in the past year? Monthly or less (1 point) How many drinks did you have on a typical day when you were drinking in the past year? 1 or 2 drinks (0 point) How often did you have 6 or more drinks on one occasion in the past year? 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) Problem Diverticulosis of large intestine without perforation or abscess without bleeding (K57.30) Active confirmed Diverticul ar disease of colon (303345453) Encounters Encounter Location Date Provider Diagnosis [facility] [address] [place] [address] 01/19/2023 Te Hernandez [facility] [address] [place] [address] 05/27/2023 Te Hernandez [facility] [address] [place] [address] 04/19/2023 Te Hernandez [facility] [address] [place] [address] 09/23/2023 Te Hernandez [facility] [address] [place] [address] 03/29/2023 Te Hernandez [facility] [address] [place] [address] 03/29/2023 Te Hernandez [facility] [address] [place] [address] 09/21/2023 Te Hernandez PLAN OF TREATMENT Pending Test Test Name Order Date CHEM 7 PROFILE 07/16/2022 IRON + IBC (FE) 07/16/2022 CBC w DIFF 07/16/2022 Ferritin 07/16/2022 Vitamin B12 and Folate 07/16/2022 Future Test Test Name Order Date COLONOSCOPY 07/22/2022 Next Appt Details Provider Name:Te Hernandez , 01/18/2024 03:40:00 PM, [address], [address], [place], [address], Insurance Providers Payer Name Payer Address Payer Phone Subscriber Number Group Number Insured Name Patient Relationship to Insured Coverage Start Date Coverage End Date MEDICARE OF [employer] [address] [place] [address] [id number] MARKEL MIGUEL Self - patient is the insured [employer] ATTN CLAIMS [address] [place] [address] [id number] MARKEL MIGUEL - patient is the insured MEDICAL (GENERAL) HISTORY Medical History History ICD Code Irregular heart beat Hypertension Anxiety Hyperlipdiemia Polymyalgia rheumatica Reports colonoscopies in [facility] her last one before 2017 GI bleed with melena 06/2022- had been on Aspirin 81mg---EGD with a mild proximal gastritis but no ulcer nor bleeding-required transfusions Surgical History Surgery Date(Month/Year) Back surgery x 2 Pilonidal cyst
[2023-12-19 09:12] LABS: MANUAL DIFF FLAG NO
[2023-12-19 09:13] LABS: Basophils Percent Auto 0.2 % (0-2); Eosinophils Absolute Auto 0.1 X10*3/uL (0.0-0.4); Eosinophils Percent Auto 1.2 % (0-4); Hematocrit 39.3 % (37.0-47.0); Imm Gran Abs Auto 0.03 X10*3/uL (0.00-0.03); Imm Gran Pct Auto 0.3 % (0.0-0.4); Lymphocytes Percent Auto 9.3 % (20-40); Mean Corpuscular HGB Conc 33.1 g/dl (31.0-35.0); Mean Corpuscular Volume 93.8 fL (80.0-98.0); Mean Platelet Volume 8.9 fL (9.4-12.3); Monocytes Absolute Auto 0.9 X10*3/uL (0.1-1.2); Monocytes Percent Auto 8.6 % (2-11); Neutrophils Absolute Auto 8.5 x10*3/uL (2.0-8.3); Neutrophils Percent Auto 80.4 % (45-73); Platelet Count 253 X10*3/uL (160-400); Red Blood Count 4.19 X10*6/uL (4.20-5.50); Red Cell Distribution Width 13.9 % (11.0-16.0); White Blood Count 10.6 X10*3/uL (4.8-10.8)
[2023-12-19 09:19] LABS: Prothrombin Time 11.4 SEC (10.9-12.4)
[2023-12-19 09:27] LABS: Alanine Aminotransferase 15 U/L (0-31); Albumin Level 4.2 g/dL (3.5-5.0); Alkaline Phosphatase 49 U/L (39-117); Anion Gap 10 (12-20); Aspartate Amino Transferase 22 U/L (5-31); Bilirubin Total 0.4 mg/dL (0.0-1.0); Blood Urea Nitrogen 13 mg/dL (9-16); Calcium 9.4 mg/dL (8.4-10.2); Carbon Dioxide 28 mmol/L (22-29); Chloride 107 mmol/L (96-108); Creatinine Clr Calc Pharmacy 50.8; Estimated Glomerular Filt Rate > 60; Glucose Random 121 mg/dL (60-115); Magnesium 2.1 mg/dL (1.6-2.6); Potassium 4.2 mmol/L (3.3-5.1); Sodium 141 mmol/L (135-145); Total Protein 6.9 g/dL (6.5-8.0)
[2023-12-19 09:34] LABS: Troponin-I High Sensitivity 26.8 ng/L (<3.5-17.0)
[2023-12-19] MEDS: iohexoL 350 MG/ML 100 ML INFUS..BTL IV (10:01)
[2023-12-19] MEDS: Metoprolol Tartrate 5 MG/5 ML VIAL IVPUSH (10:29)
[2023-12-19 10:39] LABS: Appearance Urine Clear; Color Urine Yellow; Glucose Urine UA Negative (Negative); Leukocyte Esterase Urine Trace (Negative); Nitrite Urine Negative (Negative); PH 7.5 (5.0-9.0); UMIC TRIGGER UACC YES; Urine Blood Negative (Negative); Urine Ketones Negative (Negative); Urine Protein Trace mg/dL (Neg-Trace)
[2023-12-19 10:43] LABS: Bacteria Urine None Seen (None Seen); Hyaline Casts Urine 0-2 /LPF (0-2); RBC Urine 0-2 /HPF (0-2); WBC Urine 0-5 /HPF (0-5)
[2023-12-19] MEDS: niCARdipine HCL 25 MG in 0.9 % Sodium Chloride 250 ML 26 MG IVCONT (10:58)
--- NOTE | 2023-12-19 11:04 | PC.NURSE ---
PER PROVIDER, START NICARDIPINE DRIP AT 2.5MG/HR, GOAL TO TITRATE BP TO 200 SYSTOLIC IN FIRST HOUR
--- NOTE | 2023-12-19 11:27 | PC.NURSE ---
TITRATION PER PROVIDER, DRIP TO 1.25 MG/HR
--- NOTE | 2023-12-19 11:47 | P.HPCC_ITS ---
History of Present Illness Date of Service: 12/19/23 Attending physician on admission: Paulina Ospina Chief Complaint: Headache Patient is a 88 Y F w/ hypertension, presenting to emergency department on 12/18 w/ headache, word-finding difficulty, and dizziness, found to have reassuring CTA H/N, though found to be hypertensive SBP 230s, started on nicardipine gtt Review of Systems 2 Review of Systems: Yes all other systems are reviewed and are negative [facility] Past Medical History Medical History Venous stasis Heart failure with reduced ejection fraction Osteopenia Polymyalgia rheumatica Mixed incontinence Hiatal hernia Lumbar spinal stenosis Lumbar spondylosis Chronic low back pain Anxiety Hyperlipidemia Hypertension Surgical History Surgical History History of back surgery Hx of colonoscopy Social History Social History Household Members: None Housing: House Do you presently have visiting nurse or other home services: No Alcohol intake: current Alcohol intake frequency: a few times a week Patient Tobacco Use Status: Former Tobacco user Smoked in Last 30 Days: No Use of substances other than those prescribed or required for medical reasons: No Advance Directives: No Advance Directives Information Provided: Yes service: No Current occupational status: retired Meds Allergies Allergy/AdvReac Type Severity Reaction Status Date / Time codeine [CODEINE] Allergy Unknown Rash Verified 12/19/23 08:26 Active Medications: Current Medications Acetaminophen (Acetaminophen 325 Mg Tablet) 975 mg PO Q6H PRN PRN Reason: Pain, Mild (Pain Scale 1-3) Amlodipine Besylate (Amlodipine Besylate 5 Mg Tablet) 5 mg PO DAILY [facility]; Protocol Amlodipine Besylate (Amlodipine Besylate 5 Mg Tablet) 5 mg PO ONCE ONE; Protocol Stop: 12/19/23 15:01 Enoxaparin Sodium (Enoxaparin Sodium 40 Mg/0.4 Ml Syringe) 40 mg SUBCUT DAILY [facility] Nicardipine HCl 25 mg/ Sodium (Chloride) 260 mls @ 0 mls/hr IVCONT .Q0M [facility]; Protocol Last Titration: 12/19/23 11:26 Dose: 1.25 mg/hr, 13 mls/hr Metoprolol Succinate (Metoprolol Succinate Er 25 Mg Tab.Er.24h) 25 mg PO DAILY [facility]; Protocol Home Medications ?Medication ?Instructions ?Recorded ?Confirmed ?Last Taken ?Type amlodipine 5 mg tablet 5 mg PO DAILY 09/30/20 12/19/23 12/19/23 History metoprolol succinate 25 mg 25 mg PO DAILY 09/30/20 12/19/23 12/19/23 History tablet,extended release 24 hr atorvastatin 10 mg tablet 10 mg PO DAILY 07/07/22 12/19/23 12/19/23 History estradiol 0.01% (0.1 mg/gram) 1 g vaginal TUSA 07/07/22 12/19/23 12/17/23 History vaginal cream furosemide 40 mg tablet 40 mg PO DAILY 12/19/23 12/19/23 12/19/23 History losartan 50 mg tablet 50 mg PO DAILY 12/19/23 12/19/23 12/19/23 History Physical Exam 2 Vital Signs: Vital Signs: Last Vital Signs Temp 97.7 F 12/19/23 11:44 Pulse 85 12/19/23 11:43 Resp 16 12/19/23 11:43 BP 209/95 H 12/19/23 11:43 Pulse Ox 99 12/19/23 11:43 O2 Del Method Room Air 12/19/23 11:43 BMI result Body Mass Index 29.1 Const: General: cooperative, healthy appearing, comfortable, no acute distress, well developed, alert, awake and Physically active O rientation/consciousness: patient oriented x3 HEENT: Head: Yes normal to inspection, Yes normocephalic and Yes atraumatic Eyes: General: appearance normal, both eyes and all related structures Neck: Neck: Yes normal visual inspection, Yes full ROM, Yes no meningeal signs and Yes trachea midline Chest: Chest palpation & inspection: normal inspection of the chest Resp: Other: no appreciable rales, rhonchi, wheezing Effort & Inspection: normal respiratory effort Cardio: Rate: regular rate Rhythm: regular rhythm GI: Inspection: Yes normal to inspection, No Abdominal wall edema and No distended Palpation (GI): Soft to palpation, not firm, nontender, no guarding and not rigid Skin: General skin exam: no rashes or lesions noted Neuro: General: patient oriented x3, tone normal, moves all extremities, no meningeal signs, no focal motor deficits and CN's II-XI intact bilaterally Extrem: Other: 1+ pitting edema to bilateral shins General: Yes normal to inspection, Yes full ROM and Yes capillary refill normal Psych: Appearance: grossly normal Results Labs 12/19/23 09:08 12/19/23 09:08 Labs: Laboratory Results - last 24 hr 12/19/23 12/19/23 09:08 10:33 MCV 93.8 MCH 31.0 MCHC 33.1 RDW 13.9 Plt Count 253 MPV 8.9 L Immature Gran % (Auto) 0.3 Neut % (Auto) 80.4 H Lymph % (Auto) 9.3 L [place] % (Auto) 8.6 Eos % (Auto) 1.2 Baso % (Auto) 0.2 Lymph # (Auto) 1.0 L [place] # (Auto) 0.9 Eos # (Auto) 0.1 Baso # (Auto) 0.0 Abs Immat Gran (auto) 0.03 Absolute Neuts (auto) 8.5 H Absolute Nucleated RBC 0.000 Nucleated RBC % (auto) 0.0 PT 11.4 INR 1.0 Anion Gap 10 L Estim Creat Clear Calc 50.8 Estimated GFR > 60 Random Glucose 121 H Calcium 9.4 D Magnesium 2.1 Total Bilirubin 0.4 AST 22 ALT 15 Alkaline Phosphatase 49 Troponin I High Sens 26.8 H D Total Protein 6.9 Albumin 4.2 Urine Color Yellow Urine Appearance Clear Urine pH 7.5 Ur Specific Julian 1.010 Urine Protein Trace Urine Glucose (UA) Negative Urine Ketones Negative Urine Blood Negative Urine Nitrite Negative Ur Leukocyte Esterase Trace H Urine RBC 0-2 Urine WBC 0-5 Ur Squamous Epith Cells 3-5 Urine Bacteria None Seen Hyaline Casts 0-2 Imaging Radiologist's Impressions: Impressions Head/Neck CTA 12/19/23 09:50 IMPRESSION: -CT head demonstrates no acute intracranial hemorrhage or edematous infarct. Global cerebral atrophy and chronic microangiopathy. -CTA head demonstrates no large vessel occlusion, saccular aneurysm, or dissection. -CTA neck demonstrates no hemodynamically significant stenosis, dissection, or aneurysm. 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 Moderate to severe focal stenosis of the left vertebral artery origin. Focal ectasia of the distal right V2. Electronically signed by: Susan Lane MD 12/19/2023 11:19 AM EDT RP Assessment and Plan (1) Hypertensive urgency: Status: Acute Plan Patient is a 88 Y F w/ hypertension, presenting to emergency department on 12/18 w/ headache, word-finding difficulty, and dizziness, found to have reassuring CTA H/N, though found to be hypertensive SBP 230s, started on nicardipine gtt N: reassuring CTA H/N; to monitor symptoms CV: hypertensive urgency; nicardipine gtt; home amlodipine, losartan, metoprolol; troponinemia, likely d/t demand; to monitor R: no acute issues GI: no acute issues; cardiac diet : no acute issues H: no acute issues; chemical DVT prophylaxis ID: no overt stigmata of infection; to closely monitor E: no acute issues P: no acute issues
[2023-12-19 12:00] LABS: Troponin-I High Sensitivity 205.5 ng/L (<3.5-17.0)
--- NOTE | 2023-12-19 12:09 | PHA.MEDREC ---
Addendum entered by Shaniqua Batres RPh 12/19/23 12:28: reviewed by [facility]. Original Note: Pharmacy Consult ? Medication Reconciliation Pharmacy has completed the medication reconciliation. Spoke to patient to confirm med list. Patient states she no longer takes HCTZ 25mg, Omeprazole 40 mg, and Trazodone 75 mg. Patient says Estradiol is TUE and Sat.
[2023-12-19] MEDS: Enoxaparin Sodium 40 MG/0.4 ML SYRINGE SUBCUT (12:20)
--- NOTE | 2023-12-19 12:29 | PC.NURSE ---
TITRATION OF INFUSION PER BELT MEASURER.
--- NOTE | 2023-12-19 13:37 | PC.NURSE ---
Verbal report to ICU, this RN brought pt to ICU. Transferred care.
[2023-12-19] MEDS: Losartan Potassium 50 MG TABLET PO (14:34)
[2023-12-19] MEDS: Acetaminophen 325 MG TABLET 975 MG PO (14:38)
[2023-12-19 14:52] LABS: TSH reflex Free T4 1.21 uIU/mL (0.32-4.0)
[2023-12-19 15:42] LABS: Troponin-I High Sensitivity 208.4 ng/L (<3.5-17.0)
--- NOTE | 2023-12-19 20:59 | PC.NURSE ---
Addendum entered by Chelo Bonilla RN 12/20/23 06:46: Nicardipine gtt titrated to 2mg/hr per SOLAR PROCESS ENGINEER verbal order for BP this morning. ~06:30 Pt c/o new nausea without vomiting. SOLAR PROCESS ENGINEER notified with order for zofran, given with effectiveness pending. Handoff report given. Addendum entered by Chelo Bonilla RN 12/20/23 03:57: 03:56: BP 127/53 (amp 77) reviewed with SOLAR PROCESS ENGINEER. SOLAR PROCESS ENGINEER verbal orders to continue nicardipine gtt at current 3mg/hr rate at this time. Addendum entered by Chelo Bonilla RN 12/20/23 03:04: 02:00 hour: BP trend reviewed with SOLAR PROCESS ENGINEER with verbal orders received to reassess BP in 15 minutes, if SBP still >160 to increase Nicardipine gtt by 1mg/hr. Gtt titrated per SOLAR PROCESS ENGINEER verbal orders with +effect. See MAR and associated vitals for details. Addendum entered by Chelo Bonilla RN 12/19/23 23:56: SOLAR PROCESS ENGINEER verbal orders to continue with nicardipine gtt at current 1mg/hr rate until SBP is more consistently in the 120- 130's range. Original Note: Assumed care of patient at 19:00. Pt continues on nicardipine gtt at 1mg/hr. Blood pressures reviewed with covering SOLAR PROCESS ENGINEER Sandrita Gutierrez as SBPs at goal per MAR though MAPs remain high in 80-90's. SOLAR PROCESS ENGINEER verbal orders to continue at current rate at this time, with plans to reassess with further routine BPs. Pt asymptomatic and denies headaches at this time. Bed alarm on and safety measures in place. Call damon within reach and educated on use. Plan of care continues. See shift assessment, worklist, and MAR for full details.
[2023-12-20] VITALS (31 sets, daily range): BP systolic 109–180; BP diastolic 48–112; PULSE 55–78; RESP 15–22; TEMP 36.1–36.9; O2SAT 89–96; BMI 28.4
[2023-12-20] MEDS: Acetaminophen 325 MG TABLET 975 MG PO ×2 (02:35→15:19)
[2023-12-20] MEDS: niCARdipine HCL 25 MG in 0.9 % Sodium Chloride 250 ML 20.8 MG IVCONT (05:07)
[2023-12-20 05:29] LABS: MANUAL DIFF FLAG NO
[2023-12-20 05:41] LABS: Basophils Percent Auto 0.3 % (0-2); Eosinophils Absolute Auto 0.3 X10*3/uL (0.0-0.4); Eosinophils Percent Auto 2.6 % (0-4); Hematocrit 38.9 % (37.0-47.0); Hemoglobin 12.9 g/dl (12.0-16.0); Imm Gran Abs Auto 0.04 X10*3/uL (0.00-0.03); Imm Gran Pct Auto 0.4 % (0.0-0.4); Lymphocytes Absolute Auto 1.4 X10*3/uL (1.2-4.9); Lymphocytes Percent Auto 13.7 % (20-40); Mean Corpuscular HGB Conc 33.2 g/dl (31.0-35.0); Mean Corpuscular Hemoglobin 30.6 pg (27.0-33.0); Mean Corpuscular Volume 92.2 fL (80.0-98.0); Monocytes Percent Auto 9.6 % (2-11); Neutrophils Absolute Auto 7.7 x10*3/uL (2.0-8.3); Neutrophils Percent Auto 73.4 % (45-73); Platelet Count 257 X10*3/uL (160-400); Red Blood Count 4.22 X10*6/uL (4.20-5.50); Red Cell Distribution Width 13.8 % (11.0-16.0); White Blood Count 10.5 X10*3/uL (4.8-10.8)
[2023-12-20 06:00] LABS: Albumin Level 3.7 g/dL (3.5-5.0); Anion Gap 14 (12-20); Blood Urea Nitrogen 11 mg/dL (9-16); Calcium 9.4 mg/dL (8.4-10.2); Carbon Dioxide 24 mmol/L (22-29); Chloride 103 mmol/L (96-108); Creatinine Clr Calc Pharmacy 54.1; Estimated Glomerular Filt Rate > 60; Glucose Random 128 mg/dL (60-115); Magnesium 1.9 mg/dL (1.6-2.6); Phosphorus 3.6 mg/dL (2.7-4.5); Potassium 3.9 mmol/L (3.3-5.1); Sodium 137 mmol/L (135-145)
[2023-12-20] MEDS: ondansetron HCL 4 MG/2 ML VIAL IVPUSH (06:44)
--- NOTE | 2023-12-20 08:27 | PM.CCPN ---
Subjective Subjective Date of Service: 12/20/23 Interval History: no significant overnight events; remains on nicardipine gtt Critical Care Time (minutes): 60 Physical Exam Vital Signs: Vital Signs: Last Vital Signs Temp 96.9 F 12/20/23 03:56 Pulse 64 12/20/23 07:00 Resp 21 H 12/20/23 07:00 BP 141/58 H 12/20/23 07:00 Pulse Ox 91 L 12/20/23 07:00 O2 Del Method Room Air 12/20/23 07:00 BMI result Body Mass Index 28.4 Const: General: cooperative, healthy appearing, comfortable, no acute distress, well developed, alert, awake and Physically active Orientation/consciousness: oriented to person, oriented to place and oriented to time (oriented to year) HEENT: Head: Yes normal to inspection, Yes normocephalic and Yes atraumatic Eyes: General: appearance normal, both eyes and all related structures Neck: Neck: Yes normal visual inspection, Yes full ROM, Yes no meningeal signs, Yes trachea midline and Yes supple Chest: Chest palpation & inspection: normal inspection of the chest Resp: Other: no appreciable rales, rhonchi, wheezing Effort & Inspection: normal respiratory effort Cardio: Rate: regular rate Rhythm: regular rhythm GI: Inspection: Yes normal to inspection, No Abdominal wall edema and No distended Palpation (GI): Soft to palpation, not firm, nontender, no guarding and not rigid Skin: General skin exam: no rashes or lesions noted Neuro: General: oriented to person, oriented to place, oriented to time (oriented to year), tone normal, moves all extremities, no meningeal signs and no focal motor deficits Extrem: General: Yes normal to inspection, Yes capillary refill normal and Yes no clubbing, cyanosis or edema Psych: Appearance: grossly normal Objective Data Labs 12/20/23 05:21 12/20/23 05:21 Labs: Laboratory Results - last 24 hr 12/19/23 12/19/23 12/19/23 09:08 10:33 11:29 WBC 10.6 RBC 4.19 L D Hgb 13.0 D Hct 39.3 D MCV 93.8 MCH 31.0 MCHC 33.1 RDW 13.9 Plt Count 253 MPV 8.9 L Immature Gran % (Auto) 0.3 Neut % (Auto) 80.4 H Lymph % (Auto) 9.3 L [place] % (Auto) 8.6 Eos % (Auto) 1.2 Baso % (Auto) 0.2 Lymph # (Auto) 1.0 L [place] # (Auto) 0.9 Eos # (Auto) 0.1 Baso # (Auto) 0.0 Abs Immat Gran (auto) 0.03 Absolute Neuts (auto) 8.5 H Absolute Nucleated RBC 0.000 Nucleated RBC % (auto) 0.0 PT 11.4 INR 1.0 Sodium 141 Potassium 4.2 Chloride 107 Carbon Dioxide 28 Anion Gap 10 L BUN 13 Creatinine 0.68 Estim Creat Clear Calc 50.8 Estimated GFR > 60 Random Glucose 121 H Calcium 9.4 D Phosphorus Magnesium 2.1 Total Bilirubin 0.4 AST 22 ALT 15 Alkaline Phosphatase 49 Troponin I High Sens 26.8 H D 205.5 H* D Total Protein 6.9 Albumin 4.2 TSH Urine Color Yellow Urine Appearance Clear Urine pH 7.5 Ur Specific [place] 1.010 Urine Protein Trace Urine Glucose (UA) Negative Urine Ketones Negative Urine Blood Negative Urine Nitrite Negative Ur Leukocyte Esterase Trace H Urine RBC 0-2 Urine WBC 0-5 Ur Squamous Epith Cells 3-5 Urine Bacteria None Seen Hyaline Casts 0-2 12/19/23 12/19/23 12/20/23 13:58 15:07 05:21 WBC 10.5 RBC 4.22 Hgb 12.9 Hct 38.9 MCV 92.2 MCH 30.6 MCHC 33.2 RDW 13.8 Plt Count 257 MPV 9.0 L Immature Gran % (Auto) 0.4 Neut % (Auto) 73.4 H Lymph % (Auto) 13.7 L [place] % (Auto) 9.6 Eos % (Auto) 2.6 Baso % (Auto) 0.3 Lymph # (Auto) 1.4 [place] # (Auto) 1.0 Eos # (Auto) 0.3 Baso # (Auto) 0.0 Abs Immat Gran (auto) 0.04 H Absolute Neuts (auto) 7.7 Absolute Nucleated RBC 0.000 Nucleated RBC % (auto) 0.0 PT INR Sodium 137 Potassium 3.9 Chloride 103 Carbon Dioxide 24 Anion Gap 14 BUN 11 Creatinine 0.64 Estim Creat Clear Calc 54.1 Estimated GFR > 60 Random Glucose 128 H Calcium 9.4 Phosphorus 3.6 Magnesium 1.9 Total Bilirubin AST ALT Alkaline Phosphatase Troponin I High Sens 208.4 H* Total Protein Albumin 3.7 TSH 1.21 Urine Color Urine Appearance Urine pH Ur Specific [place] Urine Protein Urine Glucose (UA) Urine Ketones Urine Blood Urine Nitrite Ur Leukocyte Esterase Urine RBC Urine WBC Ur Squamous Epith Cells Urine Bacteria Hyaline Casts Progress Note: A&P Assessment and plan (1) Hypertensive urgency: Status: Acute Plan Patient is a 88 Y F w/ hypertension, presenting to emergency department on 12/18 w/ headache, word-finding difficulty, and dizziness, found to have reassuring CTA H/N, though found to be hypertensive SBP 230s, started on nicardipine gtt N: reassuring CTA H/N; symptoms abated; to closely monitor CV: hypertensive urgency; nicardipine gtt; home amlodipine, losartan, metoprolol; troponinemia, likely d/t demand R: no acute issues GI: no acute issues; cardiac diet : no acute issues H: no acute issues; chemical DVT prophylaxis ID: no overt stigmata of infection; to closely monitor E: no acute issues P: no acute issues Quality Stroke Does the patient have a stroke diagnosis?: No VTE Prior VTE?: No VTE Risk Level:: Medical - moderate - high VTE Device Contraindication: N/A - Device Ordered VTE Drug Contraindication: N/A - Med Ordered
[2023-12-20] MEDS: Losartan Potassium 50 MG TABLET 100 MG PO (08:55)
[2023-12-20] MEDS: Atorvastatin Calcium 10 MG TABLET PO (08:56)
[2023-12-20] MEDS: Metoprolol Succinate ER 25 MG TAB.ER.24H PO (08:56)
[2023-12-20] MEDS: amLODIPine Besylate 10 MG TABLET PO (08:56)
[2023-12-20] MEDS: Furosemide 40 MG TABLET PO (08:56)
[2023-12-20] MEDS: 0.9 % Sodium Chloride Flush 3 ML SYRINGE IVFLUSH ×3 (08:57→19:29)
[2023-12-20] MEDS: Enoxaparin Sodium 40 MG/0.4 ML SYRINGE SUBCUT (12:58)
--- NOTE | 2023-12-20 15:35 | MHC.CM.PN ---
Met with pt to review d/c planning needs: pt resides alone, is independent w/all care needs, has no services or DME. Pt states her dts are close and assist as needed. HCP at home: copy requested: family to transport: no additional services anticipated at this time.
[2023-12-21] VITALS (15 sets, daily range): BP systolic 109–177; BP diastolic 36–79; PULSE 61–76; RESP 15–22; TEMP 36.1–36.9; O2SAT 90–97; BMI 27.9
[2023-12-21] MEDS: hydrALAZINE HCl 20 MG/ML VIAL 10 MG IVPUSH (02:28)
--- NOTE | 2023-12-21 05:07 | PC.NURSE ---
Pt is AOx4, able to make needs known. She continues to have difficulty finding words. She needs cueing when getting up to bedside commode. She has been incontinent of small amounts of urine a few times but primarily voids in the bedside commode. Urine added to red jug for lab. Pt is steady on her feet but does require assistance getting OOB and to the commode. Pt was hypertensive in the 180's approx 0200 (no c/o pain, SOB, or headaches), PRN was administered (see MAY for administration). SBPs since then have been lower, see VS documentation. She has slept off and on during this RN's shift. Call damon within reach, bed alarm is on.
[2023-12-21 05:54] LABS: MANUAL DIFF FLAG NO
[2023-12-21 05:58] LABS: Basophils Percent Auto 0.3 % (0-2); Eosinophils Absolute Auto 0.3 X10*3/uL (0.0-0.4); Eosinophils Percent Auto 3.2 % (0-4); Hematocrit 39.7 % (37.0-47.0); Hemoglobin 13.2 g/dl (12.0-16.0); Imm Gran Abs Auto 0.03 X10*3/uL (0.00-0.03); Imm Gran Pct Auto 0.3 % (0.0-0.4); Lymphocytes Absolute Auto 1.4 X10*3/uL (1.2-4.9); Lymphocytes Percent Auto 14.7 % (20-40); Mean Corpuscular HGB Conc 33.2 g/dl (31.0-35.0); Mean Corpuscular Hemoglobin 30.5 pg (27.0-33.0); Mean Corpuscular Volume 91.7 fL (80.0-98.0); Mean Platelet Volume 9.2 fL (9.4-12.3); Monocytes Absolute Auto 1.1 X10*3/uL (0.1-1.2); Monocytes Percent Auto 10.7 % (2-11); Neutrophils Absolute Auto 6.9 x10*3/uL (2.0-8.3); Neutrophils Percent Auto 70.8 % (45-73); Platelet Count 270 X10*3/uL (160-400); Red Blood Count 4.33 X10*6/uL (4.20-5.50); Red Cell Distribution Width 13.9 % (11.0-16.0); White Blood Count 9.8 X10*3/uL (4.8-10.8)
[2023-12-21 06:38] LABS: Anion Gap 14 (12-20); Blood Urea Nitrogen 17 mg/dL (9-16); Calcium 9.3 mg/dL (8.4-10.2); Carbon Dioxide 23 mmol/L (22-29); Chloride 102 mmol/L (96-108); Creatinine Clr Calc Pharmacy 46.4; Estimated Glomerular Filt Rate > 60; Glucose Random 112 mg/dL (60-115); Magnesium 1.8 mg/dL (1.6-2.6); Phosphorus 3.9 mg/dL (2.7-4.5); Sodium 135 mmol/L (135-145)
--- NOTE | 2023-12-21 08:05 | PM.CCPN ---
Subjective Subjective Date of Service: 12/21/23 Interval History: no significant overnight events Critical Care Time (minutes): 0 Physical Exam Vital Signs: Vital Signs: Last Vital Signs Temp 98.0 F 12/21/23 05:00 Pulse 76 12/21/23 07:00 Resp 18 12/21/23 07:00 BP 128/36 L 12/21/23 07:00 Pulse Ox 95 12/21/23 07:00 O2 Del Method Room Air 12/21/23 07:00 BMI result Body Mass Index 27.9 Const: General: cooperative, healthy appearing, comfortable, no acute distress, well developed, alert, awake and Physically active Orientation/consciousness: oriented to person and oriented to place HEENT: Head: Yes normal to inspection, Yes normocephalic and Yes atraumatic Eyes: General: appearance normal, both eyes and all related structures Neck: Neck: Yes normal visual inspection, Yes full ROM, Yes no meningeal signs, Yes trachea midline and Yes supple Chest: Chest palpation & inspection: normal inspection of the chest Resp: Other: no appreciable rales, rhonchi, wheezing Effort & Inspection: normal respiratory effort Cardio: Rate: regular rate Rhythm: regular rhythm GI: Inspection: Yes normal to inspection, No Abdominal wall edema and No distended Palpation (GI): Soft to palpation, not firm, nontender, no guarding and not rigid Skin: General skin exam: no rashes or lesions noted Neuro: General: oriented to person, oriented to place, tone normal, moves all extremities, no meningeal signs and no focal motor deficits Extrem: General: Yes normal to inspection, Yes full ROM, Yes capillary refill normal and Yes no clubbing, cyanosis or edema Psych: Appearance: grossly normal Objective Data Labs 12/21/23 05:35 12/21/23 05:35 Labs: Laboratory Results - last 24 hr 12/21/23 05:35 WBC 9.8 RBC 4.33 Hgb 13.2 Hct 39.7 MCV 91.7 MCH 30.5 MCHC 33.2 RDW 13.9 Plt Count 270 MPV 9.2 L Immature Gran % (Auto) 0.3 Neut % (Auto) 70.8 Lymph % (Auto) 14.7 L [place] % (Auto) 10.7 Eos % (Auto) 3.2 Baso % (Auto) 0.3 Lymph # (Auto) 1.4 [place] # (Auto) 1.1 Eos # (Auto) 0.3 Baso # (Auto) 0.0 Abs Immat Gran (auto) 0.03 Absolute Neuts (auto) 6.9 Absolute Nucleated RBC 0.000 Nucleated RBC % (auto) 0.0 Sodium 135 Potassium 4.0 Chloride 102 Carbon Dioxide 23 Anion Gap 14 BUN 17 H Creatinine 0.73 Estim Creat Clear Calc 46.4 Estimated GFR > 60 Random Glucose 112 Calcium 9.3 Phosphorus 3.9 Magnesium 1.8 Progress Note: A&P Assessment and plan (1) Hypertensive urgency: Status: Acute Plan Patient is a 88 Y F w/ hypertension, presenting to emergency department on 12/18 w/ headache, word-finding difficulty, and dizziness, found to have reassuring CTA H/N, though found to be hypertensive SBP 230s, started on nicardipine gtt N: reassuring CTA H/N; symptoms abated; to closely monitor CV: hypertensive urgency; s/p nicardipine gtt; amlodipine, losartan, metoprolol; troponinemia, likely d/t demand, improved R: no acute issues GI: no acute issues; cardiac diet : no acute issues H: no acute issues; chemical DVT prophylaxis ID: no overt stigmata of infection; to closely monitor E: no acute issues P: no acute issues Quality Stroke Does the patient have a stroke diagnosis?: No VTE Prior VTE?: No VTE Risk Level:: Medical - moderate - high VTE Device Contraindication: N/A - Device Ordered VTE Drug Contraindication: N/A - Med Ordered
[2023-12-21] MEDS: Metoprolol Succinate ER 25 MG TAB.ER.24H PO (08:23)
[2023-12-21] MEDS: Losartan Potassium 50 MG TABLET 100 MG PO (08:23)
[2023-12-21] MEDS: Atorvastatin Calcium 10 MG TABLET PO (08:23)
[2023-12-21] MEDS: Furosemide 40 MG TABLET PO (08:24)
[2023-12-21] MEDS: amLODIPine Besylate 10 MG TABLET PO (08:24)
[2023-12-21] MEDS: 0.9 % Sodium Chloride Flush 3 ML SYRINGE IVFLUSH ×2 (08:27→21:16)
[2023-12-21] MEDS: Enoxaparin Sodium 40 MG/0.4 ML SYRINGE SUBCUT (12:33)
[2023-12-21] MEDS: Acetaminophen 325 MG TABLET 975 MG PO (13:27)
--- NOTE | 2023-12-21 13:57 | MHC.STROKE ---
Pt moved from ICU today to room 478. Notified by Dr. Becerril that nursing was concerned regarding word finding difficulties around lunch time. Attempted to assess patient however she was on her way to MRI. During our brief interaction, patient was awake, alert and answered questions appropriately. Dr. Becerril spoke with Dr. Elder who recommended an MRI. Daughter Domenic was at the bedside. Stroke Education provided to daughter and discussed our plan of care. Daughter agreeable to plan. All questions answered. Will continue to assist as needed.
--- NOTE | 2023-12-21 14:02 | PM.EVENT ---
Event Note Date of Service: 12/21/23 Event Note: Pt seen/examined, labs, meds reviewed, vitals and imagings reviewed. Transfered out of icu this morning. 88 Y F w/ hypertension, presenting to emergency department on 12/18 w/ headache, word-finding difficulty, and dizziness, found to have unremarkable CTA H&N, yet found SBP 230s, treated in ICU with Nicardipine drip. BP is now controlled and transffered to med-tele and is reporting word finding difficulty again, neuro exam otherwise normal. A STAT MRI is requested, neuro consult obtained. PT, speech consult Time Spent With Patient Time: Total time managing care of this patient today ____ minutes.
--- NOTE | 2023-12-21 15:14 | PM.NEUROCN ---
History of Present Illness Data of Consult Service Date: 12/21/23 Primary Care Provider: Perez Faye MD [facility] Reason for consult: Speech difficulty This is a 88 Y F w/ hypertension, presenting to emergency department on 12/18 w/ headache, word-finding difficulty, and dizziness, found to be hypertensive SBP 230s, started on nicardipine gtt. CTA was negative. Still feels she is having speech problems. She tells me that she has been having speech problems for 3-4 weeks in word finding and completing sentences and expressing herself. She says it extends to reading and writing as well.MRI shows no acute infarct. Shows microvascular white matter changes bilaterally in subcortical and deep white matter bilaterally and generalized age related atrophy. [facility] Past Medical History Medical History Venous stasis Heart failure with reduced ejection fraction Osteopenia Polymyalgia rheumatica Mixed incontinence Hiatal hernia Lumbar spinal stenosis Lumbar spondylosis Chronic low back pain Anxiety Hyperlipidemia Hypertension Surgical History Surgical History History of back surgery Hx of colonoscopy Social History Social History Household Members: None Housing: House Do you presently have visiting nurse or other home services: Yes Alcohol intake: current Alcohol intake frequency: a few times a week Patient Tobacco Use Status: Former Tobacco user e-Cigarette/Vaping Use: Former Use Second Hand Smoke Exposure: No service: No Current occupational status: retired Meds Allergies Allergy/AdvReac Type Severity Reaction Status Date / Time codeine [CODEINE] Allergy Unknown Rash Verified 12/19/23 08:26 Active Medications: Current Medications Acetaminophen (Acetaminophen 325 Mg Tablet) 975 mg PO Q6H PRN PRN Reason: Pain, Mild (Pain Scale 1-3) Last Admin: 12/21/23 13:27 Dose: 975 mg Amlodipine Besylate (Amlodipine Besylate 10 Mg Tablet) 10 mg PO DAILY COUNT INCLUDES THE [facility]; Protocol Last Admin: 12/21/23 08:24 Dose: 10 mg Atorvastatin Calcium (Atorvastatin Calcium 10 Mg Tablet) 10 mg PO DAILY COUNT INCLUDES THE [facility] Last Admin: 12/21/23 08:23 Dose: 10 mg Enoxaparin Sodium (Enoxaparin Sodium 40 Mg/0.4 Ml Syringe) 40 mg SUBCUT Q24H WILLIE Last Admin: 12/21/23 12:33 Dose: 40 mg Furosemide (Furosemide 40 Mg Tablet) 40 mg PO DAILY WILLIE; Protocol Last Admin: 12/21/23 08:24 Dose: 40 mg Hydralazine HCl (Hydralazine Hcl 20 Mg/Ml Vial) 10 mg IVPUSH Q4H PRN; Protocol PRN Reason: Hypertension Last Admin: 12/21/23 02:28 Dose: 10 mg Losartan Potassium (Losartan Potassium 50 Mg Tablet) 100 mg PO DAILY COUNT INCLUDES THE [facility]; Protocol Last Admin: 12/21/23 08:23 Dose: 100 mg Metoprolol Succinate (Metoprolol Succinate Er 25 Mg Tab.Er.24h) 25 mg PO DAILY COUNT INCLUDES THE [facility]; Protocol Last Admin: 12/21/23 08:23 Dose: 25 mg Sodium Chloride (0.9 % Sodium Chloride Flush 3 Ml Syringe) 3 ml IVFLUSH QSHIFT COUNT INCLUDES THE [facility] Last Admin: 12/21/23 14:49 Dose: Not Given Home Medications ?Medication ?Instructions ?Recorded ?Confirmed ?Last Taken ?Type amlodipine 5 mg tablet 5 mg PO DAILY 09/30/20 12/19/23 12/19/23 History metoprolol succinate 25 mg 25 mg PO DAILY 09/30/20 12/19/23 12/19/23 History tablet,extended release 24 hr atorvastatin 10 mg tablet 10 mg PO DAILY 07/07/22 12/19/23 12/19/23 History estradiol 0.01% (0.1 mg/gram) 1 g vaginal TUSA 07/07/22 12/19/23 12/17/23 History vaginal cream furosemide 40 mg tablet 40 mg PO DAILY 12/19/23 12/19/23 12/19/23 History losartan 50 mg tablet 50 mg PO DAILY 12/19/23 12/19/23 12/19/23 History Physical Exam Vital Signs: Vital Signs: Last Vital Signs Temp 97.7 F 12/21/23 11:38 Pulse 67 12/21/23 11:38 Resp 18 12/21/23 11:38 BP 122/55 L 12/21/23 11:38 Pulse Ox 95 12/21/23 11:38 O2 Del Method Room Air 12/21/23 11:38 BMI result Body Mass Index 27.9 Neuro: Other: Some hesitancy in her speech occasional wrong word being used but most times she is making a complete sentences and expressing her meaning clearly. On 2 occasions she was use to wrong word such as messages instead of weeks Cranial nerves II through XII are normal. Muscle tone and strength are normal in all 4 extremities. DTRs symmetrical. Plantar response are flexor Results Labs 12/21/23 05:35 12/21/23 05:35 Labs: Short CBC 12/21/23 Range/Units 05:35 WBC 9.8 (4.8-10.8) X10*3/uL Hgb 13.2 (12.0-16.0) g/dl Hct 39.7 (37.0-47.0) % Plt Count 270 (160-400) X10*3/uL BMP 12/21/23 05:35 Sodium 135 Potassium 4.0 Chloride 102 Carbon Dioxide 23 BUN 17 H Creatinine 0.73 Calcium 9.3 Assessment and Plan (1) Dysphasia: Status: Acute 3-4 week history of intermittent difficulty expressing herself, finding the right words and completing sentences. Most of the time. Her speech is quite normal. During my examination. Her MRI was reviewed and shows no structural abnormalities in the language area and no acute infarct. There is diffuse and white matter microvascular disease and in the subcortical and deep white matter but sometimes can cause speech problems. The other possibility would be that there are some focal seizure activity going on that's causing some speech arrest at times. Recommendation: EEG. There are also some elements of anxiety which the patient admits. Procedures Date of Service Date of Service: 12/21/23
--- NOTE | 2023-12-21 18:50 | PC.NURSE ---
Pt had episode in early afternoon of word finding difficulty VSS. Dr Becerril notified on unit to see patient. MRI on neuro consult completed.
--- NOTE | 2023-12-22 | EEG_ITS ---
FINDINGS: This is a 16-channel EEG with an EKG lead. The patient is reported awake during the tracing. Background EEG rhythm is 7 to 8 hertz, 5 to 100 microvolt posteriorly, lower amplitude fast anteriorly. Some rare right temporal sharply contoured theta range discharges are noted. This seems to be phase reversal at T6. Photic stimulation does not produce any significant abnormality. Hyperventilation is not performed. Cardiac lead does not reveal any significant abnormality. IMPRESSION: Generalized slowing, but also evidence of mild right temporal irritability that could result in partial or complex partial seizures. MD MARYA Mariscal/RUBIO / [phone]
[2023-12-22 04:00] VITALS: BP 138/63; PULSE 62; RESP 20; TEMP 36.2; O2SAT 94
[2023-12-22 07:40] VITALS: BP 172/82; PULSE 69; RESP 20; TEMP 36.6; O2SAT 95
[2023-12-22 07:56] LABS: Basophils Percent Auto 0.5 % (0-2); Eosinophils Absolute Auto 0.3 X10*3/uL (0.0-0.4); Eosinophils Percent Auto 3.9 % (0-4); Hematocrit 37.5 % (37.0-47.0); Hemoglobin 12.4 g/dl (12.0-16.0); Imm Gran Abs Auto 0.03 X10*3/uL (0.00-0.03); Imm Gran Pct Auto 0.4 % (0.0-0.4); Lymphocytes Absolute Auto 1.9 X10*3/uL (1.2-4.9); Lymphocytes Percent Auto 22.7 % (20-40); MANUAL DIFF FLAG SCAN; Mean Corpuscular HGB Conc 33.1 g/dl (31.0-35.0); Mean Corpuscular Hemoglobin 30.2 pg (27.0-33.0); Mean Corpuscular Volume 91.5 fL (80.0-98.0); Mean Platelet Volume 10.5 fL (9.4-12.3); Monocytes Absolute Auto 1.1 X10*3/uL (0.1-1.2); Monocytes Percent Auto 13.5 % (2-11); Neutrophils Absolute Auto 4.9 x10*3/uL (2.0-8.3); PLT CLUMP 1; Red Cell Distribution Width 14.1 % (11.0-16.0); SCAN SMEAR FLAG 1
[2023-12-22 08:01] VITALS: BP 172/82; PULSE 69; O2SAT 95
[2023-12-22] MEDS: Metoprolol Succinate ER 25 MG TAB.ER.24H PO (08:26)
[2023-12-22] MEDS: amLODIPine Besylate 10 MG TABLET PO (08:26)
[2023-12-22] MEDS: Furosemide 40 MG TABLET PO (08:26)
[2023-12-22] MEDS: Atorvastatin Calcium 40 MG TABLET PO (08:27)
[2023-12-22] MEDS: Losartan Potassium 50 MG TABLET 100 MG PO (08:27)
[2023-12-22] MEDS: 0.9 % Sodium Chloride Flush 3 ML SYRINGE IVFLUSH (08:28)
[2023-12-22 09:06] LABS: Platelet Count 211 X10*3/uL (160-400); White Blood Count 8.3 X10*3/uL (4.8-10.8)
[2023-12-22 09:07] LABS: SLIDE REVIEW VERIFIED
--- NOTE | 2023-12-22 09:55 | P.DS_ITS ---
DS: Providers Provider Date of Service: 12/22/23 Date of admission: 12/19/23 11:38 Date of discharge: 12/22/23 Primary care physician: Perez Faye MD Consults: 12/21/23 13:09 Consult to Neurology Routine Consulting Provider: [facility] Reason for consultation: expressive aphasia, acclerated HTN Has provider been notified: No DS: Diagnosis Discharge Diagnosis (1) Dysphasia: Status: Acute DS: Summary Hospital Course Hospital Course: from initial hpi: 88 Y F w/ hypertension, unspecified dementia, nonischemic chronic systolic CHF (EF 40-45%), PMR, anxiety, presenting to emergency department on 12/18 w/ headache, word-finding difficulty, and dizziness, found to have reassuring CTA H/N, though found to be hypertensive SBP 230s, started on nicardipine gtt hospital course: Patient was admitted for acute metabolic encephalopathy due to hypertensive emergency. She was admitted to the intensive care unit and started on nicardipine infusion. Blood pressure was then better controlled and transitioned to oral medications. Her home amlodipine was increased from 5 mg daily to 10 mg daily. Her losartan was increased from 50 mg daily to 100 mg da farideh, she was continued on Toprol 25 mg daily. Blood pressures became better controlled and symptoms resolved. Patient appears to be back at her baseline, talking fluently and alert. 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 Was seen by Neurology who recommended EEG which showed generalized slowing and evidence of mild right temporal irritability that could result in partial or complex partial seizures. this was not likely cause of symptoms, however, recommendations were to start low dose keppra 250mg bid and follow up with neurology as outpatient. Was seen by physical therapy who recommended discharge home with services. Patient is back to baseline will be discharged home. Time Attestation Discharge Coordination Time (in mins): 33 Quality: Safe Use of Opioids Does Pt have an Active Cancer Diagnosis on the Problem List?: No Quality: Stroke Does the patient have a stroke diagnosis?: No Physical Exam Vital Signs: Vital Signs: Last Vital Signs Temp 97.8 F 12/22/23 07:40 Pulse 69 12/22/23 08:01 Resp 20 12/22/23 07:40 BP 172/82 H 12/22/23 08:01 Pulse Ox 95 12/22/23 08:01 O2 Del Method Room Air 12/22/23 07:40 BMI result Body Mass Index 27.9 General: AO X 3, no acute distress Resp: CTA bilateral, no accessory muscles used CVS: S1,S2,RRR GI: soft, non tender, non distended Neuro: motor grossly intact, alert Psych: appropriate affect, poor short-term memory DS: Data Data Completed and Pending Completed studies during hospitalization [Text1]: Procedures Inspection of Upper Intestinal Tract, Via Natural or Artificial Opening Endoscopic (07/07/22) Transfusion of Nonautologous Red Blood Cells into Peripheral Vein, Percutaneous Approach (07/07/22) Labs on day of discharge: Laboratory Results - last 24 hr 12/22/23 07:00 WBC 8.3 RBC 4.10 L Hgb 12.4 Hct 37.5 MCV 91.5 MCH 30.2 MCHC 33.1 RDW 14.1 Plt Count 211 MPV 10.5 Immature Gran % (Auto) 0.4 Neut % (Auto) 59.0 Lymph % (Auto) 22.7 [place] % (Auto) 13.5 H Eos % (Auto) 3.9 Baso % (Auto) 0.5 Lymph # (Auto) 1.9 [place] # (Auto) 1.1 Eos # (Auto) 0.3 Baso # (Auto) 0.0 Abs Immat Gran (auto) 0.03 Absolute Neuts (auto) 4.9 Absolute Nucleated RBC 0.000 Nucleated RBC % (auto) 0.0 Smear Tech's Comments VERIFIED Discharge Plan Discharge Anticipated Discharge Date/Time: 12/22/23 09:53 Patient Disposition: Home Health Service Discharge Diagnosis: Hypertensive crisis Referrals: Isidro ADAMS [Outside] - 1 Week Perez Faye MD [Primary Care Provider] - 1 Week Val Elder MD [Physician] - 1 Week Discharge Medications: New losartan 50 mg Tablet 100 mg PO DAILY Qty: 90 0RF Protocol: Hold for SBP< HOLD for SBP < : 90 amlodipine 10 mg Tablet 10 mg PO DAILY Qty: 90 0RF Protocol: Hold for SBP< HOLD for SBP < : 90 levetiracetam [Keppra] 250 mg tablet 250 mg PO BID Qty: 180 0RF Continued atorvastatin 10 mg tablet 10 mg PO DAILY estradiol 0.01 % (0.1 mg/gram) cream 1 g vaginal TUSA furosemide 40 mg tablet 40 mg PO DAILY metoprolol succinate 25 mg tablet extended release 24 hr 25 mg PO DAILY Discontinued losartan 50 mg tablet 50 mg PO DAILY amlodipine 5 mg tablet 5 mg PO DAILY Discharge Orders: Discharge Order (Routine); Ordered 12/22/23 Ordered By: Jorge Schwab Diet: Low salt diet Activity on Discharge: As tolerated Stand Alone Forms: Patient Portal Discharge page Print Language: Bulgarian Care Plan Goals: Manage blood pressure Health Concerns: Hypertension Plan of Treatment: Doses of amlodipine and losartan have been increased, continue other medications and low-salt diet, monitor blood pressure starting on low dose keppra to prevent seizures, follow up with neurology Assessment: See above
--- NOTE | 2023-12-22 10:52 | P.F2F_ITS ---
Service Date Service Date: 12/22/23 Encounter Date of encounter: 12/22/23 Reasons for Services Signs and symptoms assessed: unsteady Reason for [facility] [facility]: medication management, medication treatment and teach disease management Reason for physical therapy: home safety and mobility and therapeutic exercises Homebound: Leaving the home is medically contraindicated at this time without the asist of a device and/or another person due th the listed conditions above and below. Reason homebound: unsteady gait / fall risk Certification: Based on the above findings, I certify that this patient is confined to the home and needs intermittent [facility] care, physical therapy and/or speech therapy, or continues to need occupational therapy. The patient is under my care, and I have initiated the establishment of the plan of care. The patient will be followed by a physician who will periodically review the plan of care. Time Spent With Patient Time: Total time managing care of this patient today ____ minutes.
[2023-12-22 12:00] VITALS: BP 136/72; PULSE 78; RESP 20; TEMP 36.2; O2SAT 96
--- NOTE | 2023-12-22 13:41 | MHC.CM.PN ---
Pt is medically cleared for discharge home with new [facility] services, pts daughter will transport her home to live with her at the daughters home.
[2023-12-28 06:28] LABS: Creatinine Random Urine 92 mg/dL (20-275); Metanephrine, Free 24U 145 mcg/24 h (90-315); Metanephrine, Free Rand Ur 176 mcg/g cr (21-153); Normetanephrine, Free 24U 217 mcg/24 h (122-676); Normetanephrine, Free Rand Ur 333 mcg/g cr (108-524); Total Metanephrine, Free 24U 362 mcg/24 h (224-832); Total Metanephrine, Free RU 509 mcg/g cr (149-603); Total Volume 24U 750 mL
== END 2023-12-22 14:23 | disposition home health service (06) | DRG 304 ==
LOC: HO.ED 11:40 → HO.EDOVER 12:02 → HO.ICU 13:05 → HO.IMC 12-21 10:38
PROVIDERS: Physician Assistant; Admitting Provider Internal Medicine Critical Care Medicine; Emergency Provider Emergency Medicine Emergency Medical Services; PCP Internal Medicine; Visit Provider Internal Medicine
DX: I16.0 Hypertensive urgency (principal); G93.41 Metabolic encephalopathy; I50.22 Chronic systolic (congestive) heart failure; I11.0 Hypertensive heart disease with heart failure; F03.90 Unspecified dementia, unspecified severity, without behavioral disturbance, psychotic disturbance, mood disturbance, and anxiety; M35.3 Polymyalgia rheumatica; Z79.899 Other long term (current) drug therapy
CPT/HCPCS: 36415; 70496; 70498; 70551; 80048; 80053; 81001; 82040; 83735; 83835; 84100; 84443; 84484; 85025; 85610; 93005; 95816; 97162; 99285; J0360; J1650; J2404; J2405; Q9967

== ENCOUNTER → 2023-12-19 11:38 | Outpatient (BNV) | payer MEDICARE, SELFPAY | PROVIDERS: Admitting Provider Internal Medicine Critical Care Medicine; Emergency Provider Emergency Medicine Emergency Medical Services; PCP Internal Medicine; Visit Provider Internal Medicine Critical Care Medicine | DX: I16.0 Hypertensive urgency (principal) | CPT/HCPCS: 99232; 99233; 99291 ==

== ENCOUNTER → 2023-12-19 11:38 | Outpatient (BNV) | payer MEDICARE, SELFPAY | PROVIDERS: Admitting Provider Internal Medicine Critical Care Medicine; Emergency Provider Emergency Medicine Emergency Medical Services; PCP Internal Medicine; Visit Provider Internal Medicine | DX: R47.02 Dysphasia (principal) | CPT/HCPCS: 99239; 99499; G0180 ==

== ENCOUNTER → 2023-12-19 11:38 | Outpatient (BNV) | payer MEDICARE, SELFPAY | PROVIDERS: Admitting Provider Internal Medicine Critical Care Medicine; Emergency Provider Emergency Medicine Emergency Medical Services; PCP Internal Medicine; Visit Provider Psychiatry & Neurology Neurology | DX: R47.02 Dysphasia (principal) | CPT/HCPCS: 99222 ==

== ENCOUNTER 2024-06-12 11:25 | Emergency (ER) | payer MEDICARE, SELFPAY ==
--- NOTE | ~2024-06-12 | CT_ITS ---
EXAMINATION: CT HEAD WITHOUT CONTRAST CLINICAL INFORMATION: acute onset headache, dizziness, HTN COMPARISON: December 19, 2023. TECHNIQUE: Contiguous axial imaging was performed from the skull base to vertex without intravenous administration of contrast. This CT examination was performed using dose optimization techniques as appropriate, variously including the following: *Automated exposure control *Adjustment of mA and/or kV according to patient size (this includes techniques or standardized protocols for targeted exams where dose is matched to indication/reason for exam; i.e. extremities or head) *Use of iterative reconstruction technique DLP: 644 mGy-cm FINDINGS: No acute intracranial hemorrhage, mass effect, midline shift, hydrocephalus or herniation. Bilateral multifocal patchy and confluent deep periventricular white matter hypodensities involving centrum semiovale and astorga radiata. Hill-white matter differentiation is normal. Posterior cranial fossa contents demonstrated no acute intracranial hemorrhage or mass effect. Calcified plaques in the cavernous supracavernous segments both ICA and basilar artery. The bony calvarium is intact. Retention cyst versus polyp, left maxillary sinus. Tympanic cavities and mastoid air cells are aerated. CT/CT head/brain wo IV con IMPRESSION: No acute intracranial hemorrhage. White matter disease likely related to small vessel occlusive disease. Electronically signed by: Jorge Valenzuela MD 06/12/2024 01:05 PM EDT
--- NOTE | 2024-06-12 11:28 | ED_ITS ---
HPI - General Adult General Chief complaint: General Medical Stated complaint: HYPERTENSION Source: patient and old records reviewed Mode of arrival: ambulatory Limitations: no limitations History of Present Illness ED Provider: DEREK CUNNINGHAM narrative: 88 yo female with PMH Of HTN currently on amlodipine 10mg, losartan 100mg, metoprolol 25mg daily, lasix 40mg daily, dementia, CHF EF 40-45%, PMR, anxiety, EEG showing generalized slowing and mild right temporal irritability 11/2023 on low dose keppra who notes for the past several days she has had elevated BPs to 180s / 190s systolic and a mild headache. She then went to be around 1030pm normal last night she thinks she woke up around 2am and felt very dizzy room spinning could not walk. She was nauseated. She notes it has improved but the dizziness returns when she moves. She denies URI, med changes, lack of taking medications. She denies CP/SOB, she notes she can walk now which is improved from 2am this morning. No recent URI, trauma, GI bleed symptoms. MD complaint: dizziness Onset (ago): hour(s) (?2am) Location: head Radiation: non-radiation Severity: moderate Relieving factors: rest Exacerbating factors: movement Associated symptoms: headaches and nausea/vomiting Treatments prior to arrival: none Related Data Home Medications ?Medication ?Instructions ?Recorded ?Confirmed metoprolol succinate 25 mg 25 mg PO DAILY 09/30/20 12/19/23 tablet,extended release 24 hr atorvastatin 10 mg tablet 10 mg PO DAILY 07/07/22 12/19/23 estradiol 0.01% (0.1 mg/gram) 1 g vaginal TUSA 07/07/22 12/19/23 vaginal cream furosemide 40 mg tablet 40 mg PO DAILY 12/19/23 12/19/23 Previous Rx's ?Medication ?Instructions ?Recorded amlodipine 10 mg tablet 10 mg PO DAILY #90 tabs 12/22/23 levetiracetam 250 mg tablet 250 mg PO BID #180 tabs 12/22/23 (Keppra) losartan 50 mg tablet 100 mg PO DAILY #90 tabs 12/22/23 Allergies Allergy/AdvReac Type Severity Reaction Status Date / Time codeine [CODEINE] Allergy Unknown Rash Verified 06/12/24 11:33 Review of Systems 2 Review of Systems: Constitutional : No Fever, No Chills, No Fatigue ENT/Mouth : No sore throat, No Rhinorrhea Eyes: No Eye Pain, No Swelling, No Redness Cardiovascular : No Chest Pain, No SOB, No Dyspnea on Exertion Respiratory : No Cough, No Sputum Gastrointestinal : pos Nausea, No Vomiting, No Diarrhea, No abdominal Pain Genitourinary : No Dysuria, No Urinary Frequency, No Hematuria, Musculoskeletal : No joint pain, No Myalgias, No Joint Swelling Skin : No Skin Lesions, No rash Neuro : No Weakness, No Numbness, pos Dizziness, positive Headache All other systems reviewed and are negative [facility] Past Medical History Attestation statement: The following information was validated with the patient. Source: old records reviewed Medical History Venous stasis Heart failure with reduced ejection fraction Osteopenia Polymyalgia rheumatica Mixed incontinence Hiatal hernia Lumbar spinal stenosis Lumbar spondylosis Chronic low back pain Anxiety Hyperlipidemia Hypertension Surgical History History of back surgery Hx of colonoscopy Social History Social History Household Members: None Housing: House Do you presently have visiting nurse or other home services: Yes Alcohol intake: current Alcohol intake frequency: a few times a week Patient Tobacco Use Status: Former Tobacco user e-Cigarette/Vaping Use: Former Use Second Hand Smoke Exposure: No Advance Directives: Yes Advance Directives Information Provided: Yes Advance Directives on File: No Do you have a plan to hurt others: No Plan service: No Current occupational status: retired Physical Exam ED Vital Signs: Vital Signs - 24 hr 06/12/24 11:33 06/12/24 12:12 06/12/24 13:18 Temperature 98.3 F 97.6 F Pulse Rate 70 59 58 Respiratory Rate 16 15 Blood Pressure 200/74 H 163/66 H 166/63 H Pulse Oximetry 98 97 Oxygen Delivery Method Room Air Room Air 06/12/24 13:18 06/12/24 13:21 Temperature Pulse Rate 60 60 Respiratory Rate Blood Pressure 167/65 H 173/69 H Pulse Oximetry Oxygen Delivery Method BMI result Body Mass Index 27.0 Appearance: Alert. Oriented X3. No acute distress. Eyes: Pupils equal, round and reactive to light. ENT: Pharynx normal. Neck: Normal inspection. Neck supple. CVS: Normal heart rate and rhythm. Pulses normal. Respiratory: No respiratory distress. Breath sounds normal. Abdomen: Soft and nontender. Skin: Skin warm and dry. Normal skin color. Normal skin turgor. Extremities: No lower extremity edema. No calf ttp Neuro: Oriented X 3. No motor deficit. No sensory deficit. CN2-12 intact. L leg old 4+/5 weakness she states for 2.5 years NIH Stroke Scale Internal: Initial- Upon Arrival Level of Consciousness: Alert Level of Consciousness Questions: Answers both questions correctly Level of Consciousness Commands: Performs both tasks correctly Best Gaze: Normal Visual: No visual loss Facial Palsy: Normal Motor Arm (Right): No drift Motor Arm (Left): No drift Motor Leg (Right): No drift Motor Leg (Left): Drift (states 2.5 years old and not new so NIH would be 0 no new deficits) Limb Ataxia: Absent Sensory: Normal Best Language: No aphasia Dysarthia: Normal Extinction and Inattention: No abnormality Score: 1 Course Course Course Narrative: BP came down without any therapy no ataxia walking to the bathroom Medical Decision Making Medical Decision Making [facility] Narrative: 88 yo female with PMH Of HTN, dementia, CHF EF 40-45%, PMR, anxiety who presents with c/o last known well 1030pm who had worse dizziness around 2am but now improved and no dizziness unless she moves. She reports compliance with her BP medications but has been high for several days - at this time will obtain basic labs, CT head - has no symptoms when holding still and no other deficits to suggest LVO - just had MRI/CTA 2023 for aphasia. She will need possible BP control as well if it remains high on recheck. Differential Diagnosis Differential Diagnoses: The differential diagnosis associated with the presentation includes uncontrolled HTN, cerebellar disease, vertigo, anemia, dehydration Admission/Observation Consideration of admission/observation: Escalation of care including admission/observation considered with 8 hours of symptoms negative EKG, trop negative, BP trending down she is up and walking no signs of ataxia she needs no assist, no neuro deficits, no signs of infection given her DBP is in 60s and her systolic is fluctuating I am hesitant to add any new BP medications given the possible drop in her DBP. She feels safe to go home at this time declines safety concerns. Lab Data [facility] Lab Attestation statement: I reviewed the patient's lab results. 06/12/24 11:58 06/12/24 11:58 Labs: Lab Results 06/12/24 06/12/24 Range/Units 11:58 12:11 WBC 5.5 (4.8-10.8) X10*3/uL RBC 4.26 (4.20-5.50) X10*6/uL Hgb 12.9 (12.0-16.0) g/dl Hct 38.2 (37.0-47.0) % MCV 89.7 (80.0-98.0) fL MCH 30.3 (27.0-33.0) pg MCHC 33.8 (31.0-35.0) g/dl RDW 13.8 (11.0-16.0) % Plt Count 202 (160-400) X10*3/uL MPV 8.6 L (9.4-12.3) fL Immature Gran % (Auto) 0.4 (0.0-0.4) % Neut % (Auto) 68.2 (45-73) % Lymph % (Auto) 19.1 L (20-40) % [place] % (Auto) 10.3 (2-11) % Eos % (Auto) 1.5 (0-4) % Baso % (Auto) 0.5 (0-2) % Lymph # (Auto) 1.1 L (1.2-4.9) X10*3/uL [place] # (Auto) 0.6 (0.1-1.2) X10*3/uL Eos # (Auto) 0.1 (0.0-0.4) X10*3/uL Baso # (Auto) 0.0 (0.0-0.2) X10*3/uL Abs Immat Gran (auto) 0.02 (0.00-0.03) X10*3/uL Absolute Neuts (auto) 3.8 (2.0-8.3) x10*3/uL Absolute Nucleated RBC 0.000 (0.0-0.012) X10*3/uL Nucleated RBC % (auto) 0.0 (0.0-0.2) /100WBC Sodium 141 (135-145) mmol/L Potassium 4.3 (3.3-5.1) mmol/L Chloride 108 (96-108) mmol/L Carbon Dioxide 27 (22-29) mmol/L Anion Gap 10 L (12-20) BUN 12 (9-16) mg/dL Creatinine 0.64 (0.5-1.4) mg/dL Estim Creat Clear Calc 61.0 Estimated GFR > 60 Random Glucose 103 (60-115) mg/dL Calcium 9.0 (8.4-10.2) mg/dL Magnesium 2.1 (1.6-2.6) mg/dL Total Bilirubin 0.5 (0.0-1.0) mg/dL Direct Bilirubin 0.2 (0.0-0.5) mg/dL AST 27 (5-31) U/L ALT 18 (0-31) U/L Alkaline Phosphatase 49 (39-117) U/L Troponin I High Sens < 2.7 D (<3.5-17.0) ng/L B-Natriuretic Peptide 173 H (<100) pg/mL Total Protein 6.7 (6.5-8.0) g/dL Albumin 3.9 (3.5-5.0) g/dL Lipase 33 (8-78) U/L Urine Color Yellow Urine Appearance Clear Urine pH 8.0 (5.0-9.0) Ur Specific [place] <= 1.005 (1.005-1.025) Urine Protein Negative (Neg-Trace) mg/dL Urine Glucose (UA) Negative (Negative) mg/dL Urine Ketones Negative (Negative) mg/dL Urine Blood Negative (Negative) Urine Nitrite Negative (Negative) Ur Leukocyte Esterase Negative (Negative) Influenza Type A (PCR) NEGATIVE (Negative) Influenza Type B (PCR) NEGATIVE (Negative) RSV RNA Qual (PCR) NEGATIVE (Negative) SARS-CoV-2 RNA (RT-PCR) NEGATIVE (Negative) Independent Interpretation I performed an independent interpretation of an: EKG and CT Scan (no acute findings) Interpretation: Rate: 61 Rhythm: NSR [place]: normal Normal P waves. Normal MASOUD. Normal QRS complex. ST T wave : normal no TOÑO, + for LVH qTC: 442 prior studies: no acute ischemia The study has been interpreted contemporaneously by me. . Radiology Impression Discussion of test interpretation with radiology: I have reviewed the radiologist's reading. Independent Historian Clinical information obtained from an independent historian. History obtained from or confirmed by: EMS External Record Review External record reviewed: Inpatient record and Outpatient record Discharge Plan Discharge Clinical Impression: Dizziness Patient Disposition: Home, Self-Care Instructions: Lightheadedness (ED), Dizziness (ED) Additional Instructions: CT head no acute findings no anemia or elevated white blood cell count heart tests and EKG at baseline no signs of ischemia at this time normal urine test negative for flu, covid, rsv blood pressures have been 160s/60s continue your medications and call PCP for repeat blood pressure check return for weakness, numbness, vomiting, vision changes or any other concerns. Prescriptions: No Action atorvastatin 10 mg tablet 10 mg PO DAILY estradiol 0.01 % (0.1 mg/gram) cream 1 g vaginal TUSA furosemide 40 mg tablet 40 mg PO DAILY losartan 50 mg Tablet 100 mg PO DAILY Qty: 90 0RF Protocol: Hold for SBP< HOLD for SBP < : 90 amlodipine 10 mg Tablet 10 mg PO DAILY Qty: 90 0RF Protocol: Hold for SBP< HOLD for SBP < : 90 levetiracetam [Keppra] 250 mg tablet 250 mg PO BID Qty: 180 0RF metoprolol succinate 25 mg tablet extended release 24 hr 25 mg PO DAILY Print Language: Vietnamese
[2024-06-12 11:33] VITALS: BP 200/74; PULSE 70; RESP 16; TEMP 36.8; O2SAT 98; BMI 27.0
--- NOTE | 2024-06-12 11:38 | ECG_ITS ---
Test Reason : concetta Blood Pressure : */* mmHG Vent. Rate : 61 BPM Atrial Rate : 61 BPM P-R Int : 156 ms QRS Dur : 98 ms QT Int : 440 ms P-R-T Axes : 58 36 74 degrees QTcB Int : 442 ms Normal sinus rhythm Minimal voltage criteria for LVH, may be normal variant ( Sokolow-Enamorado ) Borderline ECG When compared with ECG of 19-Dec-2023 09:36, No significant change was found Referred By: Moon Valencia Electronically Signed By: Ac Mccormick
--- NOTE | 2024-06-12 11:38 | PC.NURSE ---
spoke w/ [facility] last fill Losartan 100m05/03/24 and amlodipine 10mg 04/23/24 both 90 day supplies- confirmed picked up
[2024-06-12 12:03] LABS: MANUAL DIFF FLAG NO
[2024-06-12 12:06] LABS: Basophils Percent Auto 0.5 % (0-2); Eosinophils Absolute Auto 0.1 X10*3/uL (0.0-0.4); Eosinophils Percent Auto 1.5 % (0-4); Hematocrit 38.2 % (37.0-47.0); Hemoglobin 12.9 g/dl (12.0-16.0); Imm Gran Abs Auto 0.02 X10*3/uL (0.00-0.03); Imm Gran Pct Auto 0.4 % (0.0-0.4); Lymphocytes Absolute Auto 1.1 X10*3/uL (1.2-4.9); Lymphocytes Percent Auto 19.1 % (20-40); Mean Corpuscular HGB Conc 33.8 g/dl (31.0-35.0); Mean Corpuscular Hemoglobin 30.3 pg (27.0-33.0); Mean Corpuscular Volume 89.7 fL (80.0-98.0); Mean Platelet Volume 8.6 fL (9.4-12.3); Monocytes Absolute Auto 0.6 X10*3/uL (0.1-1.2); Monocytes Percent Auto 10.3 % (2-11); Neutrophils Absolute Auto 3.8 x10*3/uL (2.0-8.3); Neutrophils Percent Auto 68.2 % (45-73); Platelet Count 202 X10*3/uL (160-400); Red Blood Count 4.26 X10*6/uL (4.20-5.50); Red Cell Distribution Width 13.8 % (11.0-16.0); White Blood Count 5.5 X10*3/uL (4.8-10.8)
[2024-06-12 12:12] VITALS: BP 163/66; PULSE 59; RESP 15; TEMP 36.4; O2SAT 97
[2024-06-12 12:24] LABS: Appearance Urine Clear; Color Urine Yellow; Glucose Urine UA Negative (Negative); Leukocyte Esterase Urine Negative (Negative); Nitrite Urine Negative (Negative); Specific Gravity - Urine <= 1.005 (1.005-1.025); Urine Blood Negative (Negative); Urine Ketones Negative (Negative); Urine Protein Negative (Neg-Trace)
[2024-06-12 12:25] LABS: Alanine Aminotransferase 18 U/L (0-31); Albumin Level 3.9 g/dL (3.5-5.0); Alkaline Phosphatase 49 U/L (39-117); Anion Gap 10 (12-20); Aspartate Amino Transferase 27 U/L (5-31); Bilirubin Direct 0.2 mg/dL (0.0-0.5); Bilirubin Total 0.5 mg/dL (0.0-1.0); Blood Urea Nitrogen 12 mg/dL (9-16); Carbon Dioxide 27 mmol/L (22-29); Chloride 108 mmol/L (96-108); Estimated Glomerular Filt Rate > 60; Glucose Random 103 mg/dL (60-115); Lipase 33 U/L (8-78); Magnesium 2.1 mg/dL (1.6-2.6); Potassium 4.3 mmol/L (3.3-5.1); Sodium 141 mmol/L (135-145); Total Protein 6.7 g/dL (6.5-8.0)
[2024-06-12 12:30] LABS: B Type Natriuretic Peptide 173 pg/mL (<100)
[2024-06-12 12:32] LABS: Troponin-I High Sensitivity < 2.7 ng/L (<3.5-17.0)
[2024-06-12 12:47] LABS: Influenza A PCR NEGATIVE (Negative); Influenza B PCR NEGATIVE (Negative); Resp Syncy Virus RNA Qual PCR NEGATIVE (Negative); SARS COV2 PCR INHOUSE NEGATIVE (Negative)
[2024-06-12 13:18] VITALS: BP 166/63; BP 167/65; PULSE 58; PULSE 60
[2024-06-12 13:21] VITALS: BP 173/69; PULSE 60
[2024-06-12 14:00] VITALS: BP 158/68; PULSE 59; RESP 15; TEMP 36.6; O2SAT 97
[2024-06-12 15:05] VITALS: BP 158/68; PULSE 59; RESP 15; TEMP 36.6; O2SAT 97
== END 2024-06-12 15:06 | disposition home or self-care (01) ==
PROVIDERS: Emergency Provider Emergency Medicine; PCP Internal Medicine
DX: R42 Dizziness and giddiness (principal); R51.9 Headache, unspecified; I10 Essential (primary) hypertension; E78.5 Hyperlipidemia, unspecified; Z03.818 Encounter for observation for suspected exposure to other biological agents ruled out
CPT/HCPCS: 0241U; 36415; 70450; 80048; 80076; 81003; 83690; 83735; 83880; 84484; 85025; 93005; 99284

== ENCOUNTER → 2024-06-12 11:38 | Outpatient (BNV) | payer MEDICARE, SELFPAY | PROVIDERS: Emergency Provider Emergency Medicine; PCP Internal Medicine; Visit Provider Radiology Diagnostic Radiology | DX: R51.9 Headache, unspecified (principal); I10 Essential (primary) hypertension | CPT/HCPCS: 70450 ==

== ENCOUNTER → 2024-06-12 11:38 | Outpatient (BNV) | payer MEDICARE, SELFPAY | PROVIDERS: Emergency Provider Emergency Medicine; PCP Internal Medicine; Visit Provider Internal Medicine Cardiovascular Disease | DX: I77.9 Disorder of arteries and arterioles, unspecified (principal) | CPT/HCPCS: 93010 ==

== ENCOUNTER 2024-09-21 14:57 | Outpatient (REF) | payer MEDICARE, SELFPAY ==
--- NOTE | ~2024-09-21 | US_ITS ---
EXAMINATION: US TRIPLEX LOWER EXTREMITY, LEFT CLINICAL INFORMATION: Edema, left lower extremity. COMPARISON: None available. TECHNIQUE: Color-flow triplex imaging with spectral analysis and compression Doppler were performed on the left lower extremity. FINDINGS: Respiratory variation, normal compression and augmented flow are demonstrated in the interrogated left common femoral vein, superficial femoral vein, profunda femoral vein, popliteal vein and midcalf peroneal and posterior tibial venous segments. There is no Rubio's cyst. US/US venous duplex LE IMPRESSION: No acute deep venous thrombosis interrogated veins, left lower extremity. Negative for DVT. Electronically signed by: Jorge Valenzuela MD 09/21/2024 03:42 PM EDT
--- OUTSIDE RECORDS SUMMARY | 2024-09-21 15:09 | XMS_ITS | Patient Health Record ---
Author Organization [facility] Address [address] [place] [id number] Care Team Providers Care Kelly Machine Operator Name Role Phone Perez Faye MD Primary Care Provider Te Storey [phone] Allergies Allergen (clinical drug ingredient) Drug/Non Drug Allergy documented on EMR Reaction Allergy Type Onset Date Status Tape Unknown Allergy Active codeine Codeine itchy Drug Allergy Active Reason For Referral No Information Medications Medication SIG (Take, Route, Frequency, Duration) Notes Start Date End Date Status Metoprolol Succinate ER 25 MG Oral for 90 Active traZODone HCl 50 MG TAKE 1 TO 2 TABLETS BY MOUTH AT BEDTIME Oral for 90 Active hydroCHLOROthiazide 25 MG Oral for 90 Active Atorvastatin Calcium 10 MG Oral for 90 Active Omeprazole 40 MG Oral for 30 A ctive Aspirin 81 81 MG 1 tablet Orally Once a day for 30 day(s) Not-Taking amLODIPine Besylate 5 MG Oral for 90 Active Multivitamin Adult A ctive Clobetasol Propionate 0.05 % APPLY A THI N LAYER TO THE AFFECTED AREA(S) BY TOPICAL ROUTE 2 TIMES PER WEEK External for 28 Active Vitamin D3 Active Furosemide 40 MG Oral for 90 A ctive Clobetasol Prop & Cleanser Active Losartan Potassium 50 MG TAKE 2 TABLETS BY MOUTH DAILY Oral for 45 Active Super Enzymes - as directed Orally Active levETIRAcetam 250 MG Oral for 90 Active Estradiol 0.1 MG/GM Vaginal for 30 Active Immunizations Vaccine Route Administration Date Status Comme nts Influenza Unknown 12/27/2023 Administered Social History Tobacco Use: Social History Observation Description Date Details (start date - stop date) Former Smoker NA - NA Tobacco Use/Smoking Question Answer Notes Patient is [...] Never (0 point) Points 1 Interpretation Negative Section Notes: Nonsmoker; no significant al cohol Nonsmoker; no significant al cohol Problems Problem Type SNOMED Code ICD Code Onset Dates Problem Status W/U Status Risk Notes Problem 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 Problem Diverticular disease of colon (533128282) Diverticulosis of large intestine without perforation or abscess without bleeding (K57.30) Active confirmed Problem Gastritis (8419057) Gastritis (K29.70) Active confirmed Problem 98578703 Gastrointestinal hemorrhage, unspecified gastrointestinal hemorrhage type (K92.2) Active confirmed Problem 776429763 Anemia due to ac gambell blood loss (D62) Active confirmed Vital Signs Temperature 97.7 degrees Fahrenheit 01/18/2024 Blood pressure diastolic 00 mm Hg 01/18/2024 Height 60 in 01/18/2024 Blood pressure systolic 000 mm Hg 01/18/2024 Weight 141 lb 5 oz lbs 01/18/2024 BMI 27.60 kg/m2 01/18/2024 Encounters Encounter Location Date Provider Diagnosis [facility] [address] [place] [address] 01/18/2024 Te Hernandez Gastrointestinal hemorrhage, unspecified gastrointestinal hemorrhage type K92.2 and Anemia due to acute blood loss D62 Assessments Encounter Date Diagnosis (ICD Code) Assessment Notes Treatment Notes Treatment Clinical Notes Section Notes 01/18/2024 Gastrointestinal hemorrhage, unspecified gastrointestinal hemorrhage type (ICD-10 - K92.2) Overall, Markel appears quite well. She is not having any new or worrisome GI complaints at the present time. She is not having any signs or symptoms of recurrent GI bleeding. As such, I don't think she will need any further evaluation on my part. I did advise her to avoid NSAIDs and aspirin given the previous history of GI bleeding. If she has recurrent bleeding in the future and the etiology remains unclear, she may eventually require a small bowel video capsule study. If things remain stable I advised her to see me on a p.r.n. basis. Markel was comfortable with this plan. Thank you again for allowing me to have participated in Markel's care. I shall continue to keep you advised of her progress as needed. Please do not hesitate to contact me if I can be of any further assistance in the future. 01/18/2024 Anemia due to acute blood loss (ICD-10 - D62) Overall, Markel appears quite well. She is not having any new or worrisome GI complaints at the present time. She is not having any signs or symptoms of recurrent GI bleeding. As such, I don't think she will need any further evaluation on my part. I did advise her to avoid NSAIDs and aspirin given the previous history of GI bleeding. If she has recurrent bleeding in the future and the etiology remains unclear, she may eventually require a small bowel video capsule study. If things remain stable I advised her to see me on a p.r.n. basis. Markel was comfortable with this plan. Thank you again for allowing me to have participated in Markel's care. I shall continue to keep you advised of her progress as needed. Please do not hesitate to contact me if I can be of any further assistance in the future. Plan Of Treatment Pending Test Test Name Order Date CHEM 7 PROFILE 07/16/2022 IRON + IBC (FE) 07/16/2022 CBC w DIFF 07/16/2022 Ferritin 07/16/2022 Vitamin B12 and Folate 07/16/2022 Future Test Test Name Order Date COLONOSCOPY 07/22/2022 Insurance Providers Payer Name Payer Address Payer Phone Subscriber Number Group Number Insured Name Patient Relationship to Insured Coverage Start Date Coverage End Date [place] [address] [facility] [place] [id number] WORDSWOR , MARKEL Self - patient is the insured [employer] CLAIMS [address] [place] [address] [id number] WORDS[employer] , MARKEL Self - patient is the insured Medical (General) History Medical History History ICD Code Irregular heart beat Hypertension Anxiety Hyperlipdiemia Polymyalgia rheumatica Reports colonoscopies in [facility] her last one before 2017 GI bleed with melena 06/2022- had been on Aspirin 81mg---EGD with a mild proximal gastritis but no ulcer nor bleeding-required transfusions Negative colonoscopy in 08/14 23 in regard to further evaluation of the above GI bleeding Denies [place],DM,CVA,Lung disease,renal dise ase Surgical History Surgery Date(Month/Year) Back surgery x 2 Pilonidal cyst Hospitalization History Reason Date(Month/Year)
== END 2024-09-21 14:58 | disposition home or self-care (01) ==
LOC: HO.US 14:57
PROVIDERS: PCP Internal Medicine; Visit Provider Nurse Practitioner Adult Health
DX: R60.0 Localized edema (principal)
CPT/HCPCS: 93971

== ENCOUNTER → 2024-09-21 15:10 | Outpatient (BNV) | payer MEDICARE, SELFPAY | PROVIDERS: PCP Internal Medicine; Visit Provider Radiology Diagnostic Radiology | DX: R60.0 Localized edema (principal) | CPT/HCPCS: 93971 ==

== ENCOUNTER 2025-01-23 12:44 | Outpatient (RCR) | payer MEDICARE, SELFPAY ==
--- NOTE | 2025-01-29 10:47 | MHC.SP.ADU ---
Referring provider: Jennifer Crowder NP Reason for Referral: ?Expressive aphasia? Type of Treatment: 29648 Standardized Cognitive Performance Testing, per hour Date of Plan of Treatment: 01/23/25 Onset of Symptoms/Illness: 12/21/23 Date Treatment Started: 01/23/25 Medical Diagnosis: Hx HTN, hyperlipidemia, anxiety, lumbar spondylosis, hiatal hernia, osteopenia, heart failure Primary Speech Language Diagnosis: R41.841 Cognitive communication disorder History Patient is an 89 year old female presenting for a cognitive linguistic evaluation for concerns of worsening memory and expressive aphasia. Patient also reports difficulty with the following areas: expressing thoughts, understanding what others are saying, problem solving, attention, reading/writing, finding words, and following directions. 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 Patient lives in a private residence and has three adult children. Patient enjoys yoga and attending a [employer] class for leisure. Patient denies any concerns related to her hearing, though she did indicate that she?s had her hearing assessed in the past, but stated, she ?does not remember this at all.? Patient uses glasses for reading and sometimes a cane to assist with ambulation. Patient reports past medical history that includes arthritis, bronchitis, cardiac disease, hypertension, stroke, seizure disorder, pneumonia, and migraines. Patient had physical therapy in the past after a back surgery, but does not attend any therapies at this time. She reports she was hospitalized 3 times the past 2 years for difficulty breathing and high blood pressure. Patient did have a Brain MRI when hospitalized on 12/21/23, showing, ?No acute intracranial findings. No acute infarct. There is global cerebral volume loss and there is moderate chronic microangiopathy. Multiple chronic microhemorrhages within the periphery of the posterior left cerebral hemisphere.? Neurology was also consulted to work up for 3-4 week history of intermittent difficulty finding words and completing sentences. Per Dr. Elder 12/21/23, patient?s MRI showed ?no structural abnormalities in the language area and no acute infarct. There is diffuse and white matter microvascular disease and in the subcortical and deep white matter but sometimes can cause speech problems. The other possibility would be that there are some focal seizure activity going on that's causing some speech arrest at times.? Patient was referred to [facility] for follow-up. It is unclear if patient followed through with this recommendation. Medical History: Other: Medical History Venous stasis Heart failure with reduced ejection fraction Osteopenia Polymyalgia rheumatica Mixed incontinence Hiatal hernia Lumbar spinal stenosis Lumbar spondylosis Chronic low back pain Anxiety Hyperlipidemia Hypertension Surgical History History of back surgery Hx of colonoscopy Medication List: Recent Hospitalizations: Respiratory Needs: Patient Orientation: Social History: Employment Status: Retired Current Living Situation: Private residence Assistive Devices in use: Glasses/Contacts Past Speech Language Therapy: N/A Other Therapies Seen in Current Calendar Year: None Assessment Tests of Cognition: RBANS Clinical Impression: Impaired Observations: Patient?s cognitive linguistic skills were evaluated using the RBANS: The Repeatable Battery for the Assessment of Neuropsychological Status (RBANS-Updated Form A). The RBANS assesses aspects of cognitive memory, language, and attention skills. The RBANS is considered a screening battery for cognitive function used with adolescents and adults, ages 12 to 89 years. Composite domains assessed in this evaluation are: Immediate Memory, Visuospatial/Constructional, Language, Attention, and Delayed Memory. Assessed domains and their scores are summarized below: IMMEDIATE MEMORY: These subtests assess an individual?s ability to remember a small amount of information immediately after it is presented. Patient was presented with a list of 10 spoken words and was instructed to repeat back as many words as she could remember from the list (List Learning). Patient initially recalled just one of the last words she heard, but after the list was repeated to her several more times, she recalled up to 4 items at a time. After listening to a spoken paragraph, patient was instructed to re-tell the story with as much detail as she could remember (Story memory). Patient mixed up dates and other details (i.e. indicated ?nobody was hurt? when the story specified that 7 people were injured). She did recall generally that the story was ?about a storm,? but did not recall specifically that it was a tidal wave. Encouragingly, she remembered more details after the story was repeated for her. Patient reports that she has trouble remembering things that are told to her and often asks for repetition and writes everything down. List Learning Total Score: 9 Scaled Score: 2 Percentile Rank: 0.4 Interpretation: Extremely Low Story Memory Total Score: 7 Scaled Score: 4 Percentile Rank: 2 Interpretation: Borderline Immediate Memory Index score: 57 Percentile Rank: 0.2 Interpretation: Extremely Low VISUOSPATIAL/CONSTRUCTIONAL: These subtests assess an individual?s visuospatial skills and perception of spatial relationships. Patient was first instructed to draw an accurate copy of a figure presented to her (Figure Copy). She used the border around the page as the ?rectangle? which was to be drawn, and oriented the rectangle vertically rather than horizontally as shown on the model. Her figure otherwise included most components shown on the model. Next, patient was instructed to identify lines that matched based on orientation and placement and was able to match one or both lines in each angle. No significant difficulties were demonstrated, indicating visuo-spatial skills are a relative strength for her. Figure Copy Total Score: 10 Scaled Score: 2 Percentile Rank: 0.4 Interpretation: Extremely Low Line Orientation Total Score: 17 Percentile Group: 51-75 Interpretation: Average Visuospatial/Constructional Index score: 81 Percentile Rank: 72 Interpretation: Low Average LANGUAGE: These subtests assess an individual?s word retrieval skills. Patient correctly named line images in 8 out of 10 trials during a confrontational naming task (Picture Naming). Patient described sea horse as ?horse?sea shell creature.? She produced a semantic paraphasia as well, mislabeling dice as ?dominoes.? Phonemic cues did not elicit these target words. Patient expressed, ?It?s just on the tip of my tongue.? Patient reports she frequently ?struggles to find the right word? and that this also occurs during conversation. To further assess word retrieval, she was instructed to name as many animals as she can in 60 seconds (Semantic Fluency) and named 6 relevant items in this category. Word retrieval was identified as an area of weakness and a treatment target. Picture Naming Total Score: 8 Percentile Group: 3-9 Interpretation: Borderline Semantic Fluency Total Score: 10 Scaled Score: 4 Percentile Rank: 2 Interpretation: Borderline Language Index score: 68 Percentile Rank: 2 Interpretation: Extremely Low ATTENTION: These subtests assess an individual?s capacity to remember and manipulate both visually and orally presented information in short-term memory storage. Patient was first instructed to repeat back number series that were between 2-9 digits long (Digit Span). She performed well on this task and recalled digit series made up of up to 6-7 digits. Patient was also instructed to code markings with numbers (Coding). She coded 13 markers, making 4 errors and receiving a raw score of 9. Attention is another area of relative strength. Digit Span Total Score: 11 Scaled Score: 13 Percentile Rank: 84 Interpretation: High Average Coding Total Score: 9 Scaled Score: 1 Percentile Rank: 0.1 Interpretation: Extremely Low Attention Index score: 82 Percentile Rank: 73 Interpretation: Low Average DELAYED MEMORY: These subtests assess an individual?s retrieval of information from long-term memory. Patient exhibited difficulty recalling information that was presented to her at the beginning of the testing period. She did not recall any items from the word list nor details from the story. Patient confabulated the list with the story and stated, ?I don?t even know what the story was about. A lot of the words we just did were in the story though.? She was then asked to recognize items from the list by indicating whether or not a given word was on that list (List Recognition). She answered correctly in 13/20 trials and expressed that she was ?guessing.? List Recall Total Score: 0 Percentile Group: 3-9 Interpretation: Borderline List Recognition Total Score: 13 Percentile Group: <2 Interpretation: Extremely Low Story Recall Total Score: 0 Scaled Score: 2 Percentile Rank: 0.4 Interpretation: Extremely Low Figure Recall Total Score: 6 Scaled Score: 6 Percentile Rank: 9 Interpretation: Low Average Delayed Memory Index Score: 52 Percentile Rank: 0.1 Interpretation: Extremely Low Sum of Index Scores: 340 Total Scale: 60 Percentile: 0.4 Interpretation: Extremely Low Cornelius Travis (1998). Repeatable Battery for the Assessment of Neuropsychological Status [Manual]. [place]: Bruce. Impressions and Recommendations Summary: On assessment today, patient presented with a moderate cognitive linguistic impairment, with difficulties identified in the areas of word retrieval, and more notably, immediate and delayed memory. She displayed strengths in her visuo-spatial skills and attention. Patient would benefit from an audiological evaluation to rule in/out any hearing loss which may be exacerbating her cognitive difficulties. Furthermore, patient is recommended consultation with Neurology, as recommended by the hospitalist during her previous inpatient stay, to investigate underlying cause of persistent cognitive difficulties. Patient is recommended outpatient speech therapy 1x weekly x 12 sessions to trial cognitive linguistic therapy, with goals targeting short term recall and word finding. Recommendation for Speech Therapy: Outpatient Speech Therapy Frequency/Duration: 1x weekly x 12 weeks Date Range for Service Requested: Time to Reassess: PRN Chcf Goals: 1. Patient will complete the [place] Naming Test Standard Form to further assess word retrieval and response to varied cues with 100% completion across 1-2 sessions. 2. Patient will utilize a variety of word-finding strategies at the conversational level with minimal assistance in >80% opportunities presented to her. 3. Patient will utilize compensatory strategies to assist (immediate and delayed) short-term memory in 80% of opportunities independently. Short Term Goals: Goal # : 2.1. Patient will utilize complete a SEMANTIC FEATURE ANALYSIS chart for target words, providing physical components, category, use/function, action, association, location in 8 out of 10 trials with moderate assistance. 2.2. Patient will identify a category for concrete nouns given 3-5 members and add 2 additional members in 4 out of 5 trials with minimal assistance. 2.3. Patient will use circumlocution, gestures, and writing to facilitate word retrieval and listener understanding when exhibiting word recall difficulty during conversation when provided with minimal cueing in 4 out of 5 opportunities across 3 sessions. Goal Status: New Goal Goal# : 3.1. Patient will use internal memory strategies (i.e. rehearsal, association, visualization) to recall 4 or more items (i.e. grocery list, medication list, etc.) at 80% accuracy when provided with minimal verbal cues. 3.2. Patient will use internal memory aids to recall the steps of a routine or simple recipe (i.e., 3 to 4 steps) with 80% accuracy. 3.3. Patient will read paragraph-level information and answer questions about the material at 80% accuracy after a 5-minute delay. Goal Status: New Goal Goal # : 3.4. Patient will utilize ?write it down? while presented with auditory instructions and recall 80% of the information given use of written notes only. 3.5. Patient will electively use an adilson or tech device to record and retrieve needed information in 4 out of 5 contexts with minimal verbal prompting. Goal Status: New Goal Recommended Referrals to be Discussed with Primary Care Provider: Audiological Evaluation Neurology Patient Education: Completed: Yes Patient/Caregiver Education: Described Results of Evaluation Patient expressed understanding of evaluation Patient requires further education on strategies Comments/Barriers to Learning: It was a pleasure meeting and working with Kathie Parker. Please do not hesitate to contact the [facility] if we can be of further assistance in her care. Theatrical Performer Clinican/Clinical Fellow: No Supervisory Statement: N/A Speech Language Pathologist: Carolina Pretty M.A., [facility] TECHNICIAN
== END 2025-02-06 15:14 | disposition still patient (30) ==
LOC: HO.SH 12:44
PROVIDERS: Visit Provider Nurse Practitioner Adult Health
DX: F80.1 Expressive language disorder (principal)
CPT/HCPCS: 96125